=== PATIENT | female | born 1940 | race Caucasian/White ===

== ENCOUNTER 2018-01-04 13:19 | Emergency (ER) | payer MEDICARE, MEDICAID, SELFPAY ==
[2018-01-04] VITALS (64 sets, daily range): BP systolic 70–135; BP diastolic 41–85; PULSE 68–115; RESP 15–99; TEMP 36.7–37; O2SAT 94–99
--- NOTE | 2018-01-04 13:22 | DI.CT_ITS ---
SYMPTOM/DIAGNOSIS: ALTERED MENTAL STATUS NONCONTRAST HEAD CT: Comparison is made with 08/31/17. No intracranial hemorrhage, mass or infarct is seen. There is mild atrophy. There are mild white matter changes consistent with small vessel disease. IMPRESSION: No acute abnormality.
--- NOTE | 2018-01-04 13:22 | DI.RAD_ITS ---
SYMPTOM/DIAGNOSIS: ALTERED MENTAL STATUS AP AND LATERAL CHEST: Comparison is made with 08/31/17 supine chest. The heart size is normal. The aorta is tortuous. A calcification is again noted in the right lower lobe. The exam is limited by overlying sheets, creating artifact, particularly on the lateral view. The lungs are grossly clear. There are mild thoracic compression fractures which appear grossly unchanged when compared with the previous exam. IMPRESSION: No acute abnormality.
--- NOTE | 2018-01-04 13:24 | W.ED.GENAD ---
Discharge Plan Discharge Details Chief Complaint: AMS/LOC Primary Care Provider: Iveth Stearns ED Provider: Elvia Power Home Meds and New Rx's Prescriptions: No Action folic acid 1 MG tablet 1 mg PO DAILY RF: 0 acetaminophen [Tylenol] 325 MG tablet 650 mg PO Q6H PRN PRNRF: 0 cyanocobalamin (vitamin B-12) [Vitamin B-12] 500 MCG tablet 1,000 mcg PO DAILY RF: 0 folic acid 1 MG tablet 1 mg PO DAILY RF: 0 thiamine mononitrate (vit B1) [Vitamin B-1 (mononitrate)] 100 MG tablet 100 mg PO DAILY RF: 0 Medical Decision Making MDM Narrative Medical decision making narrative: Patient presents with primary concern for AMS. Mds Nurse found the patient who would not get out of bed. She was falling asleep frequently. Patient reported to EMS that she had 2L of wine this morning. She appears intoxicated on exam. She is oriented to person and place but when I ask her the year she reports, I know it but I am not going to tell you. This is how much of the exam questioning went. She agreed to some questions but would either act like she did not hear me or blatantly refuse to answer. She is slurring her words. She is moving about the bed, able to sit up quickly without assistance. She has pain in her lower extremities, links this with her history of hip fracture from August of this year. States she falls frequently, unclear as to why. States that this is not new. States she does not drink ETOH daily. I only drink on the weekends. We did bring to her attention that today is Wednesday and she did not respond to this. EKG reviewed by Dr. Melendez. She advised no abnoralities. No findings to suggest ischemic changes. Contacted by radiologist who advised that head CT and chest XR are both 'negative'. EMS had placed an IV, blood was unable to be pulled from this. Lab has come to draw blood but patient is difficult to obtain blood from, this has delayed lab results. Patient is concentrating on laboratory evaluation was primarily concerning for dehydration which is consistent with I am seeing on exam. Ammonia is less than 10. Troponin is within normal limits. Alcohol level is 310. Discussed these findings with the patient. She reports that she has never had alcohol withdrawal induced seizures. She continues to appear intoxicated, is continually needing redirection and slurring her words. Patient does live alone with no family or friends nearby. She is unable to ambulate at this time secondary to her current state. If the patient is unsafe to go home at this time. Will consult with hospitalist. Consulted with list regarding dehydrated and intoxicated patient. He advised admission was inappropriate at this time. He did educate me on the public inebriate program. I did look into this but the nurse program is in [place]. I am concerned that even if we arrange for EMS transfer to that facility tonight she may not be able to get back tomorrow or have difficulty doing so. I am concerned given her frailty and age, as well as her dehydration status, that she is not a good candidate to go into police custody for intoxication. Rather, we will hold her in the department and monitor for clinical sobriety. Discussed patient needing to stay here. She voices understanding. Shortly after patient agreed to admission, she pulled out her IV. This is being replaced by nursing staff. Urine concerning for UTI with positive nitrite and large luek esterace. Will treat with oral Keflex. Patient given first dose here. Discussed these findings with the patient who is now reporting that she had dysurea and increased frequency. Patient appears to have sobered clinically. She is eating and drinking. Has received 2L of fluid. Reports she is feeling 100% better. Has linear train of thought and is appropriate. Requesting discharge. Nursing staff ambulated hte patient. She walks with a walker at baseline. Was unsteady on her feet even with walker. Will continue to monitor and ambulate again. HPI - General Adult General Mode of arrival: EMS. Date/Time Provider Initiated Documentation: 01/04/18 13:52. Limitations to Documentation: altered mental status. Information obtained by: patient and EMS. HPI Narrative: Patient is a 77-year-old female with history of anemia pending today, brought in via EMS, with chief complaint of altered mental status. They report that they were told them for an incoherent elderly female. When they arrived, they report that she was frequently falling asleep. She reported to them that she had 2 L of wine this morning. They report that there is a multitude of wine bottles about the bedroom. It appears that she is not getting out of bed. Appears she is lying in bed, drinking wine and eating peanut butter. She is currently denying any pain. She denies any headache. She denies any visual change. Denies any GI upset. Denies chest pain or shortness of breath. Patient was last hospitalized in August of this year which time she had an ORIF of her left hip. At that time, they were concerned for her daily alcohol consumption as she was near withdrawals. Related Data Previous Rx's Medication Instructions Recorded folic acid 1 mg PO DAILY tab 06/17/15 acetaminophen [Tylenol] 650 mg PO Q6H PRN PRN tab 09/03/17 cyanocobalamin (vitamin B-12) 1,000 mcg PO DAILY tab 09/03/17 [Vitamin B-12] folic acid 1 mg PO DAILY tab 09/03/17 thiamine mononitrate (vit B1) 100 mg PO DAILY tab 09/03/17 [Vitamin B-1 (mononitrate)] Allergies Allergy/AdvReac Type Severity Reaction Status Date / Time aspirin Allergy Intermediate Unverified 01/04/18 15:51 ketorolac AdvReac Mild Other (See Unverified 01/04/18 15:49 Comment) most medication AdvReac Intermediate Uncoded 01/04/18 15:51 lactose intolerant AdvReac Uncoded 01/04/18 15:50 Review of Systems Review of Systems Unobtainable due to mental status PFSH Social History Smoking/Tobacco Use Status: Former Tobacco Use Exam Const General: uncooperative, comfortable, no acute distress, No well groomed (patient is naked except for bed robe), not anxious, not combative, not diaphoretic, frail appearing and intoxicated appearing Nutritional Appearance: thin Orientation: alert and not awake (patient is able to be awakened but then appears to fall back asleep) Limitations: altered mental status [facility] Head: normal to inspection, normocephalic and atraumatic Ears: hearing grossly normal bilaterally Face and sinus: normal facial exam Mouth: moist mucous membranes abnormal (patient appears dry) Teeth and gingiva: abnormal dentition (patient has multiple missing teeth) Eyes General: appearance normal, both eyes and all related structures Conjunctivae: conjunctivae normal Pupils: PERRL and accommodation normal Neck Neck: full ROM and no lymphadenopathy Chest Chest: normal inspection of the chest, no crepitus, no tenderness and No rash Resp Effort & Inspection: normal respiratory effort, able to speak in complete sentences, no respiratory distress, no retractions and no use of accessory muscles Auscultation: clear to auscultation bilaterally Cardio Rate: regular rate Rhythm: regular rhythm Heart Sounds: S1 normal and S2 normal GI Inspection: normal to inspection, no abdominal wall ecchymosis and non-distended Palpation: soft, no hepatosplenomegaly, not firm, no guarding, no masses, not rigid and nontender Auscultation: normal bowel sounds Back/Spine/Pelvis Other: No rashes, ecchymosis or signs of trauma Skin General skin exam: no rashes or lesions noted Lesions: no lesions Rashes: no rashes Trauma: no lacerations or abrasions Wounds: no wounds Nails: nails abnormal (patient has few fake nails making O2 difficult to obtain initially) and no clubbing Neuro General: alert, oriented Patient Orientation: Person and Place, normal light touch, pain and propioception, no meningeal signs and CN's II-XI intact bilaterally Cranial Nerves: PERRL, accommodation normal and EOM intact bilaterally Cognition: abnormal cognition Speech: abnormal speech slurred Gait: gait abnormal (patient was found in bed by EMS, has not attempted to stand, they are concerned that )
--- NOTE | 2018-01-04 13:40 | ED.GENADUL_ITS ---
Discharge Plan Discharge Details Chief Complaint: AMS/LOC Primary Care Provider: Iveth Stearns ED Provider: Elvia Power Home Meds and New Rx's Prescriptions: No Action folic acid 1 MG tablet 1 mg PO DAILY RF: 0 acetaminophen [Tylenol] 325 MG tablet 650 mg PO Q6H PRN PRNRF: 0 cyanocobalamin (vitamin B-12) [Vitamin B-12] 500 MCG tablet 1,000 mcg PO DAILY RF: 0 folic acid 1 MG tablet 1 mg PO DAILY RF: 0 thiamine mononitrate (vit B1) [Vitamin B-1 (mononitrate)] 100 MG tablet 100 mg PO DAILY RF: 0 Medical Decision Making MDM Narrative Medical decision making narrative: Patient presents with primary concern for AMS. [employer] found the patient who would not get out of bed. She was falling asleep frequently. Patient reported to EMS that she had 2L of wine this morning. She appears intoxicated on exam. She is oriented to person and place but when I ask her the year she reports, I know it but I am not going to tell you. This is how much of the exam questioning went. She agreed to some questions but would either act like she did not hear me or blatantly refuse to answer. She is slurring her words. She is moving about the bed, able to sit up quickly without assistance. She has pain in her lower extremities, links this with her history of hip fracture from August of this year. States she falls frequently, unclear as to why. States that this is not new. States she does not drink ETOH daily. I only drink on the weekends. We did bring to her attention that today is Wednesday and she did not respond to this. EKG reviewed by Dr. Melendez. She advised no abnoralities. No findings to suggest ischemic changes. Contacted by radiologist who advised that head CT and chest XR are both ' negative'. EMS had placed an IV, blood was unable to be pulled from this. Lab has come to draw blood but patient is difficult to obtain blood from, this has delayed lab results. Patient is concentrating on laboratory evaluation was primarily concerning for dehydration which is consistent with I am seeing on exam. Ammonia is less than 10. Troponin is within normal limits. Alcohol level is 310. Discussed these findings with the patient. She reports that she has never had alcohol withdrawal induced seizures. She continues to appear intoxicated, is continually needing redirection and slurring her words. Patient does live alone with no family or friends nearby. She is unable to ambulate at this time secondary to her current state. If the patient is unsafe to go home at this time. Will consult with hospitalist. Consulted with list regarding dehydrated and intoxicated patient. He advised admission was inappropriate at this time. He did educate me on the public inebriate program. I did look into this but the nurse program is in [place]. I am concerned that even if we arrange for EMS transfer to that facility tonight she may not be able to get back tomorrow or have difficulty doing so. I am concerned given her frailty and age, as well as her dehydration status, that she is not a good candidate to go into police custody for intoxication. Rather, we will hold her in the department and monitor for clinical sobriety. Discussed patient needing to stay here. She voices understanding. Shortly after patient agreed to admission, she pulled out her IV. This is being replaced by nursing staff. Urine concerning for UTI with positive nitrite and large luek esterace. Will treat with oral Keflex. Patient given first dose here. Discussed these findings with the patient who is now reporting that she had dysurea and increased frequency. Patient appears to have sobered clinically. She is eating and drinking. Has received 2L of fluid. Reports she is feeling 100% better. Has linear train of thought and is appropriate. Requesting discharge. Nursing staff ambulated hte patient. She walks with a walker at baseline. Was unsteady on her feet even with walker. Will continue to monitor and ambulate again. HPI - General Adult General Mode of arrival: EMS . Date/Time Provider Initiated Documentation: 01/04/18 13:52 . Limitations to Documentation: altered mental status . Information obtained by: patient and EMS . HPI Narrative: Patient is a 77-year-old female with history of anemia pending today, brought in via EMS, with chief complaint of altered mental status. They report that they were told them for an incoherent elderly female. When they arrived, they report that she was frequently falling asleep. She reported to them that she had 2 L of wine this morning. They report that there is a multitude of wine bottles about the bedroom. It appears that she is not getting out of bed. Appears she is lying in bed, drinking wine and eating peanut butter. She is currently denying any pain. She denies any headache. She denies any visual change. Denies any GI upset. Denies chest pain or shortness of breath. Patient was last hospitalized in August of this year which time she had an ORIF of her left hip. At that time, they were concerned for her daily alcohol consumption as she was near withdrawals. Related Data Previous Rx's Medication Instructions Recorded folic acid 1 mg PO DAILY tab 06/17/15 acetaminophen [Tylenol] 650 mg PO Q6H PRN PRN tab 09/03/17 cyanocobalamin (vitamin B-12) 1,000 mcg PO DAILY tab 09/03/17 [Vitamin B-12] folic acid 1 mg PO DAILY tab 09/03/17 thiamine mononitrate (vit B1) 100 mg PO DAILY tab 09/03/17 [Vitamin B-1 (mononitrate)] Allergies Allergy/AdvReac Type Severity Reaction Status Date / Time aspirin Allergy Intermediate Unverified 01/04/18 15:51 ketorolac AdvReac Mild Other (See Unverified 01/04/18 15:49 Comment) most medication AdvReac Intermediate Uncoded 01/04/18 15:51 lactose intolerant AdvReac Uncoded 01/04/18 15:50 Review of Systems Review of Systems Unobtainable due to mental status PFSH Social History Smoking/Tobacco Use Status: Former Tobacco Use Exam Const General: uncooperative, comfortable, no acute distress, No well groomed ( patient is naked except for bed robe), not anxious, not combative, not diaphoretic, frail appearing and intoxicated appearing Nutritional Appearance: thin Orientation: alert and not awake (patient is able to be awakened but then appears to fall back asleep) Limitations: altered mental status [facility] Head: normal to inspection, normocephalic and atraumatic Ears: hearing grossly normal bilaterally Face and sinus: normal facial exam Mouth: moist mucous membranes abnormal (patient appears dry) Teeth and gingiva: abnormal dentition (patient has multiple missing teeth) Eyes General: appearance normal, both eyes and all related structures Conjunctivae: conjunctivae normal Pupils: PERRL and accommodation normal Neck Neck: full ROM and no lymphadenopathy Chest Chest: normal inspection of the chest, no crepitus, no tenderness and No rash Resp Effort & Inspection: normal respiratory effort, able to speak in complete sentences, no respiratory distress, no retractions and no use of accessory muscles Auscultation: clear to auscultation bilaterally Cardio Rate: regular rate Rhythm: regular rhythm Heart Sounds: S1 normal and S2 normal GI Inspection: normal to inspection, no abdominal wall ecchymosis and non-distended Palpation: soft, no hepatosplenomegaly, not firm, no guarding, no masses, not rigid and nontender Auscultation: normal bowel sounds Back/Spine/Pelvis Other: No rashes, ecchymosis or signs of trauma Skin General skin exam: no rashes or lesions noted Lesions: no lesions Rashes: no rashes Trauma: no lacerations or abrasions Wounds: no wounds Nails: nails abnormal (patient has few fake nails making O2 difficult to obtain initially) and no clubbing Neuro General: alert, oriented Patient Orientation: Person and Place, normal light touch, pain and propioception, no meningeal signs and CN's II-XI intact bilaterally Cranial Nerves: PERRL, accommodation normal and EOM intact bilaterally Cognition: abnormal cognition Speech: abnormal speech slurred Gait: gait abnormal (patient was found in bed by EMS, has not attempted to stand , they are concerned that )
--- NOTE | 2018-01-04 13:45 | NUR.NOTE ---
To CT and xray with [employer] Note:
--- NOTE | 2018-01-04 14:07 | NUR.NOTE ---
Return from xray/CT with [employer] Note:
[2018-01-04] MEDS: Normal Saline 1,000 ML 1000 ML IV (14:20)
[2018-01-04] MEDS: Normal Saline Flush 10 ML SYR IVP (14:41)
[2018-01-04 15:04] LABS: Abs Immature Grans 0.01 k/cumm (0.0-0.09); Absolute Basophil Count 0.05 k/cumm (0.0-0.2); Absolute Eosinophil Count 0.06 k/cumm (0.0-0.7); Absolute Lymphocyte Count 2.35 k/cumm (1.2-3.4); Absolute Monocyte Count 0.57 k/cumm (0.11-0.7); Absolute Neutrophil Count 2.23 k/cumm (1.2-6.7); Basophils % 0.9; Eosinophils % 1.1; HCT 49.5 % (36.0-46.0); HGB 15.7 g/dL (12.0-15.5); Immature Grans % 0.2; Lymphocytes % 44.6; Mean Corp. HGB Concentration 31.7 g/dL (32.0-36.0); Mean Corpuscular Hemoglobin 31.8 pg (27.0-33.0); Mean Corpuscular Volume 100.4 fL (80-95); Mean Platelet Volume 9.4 fL (8.0-11.0); Monocytes % 10.8; Neutrophils % 42.4; Platelet Count 274 x1000/uL (130-400); RBC 4.93 m/cumm (4.00-5.20); RBC Distribution Width 14.8 % (11.7-14.6); White Blood Cell Count 5.27 k/cumm (4.4-10.8)
[2018-01-04 15:16] LABS: Prothrombin Time 10.2 sec (9.3-10.8)
[2018-01-04 15:19] LABS: Ammonia < 10 umol/L (11-32)
[2018-01-04 15:48] LABS: ALT 14 U/L (12-78); AST 29 U/L (15-37); Albumin 3.4 g/dL (3.4-5.0); Alkaline Phosphatase 133 U/L (46-116); Anion Gap 12.5 mmol/L (3-11); BUN 4 mg/dL (7-18); Bilirubin, Total 0.3 mg/dL (0.2-1.0); CO2 25.5 mmol/L (21.0-32.0); CREATININE 0.47 mg/dL (0.55-1.02); Calcium 8.1 mg/dL (8.5-10.1); Chloride 112 mmol/L (98-107); Glucose 76 mg/dL (70-100); Potassium 4.2 mmol/L (3.5-5.1); Sodium 150 mmol/L (136-145); TSH 0.89 uIU/mL (0.358-3.74); Total Protein 6.7 g/dL (6.4-8.2)
[2018-01-04 15:55] LABS: ETHANOL BLOOD 310.9 mg/dL (<3); Troponin I < 0.02 ng/mL (0.00-0.06)
[2018-01-04] MEDS: Lactated Ringers 1,000 ML 200 ML IV (16:30)
[2018-01-04 17:36] LABS: Bilirubin Negative (Negative); Blood Trace-intact (Negative); Clarity Cloudy; Glucose Negative (Negative); Ketones Negative (Negative); Leukocyte Esterase Large (Negative); Nitrite Positive (Negative); Urobilinogen 0.2 EU/dL (Up TO 0.2); pH 5.5 (5-8)
[2018-01-04 17:58] LABS: Bacteria Many HPF (Negative); C & S Indicated? Yes; Casts Negative LPF (Negative); Crystals Negative HPF (Negative); Epithelial Cells Negative HPF (Negative); Mucus Negative (Negative); Other Cells Moderate Renal (Negative); RBC 0-2 (0-2); WBC >50 HPF (0-5)
[2018-01-04] MEDS: Cephalexin 500 MG CAP PO (18:37)
--- NOTE | 2018-01-04 19:26 | NUR.NOTE ---
Nursing Note: Received report from previous shift. Pt is alert, appropriate, using call light appropriately as needed. Requesting lights to be turned down to rest at this time. Will CTM.
--- NOTE | 2018-01-04 21:17 | W.ED.FU ---
Follow Up Plan: patient signed out to me pending clinical sobirety. PAtient is now caox4 and is ambuatling with walker at her baseline with steady gait using this. She is tolerating PO and has no complaints at this time, will d/c home
--- NOTE | 2018-01-07 12:18 | PDOC.ERCMPRO ---
Care Management Progress Note 01/07/18-Pt was seen on 01/05/18 by Rosalba for a UTI. MAMADOU Bermeo is f/u has ordered the Pt oral Keflex through [employer]. CM contacted Pt to let her know that it has been ordered and will be delivered to her by [employer] canal driver.
--- NOTE | 2018-01-07 12:23 | CMPROGNOTE_ITS ---
Care Management Progress Note 01/07/18-Pt was seen on 01/05/18 by Rosalba for a UTI. MAMADOU Bermeo is f/u has ordered the Pt oral Keflex through [employer]. CM contacted Pt to let her know that it has been ordered and will be delivered to her by [email or web address]'s fuel truck driver.
--- NOTE | 2018-03-26 12:53 | W.ED.GENAD ---
Discharge Plan Disposition Patient Disposition: HOME Condition: Stable Discharge Details Chief Complaint: AMS/LOC Clinical Impression: Alcohol intoxication Primary Care Provider: Iveth Stearns ED Provider: Kev Sandoval Home Meds and New Rx's Prescriptions: Continue folic acid 1 MG tablet 1 mg PO DAILY RF: 0 acetaminophen [Tylenol] 325 MG tablet 650 mg PO Q6H PRN PRNRF: 0 cyanocobalamin (vitamin B-12) [Vitamin B-12] 500 MCG tablet 1,000 mcg PO DAILY RF: 0 folic acid 1 MG tablet 1 mg PO DAILY RF: 0 thiamine mononitrate (vit B1) [Vitamin B-1 (mononitrate)] 100 MG tablet 100 mg PO DAILY RF: 0 Discharge Instructions Instructions: Alcohol Intoxication (ED) Discharge Data Discharge Date/Time-TO BE ENTERED AT DEPARTURE: 01/04/18 21:26 Discharge Physician: Kev Sandoval Medical Decision Making Patient was in the patient's visit on 01/04/2018. Initial note seems to have been accidentally deleted. Patient is 77-year-old female, brought in via EMS, with chief complaint of altered mental status. EMS was called by her health and wellness director who found her inebriated in bed. EMS reports that she had a large box of multitude of empty wine bottles near her bed and a 2 L empty wine bottle next to the bed. She reports I only drink on the weekends. Today is Wednesday. She is fighting nursing staff but is fairly cooperative with myself. Her mentation seems to be variable. Initially, patient was acting as if she could not hear as but then quickly was able to come to when we discussed sternal rub. Patient does answer questions appropriately. Patient appears and smells intoxicated. Patient has history of anemia, cataracts, myocardial infarction. BGL obtained prior to arrival is 111. Patient denies any pain, feels that she is at baseline. She is easily agitated, very labile. Neuro exam is slightly limited secondary to patient's mental status. She has been rambling frequently with no linear thought process. However, she is able to move all of her extremities. Cranial nerves are intact. Answers questions appropriately when awoken. No pronator drift or evidence of stroke at this time. Plan to obtain CT and laboratory evaluation. Discussed this plan with the patient Patient denies suicidal or homocidal ideation. She does report that she is lonely, does not frequently have visitors. Has a person come to her home to help her shop, states that she frequently goes without eating but has been having peanut butter recently as she went grocery shopping. EKG reviewed by Dr. Melendez. No acute ischemic changes noted. Patient is in sinus rhythm with a rate of 93. Laboratory evaluation significant for concentration, patient appears dehydrated. Alk phos is elevated, has not been elevated historically. Patient is clinically improving. Does not appear completely sober but is improving. She and I discussed her elevated alk phos, she will have this reassessed by PCP. Urine significant for trace blood, large amount of leukocyte esterase, nitrite positive. She denies urinary symptoms but with these findings, will begin patient on abx for UTI. I am concerned that her intoxicated state is clouding her judgement of her urinary symptoms. UDS negative. ETOH 310. Spoke with Dr. Diaz regarding cxr and CT. CXR without acute cardiopulmonary process. CT of head signficiant for mild atropy, no hemorrhage or infarct noted. Patient has received hydration while here. Secondary to her dehydration, age and intoxicated state, I do not feel that she is candidate for discharge home safely. Will consult with hosptialist. Spoke with Dr. Park who did not feel that patient was appropriate for inpatient admission. He gave insight into local places that patient may be able to be housed for the night. We were unable to find appropriate housing for the patient tonight. She will remain in the department until clinically sober. Patient diagnosed with dehydration, alcohol intoxication and UTI. Care transitioned to Dr. Sandoval at the end of my shift, clinical sobriety pending. HPI General Mode of arrival: EMS. Date/Time Provider Initiated Documentation: 01/04/18 13:52. Limitations to Documentation: altered mental status. Information obtained by: patient and EMS. History of Present Illness 77 year old F presents to the emergency department with the chief complaint of AMS, described as moderate, Patient started experiencing this unknown and it has been intermittent. Patient notes denies chest pain, cough, fever/chills, headaches, nausea/vomiting, rash, shortness of breath and weakness. Patient did receive the following treatments prior to arrival, none Related Data Home Medications Medication Instructions Recorded Confirmed folic acid 1 mg PO DAILY tab 06/17/15 08/31/17 acetaminophen [Tylenol] 650 mg PO Q6H PRN PRN tab 09/03/17 01/04/18 cyanocobalamin (vitamin B-12) 1,000 mcg PO DAILY tab 09/03/17 01/04/18 [Vitamin B-12] folic acid 1 mg PO DAILY tab 09/03/17 01/04/18 thiamine mononitrate (vit B1) 100 mg PO DAILY tab 09/03/17 01/04/18 [Vitamin B-1 (mononitrate)] Previous Rx's Medication Instructions Recorded folic acid 1 mg PO DAILY tab 06/17/15 acetaminophen [Tylenol] 650 mg PO Q6H PRN PRN tab 09/03/17 cyanocobalamin (vitamin B-12) 1,000 mcg PO DAILY tab 09/03/17 [Vitamin B-12] folic acid 1 mg PO DAILY tab 09/03/17 thiamine mononitrate (vit B1) 100 mg PO DAILY tab 09/03/17 [Vitamin B-1 (mononitrate)] Allergies Allergy/AdvReac Type Severity Reaction Status Date / Time aspirin Allergy Intermediate Unverified 01/04/18 15:51 ketorolac AdvReac Mild Other (See Unverified 01/04/18 15:49 Comment) most medication AdvReac Intermediate Uncoded 01/04/18 15:51 lactose intolerant AdvReac Uncoded 01/04/18 15:50 General Stated Complaint: AMS/LOC NYA: 2 Review of Systems Constitutional Reports as per HPI, Denies chills, Denies fatigue, Denies fever(s), Denies headache(s) and Denies weakness Eyes Denies change in vision ENT Denies headache(s) Cardiovascular Reports as per HPI, Denies chest pain, Denies lightheadedness, Denies dyspnea and Denies dyspnea on exertion Respiratory Denies dyspnea and Denies dyspnea on exertion Gastrointestinal Reports as per HPI, Denies abdominal pain, Denies change in bowel habits, Denies nausea and Denies vomiting Musculoskeletal Denies abnormal gait Integumentary/Breasts Reports as per HPI and Denies rash Neurologic Denies abnormal gait, Denies headache(s) and Denies weakness Psychiatric Denies abnormal sleep pattern, Denies visual hallucinations, Denies hallucinations, Denies homicidal ideation and Denies suicidal ideation Endocrine Denies fatigue PFSH Social History Smoking/Tobacco Use Status: Former Tobacco Use Social History Smoking/Tobacco Use Status: Former Tobacco Use Exam Const General: comfortable, no acute distress, well developed and intoxicated appearing Nutritional Appearance: well nourished and cachectic Orientation: alert, awake and oriented x3 [facility] Head: normal to inspection, no palpable skull fracture, normocephalic and atraumatic Ears: hearing grossly normal bilaterally, external ears normal and TM's normal bilaterally General nose exam: external nose normal Face and sinus: normal facial exam and sinuses nontender Mouth: oral mucosae normal, lip normal, tongue normal and moist mucous membranes Throat: posterior oropharynx normal, tonsils normal and uvula midline Eyes General: appearance normal, both eyes and all related structures Alignment and Position: alignment normal Periorbital: periorbital findings normal Eyelids: eyelids normal Sclera: sclerae normal Cornea: corneas normal Pupils: PERRL EOM: EOM intact bilaterally Neck Neck: normal visual inspection, full ROM, no lymphadenopathy and no meningeal signs Chest Chest: normal inspection of the chest Resp Effort & Inspection: normal respiratory effort, able to speak in complete sentences and no respiratory distress Auscultation: clear to auscultation bilaterally, no rales, no rhonchi and no wheezes Cardio Rate: regular rate Rhythm: regular rhythm Heart Sounds: S1 normal and S2 normal GI Inspection: normal to inspection, no abdominal wall ecchymosis and non-distended Palpation: soft, no hepatosplenomegaly, no aortic enlargement, not firm, no guarding, not rigid and nontender Auscultation: normal bowel sounds Back/Spine/Pelvis Back: no CVA tenderness Skin General skin exam: no rashes or lesions noted Trauma: no lacerations or abrasions Neuro General: alert, awake, oriented x3 (patient refuses to answer questions intermittently but will answer appropriately when she does), gait abnormal (patient brought in via EMS, has not ambulated), tone normal, moves all extremities, no meningeal signs and no focal motor deficits Cranial Nerves: CN's II-XI intact bilaterally Cognition: normal cognition Speech: speech normal Motor: muscle tone normal throughout Sensory Exam: no sensory deficits noted Coordination: [id number] test normal Extrem General: no pedal edema and no calf tenderness Psych Appearance: grossly normal and disheveled Mental Status: mental status grossly normal (patient is appropriate when awake but appears intoxicated) Speech and Movement: agitated (patient is easily aggrivated ) Course Vital Signs Temperature 36.7 C 01/04/18 13:23 Pulse 90 01/04/18 13:23 Respiratory Rate 21 01/04/18 13:23 Blood Pressure 124/63 01/04/18 13:23 Temperature 36.7 C 01/04/18 21:25 Temperature Source Temporal Artery Scan 01/04/18 18:31 Pulse 91 H 01/04/18 21:00 Pulse 91 H 01/04/18 21:01 Respiratory Rate 20 01/04/18 21:01 Respiratory Effort 01/04/18 13:58 Respiratory Depth Normal 01/04/18 13:50 Respiratory Pattern Normal 01/04/18 13:50 Blood Pressure 131/61 01/04/18 21:00 Blood Pressure Mean 77 01/04/18 21:00 Blood Pressure Position Supine 01/04/18 13:23 Pulse Oximetry 96 01/04/18 21:01 Oxygen Delivery Method Room Air 01/04/18 18:31 Oxygen Flow Rate 0 01/04/18 18:31 Pain Level 0 01/04/18 16:23 Lab/Test Results Lab/Test Results: 01/04/18 17:20 Urine - Reflex from Ua Urine Culture - Final Enterobacter Cloacae Complex Laboratory Tests Range/Units 01/04/18 01/04/18 01/04/18 14:52 14:52 14:52 WBC (4.4-10.8) k/cumm 5.27 RBC (4.00-5.20) m/cumm 4.93 Hgb (12.0-15.5) g/dL 15.7 H Hct (36.0-46.0) % 49.5 H MCV (80-95) fL 100.4 H MCH (27.0-33.0) pg 31.8 MCHC (32.0-36.0) g/dL 31.7 L RDW (11.7-14.6) % 14.8 H Plt Count (130-400) x1000/uL 274 MPV (8.0-11.0) fL 9.4 Immature Gran % 0.2 Neutrophils % 42.4 Lymphocytes % 44.6 Monocytes % 10.8 Eosinophils % 1.1 Basophils % 0.9 Absolute Neutrophils (1.2-6.7) k/cumm 2.23 Absolute Lymphocytes (1.2-3.4) k/cumm 2.35 Absolute Monocytes (0.11-0.7) k/cumm 0.57 Absolute Eosinophils (0.0-0.7) k/cumm 0.06 Absolute Basophils (0.0-0.2) k/cumm 0.05 PT (9.3-10.8) sec INR (1.0-3.5) Sodium (136-145) mmol/L 150 H Potassium (3.5-5.1) mmol/L 4.2 Chloride (98-107) mmol/L 112 H Carbon Dioxide (21.0-32.0) mmol/L 25.5 Anion Gap (3-11) mmol/L 12.5 H BUN (7-18) mg/dL 4 L Creatinine (0.55-1.02) mg/dL 0.47 L Estimated GFR/1.73 m2 (mL/min/1.73m2) >= 60.00 Glucose (70-100) mg/dL 76 Calcium (8.5-10.1) mg/dL 8.1 L Magnesium (1.8-2.4) mg/dL 2.0 Total Bilirubin (0.2-1.0) mg/dL 0.3 AST (15-37) U/L 29 ALT (12-78) U/L 14 Alkaline Phosphatase (46-116) U/L 133 H Ammonia (11-32) umol/L < 10 L Troponin I (0.00-0.06) ng/mL < 0.02 Total Protein (6.4-8.2) g/dL 6.7 Albumin (3.4-5.0) g/dL 3.4 TSH (0.358-3.74) uIU/mL 0.89 Urine Color (Yellow) Urine Clarity Urine pH (5-8) Ur Specific R[place] (1.005-1.025) Urine Protein (Negative) mg/dL Urine Ketones (Negative) mg/dL Urine Blood (Negative) Urine Nitrite (Negative) Urine Bilirubin (Negative) Urine Urobilinogen (Up TO 0.2) EU/dL Ur Leukocyte Esterase (Negative) Urine RBC (0-2) Urine WBC (0-5) HPF Ur Epithelial Cells (Negative) HPF Urine Crystals (Negative) HPF Urine Bacteria (Negative) HPF Urine Casts (Negative) LPF Urine Mucus (Negative) Urine Other (Negative) Ur Culture Indicated? Urine Glucose (Negative) mg/dL Ethyl Alcohol (<3) mg/dL 310.9 Range/Units 01/04/18 01/04/18 14:52 17:20 WBC (4.4-10.8) k/cumm RBC (4.00-5.20) m/cumm Hgb (12.0-15.5) g/dL Hct (36.0-46.0) % MCV (80-95) fL MCH (27.0-33.0) pg MCHC (32.0-36.0) g/dL RDW (11.7-14.6) % Plt Count (130-400) x1000/uL MPV (8.0-11.0) fL Immature Gran % Neutrophils % Lymphocytes % Monocytes % Eosinophils % Basophils % Absolute Neutrophils (1.2-6.7) k/cumm Absolute Lymphocytes (1.2-3.4) k/cumm Absolute Monocytes (0.11-0.7) k/cumm Absolute Eosinophils (0.0-0.7) k/cumm Absolute Basophils (0.0-0.2) k/cumm PT (9.3-10.8) sec 10.2 INR (1.0-3.5) 1.0 Sodium (136-145) mmol/L Potassium (3.5-5.1) mmol/L Chloride (98-107) mmol/L Carbon Dioxide (21.0-32.0) mmol/L Anion Gap (3-11) mmol/L BUN (7-18) mg/dL Creatinine (0.55-1.02) mg/dL Estimated GFR/1.73 m2 (mL/min/1.73m2) Glucose (70-100) mg/dL Calcium (8.5-10.1) mg/dL Magnesium (1.8-2.4) mg/dL Total Bilirubin (0.2-1.0) mg/dL AST (15-37) U/L ALT (12-78) U/L Alkaline Phosphatase (46-116) U/L Ammonia (11-32) umol/L Troponin I (0.00-0.06) ng/mL Total Protein (6.4-8.2) g/dL Albumin (3.4-5.0) g/dL TSH (0.358-3.74) uIU/mL Urine Color (Yellow) Yellow Urine Clarity Cloudy Urine pH (5-8) 5.5 Ur Specific [place] (1.005-1.025) 1.010 Urine Protein (Negative) mg/dL Negative Urine Ketones (Negative) mg/dL Negative Urine Blood (Negative) Trace-intact H Urine Nitrite (Negative) Positive H Urine Bilirubin (Negative) Negative Urine Urobilinogen (Up TO 0.2) EU/dL 0.2 Ur Leukocyte Esterase (Negative) Large H Urine RBC (0-2) 0-2 Urine WBC (0-5) HPF >50 Ur Epithelial Cells (Negative) HPF Negative Urine Crystals (Negative) HPF Negative Urine Bacteria (Negative) HPF Many Urine Casts (Negative) LPF Negative Urine Mucus (Negative) Negative Urine Other (Negative) Moderate renal Ur Culture Indicated? Yes Urine Glucose (Negative) mg/dL Negative Ethyl Alcohol (<3) mg/dL Sign Out Sign Out Data: Sign Out Comment: Patient will stay in department until clinically sober. Care transitioned to Dr. Sandoval. Last updated by Elvia Power PA at 01/04/18 20:49
== END 2018-01-04 21:26 | disposition home or self-care (01) ==
PROVIDERS: Physician Assistant; Emergency Provider Emergency Medicine
DX: F10.129 Alcohol abuse with intoxication, unspecified (principal); Y90.8 Blood alcohol level of 240 mg/100 ml or more; N39.0 Urinary tract infection, site not specified; B96.89 Other specified bacterial agents as the cause of diseases classified elsewhere; E86.0 Dehydration
CPT/HCPCS: 36415; 36416; 80053; 82962; 87077; 93005; 96360; 96361; 99284; 70450; 71046; 80320; 81003; 81015; 82140; 83735; 84443; 84484; 85025; 85610; 87086; 87186; 93010

== ENCOUNTER 2018-07-20 10:54 | Emergency (ER) | payer MEDICARE, MEDICAID, SELFPAY ==
[2018-07-20] VITALS (18 sets, daily range): BP systolic 39–117; BP diastolic 13–83; PULSE 64–146; RESP 16–35; TEMP 35.5; O2SAT 96–99
--- NOTE | 2018-07-20 11:17 | DI.CT_ITS ---
SYMPTOMS/DIAGNOSIS: MULTIPLE FALLS, INTOXICATED NONCONTRAST HEAD CT: Comparison is made with [id number]. No intracranial hemorrhage, mass or infarct is seen. There is mild atrophy and white matter changes of small vessel disease. There is no evidence of skull fracture. The sinuses and mastoid air cells appear clear. IMPRESSION: Atrophy and small vessel disease. No acute abnormality. CT OF THE CERVICAL SPINE: There is some reversal of the normal cervical lordosis likely secondary to patient positioning. Degenerative changes are seen at C 5 - 6 and C 6 - 7. Facet degenerative changes are also present throughout. There is no evidence of prevertebral soft tissue swelling. No pneumothorax is seen at the lung apices. There is mild upper lobe emphysematous changes as well as interstitial changes. IMPRESSION: Degenerative changes. No acute abnormality.
--- NOTE | 2018-07-20 11:25 | ED.GENADUL_ITS ---
Discharge Plan Disposition Patient Disposition: HOME Condition: Good Discharge Details Chief Complaint: GenMedical Clinical Impression: Fall, Alcoholism, chronic Primary Care Provider: Iveth Stearns ED Provider: Hossein Wang Home Meds and New Rx's Prescriptions: No Action folic acid 1 MG tablet 1 mg PO DAILY RF: 0 acetaminophen [Tylenol] 325 MG tablet 650 mg PO Q6H PRN PRNRF: 0 cyanocobalamin (vitamin B-12) [Vitamin B-12] 500 MCG tablet 1,000 mcg PO DAILY RF: 0 folic acid 1 MG tablet 1 mg PO DAILY RF: 0 thiamine mononitrate (vit B1) [Vitamin B-1 (mononitrate)] 100 MG tablet 100 mg PO DAILY RF: 0 Discharge Instructions Instructions: Fall Prevention (ED) Additional Instructions: Please decrease your regular alcohol intake. If you need any help at home, please contact us here in the emergency department and we can set you up with the resources that we offered for you today. If you notice any worsening of your symptoms, or any new symptoms such as vomiting, diarrhea, fever, chills, shortness of breath, chest pain, numbness, weakness, or fainting , please return immediately to the emergency department for reevaluation. Please follow up with your primary care provider as soon as possible for reassessment and reevaluation. As always, it was a pleasure participating in your medical care today. Referrals: Iveth Stearns MD [Primary Care Provider] - Medical Decision Making This is a 77-year-old female who presents today for evaluation of multiple falls. She lives alone and is a known alcoholic. EMS was called after she fell again today, she was noted to have soiled herself. Physical exam demonstrates dried feces of her buttock legs and back, however no other significant abnormalities. No evidence of trauma, neck back or lumbar pain, or focal neurologic deficit that I can appreciate. Patient responds all questions, does appear mildly intoxicated, but shows no significant abnormality on exam otherwise. Because of her multiple recurrent falls, we will evaluate for both metabolic and traumatic abnormality. Although she has no complaint of pain in her ribs chest neck or back, we will get an x-ray of her pelvis, as well as a CT of her head and neck 2:33 PM Laboratory workup has returned, patient has no significant white count, no significant anemia. Electrolytes relatively benign, minimal increase in sodium, chloride minimally elevated. No evidence of severe hyponatremia, BUN/creatinine stable. Calcium corrected is actually 9.2 and within normal limits. The patient looks very well clinically, she is eating and drinking here. She has gotten up and is ambulated, and shows no significant focal neurologic deficit. She appears clinically sober at this time, and shows no signs of significant int oxication. She is requesting multiple times to be discharged. We have talked to her transplant case manager, who has spoken with the patient, the patient does not want any additional resources or help at this time. She feels ready to go. We will get our CT to bring her home. With a negative CT scan of the head and neck, stable pelvis, and no complaints or pains or signs of trauma on exam, feel she can be discharged. I have extensively reviewed the treatment plan and discharge instructions with the patient. I have addressed all patient concerns at this time. The patient was made aware of what symptoms to monitor for that would warrant a return to the emergency department. Discussed the plan with the patient, they demonstrate verbal understanding and agreement with our assessment and plan at this time. The patient is able to speak clearly. There is no demonstration of any slurring of speech. There is evidence of clear decision making capacity. Patient is able to ambulate well without any difficulty. There are no signs of ataxia or stumbling motions. EKG 12: 11 Rate 71, intervals normal, sinus rhythm, no significant ST elevations or depressions. There is an inverted T wave in V1, no other significant abnormalities. Questionable Q wave in V2. NONCONTRAST HEAD CT: Comparison is made with [id number]. No intracranial hemorrhage, mass or infarct is seen. There is mild atrophy and white matter changes of small vessel disease. There is no evidence of skull fracture. The sinuses and mastoid air cells appear clear. IMPRESSION: Atrophy and small vessel disease. No acute abnormality. CT OF THE CERVICAL SPINE: There is some reversal of the normal cervical lordosis likely secondary to patient positioning. Degenerative changes are seen at C 5 - 6 and C 6 - 7. Facet degenerative changes are also present throughout. There is no evidence of prevertebral soft tissue swelling. No pneumothorax is seen at the lung apices. There is mild upper lobe emphysematous changes as well as interstitial changes. IMPRESSION: Degenerative changes. No acute abnormality. HPI General Date/Time Provider Initiated Documentation: 07/20/18 10:56 . HPI Narrative: This is a 77-year-old female with a past medical history of chronic alcoholism who presents today for evaluation of falls. Patient lives alone, and per EMS maintenance at her apartment has been called multiple times to help her up over the last few days he has a multiple falls. She is a chronic alcoholic and drinks regularly. EMS reports that there [address] in her apartment. Today maintenance heard her fall while they were outside of her room, came in to assess her, the patient had soiled herself. Currently the patient has no complaints and was initially refusing transport. Patient does admit to notable alcoholism, but denies any complaint of headache, chest pain abdominal pain or pelvic pain. No other complaints or modifying factors at this time. The patient denies being on any blood thinners Related Data Home Medications Medication Instructions Recorded Confirmed folic acid 1 mg PO DAILY tab 06/17/15 08/31/17 acetaminophen [Tylenol] 650 mg PO Q6H PRN PRN tab 09/03/17 01/04/18 cyanocobalamin (vitamin B-12) 1,000 mcg PO DAILY tab 09/03/17 01/04/18 [Vitamin B-12] folic acid 1 mg PO DAILY tab 09/03/17 01/04/18 thiamine mononitrate (vit B1) 100 mg PO DAILY tab 09/03/17 01/04/18 [Vitamin B-1 (mononitrate)] Previous Rx's Medication Instructions Recorded folic acid 1 mg PO DAILY tab 06/17/15 acetaminophen [Tylenol] 650 mg PO Q6H PRN PRN tab 09/03/17 cyanocobalamin (vitamin B-12) 1,000 mcg PO DAILY tab 09/03/17 [Vitamin B-12] folic acid 1 mg PO DAILY tab 09/03/17 thiamine mononitrate (vit B1) 100 mg PO DAILY tab 09/03/17 [Vitamin B-1 (mononitrate)] Allergies Allergy/AdvReac Type Severity Reaction Status Date / Time aspirin Allergy Intermediate Unverified 01/04/18 15:51 ketorolac AdvReac Mild Other (See Unverified 01/04/18 15:49 Comment) most medication AdvReac Intermediate Uncoded 01/04/18 15:51 lactose intolerant AdvReac Uncoded 01/04/18 15:50 General NYA: 2 Review of Systems Review of Systems All systems reviewed & are unremarkable except as noted in HPI and below PFSH Social History Smoking/Tobacco Use Status: Former Tobacco Use Drug use: Never Do you feel safe in your relationship?: Yes Exam Narrative Exam Narrative: 1.Const: Well-nourished, Well-developed, appearing stated age 2.Eyes: PERRL, no conjunctival injection, and symmetrical lids. 3.ENT: Atraumatic external nose and ears. Moist MM. Neck: Symmetric, trachea midline, No thyromegaly. There is no evidence of raccoon eyes, sigala sign, CSF rhinorrhea, mastoid tenderness, cranial crepitus, hemotympanum, exophthalmos, or hyphema. Patient demonstrates intact dentition with no signs of tooth avulsion or fracture, no signs of jaw deformity, no evidence of a LeFort's fracture, with an intact palate, nose and orbital region. There is no evidence of a nasal septal hematoma. No proptosis. Jaw closes symmetrically. Airway is clear. 4.CVS: +S1/S2, No murmurs or gallops. Peripheral pulses 2+ and equal in all extremities. Brisk capillary refill in all extremities. 5.RESP: Unlabored respiratory effort. Clear to auscultation bilaterally. No wheezes rales or rhonchi 6.GI: Soft, Nontender/Nondistended, No hepatosplenomegaly. No guarding or rebound. 7.MSK: Normocephalic/Atraumatic, Extremities w/o deformity or ttp No cyanosis or clubbing, Normal movement of all extremities. No midline tenderness to palpation over the CTLS spine. Normal ROM in flexion, extension, side bend, and rotation. Patient has +5 out of 5 strength in the lower extremities in dorsiflexion and plantarflexion, knee flexion and extension, hip flexion and extension. There is +2 over 2 dorsalis pedis pulses bilaterally. There is normal sensation to the skin with light touch at the foot, knee, and hip. Normal saddle sensation. Good sensation over the deep sural nerve area bilaterally. Rectal exam demonstrates excellent perirectal tone and sensation. Small abrasi on over the coccyx. +5 out of 5 strength in the medial, ulnar, radial nerve distribution bilaterally in the hands as well as intact light touch sensation to these dermatomes on the hands 8.Skin: Warm, Dry. No rashes or lesions. Notable dried crusty stool all over the patient's buttock, legs and back. 9.Neuro: Sensation grossly intact, no focal neurologic deficits. Patient does respond to all commands. CN 2-12 tested and intact, patient is able to hold bilateral arms up for 5 seconds and there is no pronator drift, patient also holds legs up for 10 seconds bilaterally without any drop, sensation intact to light touch in hands and feet bilaterally. normal rapid alternating movements, fine finger movements. Visual zamora intact peripherally. Normal speech pattern and verbal understanding. 10.Psych: (AAO) x3. Appropriate mood and affect
[2018-07-20 12:13] LABS: Abs Immature Grans 0.02 k/cumm (0.0-0.09); Absolute Basophil Count 0.04 k/cumm (0.0-0.2); Absolute Lymphocyte Count 1.31 k/cumm (1.2-3.4); Absolute Monocyte Count 0.37 k/cumm (0.11-0.7); Absolute Neutrophil Count 2.25 k/cumm (1.2-6.7); BE (Venous) 1.3 mmol/L (-3-3); Eosinophils % 2.4; HCO3 (Venous) 27 mmol/L (22-28); HCT 47.4 % (36.0-46.0); HGB 15.3 g/dL (12.0-15.5); Immature Grans % 0.5; Mean Corp. HGB Concentration 32.3 g/dL (32.0-36.0); Mean Corpuscular Hemoglobin 32.6 pg (27.0-33.0); Mean Corpuscular Volume 101.1 fL (80-95); Mean Platelet Volume 9.6 fL (8.0-11.0); Neutrophils % 55.1; O2 Sat (Venous) 49 % (70-80); Platelet Count 223 x1000/uL (130-400); RBC 4.69 m/cumm (4.00-5.20); RBC Distribution Width 13.2 % (11.7-14.6); TCO2 (Venous) 25 mmol/L (22-29); White Blood Cell Count 4.09 k/cumm (4.4-10.8); pCO2 (Venous) 52 mm/Hg (34-47); pH (Venous) 7.33 (7.32-7.43); pO2 (Venous) 30 mm/Hg (28-44)
[2018-07-20 12:26] LABS: Bilirubin Negative (Negative); Blood Negative (Negative); Clarity Clear; Glucose Negative (Negative); Ketones Negative (Negative); Leukocyte Esterase Small (Negative); Nitrite Negative (Negative); Urobilinogen 0.2 EU/dL (Up TO 0.2)
[2018-07-20 12:26] LABS: INR 1.1 (0.9-1.1); PTT Activated 23.6 sec (21.0-31.4); Prothrombin Time 10.8 sec (9.3-11.0)
[2018-07-20 12:27] LABS: Ammonia < 10 umol/L (11-32)
[2018-07-20 12:36] LABS: Bacteria Few HPF (Negative); Crystals Negative HPF (Negative); Epithelial Cells Few HPF (Negative); Other Cells Few Renal (Negative); RBC Negative (0-2)
[2018-07-20 12:37] LABS: C & S Indicated? Yes; Casts Negative LPF (Negative); Mucus Negative (Negative)
[2018-07-20 12:38] LABS: ALT 16 U/L (12-78); AST 35 U/L (15-37); Albumin 2.8 g/dL (3.4-5.0); Alkaline Phosphatase 87 U/L (46-116); Anion Gap 10.6 mmol/L (3-11); BUN 4 mg/dL (7-18); Bilirubin, Total 0.3 mg/dL (0.2-1.0); CO2 26.4 mmol/L (21.0-32.0); Calcium 8.2 mg/dL (8.5-10.1); Chloride 109 mmol/L (98-107); Glucose 81 mg/dL (70-100); Potassium 4.1 mmol/L (3.5-5.1); Sodium 146 mmol/L (136-145); TSH (W/Ref FT4) 1.17 uIU/mL (0.358-3.74); Total Protein 6.1 g/dL (6.4-8.2)
[2018-07-20 12:39] LABS: Lipase 76 U/L (73-393)
[2018-07-20 12:43] LABS: Troponin I < 0.02 ng/mL (0.00-0.06)
--- NOTE | 2018-07-20 12:57 | DI.RAD_ITS ---
SYMPTOMS/DIAGNOSIS: HIP PAIN S/P FALL, INTOXICATED PELVIS AND BILATERAL HIPS: Comparison is made with September,. The gamma nail is again seen in the left proximal femur. No acute fracture or dislocation is seen. There has been some interval healing at the previously noted subcapital fracture of the left femur. The sacrum and portions of the alae are partially obscured by overlying bowel gas. IMPRESSION: Old left femoral fracture and hardware. No acute abnormality.
[2018-07-20 13:09] LABS: *AMPHETAMINES SCREEN URINE Negative (Negative); *BARBITURATES SCREEN URINE Negative (Negative); *BENZODIAZEPINES SCREEN URINE Negative (Negative); Cannabinoids THC Negative (Negative); Cocaine Screen,Urine Negative (Negative); METHADONE URINE SCREEN Negative (Negative); OPIATES URINE SCREEN Negative (Negative)
[2018-07-20 13:10] LABS: Tricyclic Antidepressants Negative (Negative)
--- NOTE | 2018-07-20 13:22 | PDOC.ERCMPRO ---
Care Management Progress Note 07/20-Dr. Wang requested assistance with Jania's home situation. According to reports, the operations and maintenance specialist heard her fall and requested she come to the hospital. An ambulance was called. Jania has been drinking. She lives at the [facility] and the electrical tech/project manager there is not sure she can continue to live there. Met with Jania. She states, I was sleeping when they came into my apartment and took me to the hospital. Jania tells this CM that she has no complaints and doesn't really like doctors and hospitals all that much. When asked about her primary care, I go to [place], but I don't go very often. I don't like doctors. Discussed transportation. Jania normally uses [facility]. When she is ready for discharge, this CM will call [facility] and set up transportation.
--- NOTE | 2018-07-20 13:43 | CMPROGNOTE_ITS ---
Care Management Progress Note 07/20-Dr. Wang requested assistance with Jania's home situation. According to reports, the transportation maintenance operator heard her fall and requested she come to the hospital. An ambulance was called. Jania has been drinking. She lives at the [facility] and the security sales manager there is not sure she can continue to live there. Met with Jania. She states, I was sleeping when they came into my apartment and took me to the hospital. Jania tells this CM that she has no complaints and doesn't really like doctors and hospitals all that much. When asked about her primary care, I go to [place], but I don't go very often. I don't like doctors. Discussed transportation. Jania normally uses [facility]. When she is ready for [facility], this CM will call [facility] and set up transportation.
[2018-07-20] MEDS: Cephalexin 500 MG CAP PO (15:05)
== END 2018-07-20 14:47 | disposition home or self-care (01) ==
PROVIDERS: Emergency Provider Student in an Organized Health Care Education/Training Program
DX: R15.9 Full incontinence of feces (principal); R29.6 Repeated falls; F10.20 Alcohol dependence, uncomplicated
CPT/HCPCS: 36415; 73521; 80053; 80307; 82805; 83690; 93005; 99285; 70450; 72125; 80320; 81003; 81015; 82140; 84443; 84484; 85025; 85610; 85730; 87086; 93010

== ENCOUNTER 2018-08-11 15:52 | Outpatient (REF) | payer MEDICARE, MEDICAID, SELFPAY | END 2018-08-11 16:12 | LOC: NCHCN 15:52 | PROVIDERS: PCP Family Medicine; Visit Provider Family Medicine | DX: R30.0 Dysuria (principal) | CPT/HCPCS: 87077; 87086; 87186 ==

== ENCOUNTER 2019-11-11 06:41 | Emergency (ER) | payer MEDICARE, MEDICAID, SELFPAY ==
[2019-11-11 06:44] VITALS: BP 118/64; PULSE 79; RESP 20; TEMP 36.6; O2SAT 98
--- NOTE | 2019-11-11 06:45 | DI.RAD_ITS ---
EXAM: XR HIP RT COMPLETE AP PELVIS CLINICAL HISTORY: fall. TECHNIQUE: 2D digital imaging was performed. COMPARISON: CR XR hip pelvis adult Bl from 07/20/2018 FINDINGS: BONES: No acute fracture is present. The bones are osteopenic. JOINTS: No dislocation is present. Degenerative changes are seen in the lower lumbar spine and hips bilaterally. There is again seen an intramedullary jose eduardo within the proximal left femur. SOFT TISSUE: Normal. IMPRESSION: No acute fracture or dislocation. If there is continued concern for an occult fracture, CT or MRI sh ould be considered for further evaluation. DATA REPOSITORY: RADIATION DOSE DELIVERED:
--- NOTE | 2019-11-11 06:46 | ED.GENADUL_ITS ---
Discharge Plan Disposition Patient Disposition: HOME Condition: Good Discharge Details Chief Complaint: Orthopedic Clinical Impression: Contusion of right hip region Primary Care Provider: Kaila Mathur ED Provider: Jerod Cisse Meds and New Rx's Prescriptions: Continued acetaminophen [Tylenol] 325 MG tablet 650 mg PO Q6H PRN PRNRF: 0 cyanocobalamin (vitamin B-12) [Vitamin B-12] 500 MCG tablet 1,000 mcg PO DAILY RF: 0 folic acid 1 MG tablet 1 mg PO DAILY RF: 0 thiamine mononitrate (vit B1) [Vitamin B-1 (mononitrate)] 100 MG tablet 100 mg PO DAILY RF: 0 Discharge Instructions Instructions: Contusion in Adults (ED) Additional Instructions: Take Tylenol every 6-8 hours for pain. Ice on and off for pain. Usual walker to help get around. Follow-up with primary care this week. Return to ED for numbness, weakness, worsening pain with inability to walk. Referrals: Kaila Mathur [Primary Care Provider] - Medical Decision Making Suspect soft tissue injury given she was able to ambulate with increasing pain over the course of days. Will give Tylenol and obtain x-ray of right hip and pelvis. X-rays per my review without fracture. Patient was able to get up to the commode without significant difficulty. Plan discharge with instructions to use Tylenol every 6 hours, ice, walker. Follow-up with primary care next week if continued problems. Return to ED if numbness, weakness, worsening pain. Medical Records Medical records reviewed: Yes I reviewed the patient's medical records. HPI General Mode of arrival: EMS . Date/Time Provider Initiated Documentation: 11/11/19 06:55 . Limitations to Documentation: no limitations . Information obtained by: patient, RN notes reviewed and old records reviewed . HPI Narrative: Patient presents to ED by ambulance with complaint of right hip and pelvis pain. Patient fell 4 days ago now coming out of the doctor's office and missing a step. She reports increasing pain since then is to the point where she is unable to ambulate today. She reports taking aspirin for pain but nothing else. Points to the posterior pelvis as to where most of her pain is. She denies neck or back pain. She denies striking her head. She reports bruising down the right lateral leg. She denies being on blood thinners. Related Data Home Medications Medication Instructions Recorded Confirmed acetaminophen [Tylenol] 650 mg PO Q6H PRN PRN tab 09/03/17 11/11/19 cyanocobalamin (vitamin B-12) 1,000 mcg PO DAILY tab 09/03/17 11/11/19 [Vitamin B-12] folic acid 1 mg PO DAILY tab 09/03/17 11/11/19 thiamine mononitrate (vit B1) 100 mg PO DAILY tab 09/03/17 11/11/19 [Vitamin B-1 (mononitrate)] Previous Rx's Medication Instructions Recorded acetaminophen [Tylenol] 650 mg PO Q6H PRN PRN tab 09/03/17 cyanocobalamin (vitamin B-12) 1,000 mcg PO DAILY tab 09/03/17 [Vitamin B-12] folic acid 1 mg PO DAILY tab 09/03/17 thiamine mononitrate (vit B1) 100 mg PO DAILY tab 09/03/17 [Vitamin B-1 (mononitrate)] Allergies Allergy/AdvReac Type Severity Reaction Status Date / Time aspirin Allergy Intermediate Unverified 11/11/19 07:14 ketorolac AdvReac Mild Other (See Unverified 11/11/19 07:14 Comment) most medication AdvReac Intermediate Uncoded 11/11/19 07:14 lactose intolerant AdvReac Uncoded 11/11/19 07:14 General NYA: 2 Review of Systems Narrative: As documented in HPI otherwise negative as below. Const: no fever, chills, weakness Resp: no cough, SOB, pleuritic pain CV: no CP, diaphoresis, edema, syncope GI: no abdominal pain, nausea, vomiting, diarrhea Neuro: no headache, numbness, focal weakness, confusion [facility] Medical History Alcohol use, unspecified with other alcohol-induced disorder (Chronic) CAD (coronary artery disease) (Chronic) Iron deficiency (Chronic) Macrocytic anemia with vitamin B12 deficiency (Chronic) Surgical History S/P appendectomy (Acute) S/P hysterectomy (Acute) Status post open reduction with internal fixation of fracture (Acute) 1. left hip 2. left shoulder Social History Smoking/Tobacco Use Status: Former Tobacco Use Alcohol Intake: current Alcohol Intake frequency: a few times a week Alcohol type: wine Drug use: Never Substance use type: does not use Do you feel safe at home: Yes Do you feel safe in your relationship?: Yes Exam Narrative Exam Narrative: Vitals: Afebrile with normal vitals. Const: Thin, frail, elderly female in NAD. HEENT: NC/AT. Normal facial exam. Neck: Supple. Trachea midline. No midline cervical tenderness. Lungs: Normal respiratory effort. No chest wall tenderness. Cor: Good radial pulses. GI: Soft. NT/ND. No guarding or rebound. Back: No midline spinal tenderness. Tender right posterior iliac wing. Neuro: A+O x 3. Normal speech, mentation. Cranial nerves II - XII grossly intact. No gross motor or sensory deficit. Ext: Able to flex and internally/externally rotate right hip. Tender to palp over greater trochanteric area. Left lower extremity and bilateral upper extremities unremarkable. Skin: Warm and dry. Bruising along right lateral thigh.
[2019-11-11] MEDS: Acetaminophen 500 MG TAB 1000 MG PO (07:13)
--- NOTE | 2019-11-11 07:57 | DI.VRAD_ITS ---
PROCEDURE INFORMATION: Exam: XR Right Hip with Pelvis when Performed Exam date and time: 11/11/2019 7:19 AM Age: 78 years old Clinical indication: Injury or trauma; Fall; Initial encounter; Blunt trauma (contusions or hematomas); Right; Hip TECHNIQUE: Imaging protocol: XR Right hip with pelvis when performed. Views: 2 or 3 views. COMPARISON: CR XR hip pelvis adult Bl 07/20/2018 12:51 PM FINDINGS: Bones/joints: Osteopenia and degenerative change . No acute bony injury or malalignment in the visualized right hip. If an occult fracture is of clinical concern, CT correlation can be performed. Postoperative change in the contralateral left hip. Soft tissues: Unremarkable. Gastrointestinal tract: Bowel dilatation. IMPRESSION: No acute bony injury or malalignment in the visualized right hip. Dictated and Authenticated by: Walt Bazan MD. Ordering:GINA Newsome MD
== END 2019-11-11 08:19 | disposition home or self-care (01) ==
LOC: ER 08:05
PROVIDERS: Emergency Provider Emergency Medicine
DX: S70.01XA Contusion of right hip, initial encounter (principal); W19.XXXA Unspecified fall, initial encounter
CPT/HCPCS: 99283; 73502

== ENCOUNTER 2021-03-19 10:24 | Observation (INO) | payer MEDICARE, OTHER, MEDICAID, SELFPAY ==
[2021-03-19 10:24] VITALS: BP 147/71; PULSE 95; RESP 14; TEMP 36.7; O2SAT 99
--- NOTE | 2021-03-19 10:25 | W.ED.GENAD ---
Discharge Plan Disposition Patient Disposition: [facility] INPATIENT Condition: Stable Discharge Details Clinical Impression: Knee pain, Fall, Unable to ambulate Admit Date/Time: 03/19/21 12:27 Admit Provider: James Tafoya Attending Provider: James Tafoya Primary Care Provider: None,None ED Provider: Naveed Brewer Medical Decision Making 80-year-old female who does not have a primary care provider, does not take any current medications, presents to the ER via EMS reporting mechanical slip and fall yesterday night, now complaining of diffuse right lower extremity discomfort worse in the knee. Clinically she appears thin but no acute distress. Will request that our care management team come evaluate the patient for potential home resources. Will obtain x-ray of her right hip and pelvis, right knee, right foot, and then reassess. X-rays reveal a small right knee joint effusion otherwise unremarkable. Upon reevaluation patient is lying supine in the stretcher with her knee completely bent and her leg raise. She reports overall her pain seems to be improved. She would prefer to be discharged home if at all possible. We made multiple attempts to trial ambulate her using a walker and she was unsuccessful. Each time she states that my leg just will not cooperate and she reaches for her knee along the anterior aspect. There is not appear to be any true discomfort coming from her hip. Patient lives at home alone, typically ambulates with a walker, and is unable to ambulate at her baseline. I am concerned that she will not be able to care for herself if discharged home in her current condition. Patient states that even at her baseline, she believes that she likely needs some home service. Patient is here in the first place because she fell, hesitant to give any narcotic analgesia which could put her at a higher risk of falling. Plan is to reach out to our hospitalist team to discuss admission. Will obtain screening CBC, CMP, and urinalysis. Case discussed with Dr. Tafoya who was agreeable to admission, will place admission order This documentation was generated using [employer] system, please disregard any oddities of phrase or misspellings. Medical Records Medical records reviewed: Yes I reviewed the patient's medical records. Imaging Data Radiologic Study: Attestation: I personally reviewed and interpreted this imaging study as follows: Imaging: X-Ray Radiologist's impression: XR FOOT RT COMPLETE CLINICAL HISTORY pain/fall TECHNIQUE [] COMPARISON [No exams were available for comparison] FINDINGS [Three views were obtained. There is no evidence of acute fracture or dislocation Radiologic Study #2: Attestation: I personally reviewed and interpreted this imaging study as follows: Imaging: X-Ray Radiologist's impression: EXAM XR KNEE RT 4V+ CLINICAL HISTORY pain/fall TECHNIQUE [] COMPARISON [No exams were available for comparison] FINDINGS [Four views were obtained. 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 There may be a small knee joint effusion. There is no evidence of acute fracture or dislocation. There are mild degenerative changes of the joints of the knee Radiologic Study #3: Attestation: I personally reviewed and interpreted this imaging study as follows: Imaging: X-Ray Radiologist's impression: Exam(s) XR HIP RT COMPLETE AP PELVIS EXAM: XR HIP RT COMPLETE AP PELVIS CLINICAL HISTORY: fall/pain TECHNIQUE: COMPARISON: CR,XR XR HIP RT COMPLETE AP PELVIS from 11/11/2019 FINDINGS: Three views were obtained. There are mild degenerative changes of the right hip. There is gamma nail position the proximal left femur. There is no of acute fracture dislocation Lab Data Lab results reviewed: Yes I reviewed the patient's lab results. Labs: Laboratory Tests Range/Units 03/19/21 03/19/21 12:06 12:06 WBC (4.4-10.8) 10^3/uL 9.22 RBC (3.93-5.22) 10^6/uL 4.37 Hgb (11.2-15.7) g/dL 13.7 Hct (36.0-46.0) % 43.8 MCV (80-95) fL 100.2 H MCH (27.0-33.0) pg 31.4 MCHC (32.0-36.0) % 31.3 L RDW (11.7-14.6) % 12.2 Plt Count (130-400) 10^3/uL 299 MPV (8.0-11.0) fL 9.3 Immature Gran % 0.2 Neutrophils % 66.3 Lymphocytes % 17.2 Monocytes % 15.0 Eosinophils % 0.5 Basophils % 0.8 Nucleated RBC % % 0 Absolute Neutrophils (1.2-6.7) 10^3/uL 6.11 Absolute Lymphocytes (1.2-3.4) 10^3/uL 1.59 Absolute Monocytes (0.1-0.8) 10^3/uL 1.38 H Absolute Eosinophils (0.0-0.7) 10^3/uL 0.05 Absolute Basophils (0.0-0.2) 10^3/uL 0.07 Sodium (136-145) mmol/L 142 Potassium (3.5-5.1) mmol/L 4.3 Chloride (98-107) mmol/L 103 Carbon Dioxide (21.0-32.0) mmol/L 29.6 Anion Gap (3-11) mmol/L 9.4 BUN (7-18) mg/dL 10 Creatinine (0.55-1.02) mg/dL 0.6 Estimated GFR/1.73 m2 (mL/min/1.73m2) >= 60.00 Glucose (74-106) mg/dL 102 Calcium (8.5-10.1) mg/dL 9.5 Total Bilirubin (0.2-1.0) mg/dL 1.1 H AST (15-37) U/L 22 ALT (14-59) U/L 15 Alkaline Phosphatase (46-116) U/L 96 Total Protein (6.4-8.2) g/dL 7.4 Albumin (3.4-5.0) g/dL 3.7 HPI General Mode of arrival: EMS. Date/Time Provider Initiated Documentation: 03/19/21 10:25. Limitations to Documentation: no limitations. Information obtained by: patient and EMS. HPI Narrative: This is a 80-year-old female, who lives at home alone, past medical history of anemia, CAD, previous alcohol use, presenting to the ER today via EMS reporting right leg pain status post a fall last night. Patient states that she was attempting to get up to change the channel on her TV, typically ambulates with a walker, and had a mechanical fall. She has been unable to bear weight ever since. Patient was able to get onto the couch last night where she slept, unable to bear weight this morning, called EMS. She denies any other injury from the fall. She denies striking her head, headache, neck pain, visual changes, chest pain, shortness of breath, abdominal pain, nausea, vomiting, change in bowel or bladder function. She reports pain is throughout her entire right leg, mild at rest but worse in the knee with movement or bearing weight. She states that she is typically very healthy, does not have a primary care provider and does not currently take any prescribed medications. She does admit to previous home services, none now, but believes moving forward it would likely be helpful. She has not had any medication for her discomfort today. Related Data Home Medications Medication Instructions Recorded Confirmed food supplemt, lactose-reduced ml PO 03/19/21 [Ensure Active Protein-Muscle] Allergies Allergy/AdvReac Type Severity Reaction Status Date / Time aspirin Allergy Intermediate Unverified 03/19/21 10:29 ketorolac AdvReac Mild Other (See Unverified 03/19/21 10:29 Comment) most medication AdvReac Intermediate Uncoded 03/19/21 10:29 lactose intolerant AdvReac Uncoded 03/19/21 10:29 General NYA: 2 Review of Systems Constitutional Constitutional: Denies fever(s), Denies headache(s) and Denies weakness Eyes Eyes: Denies change in vision ENT Ears, Nose, Mouth, and Throat: Denies headache(s) and Denies neck pain Cardiovascular Cardiovascular: Denies chest pain and Denies dyspnea Respiratory Respiratory: Denies cough and Denies dyspnea Gastrointestinal Gastrointestinal: Denies abdominal pain, Denies nausea and Denies vomiting Genitourinary Genitourinary: Denies dysuria Musculoskeletal Musculoskeletal: Denies back pain, Denies deformity, Reports arthralgias, Denies neck pain, Denies numbness, Reports stiffness and Denies tingling Integumentary/Breasts Skin/Breast: Denies erythema Neurologic Neurologic: Denies headache(s), Denies numbness, Denies tingling and Denies weakness Hematologic/Lymphatic Hematologic/Lymphatic: Denies easy bleeding and Denies easy bruising [facility] Active Problem List CAD (coronary artery disease) (Chronic) Iron deficiency (Chronic) Macrocytic anemia with vitamin B12 deficiency (Chronic) Alcohol use, unspecified with other alcohol-induced disorder (Chronic) Abnormal auditory perception (Acute) Cerumen impaction (Acute) Sensory hearing loss, bilateral (Acute) Otorrhea of left ear (Acute) Fracture, humerus (Acute) Fracture, intertrochanteric, left femur (Acute) Surgical History S/P appendectomy S/P hysterectomy Status post open reduction with internal fixation of fracture 1. left hip 2. left shoulder Social History Smoking/Tobacco Use Status: Former Tobacco Use Smoking risk assessment performed?: Yes Alcohol Intake: current Alcohol Intake frequency: a few times a week Alcohol type: wine Drug use: Never Substance use type: does not use Do you feel safe at home: Yes Do you feel safe in your relationship?: Yes Exam Const General: cooperative, healthy appearing, comfortable and no acute distress Nutritional Appearance: thin Orientation: alert, awake and oriented x3 HENMT Head: normal to inspection, normocephalic and atraumatic Mouth: moist mucous membranes abnormal (Slightly dry) Eyes General: appearance normal, both eyes and all related structures Conjunctivae: conjunctivae normal Neck Neck: normal visual inspection, full ROM, trachea midline, supple and nontender Resp Effort & Inspection: normal respiratory effort and able to speak in complete sentences Auscultation: clear to auscultation bilaterally Cardio Rate: regular rate Rhythm: regular rhythm GI Inspection: normal to inspection Palpation: soft and nontender Back/Spine/Pelvis Back: no CVA tenderness and No back tenderness Skin General skin exam: no rashes or lesions noted Neuro General: patient alert, patient awake, patient oriented x3, moves all extremities and no focal motor deficits Cognition: normal cognition Speech: speech normal Motor: muscle tone normal throughout and strength 5/5 throughout Sensory Exam: no sensory deficits noted Extrem General: capillary refill normal Other: Right lower extremity, diffuse knee discomfort, limited range of motion secondary to discomfort. Knee appears stable. No obvious trauma, swelling, erythema, ecchymosis. Hip appears unremarkable, no discomfort to palpation. Dorsal aspect of the right foot with diffuse discomfort, ecchymosis, swelling. Normal capillary refill and pedal pulse. Negative Homans' sign. No tenderness or swelling in the calf. Psych Appearance: grossly normal Mental Status: mental status grossly normal
--- NOTE | 2021-03-19 10:30 | DI.RAD_ITS ---
Exam(s) XR FOOT RT COMPLETE EXAM: XR FOOT RT COMPLETE CLINICAL HISTORY: pain/fall TECHNIQUE: COMPARISON: No exams were available for comparison FINDINGS: Three views were obtained. There is no evidence of acute fracture or dislocation. IMPRESSION: RADIATION DOSE DELIVERED: Total DLP
--- NOTE | 2021-03-19 10:30 | DI.RAD_ITS ---
Exam(s) XR KNEE RT 4V+ EXAM: XR KNEE RT 4V+ CLINICAL HISTORY: pain/fall TECHNIQUE: COMPARISON: No exams were available for comparison FINDINGS: Four views were obtained. 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 There may be a small knee joint effusion. There is no evidence of acute fracture or dislocation. There ar e mild degenerative changes of the joints of the knee. IMPRESSION: RADIATION DOSE DELIVERED: Total DLP
--- NOTE | 2021-03-19 10:30 | DI.RAD_ITS ---
Exam(s) XR HIP RT COMPLETE AP PELVIS EXAM: XR HIP RT COMPLETE AP PELVIS CLINICAL HISTORY: fall/pain TECHNIQUE: COMPARISON: CR,XR XR HIP RT COMPLETE AP PELVIS from 11/11/2019 FINDINGS: Three views were obtained. There are mild degenerative changes of the right hip. There is gamma arabella l position the proximal left femur. There is no of acute fracture dislocation IMPRESSION: RADIATION DOSE DELIVERED: Total DLP
[2021-03-19 12:15] LABS: Abs Immature Grans 0.02 10^3/uL (0.0-0.06); Absolute Basophil Count 0.07 10^3/uL (0.0-0.2); Absolute Eosinophil Count 0.05 10^3/uL (0.0-0.7); Absolute Lymphocyte Count 1.59 10^3/uL (1.2-3.4); Absolute Monocyte Count 1.38 10^3/uL (0.1-0.8); Absolute Neutrophil Count 6.11 10^3/uL (1.2-6.7); Basophils % 0.8; Eosinophils % 0.5; HCT 43.8 % (36.0-46.0); HGB 13.7 g/dL (11.2-15.7); Immature Grans % 0.2; Lymphocytes % 17.2; MCH 31.4 pg (27.0-33.0); MCHC 31.3 % (32.0-36.0); MCV 100.2 fL (80-95); MPV 9.3 fL (8.0-11.0); Neutrophils % 66.3; Nucleated RBC 0 %; Platelet Count 299 10^3/uL (130-400); RBC 4.37 10^6/uL (3.93-5.22); RDW 12.2 % (11.7-14.6); RDW-SD 45.4 fL; WBC 9.22 10^3/uL (4.4-10.8)
--- NOTE | 2021-03-19 12:21 | W.PM.HP.N ---
Date of service: 03/19/21 Time of Service: 12:21 Assessment and Plan Assessment and plan (1) Knee pain, right: Status: Acute Assessment and plan: schedule apap apply voltaren gel PT consult. kya wrap (2) Discharge planning issues: Status: Acute Assessment and plan: case management following No pcp, ? referral anticipate services at discharge discussed with Dr Tafoya. History of Present Illness History of Present Illness Chief Complaint: right knee pain Review of Systems Musculoskeletal Musculoskeletal: Reports arthralgias [facility] Active Problem List CAD (coronary artery disease) (Chronic) Iron deficiency (Chronic) Macrocytic anemia with vitamin B12 deficiency (Chronic) Alcohol use, unspecified with other alcohol-induced disorder (Chronic) Abnormal auditory perception (Acute) Cerumen impaction (Acute) Sensory hearing loss, bilateral (Acute) Otorrhea of left ear (Acute) Fracture, humerus (Acute) Fracture, intertrochanteric, left femur (Acute) Surgical History S/P appendectomy S/P hysterectomy Status post open reduction with internal fixation of fracture 1. left hip 2. left shoulder Social History Smoking/Tobacco Use Status: Former Tobacco Use Smoking risk assessment performed?: Yes Alcohol Intake: current Alcohol Intake frequency: a few times a week Alcohol type: wine Drug use: Never Substance use type: does not use Do you feel safe at home: Yes Do you feel safe in your relationship?: Yes Meds Allergies and Home Medications Allergies Allergy/AdvReac Type Severity Reaction Status Date / Time aspirin Allergy Intermediate Unverified 03/19/21 10:29 ketorolac AdvReac Mild Other (See Unverified 03/19/21 10:29 Comment) most medication AdvReac Intermediate Uncoded 03/19/21 10:29 lactose intolerant AdvReac Uncoded 03/19/21 10:29 Home Medications Medication Instructions Recorded Confirmed Type food supplemt, lactose-reduced ml PO 03/19/21 History [Ensure Active Protein-Muscle] Results Labs Result diagrams: 03/19/21 12:06 03/19/21 12:06 Labs: Laboratory Results - last 24 hr 03/19/21 12:06 WBC 9.22 RBC 4.37 Hgb 13.7 Hct 43.8 MCV 100.2 H MCH 31.4 MCHC 31.3 L RDW 12.2 Plt Count 299 MPV 9.3 Immature Gran % 0.2 Neutrophils % 66.3 Lymphocytes % 17.2 Monocytes % 15.0 Eosinophils % 0.5 Basophils % 0.8 Nucleated RBC % 0 Absolute Neutrophils 6.11 Absolute Lymphocytes 1.59 Absolute Monocytes 1.38 H Absolute Eosinophils 0.05 Absolute Basophils 0.07 Last Vital Signs Temp 36.7 C 03/19/21 10:24 Pulse 95 H 03/19/21 10:24 Resp 14 03/19/21 10:24 BP 147/71 H 03/19/21 10:24 Pulse Ox 99 03/19/21 10:24
[2021-03-19 12:27] LABS: ALT 15 U/L (14-59); AST 22 U/L (15-37); Albumin 3.7 g/dL (3.4-5.0); Alkaline Phosphatase 96 U/L (46-116); Anion Gap 9.4 mmol/L (3-11); BUN 10 mg/dL (7-18); Bilirubin, Total 1.1 mg/dL (0.2-1.0); CO2 29.6 mmol/L (21.0-32.0); CREATININE 0.6 mg/dL (0.55-1.02); Calcium 9.5 mg/dL (8.5-10.1); Chloride 103 mmol/L (98-107); Glucose 102 mg/dL (74-106); Potassium 4.3 mmol/L (3.5-5.1); Sodium 142 mmol/L (136-145); Total Protein 7.4 g/dL (6.4-8.2)
--- NOTE | 2021-03-19 13:13 | PDOC.ERCMIN ---
- If Service Date Differs Date of service: 03/19/21 Time of Service: 13:13 Care Management Initial Assess REASON FOR HOSPITALIZATION:: Knee pain. PAST MEDICAL HISTORY/PAST SURGICAL HISTORY:: Medical History: CAD (coronary artery disease) (Chronic), Iron deficiency (Chronic), Macrocytic anemia with vitamin B12 deficiency (Chronic), Alcohol use, unspecified with other alcohol-induced disorder (Chronic), Abnormal auditory perception (Acute), Cerumen impaction (Acute), Sensory hearing loss, bilateral (Acute), Otorrhea of left ear (Acute), Fracture, humerus (Acute), and Fracture, intertrochanteric, left femur (Acute). Surgical History: S/P appendectomy, S/P hysterectomy, and Status post open reduction with internal fixation of fracture - 1. left hip, 2. left shoulder. PREVIOUS FUNCTIONAL STATUS/SOCIAL/FAMILY SUPPORTS:: Jania lives alone in an apartment at the [facility]. She states she has no family or friends in [place]. She does have a sister in [place] and a brother in [place] but rarely speaks to them. Jania reports having four children but says they are all gone. Jania cares for her apartment and she is independent with her ADLs, though she does admit that it is getting harder and harder to do chores. She does not drive. CURRENT FUNCTIONAL STATUS:: Jania is lying in bed when comes to meet with her. She is pleasant and easily engages in conversation. She recounts how she fell at home and had to spend the night on the couch because she couldn't walk. Jania is agreeable to remaining at [facility] overnight as she is still having difficulty ambulating but she wants to return home as soon as possible. ADVANCE DIRECTIVES:: None on file; Jania believes she has already completed an Advance Directives. Has patient been provided with info about the portal/API?: Yes Did the patient sign up for the portal?: No CODE STATUS:: DNR/DNI INSURANCE COVERAGE / FINANCIAL ISSUES:: Medicare and Medicaid. CURRENT HOME/COMMUNITY SERVICES/EQUIPMENT:: Jania has a FWW and a shower bench. Currently she has no home or community services. submitted a referral to [facility] today. PRIMARY CARE PHYSICIAN:: Kaila Mathur MD. POTENTIAL DISCHARGE NEEDS:: Follow-up appointment with primary care physician and referral to home health for nursing, PT and OT. PATIENT/FAMILY EDUCATION NEEDS:: Discharge education, limitations, follow-up plan of care, including Ask Me Three discussion and self-management. ANTICIPATED BARRIERS TO DISCHARGE:: No anticipated barriers to discharge at this time. TRANSPORTATION:: Via [facility] when ready. PLAN:: Jania will likely be discharged home with new Home Health RN, PT, and OT services when medically cleared by provider. She will follow up with her PCP and discharge plan of care as directed. [facility] will transport Jania home when ready. CM will continue to follow.
[2021-03-19 13:30] VITALS: BP 126/63; PULSE 78; RESP 16; TEMP 36.8; O2SAT 96
--- NOTE | 2021-03-19 14:58 | PT.INIE ---
Date of service: 03/19/21 Time of Service: 14:58 PT Notes Visit Reasons: Knee Pain Physical Therapy Inpatient Initial Evaluation Date: 03/19/2020 Referring Doctor: Melissa Cai NP PT Orders: PT CONSULT: Eval/treat Precautions: Fall. Standard. WBAT on right LE with ASO and assistive device. Patient Profile/Admitting Diagnosis: Garrick is a 80-year-old female who presented to the ED on 03/19/2021 due to diffuse right LE discomfort that is worse in the knee. X-ray of the right ankle, knee, and hip shoulder showed negative for fracture and/or dislocation but with joint effusion noted in the right knee. PMHX: Active Problem List CAD (coronary artery disease) (Chronic) Iron deficiency (Chronic) Macrocytic anemia with vitamin B12 deficiency (Chronic) Alcohol use, unspecified with other alcohol-induced disorder (Chronic) Abnormal auditory perception (Acute) Cerumen impaction (Acute) Sensory hearing loss, bilateral (Acute) Otorrhea of left ear (Acute) Fracture, humerus (Acute) Fracture, intertrochanteric, left femur (Acute) Surgical History S/P appendectomy S/P hysterectomy Status post open reduction with internal fixation of fracture 1. left hip 2. left shoulder Social History/Home Situation: Lives alone on the second floor of the [facility]. Uses a front wheeled walker at baseline independently. Independent with all aspects of ADLs prior to today's admission. Equipment Owned/DME: Front-wheeled walker Subjective: Garrick indicates that she has fallen over 10 times for the past year. States that she uses her walker most of the time but has not felt the need to use it for short distance walking inside her apartment. Reports of increasing pain in the right foot and 7/10 and and the right knee and 5-6/10 that worsens with weight bearing. Patient is highly anxious about putting weight on the right LE at this time but was able to do so with use of a right ankle stabilizing orthosis. Complained of significant fatigue and dizziness towards the end of this afternoon second session. Objective: General Observation: Asthenic. Erythema and swelling noted on the anterior half of right foot. Mild skin discoloration and swelling noted in the right knee. Palpation: Increased warmth to R foot Mental Status: Alert and oriented as to person, place, time, and purpose. Able to pay attention, focus, and respond appropriately. Pain: 7/10 in right foot; 5-6/10 in right knee with weight bearing ROM: Right Upper Extremity: Shoulder Flexion WFL. Shoulder abduction WFL. Elbow flexion WFL. Wrist flexion WFL. Functional opening and closing of hand WFL. Left Upper Extremity: Shoulder Flexion WFL. Shoulder abduction WFL. Elbow flexion WFL. Wrist flexion WFL. Functional opening and closing of hand WFL. Right Lower Extremity: Hip flexion WFL. Hip abduction WFL. Knee flexion 20 degrees to 90 degrees with pain at end of range. Knee extension -20 degrees. Ankle dorsiflexion -20 degrees with pain at end of range. Ankle plantarflexion 20 degrees to 40 degrees with pain at end of range. Left Lower Extremity: Hip flexion WFL. Hip abduction WFL. Knee flexion WFL. Ankle dorsiflexion WFL. Ankle plantarflexion WFL. Strength: Right Upper Extremity: Shoulder flexors 4-/5. Shoulder abductors 4-/5. Elbow flexors 4-/5. Elbow extensors 4-/5. Outside Dealer Sales Representative strong. Left Upper Extremity: Shoulder flexors 4-/5. Shoulder abductors 4-/5. Elbow flexors 4-/5. Elbow extensors 4-/5. Outside Dealer Sales Representative strong. Right Lower Extremity: Hip flexors 4-/5. Hip abductors 4-/5. Knee flexors 3-/5. Knee extensors 3-/5. Ankle dorsiflexors 3-/5. Ankle plantarflexors 3-/5. Left Lower Extremity: Hip flexors 4/5. Hip abductors 4/5. Knee flexors 4/5. Knee extensors 4/5. Ankle dorsiflexors 4/5. Ankle plantarflexors 4/5. Bed Mobility/Transfers: Supine to sit standby assist with HOB at 30 degrees Sit to supine standby assist Sit to stand minimal assist Stand to sit contact-guard assist Bed to reclining chair contact-guard assist Reclining chair to bed contact-guard assist Gait: Instructed patient with level surface ambulation of 10 feet + 10 feet requiring minimal assist. Day decreased. Dorsiflexion on the right decreased. Gait antalgic. Complained of significant fatigue and mild dizziness at end of activity. Balance: Static Sitting: Normal Dynamic Sitting: Normal Static Standing: Fair Dynamic Standing: Fair Special Tests: Mobility Limitations Standardized Measure [facility] AM-PAC 6 clicks Basic Mobility Inpatient Short Form: Raw Score: 18 CMS Score: 47% deficit 4-Stage Balance Test: Unable to assume all positions for 10 seconds indicating high risk for falls without an assistive device. Informed Consent/Education: Patient was instructed in purpose of PT consult and plan of care. Agreeable to proceed with established PT POC to achieve personal goals. Assessment: R ankle and knee pain limit patient's ability for performing mobility ADLs and increases anxiety over falling again. May benefit from premedication for pain maximize transfer and ambulation task completion. Dorsiflexion on the right foot is decreased which increeases risk for falling however use of an ankle stabilizing orthosis has added stability allowing for improved mid stance and push off on the right side during ambulation activity. MAMADOU Torres is in agreement of Patient presents with clinical signs and symptoms consistent with current/admitting diagnoses that have resulted to mobility limitations, gait instability, generalized weakness, and overall ADL decline as demonstrated by the following impairment level findings: 1. Decreased strength to right knee and ankle major muscle groups 2. Impaired standing balance 3. Impaired activity tolerance 4. Limitation of joint range of motion in right knee and right ankle 5. Swelling in the right foot 6. Increased redness and warmth in the anterior half of the right foot Impairments are contributing to the following functional limitations: 1. Decline in bed mobility skills 2. Decline in transfer skills 3. Difficulty with ambulation without assistive device and physical assistance 4. Increased completion time for mobility ADL performance 5. Increased risk for falls 6. Difficulty with managing steps alone safely Patient is assessed as a 92164 moderate complexity based on the following: History: 80-year-old female with past medical history as indicated above Examination: Demonstrable impairment in strength, balance, and mobility level with underlying impairments and functional limitations as exhibited above as well as deficit score of 47% utilizing the [facility] Mobility Inpatient Short Form Presentation: Evolving Decision Makin moderate complexity Goals: Goals X1 week 1. Supine-Sit independent 2. Sit-Supine independent 3. Sit-Stand independent 4. Stand-Sit independent with FWW 5. Bed-Chair independent with FWW 6. Chair-Bed independent with FWW 7. Independent gait on level surface with use of FWW for at least 100 feet without report of pain nor dyspnea 8. Independent stair negotiation while holding onto B rails for at least 3 steps without report of pain nor dyspnea 9. Independent with home exercise program 10. Good static and dynamic standing balance/tolerance Plan of Care/Treatment Plan: 1-2x/day, 7 days/week x 1 week. Plan of care has been reviewed with the TOBACCO CHECKOUT CLERK providing the service under Physical Therapy direction. Initiate Physical Therapy intervention for pain management as needed, strengthening, bed mobility, transfers, gait, stairs, balance training, and use of assistive device. DISCHARGE RECOMMENDATIONS: [] Home with no services [] [X] Home with services. Home when medically cleared by hospitalist. May benefit from home health PT services in order to progress functional mobility level and reduce fall risk at home. [] Home with outpatient PT [] [] SNF for continued rehabilitation [] [] [employer] In[employer] [facility] [] [] SNF versus LTC based on ability to participate and progress [] TREATMENT CODE/TIME: 66509 x 20 minutes, 30527 x 36 minutes beginning at 14:0 PM and 14:58 PM. Thank you for the opportunity to participate in the care of this patient. Josie Mckeon PT, DPT, CLT [facility] [place], [place]
[2021-03-19 15:28] LABS: Source Nasal/Nares
--- NOTE | 2021-03-19 16:17 | HPE_ITS ---
Date of service: 03/19/21 Time of Service: 16:17 Assessment and Plan Assessment and plan (1) Pain of right lower extremity: Status: Acute Assessment and plan: referred to observation no acute fractures on imaging of hip knee and pain most pain is located in foot PT consulted pain management (2) Fall: Status: Acute Assessment and plan: fall precautions PT for gait evaluation (3) Discharge planning issues: Status: Acute Assessment and plan: case management following anticipate discharge to home +/- services discussed with Dr Tafoya. History of Present Illness History of Present Illness Chief Complaint: right leg/foot pain Narrative: presents to the ED with right lower extremity pain after having a reported mechanical fall at home yesterday. Lives alone, no pcp, states she has been in her usual state of health but fell. she states she usually manages fine, has help from others in her building when needed. uses taxi to run errands and grocery shop. has been unable to safely re-ambulate d/t the pain. her work up in the ED shows negative imaging of right hip foot and knee. She was unable to safely ambulate so admission was requested. Review of Systems All systems reviewed & are unremarkable except as noted in HPI and below [facility] Active Problem List CAD (coronary artery disease) (Chronic) Iron deficiency (Chronic) Macrocytic anemia with vitamin B12 deficiency (Chronic) Alcohol use, unspecified with other alcohol-induced disorder (Chronic) Abnormal auditory perception (Acute) Cerumen impaction (Acute) Sensory hearing loss, bilateral (Acute) Otorrhea of left ear (Acute) Fracture, humerus (Acute) Fracture, intertrochanteric, left femur (Acute) Surgical History S/P appendectomy S/P hysterectomy Status post open reduction with internal fixation of fracture 1. left hip 2. left shoulder Social History Smoking/Tobacco Use Status: Former Tobacco Use Smoking risk assessment performed?: Yes Alcohol Intake: current Alcohol Intake frequency: a few times a week Alcohol type: wine Drug use: Never Substance use type: does not use Do you feel safe at home: Yes Do you feel safe in your relationship?: Yes Meds Allergies and Home Medications Allergies Allergy/AdvReac Type Severity Reaction Status Date / Time aspirin Allergy Intermediate Unverified 03/19/21 10:29 ketorolac AdvReac Mild Other (See Unverified 03/19/21 10:29 Comment) most medication AdvReac Intermediate Uncoded 03/19/21 10:29 lactose intolerant AdvReac Uncoded 03/19/21 10:29 Home Medications Medication Instructions Recorded Confirmed Type food supplemt, lactose-reduced ml PO 03/19/21 History [Ensure Active Protein-Muscle] Exam Const General: cooperative, no acute distress and frail appearing (elderly thin female of stated age) Nutritional Appearance: cachectic Orientation: alert, awake and oriented x3 HENMT Head: normal to inspection, normocephalic and atraumatic Teeth and gingiva: poor dentition (multiple missing teeth) Chest Chest: normal inspection of the chest Resp Effort & Inspection: normal respiratory effort and able to speak in complete sentences Auscultation: clear to auscultation bilaterally Cardio Rate: regular rate Rhythm: regular rhythm GI Inspection: normal to inspection Palpation: soft and nontender Neuro General: patient alert, patient awake, patient oriented x3 and no focal motor deficits Cognition: normal cognition Speech: speech normal Motor: muscle tone normal throughout Extrem General: normal to inspection, full ROM and no pedal edema Right lower extremity: knee Details: tenderness, swelling and abrasion, lower leg Details: normal to inspection and foot Details: tenderness (wearing a lace up ankle stabilizer) Location: of the dorsal foot Results Labs Result diagrams: 03/19/21 12:06 03/19/21 12:06 Labs: Laboratory Results - last 24 hr 03/19/21 03/19/21 03/19/21 12:06 12:06 12:54 WBC 9.22 RBC 4.37 Hgb 13.7 Hct 43.8 MCV 100.2 H MCH 31.4 MCHC 31.3 L RDW 12.2 Plt Count 299 MPV 9.3 Immature Gran % 0.2 Neutrophils % 66.3 Lymphocytes % 17.2 Monocytes % 15.0 Eosinophils % 0.5 Basophils % 0.8 Nucleated RBC % 0 Absolute Neutrophils 6.11 Absolute Lymphocytes 1.59 Absolute Monocytes 1.38 H Absolute Eosinophils 0.05 Absolute Basophils 0.07 Sodium 142 Potassium 4.3 Chloride 103 Carbon Dioxide 29.6 Anion Gap 9.4 BUN 10 Creatinine 0.6 Estimated GFR/1.73 m2 >= 60.00 Glucose 102 Calcium 9.5 Total Bilirubin 1.1 H AST 22 ALT 15 Alkaline Phosphatase 96 Total Protein 7.4 Albumin 3.7 COVID-19 Source SARS-CoV-2 (PCR) Cancelled Nasopharyn COVID-19 PCR Cancelled Ref Test Perform Site Cancelled 03/19/21 15:10 WBC RBC Hgb Hct MCV MCH MCHC RDW Plt Count MPV Immature Gran % Neutrophils % Lymphocytes % Monocytes % Eosinophils % Basophils % Nucleated RBC % Absolute Neutrophils Absolute Lymphocytes Absolute Monocytes Absolute Eosinophils Absolute Basophils Sodium Potassium Chloride Carbon Dioxide Anion Gap BUN Creatinine Estimated GFR/1.73 m2 Glucose Calcium Total Bilirubin AST ALT Alkaline Phosphatase Total Protein Albumin COVID-19 Source Nasal/Nares SARS-CoV-2 (PCR) Nasopharyn COVID-19 PCR Ref Test Perform Site Last Vital Signs Temp 36.8 C 03/19/21 13:30 Pulse 78 03/19/21 13:30 Resp 16 03/19/21 13:30 BP 126/63 03/19/21 13:30 Pulse Ox 96 03/19/21 13:30
[2021-03-19 16:29] LABS: COVID-19 PCR Negative (Negative)
[2021-03-19 16:57] VITALS: BP 122/73; PULSE 77; RESP 20; TEMP 37.3; O2SAT 99
[2021-03-19] MEDS: Acetaminophen 325 MG TAB 650 MG PO ×2 (17:10→19:56)
--- NOTE | 2021-03-19 18:30 | PT.INDS ---
Date of service: 03/19/21 PT Notes Visit Reasons: Knee Pain Physical Therapy Inpatient Discharge Summary Date: 03/19/2020 Dates of Service: 03/19/2021 only This is a clinical summary of care provided for the duration of dates listed above. No charge was made in the completion of this documentation. Referring Doctor: Melissa Cai NP PT Orders: PT CONSULT: Eval/treat Precautions: Fall. Standard. WBAT on right LE with ASO and assistive device. Patient Profile/Admitting Diagnosis: Garrick is a 80-year-old female who presented to the ED on 03/19/2021 due to diffuse right LE discomfort that is worse in the knee. X-ray of the right ankle, knee, and hip shoulder showed negative for fracture and/or dislocation but with joint effusion noted in the right knee. PMHX: Active Problem List CAD (coronary artery disease) (Chronic) Iron deficiency (Chronic) Macrocytic anemia with vitamin B12 deficiency (Chronic) Alcohol use, unspecified with other alcohol-induced disorder (Chronic) Abnormal auditory perception (Acute) Cerumen impaction (Acute) Sensory hearing loss, bilateral (Acute) Otorrhea of left ear (Acute) Fracture, humerus (Acute) Fracture, intertrochanteric, left femur (Acute) Surgical History S/P appendectomy S/P hysterectomy Status post open reduction with internal fixation of fracture 1. left hip 2. left shoulder Social History/Home Situation: Lives alone on the second floor of the [facility]. Uses a front wheeled walker at baseline independently. Independent with all aspects of ADLs prior to today's admission. Equipment Owned/DME: Front-wheeled walker Subjective: NT. See most recent [facility] SOLUTION ARCHITECT notes. Objective: General Observation: NT. See most recent [facility] SOLUTION ARCHITECT notes. Palpation: NT. See most recent [facility] SOLUTION ARCHITECT notes. Mental Status: NT. See most recent [facility] SOLUTION ARCHITECT notes. Pain: NT. See most recent [facility] SOLUTION ARCHITECT notes. ROM: Right Upper Extremity: Shoulder Flexion WFL. Shoulder abduction WFL. Elbow flexion WFL. Wrist flexion WFL. Functional opening and closing of hand WFL. Left Upper Extremity: Shoulder Flexion WFL. Shoulder abduction WFL. Elbow flexion WFL. Wrist flexion WFL. Functional opening and closing of hand WFL. Right Lower Extremity: Hip flexion WFL. Hip abduction WFL. Knee flexion 20 degrees to 90 degrees with pain at end of range. Knee extension -20 degrees. Ankle dorsiflexion -20 degrees with pain at end of range. Ankle plantarflexion 20 degrees to 40 degrees with pain at end of range. Left Lower Extremity: Hip flexion WFL. Hip abduction WFL. Knee flexion WFL. Ankle dorsiflexion WFL. Ankle plantarflexion WFL. Strength: Right Upper Extremity: Shoulder flexors 4-/5. Shoulder abductors 4-/5. Elbow flexors 4-/5. Elbow extensors 4-/5. Shuttle Filler strong. Left Upper Extremity: Shoulder flexors 4-/5. Shoulder abductors 4-/5. Elbow flexors 4-/5. Elbow extensors 4-/5. Shuttle Filler strong. Right Lower Extremity: Hip flexors 4-/5. Hip abductors 4-/5. Knee flexors 3-/5. Knee extensors 3-/5. Ankle dorsiflexors 3-/5. Ankle plantarflexors 3-/5. Left Lower Extremity: Hip flexors 4/5. Hip abductors 4/5. Knee flexors 4/5. Knee extensors 4/5. Ankle dorsiflexors 4/5. Ankle plantarflexors 4/5. Bed Mobility/Transfers: Supine to sit standby assist with HOB at 30 degrees Sit to supine standby assist Sit to stand minimal assist Stand to sit contact-guard assist Bed to reclining chair contact-guard assist Reclining chair to bed contact-guard assist Gait: Instructed patient with level surface ambulation of 10 feet + 10 feet requiring minimal assist. Day decreased. Dorsiflexion on the right decreased. Gait antalgic. Complained of significant fatigue and mild dizziness at end of activity. Balance: Static Sitting: Normal Dynamic Sitting: Normal Static Standing: Fair Dynamic Standing: Fair 4-Stage Balance Test: Unable to assume all positions for 10 seconds indicating high risk for falls without an assistive device. Assessment: R ankle and knee pain limit patient's ability for performing mobility ADLs and increases anxiety over falling again. May benefit from premedication for pain maximize transfer and ambulation task completion. Dorsiflexion on the right foot is decreased which increeases risk for falling however use of an ankle stabilizing orthosis has added stability allowing for improved mid stance and push off on the right side during ambulation activity. MAMADOU Torres is in agreement of Patient presents with clinical signs and symptoms consistent with current/admitting diagnoses that have resulted to mobility limitations, gait instability, generalized weakness, and overall ADL decline as demonstrated by the following impairment level findings: 1. Decreased strength to right knee and ankle major muscle groups 2. Impaired standing balance 3. Impaired activity tolerance 4. Limitation of joint range of motion in right knee and right ankle 5. Swelling in the right foot 6. Increased redness and warmth in the anterior half of the right foot Impairments are contributing to the following functional limitations: 1. Decline in bed mobility skills 2. Decline in transfer skills 3. Difficulty with ambulation without assistive device and physical assistance 4. Increased completion time for mobility ADL performance 5. Increased risk for falls 6. Difficulty with managing steps alone safely Goals: Goals X1 week 1. Supine-Sit independent NOT MET 2. Sit-Supine independent NOT MET 3. Sit-Stand independent NOT MET 4. Stand-Sit independent with FWW NOT MET 5. Bed-Chair independent with FWW NOT MET 6. Chair-Bed independent with FWW NOT MET 7. Independent gait on level surface with use of FWW for at least 100 feet without report of pain nor dyspnea NOT MET 8. Independent stair negotiation while holding onto B rails for at least 3 steps without report of pain nor dyspnea NOT MET 9. Independent with home exercise program NOT MET 10. Good static and dynamic standing balance/tolerance NOT MET Plan of Care/Treatment Plan: 1-2x/day, 7 days/week x 1 week. Plan of care has been reviewed with the [facility] SOLUTION ARCHITECT providing the service under Physical Therapy direction. Initiate Physical Therapy intervention for pain management as needed, strengthening, bed mobility, transfers, gait, stairs, balance training, and use of assistive device. DISCHARGE RECOMMENDATIONS: [] Home with no services [] [X] Home with services. Home when medically cleared by hospitalist. May benefit from home health PT services in order to progress functional mobility level and reduce fall risk at home. [] Home with outpatient PT [] [] SNF for continued rehabilitation [] [] Filter Tender Jelly [facility] [] [] SNF versus LTC based on ability to participate and progress [] TREATMENT CODE/TIME: [place] Thank you for the opportunity to participate in the care of this patient. Josie Mckeon PT, DPT, CLT [facility], [place]
[2021-03-19] MEDS: Famotidine 20 MG TAB PO (19:57)
[2021-03-19] MEDS: Diclofenac 1% Gel 100 GM TUBE TP (19:58)
[2021-03-19 23:24] VITALS: BP 109/67; PULSE 65; RESP 18; TEMP 36.6; O2SAT 97
[2021-03-20] MEDS: Famotidine 20 MG TAB PO (08:35)
[2021-03-20] MEDS: Docusate Sodium 100 MG CAP PO (08:35)
[2021-03-20] MEDS: Acetaminophen 325 MG TAB 650 MG PO ×2 (08:35→13:05)
[2021-03-20] MEDS: Diclofenac 1% Gel 100 GM TUBE TP ×2 (08:40→13:08)
--- NOTE | 2021-03-20 10:45 | DSE_ITS ---
Date of service: 03/20/21 Time of Service: 10:45 DS: Diagnosis Discharge Diagnosis (1) Pain of right lower extremity: Status: Acute (2) Fall: Status: Acute Discharge Plan Disposition Patient Disposition: HOME W/HOME HEALTH SERVICE Condition: Stable Discharge Details Reason For Visit: Knee Pain Admit Date/Time: 03/19/21 12:27 Admit Provider: James Tafoya Attending Provider: James Tafoya Primary Care Provider: None,None Hospital Course Hospital Course: this is a 80 year old female who lives alone who had a mechanical fall the day prior, having increasing right lower extremity pain so presents for evaluation. imaging of the right hip, knee and foot are obtained and negative for acute fracture. she was unable to safely reambulate so was referred for observation. overnight she rested comfortably. she was evaluated by PT and was able to get up and bear weight. she received scheduled apap and naproxen. today she is stating she has no pain and wants to be discharged. she is referred for pcp, home health PT and [employer]. she is discharged home. discussed with Dr Tafoya Home Meds and New Rx's Prescriptions: New Acetaminophen [Tylenol] 650 mg PO QID Qty: 0 RF: 0 Continued Ensure Active Protein-Muscle Liquid PO RF: 0 Discharge Instructions Instructions: Leg Pain (ED) Additional Instructions: elevate leg for comfort if needed can use heat or ice for comfort wear kya wrap for comfort. Stand Alone Forms: Nursing Discharge Form Referrals: None,None [Primary Care Provider] - (establish with pcp) Activity:: Activity as Tolerated Equipment/Supplies:: No Equipment Needed Diet:: As Tolerated Discharge Orders Discharge Orders: Discharge Order (Routine); Ordered 03/20/21 Ordered By: Melissa Cai DS: Summary Time Spent with Patient providing and/or coordinating discharge services: Less than 30 minutes Status at Discharge Functional status at discharge: independent ambulation Overall status at discharge: patient is progressing back to baseline Mental Status: mental status grossly normal Speech and Movement: speech and movement normal Mood: congruent mood Affect: normal affect Exam Const General: cooperative, no acute distress and frail appearing (elderly thin female of stated age) Nutritional Appearance: cachectic Orientation: alert, awake and oriented x3 HENMT Head: normal to inspection, normocephalic and atraumatic Teeth and gingiva: poor dentition (multiple missing teeth) Chest Chest: normal inspection of the chest Resp Effort & Inspection: normal respiratory effort and able to speak in complete sentences Auscultation: clear to auscultation bilaterally Cardio Rate: regular rate Rhythm: regular rhythm GI Inspection: normal to inspection Palpation: soft and nontender Neuro General: patient alert, patient awake, patient oriented x3 and no focal motor deficits Cognition: normal cognition Speech: speech normal Motor: muscle tone normal throughout Extrem General: normal to inspection, full ROM and no pedal edema Psych Mental Status: mental status grossly normal Speech and Movement: speech and movement normal Mood: congruent mood Affect: normal affect DS: Data Vitals/I&O Vitals and I&O: Vital Signs Temperature 36.6 C 03/19/21 23:24 Temperature Source Tympanic 03/19/21 23:24 Pulse 65 03/19/21 23:24 Pulse Rhythm Regular 03/20/21 09:52 Respiratory Rate 18 03/19/21 23:24 Respiratory Effort Non-Labored 03/20/21 09:52 Respiratory Depth Normal 03/20/21 09:52 Respiratory Pattern Normal 03/20/21 09:52 Blood Pressure 109/67 03/19/21 23:24 Blood Pressure Position Sitting 03/19/21 10:24 Pulse Oximetry 97 03/19/21 23:24 Oxygen Delivery Method Room Air 03/19/21 23:24 Oxygen Flow Rate 0 03/19/21 23:24 Pain Level 5 03/20/21 08:35 Comment 03/19/21 10:24 Intake & Output 03/19/21 03/19/21 03/20/21 11:59 23:59 11:59 Output Total 250 / 250 50 / 50 Balance -250 / -250 -50 / -50 Weight 43.6 kg 45.359 kg Output: Urine 250 / 250 50 / 50 Other: Urine Color Yellow Startex Urine Appearance Clear Stool Size Small Stool Characteristics Hard Voiding Methods Bedside Commode Data Completed and Pending Labs on day of discharge: Labs from last 24 hours 03/19/21 03/19/21 03/19/21 15:10 12:54 12:13 WBC RBC Hgb Hct MCV MCH MCHC RDW Plt Count MPV Immature Gran % Neutrophils % Lymphocytes % Monocytes % Eosinophils % Basophils % Nucleated RBC % Absolute Neutrophils Absolute Lymphocytes Absolute Monocytes Absolute Eosinophils Absolute Basophils Sodium Potassium Chloride Carbon Dioxide Anion Gap BUN Creatinine Estimated GFR/1.73 m2 Glucose Calcium Total Bilirubin AST ALT Alkaline Phosphatase Total Protein Albumin Urine Color Pending Urine Clarity Pending Urine pH Pending Ur Specific Eugene Pending Urine Protein Pending Urine Ketones Pending Urine Blood Pending Urine Nitrite Pending Urine Bilirubin Pending Urine Urobilinogen Pending Ur Leukocyte Esterase Pending Urine Glucose Pending COVID-19 Source Nasal/Nares SARS-CoV-2 (PCR) Negative Cancelled Nasopharyn COVID-19 PCR Cancelled Ref Test Perform Site Cancelled 03/19/21 03/19/21 12:06 12:06 WBC 9.22 RBC 4.37 Hgb 13.7 Hct 43.8 MCV 100.2 H MCH 31.4 MCHC 31.3 L RDW 12.2 Plt Count 299 MPV 9.3 Immature Gran % 0.2 Neutrophils % 66.3 Lymphocytes % 17.2 Monocytes % 15.0 Eosinophils % 0.5 Basophils % 0.8 Nucleated RBC % 0 Absolute Neutrophils 6.11 Absolute Lymphocytes 1.59 Absolute Monocytes 1.38 H Absolute Eosinophils 0.05 Absolute Basophils 0.07 Sodium 142 Potassium 4.3 Chloride 103 Carbon Dioxide 29.6 Anion Gap 9.4 BUN 10 Creatinine 0.6 Estimated GFR/1.73 m2 >= 60.00 Glucose 102 Calcium 9.5 Total Bilirubin 1.1 H AST 22 ALT 15 Alkaline Phosphatase 96 Total Protein 7.4 Albumin 3.7 Urine Color Urine Clarity Urine pH Ur Specific Eugene Urine Protein Urine Ketones Urine Blood Urine Nitrite Urine Bilirubin Urine Urobilinogen Ur Leukocyte Esterase Urine Glucose COVID-19 Source SARS-CoV-2 (PCR) Nasopharyn COVID-19 PCR Ref Test Perform Site [facility] Active Problem List CAD (coronary artery disease) (Chronic) Iron deficiency (Chronic) Macrocytic anemia with vitamin B12 deficiency (Chronic) Alcohol use, unspecified with other alcohol-induced disorder (Chronic) Abnormal auditory perception (Acute) Cerumen impaction (Acute) Sensory hearing loss, bilateral (Acute) Otorrhea of left ear (Acute) Fracture, humerus (Acute) Fracture, intertrochanteric, left femur (Acute) Surgical History S/P appendectomy S/P hysterectomy Status post open reduction with internal fixation of fracture 1. left hip 2. left shoulder Social History Smoking/Tobacco Use Status: Former Tobacco Use Smoking risk assessment performed?: Yes Alcohol Intake: current Alcohol Intake frequency: a few times a week Alcohol type: wine Drug use: Never Substance use type: does not use Do you feel safe at home: Yes Do you feel safe in your relationship?: Yes
--- NOTE | 2021-03-20 10:53 | PDOC.HHF2F_ITS ---
Home Health Certification Home Health Certification: 1. Encounter Date and Reason I certify that Jania Wallis was seen by Melissa Cai on 03/20/21 and that I had a [id number] encounter with this patient that meets the physician face to face encounter requirements. 2. Clinical Findings Supporting Skilled Need and Homebound Status I certify that home health services are medically necessary, include either intermittent [place] [facility] and/or physical/speech therapy, and that this patient is homebound in that absences from the home require considerable and taxing effort and are infrequent or of short duration, or are attributable to the need to receive medical care. [X] (a) Attached documentation from encounter provides clinical findings supporting skilled need and homebound status (including what assistance patient requires to leave the home). The encounter with the patient was in whole, or in part, for the following medical condition, which is the primary reason for home health care: right leg pain Physical Therapy: routine evaluation and treatment [employer] ST[employer]GRAPHER: routine evaluation and management Homebound: unable to safely leave house unassisted 3. Certification and Authentication I certify that I composed the above information based on my clinical judgement relating to this patient's medical condition and, if applicable, clinical findings communicated to me by the NPP or inpatient physician who performed the Home Health Referral. All further orders will be obtained through _Kev Moreno MD_(oversee initial evaluation while awaiting PCP)
[2021-03-20 10:58] LABS: Bilirubin Small (Negative); Blood Negative (Negative); Clarity Clear (Clear); Glucose Negative (Negative); Ketones Trace mg/dL (Negative); Leukocyte Esterase Trace (Negative); Nitrite Negative (Negative); Specific Gravity 1.025 (1.005-1.025); Urobilinogen 0.2 EU/dL (Up TO 0.2); pH 5.5 (5-8)
[2021-03-20 11:08] LABS: Bacteria Rare HPF (Negative); C & S Indicated? No; Casts Negative LPF (Negative); Crystals Negative HPF (Negative); Epithelial Cells Few HPF (Negative); Mucus Trace (Negative); RBC 0-2 HPF (0-2)
== END 2021-03-20 14:05 | disposition home health service (06) ==
LOC: ER 12:57 → MS 13:39
PROVIDERS: Nurse Practitioner Acute Care; Admitting Provider Family Medicine; Emergency Provider Physician Assistant; PCP Family Medicine; Visit Provider Family Medicine
DX: M25.561 Pain in right knee (principal); R26.2 Difficulty in walking, not elsewhere classified; I25.10 Atherosclerotic heart disease of native coronary artery without angina pectoris; E53.8 Deficiency of other specified B group vitamins; D53.9 Nutritional anemia, unspecified; E61.1 Iron deficiency; Z20.822 Contact with and (suspected) exposure to COVID-19; W01.0XXA Fall on same level from slipping, tripping and stumbling without subsequent striking against object, initial encounter
CPT/HCPCS: 36415; 80053; 87635; 97162; 97530; 99285; U0003; 73502; 73564; 73630; 81003; 81015; 85025; 99217; 99219; G0378

== ENCOUNTER 2021-06-29 10:16 | Inpatient (IN) | payer MEDICARE, MEDICAID, SELFPAY ==
[2021-06-29] VITALS (8 sets, daily range): BP systolic 114–166; BP diastolic 43–81; PULSE 71–118; RESP 14–20; TEMP 36.7–37.2; O2SAT 97–100
--- NOTE | 2021-06-29 | DI.CT_ITS ---
Exam(s) CT UPPER EXTREMITY RT WO 3D RECON ON CT WORKSTATION EXAM: CT UPPER EXTREMITY RT WO CLINICAL HISTORY: R proximal humerus fx, assess joint TECHNIQUE: Imaging Protocol: Axial computed tomography images with coronal and sagittal reformatted images were created and reviewed. 3 D reconstructions were performed. CONTRAST MATERIAL: Noncontrast COMPARISON: CR XR SHOULDER RT COMPLETE 2+V from 06/29/[address] ON [address] WORKSTATION from 06/29/2021 FINDINGS: Bones: Comminuted fracture surgical neck of the humerus with adjacent comminuted fragments. Full sha ft with displacement of the humeral shaft anteriorly and superiorly with respect to the humeral head. Fracture is not appear to involve the articular aspect of the humerus. The glenoid appears intact. The clavicle and scapula appear intact. Bones appear severely osteoporotic. no lytic or sclerotic lesions are identified. Soft Tissues: Prominent soft tissue swelling surrounding fracture site as well as soft tissue edema. Limited evaluation of the lungs due to respiratory motion. Emphysematous and fibrotic changes are s een. No pneumothorax or pleural effusion. IMPRESSION: Severely displaced proximal humeral fracture. No evidence additional fractures or dislocation. RADIATION DOSE DELIVERED: Total DLP DATA REPOSITORY: All CT scans at this facility are submitted to the National Radiology Data Registry (NRDR) Dose Index Registry (DIR) with the [employer] ([employer]). RADIATION OPTIMIZATION: All CT scans at this facility use at least one of these dose optimization te chniques: automated exposure control; mA and/or kV adjustment per patient size (includes targeted exa ms where dose is matched to clinical indication); or iterative reconstruction.
--- NOTE | 2021-06-29 10:52 | W.ED.GENAD ---
Discharge Plan Disposition Patient Disposition: [facility] INPATIENT Condition: Stable Discharge Details Clinical Impression: Fracture of proximal humerus, Ambulatory dysfunction Admit Date/Time: 06/30/21 13:06 Admit Provider: Amy Santos Attending Provider: Amy Santos Primary Care Provider: Kaila Mathur ED Provider: Ashley Melendez Discharge Data Discharge Date/Time-TO BE ENTERED AT DEPARTURE: 06/29/21 17:01 Medical Decision Making 80-year-old female with a history of coronary artery disease, alcohol abuse presents from home for right shoulder pain after endorsing that she was reaching above her head and felt a pop in her right shoulder. Patient story changed in between staff. She initially stated she reached above her head and then told me she was reaching down onto the floor. Her significant area of ecchymosis to her right shoulder and abrasion to her right elbow indicates that she likely fell. This was discussed with patient and she endorses that she may have fallen. She has no evidence of head trauma and denies any headache and otherwise is nontoxic-appearing. She has a small healing contusion to her left anterior knee but there is no pain with range of motion or deformity. Suspect her fall may have been several days ago considering the amount of ecchymosis. Considering her age and history, will obtain screening labs, urinalysis, give fluids and obtain right shoulder and elbow x-ray. X-rays reviewed and noted a moderately comminuted moderately displaced fracture of the proximal humerus. Elbow xray negative. X-ray reviewed with Dr. Street - recommends CT of the extremity with KORSH protocol and 3D reconstruction and sling -- notes that patient will likely need shoulder replacement. Labs reviewed. Normal white blood cell count. Anion gap 13, otherwise labs unremarkable. Normal CK. Urinalysis notes trace blood but otherwise no evidence of infection. Negative alcohol level. No signs of alcohol withdrawal. Attempted to ambulate patient but she was unable. Will admit for PT as pt may need rehab for continued management of her pain and ambulation. Case discussed with hospitalist who accepts patient for admission. CT head and cervical spine obtained due to suspected fall in a poor historian w/ h/o alcohol use and negative. Medical Records Medical records reviewed: Yes I reviewed the patient's medical records. Imaging Data Radiologic Study: Radiologist's impression: XR SHOULDER AND ELBOW RT COMPLETE CLINICAL HISTORY:? fall, abrasion, r/o fx TECHNIQUE:? COMPARISON:? CR XR SHOULDER RT COMPLETE 2+V from 06/29/2021 FINDINGS: Three views of the elbow and three views of the shoulder were obtained.? There is a moderately comminuted moderately displaced fracture of the proximal humerus.? No glenohumeral dislocation. No gross fracture involving the elbow, however the attempted lateral view is suboptimal secondary to patient discomfort from the proximal humeral fracture.? If there is a high clinical suspicion of fracture involving the distal humerus, follow-up films could be obtained. CT Right Upper Extremity Without Contrast, Shoulder Exam date and time: 06/29/2021 2:34 PM Age: 80 years old Clinical indication: Other: R proximal humerus FX, assess joint TECHNIQUE: Imaging protocol: CT of the Right upper extremity without contrast was performed. Exam focused on the shoulder. 3D rendering (Not supervised by radiologist): MIP and/or 3D reconstructed images were created by the technologist. Radiation optimization: All CT scans at this facility use at least one of these dose optimization techniques: automated exposure control; mA and/or kV adjustment per patient size (includes targeted exams where dose is matched to clinical indication); or iterative reconstruction. COMPARISON: CR XR SHOULDER RT COMPLETE 2+V 06/29/2021 12:40 PM FINDINGS: Limitations: Study is limited by motion artifact. Bones/joints: Severely comminuted and overriding/impacted fracture of the humeral head/neck. There is significant distraction and displacement of fracture fragments. There is complete shaft width anterior displacement of the distal fracture fragments. There is no evidence of dislocation.No other acutely displaced fractures are identified. No aggressive osseous lesions. Soft tissues: Severe soft tissue swelling throughout the right shoulder. Hemarthrosis at the glenohumeral joint. Lungs: Emphysematous changes in the visualized chest without acute findings. IMPRESSION: 1. Severely comminuted, overriding, and impacted humeral head/neck fracture as detailed above. No dislocation. 2. Incidental findings as above. CT Head Without Contrast Exam date and time: 06/29/2021 3:52 PM Age: 80 years old Clinical indication: Injury or trauma; Fall; Blunt trauma (contusions or hematomas); Prior surgery TECHNIQUE: Imaging protocol: Computed tomography of the head without contrast. COMPARISON: CT HEAD CERVICAL SPINE WO 07/20/2018 12:25 PM FINDINGS: Brain: Age related brain involution is present. No acute intracranial hemorrhage, mass effect, midline shift, or brain herniation. Diffuse subcortical and periventricular white matter hypodensities are most in favor with chronic small vessel disease. Cerebral ventricles: There is ex vacuo ventriculomegaly. There is a normal-variant cavum septum pellucidum. Paranasal sinuses: Visualized sinuses are unremarkable. No fluid levels. Mastoid air cells: Visualized mastoid air cells are well aerated. Orbital cavity: There have been bilateral intraocular lens replacements. Vasculature: Intracranial atherosclerosis is present. Bones/joints: Unremarkable. No acute fracture. Soft tissues: Unremarkable. IMPRESSION: No acute intracranial pathology. CT Cervical Spine Without Contrast Exam date and time: 06/29/2021 3:52 PM Age: 80 years old Clinical indication: Injury or trauma; Fall; Blunt trauma (contusions or hematomas); Prior surgery TECHNIQUE: Imaging protocol: Computed tomography images of the cervical spine without contrast. COMPARISON: CT HEAD CERVICAL SPINE WO 07/20/2018 12:25 PM FINDINGS: Bones/joints: There is a reversal of the normal lordosis, related to positioning or spasm. Multilevel degenerative changes of the vertebra are present, as manifested by multilevel anterior osteophytes, endplate sclerosis, and multilevel posterior disc osteophyte complexes. The spinal canal is patent. There is no evidence of acutely displaced fractures. There is no evidence of joint dislocation. No aggressive osseous lesions. Discs/Spinal canal/Neural foramina: Moderate multilevel bony neural foraminal stenosis. Lungs: Mild scarring at the lung apices without acute findings. Soft tissues: Unremarkable. IMPRESSION: No acute skeletal pathology. Lab Data Lab results reviewed: Yes I reviewed the patient's lab results. Labs: Laboratory Tests Range/Units 06/29/21 06/29/21 06/29/21 11:35 11:35 11:35 WBC (4.4-10.8) 10^3/uL 10.79 RBC (3.93-5.22) 10^6/uL 3.77 L Hgb (11.2-15.7) g/dL 11.9 Hct (36.0-46.0) % 38.3 MCV (80-95) fL 101.6 H MCH (27.0-33.0) pg 31.6 MCHC (32.0-36.0) % 31.1 L RDW (11.7-14.6) % 13.3 Plt Count (130-400) 10^3/uL 233 MPV (8.0-11.0) fL 9.1 Immature Gran % 0.3 Neutrophils % 80.1 Lymphocytes % 5.9 Monocytes % 13.4 Eosinophils % 0.0 Basophils % 0.3 Nucleated RBC % % 0 Absolute Neutrophils (1.2-6.7) 10^3/uL 8.64 H Absolute Lymphocytes (1.2-3.4) 10^3/uL 0.64 L Absolute Monocytes (0.1-0.8) 10^3/uL 1.45 H Absolute Eosinophils (0.0-0.7) 10^3/uL 0.00 Absolute Basophils (0.0-0.2) 10^3/uL 0.03 Sodium (136-145) mmol/L 142 Potassium (3.5-5.1) mmol/L 3.8 Chloride (98-107) mmol/L 105 Carbon Dioxide (21.0-32.0) mmol/L 23.2 Anion Gap (3-11) mmol/L 13.8 H BUN (7-18) mg/dL 8 Creatinine (0.55-1.02) mg/dL 1.0 Estimated GFR/1.73 m2 (mL/min/1.73m2) 53.62 Glucose (74-106) mg/dL 150 H Calcium (8.5-10.1) mg/dL 8.8 Total Bilirubin (0.2-1.0) mg/dL 0.6 AST (15-37) U/L 23 ALT (14-59) U/L 15 Alkaline Phosphatase (46-116) U/L 85 Creatine Kinase (26-192) U/L 179 Total Protein (6.4-8.2) g/dL 7.2 Albumin (3.4-5.0) g/dL 3.8 Urine Color (Yellow) Urine Clarity (Clear) Urine pH (5-8) Ur Specific [place] (1.005-1.025) Urine Protein (Negative) mg/dL Urine Ketones (Negative) mg/dL Urine Blood (Negative) Urine Nitrite (Negative) Urine Bilirubin (Negative) Urine Urobilinogen (Up TO 0.2) EU/dL Ur Leukocyte Esterase (Negative) Urine RBC (0-2) HPF Urine WBC (0-5) HPF Ur Epithelial Cells (Negative) HPF Urine Crystals (Negative) HPF Urine Bacteria (Negative) HPF Urine Casts (Negative) LPF Urine Mucus (Negative) Ur Culture Indicated? Urine Glucose (Negative) mg/dL Ethyl Alcohol (<10) mg/dL Range/Units 06/29/21 06/29/21 11:35 12:57 WBC (4.4-10.8) 10^3/uL RBC (3.93-5.22) 10^6/uL Hgb (11.2-15.7) g/dL Hct (36.0-46.0) % MCV (80-95) fL MCH (27.0-33.0) pg MCHC (32.0-36.0) % RDW (11.7-14.6) % Plt Count (130-400) 10^3/uL MPV (8.0-11.0) fL Immature Gran % Neutrophils % Lymphocytes % Monocytes % Eosinophils % Basophils % Nucleated RBC % % Absolute Neutrophils (1.2-6.7) 10^3/uL Absolute Lymphocytes (1.2-3.4) 10^3/uL Absolute Monocytes (0.1-0.8) 10^3/uL Absolute Eosinophils (0.0-0.7) 10^3/uL Absolute Basophils (0.0-0.2) 10^3/uL Sodium (136-145) mmol/L Potassium (3.5-5.1) mmol/L Chloride (98-107) mmol/L Carbon Dioxide (21.0-32.0) mmol/L Anion Gap (3-11) mmol/L BUN (7-18) mg/dL Creatinine (0.55-1.02) mg/dL Estimated GFR/1.73 m2 (mL/min/1.73m2) Glucose (74-106) mg/dL Calcium (8.5-10.1) mg/dL Total Bilirubin (0.2-1.0) mg/dL AST (15-37) U/L ALT (14-59) U/L Alkaline Phosphatase (46-116) U/L Creatine Kinase (26-192) U/L Total Protein (6.4-8.2) g/dL Albumin (3.4-5.0) g/dL Urine Color (Yellow) Yellow Urine Clarity (Clear) Clear Urine pH (5-8) 5.5 Ur Specific [place] (1.005-1.025) >= 1.030 H Urine Protein (Negative) mg/dL Negative Urine Ketones (Negative) mg/dL Negative Urine Blood (Negative) Trace-intact H Urine Nitrite (Negative) Negative Urine Bilirubin (Negative) Negative Urine Urobilinogen (Up TO 0.2) EU/dL 0.2 Ur Leukocyte Esterase (Negative) Negative Urine RBC (0-2) HPF 5-10 H Urine WBC (0-5) HPF 0-2 Ur Epithelial Cells (Negative) HPF Few Urine Crystals (Negative) HPF Negative Urine Bacteria (Negative) HPF Rare Urine Casts (Negative) LPF Urine Mucus (Negative) Trace Ur Culture Indicated? No Urine Glucose (Negative) mg/dL 100 Ethyl Alcohol (<10) mg/dL < 3.0 ECG Data Attestation: I personally reviewed and interpreted this ECG (s) as follows: Interpretation: Rate of 79, sinus, no STEMI. HPI General Mode of arrival: ambulatory. Date/Time Provider Initiated Documentation: 06/29/21 10:34. Limitations to Documentation: no limitations. Information obtained by: patient. HPI Narrative: Patient is a 80-year-old female with a history of coronary artery disease, alcohol use who presents with right shoulder pain after feeling a pop in her right shoulder this morning when reaching above her head. She reported to the nurse that she was sitting on the couch and was reaching above her head and felt a pop in her right shoulder. Upon evaluation of patient in the room, she endorsed to me that she reached down to the ground and felt a pop. Upon further questioning, and specifically questioning whether there had been a fall, patient states that she may have fallen but she is unsure of when. She denies any other injuries. She states she lives at home alone. Related Data Home Medications Medication Instructions Recorded Confirmed food supplemt, lactose-reduced ml PO 03/19/21 (Ensure Active Protein-Muscle) Acetaminophen [Tylenol] 650 mg PO QID #0 03/20/21 06/29/21 Previous Rx's Medication Instructions Recorded Acetaminophen [Tylenol] 650 mg PO QID #0 03/20/21 Allergies Allergy/AdvReac Type Severity Reaction Status Date / Time aspirin AdvReac Intermediate Unverified 06/29/21 10:45 most medication AdvReac Intermediate makes her Uncoded 06/29/21 10:45 sick to her stomach lactose intolerant AdvReac n/d, Uncoded 06/29/21 10:45 stomach cramps General Stated Complaint: Orthopedic NYA: 3 Review of Systems All systems reviewed & are unremarkable except as noted in HPI and below Constitutional Constitutional: Reports as per HPI, Denies chills and Denies fever(s) Eyes Eyes: Denies blurry vision ENT Ears, Nose, Mouth, and Throat: Denies dizziness, Denies sore throat and Denies throat swelling Cardiovascular Cardiovascular: Denies chest pain and Denies dyspnea Respiratory Respiratory: Denies cough and Denies dyspnea Gastrointestinal Gastrointestinal: Denies abdominal pain, Denies diarrhea and Denies vomiting Genitourinary Genitourinary: Denies hematuria and Denies dysuria Musculoskeletal Musculoskeletal: Denies back pain and Denies numbness Comments: R shoulder pain, R elbow pain Integumentary/Breasts Skin/Breast: Denies lesions and Denies rash Neurologic Neurologic: Denies dizziness, Denies localized weakness and Denies numbness Allergic/Immunologic Allergic/Immunologic: Denies throat swelling PFSH All Active Problems (Updated 06/29/21 @ 16:10 by Ashley Melendez DO) Fracture of proximal humerus (Acute) Ambulatory dysfunction (Acute) Pain of right lower extremity (Acute) Knee pain (Acute) Fall (Acute) Unable to ambulate (Acute) Discharge planning issues (Acute) Knee pain, right (Acute) Macrocytic anemia with vitamin B12 deficiency (Chronic) Abnormal auditory perception (Acute) Cerumen impaction (Acute) Sensory hearing loss, bilateral (Acute) Otorrhea of left ear (Acute) Fracture, humerus (Acute) Fracture, intertrochanteric, left femur (Acute) Medical History (Updated 06/29/21 @ 16:10 by Ashley Melendez DO) Alcohol use, unspecified with other alcohol-induced disorder CAD (coronary artery disease) Iron deficiency Surgical History S/P appendectomy S/P hysterectomy Status post open reduction with internal fixation of fracture 1. left hip 2. left shoulder Social History Smoking/Tobacco Use Status: Current every day Smoking risk assessment performed?: Yes Alcohol Intake: current Alcohol Intake frequency: holidays/special occasions only Alcohol type: wine Drug use: Never Substance use type: does not use Do you feel safe at home: Yes Do you feel safe in your relationship?: Yes Exam Const General: cooperative, no acute distress and frail appearing Orientation: alert and awake [facility] Head: normal to inspection Mouth: oral mucosae normal Eyes General: appearance normal, both eyes and all related structures Neck Neck: normal visual inspection Chest Chest: normal inspection of the chest and normal palpation of entire chest wall Resp Effort & Inspection: normal respiratory effort and able to speak in complete sentences Auscultation: clear to auscultation bilaterally Cardio Rate: regular rate GI Inspection: normal to inspection Palpation: soft, not firm, no guarding, not rigid and nontender Back/Spine/Pelvis Cervical Spine: No cervical spinal tenderness Thoracic/Lumbar Spine: No thoracic spinal tenderness and No lumbar spinal tenderness Pelvis: no pain with anterior-posterior compression Skin General skin exam: no rashes or lesions noted Neuro General: patient alert, patient awake and patient oriented x3 Motor: muscle tone normal throughout Extrem Shoulder/upper arm images: 1. Significant ecchymosis noted to right anterior and lateral shoulder and proximal upper arm. Limited range of motion secondary to pain. No obvious deformity. Elbow/forearm/wrist images: 1. Superficial abrasion. Tenderness to palpation overlying right medial and lateral epicondyles and olecranon. Pain with range of motion of right elbow. Knee images: 1. 2 x 2 centimeter healing ecchymosis, no significant tenderness. No pain with range of motion. Other: Bilateral distal upper and lower extremity pulses intact. Psych Appearance: grossly normal Affect: normal affect Course Vital Signs Vital signs: Vital Signs Temperature 99.0 F 06/29/21 10:19 Pulse 80 06/29/21 10:19 Respiratory Rate 16 06/29/21 10:19 Blood Pressure 166/81 H 06/29/21 10:19 Pulse Oximetry 100 06/29/21 10:19 Temperature 99.0 F 06/29/21 10:19 Temperature Source Oral 06/29/21 10:19 Pulse 80 06/29/21 10:19 Respiratory Rate 16 06/29/21 10:19 Respiratory Effort 06/29/21 10:38 Blood Pressure 166/81 H 06/29/21 10:19 Pulse Oximetry 100 03/06/22 10:19 Oxygen Delivery Method Room Air 06/29/21 10:19 Oxygen Flow Rate 0 06/29/21 10:19 Pain Level 10 06/29/21 10:39
--- NOTE | 2021-06-29 11:15 | DI.RAD_ITS ---
Exam(s) XR ELBOW RT COMPLETE XR SHOULDER RT COMPLETE 2+V EXAM: XR ELBOW RT COMPLETE CLINICAL HISTORY: fall, abrasion, r/o fx TECHNIQUE: COMPARISON: CR XR SHOULDER RT COMPLETE 2+V from 06/29/2021 FINDINGS: Three views of the elbow and three views of the shoulder were obtained. There is a moderately commin uted moderately displaced fracture of the proximal humerus. No glenohumeral dislocation. No gross fracture involving the elbow, however the attempted lateral view is suboptimal secondary to patient discomfort from the proximal humeral fracture. If there is a high clinical suspicion of frac ture involving the distal humerus, follow-up films could be obtained. IMPRESSION: RADIATION DOSE DELIVERED: Total DLP
--- NOTE | 2021-06-29 11:15 | RT.EKG_ITS ---
APPROVED REPORT Exam: Resting ECG Reason for Exam: fall, weakness Patient Location: E HR:79 bpm ECG Measurements Heart Rate 79 AXIS DE 144 P 76 QRSd 82 QRS 60 QT 432 T 1 QTc 494 Conclusion Sinus rhythm...normal P axis, V-rate 60- 99. Sinus. Normal axis. No STEMI. I have reviewed and interpreted ECG and agree with software generated interpretation. I have reviewed and interpreted ECG and agree with software generated interpretation.
[2021-06-29 11:43] LABS: Abs Immature Grans 0.03 10^3/uL (0.0-0.06); Absolute Basophil Count 0.03 10^3/uL (0.0-0.2); Absolute Lymphocyte Count 0.64 10^3/uL (1.2-3.4); Absolute Monocyte Count 1.45 10^3/uL (0.1-0.8); Absolute Neutrophil Count 8.64 10^3/uL (1.2-6.7); Basophils % 0.3; HCT 38.3 % (36.0-46.0); HGB 11.9 g/dL (11.2-15.7); Immature Grans % 0.3; Lymphocytes % 5.9; MCH 31.6 pg (27.0-33.0); MCHC 31.1 % (32.0-36.0); MCV 101.6 fL (80-95); MPV 9.1 fL (8.0-11.0); Monocytes % 13.4; Neutrophils % 80.1; Nucleated RBC 0 %; Platelet Count 233 10^3/uL (130-400); RBC 3.77 10^6/uL (3.93-5.22); RDW 13.3 % (11.7-14.6); RDW-SD 49.7 fL; WBC 10.79 10^3/uL (4.4-10.8)
[2021-06-29] MEDS: Normal Saline 1,000 ML 1000 ML IV (11:44)
[2021-06-29] MEDS: ACETAMINOPHEN 1,000 MG/100 ML BTL 400 MG IVPB (11:45)
[2021-06-29 11:58] LABS: ALT 15 U/L (14-59); AST 23 U/L (15-37); Albumin 3.8 g/dL (3.4-5.0); Alkaline Phosphatase 85 U/L (46-116); Anion Gap 13.8 mmol/L (3-11); BUN 8 mg/dL (7-18); Bilirubin, Total 0.6 mg/dL (0.2-1.0); CO2 23.2 mmol/L (21.0-32.0); Calcium 8.8 mg/dL (8.5-10.1); Chloride 105 mmol/L (98-107); Estimated GFR 53.62 (mL/min/1.73m2); Glucose 150 mg/dL (74-106); Potassium 3.8 mmol/L (3.5-5.1); Sodium 142 mmol/L (136-145); Total Protein 7.2 g/dL (6.4-8.2)
[2021-06-29 11:59] LABS: Creatine Kinase 179 U/L (26-192)
[2021-06-29 12:36] LABS: ETHANOL BLOOD < 3.0 mg/dL (<10)
[2021-06-29 13:04] LABS: Bilirubin Negative (Negative); Blood Trace-intact (Negative); Clarity Clear (Clear); Glucose 100 mg/dL (Negative); Ketones Negative (Negative); Leukocyte Esterase Negative (Negative); Nitrite Negative (Negative); Specific Gravity >= 1.030 (1.005-1.025); Urobilinogen 0.2 EU/dL (Up TO 0.2); pH 5.5 (5-8)
[2021-06-29 13:12] LABS: Bacteria Rare HPF (Negative); Crystals Negative HPF (Negative); Epithelial Cells Few HPF (Negative); WBC 0-2 HPF (0-5)
[2021-06-29 13:13] LABS: C & S Indicated? No; Mucus Trace (Negative)
--- NOTE | 2021-06-29 14:35 | NUR.NOTE ---
Medium sling applied on the patient.
--- NOTE | 2021-06-29 14:36 | NUR.NOTE ---
pt has been to the commode several times using the pivot method with 1 nurse assist . attempt to ambulate with her own rolling walker was not successful she was not able to balance and tries to use her affected right arm even though it is in a sling. she is resting on the stretcher and we have ordered some lunch to feed her Nursing Note:
--- NOTE | 2021-06-29 15:38 | HPE_ITS ---
Date of service: 06/29/21 Time of Service: 15:38 Assessment and Plan Assessment and plan (1) Fracture of proximal humerus: Status: Acute Assessment and plan: sling for comfort ice, pain management PT/OT orthopedic consult (2) Alcohol use, unspecified with other alcohol-induced disorder: Assessment and plan: high dose thiamine (3) Ambulatory dysfunction: Status: Acute Assessment and plan: PT/OT (4) Discharge planning issues: Status: Acute Assessment and plan: patient does not appear safe for a discharge to home case management will be following for discharge planning discussed with Dr gudino History of Present Illness History of Present Illness Chief Complaint: right shoulder pain Narrative: presents to the ED with c/o right shoulder pain, patient is a poor historian reporting she doesn't remember falling, exam shows very ecchymotic right shoulder consistent with trauma several days to a week ago and imaging with a fractured proximal humerus. No other injuries identified. Review of Systems All systems reviewed & are unremarkable except as noted in HPI and below and Unobtainable due to mental status (patient is a poor historian, unable to provide much history, endorses pain ) ENT Ears, Nose, Mouth, and Throat: Denies dizziness Musculoskeletal Musculoskeletal: Reports arthralgias, Reports joint swelling and Reports limited range of motion Integumentary/Breasts Skin/Breast: Reports other (ecchymosis to right shoulder. ) Neurologic Neurologic: Reports confusion, Denies dizziness and Reports memory loss Psychiatric Psychiatric: Reports confusion and Reports memory loss PFSH All Active Problems (Updated 06/29/21 @ 16:10 by Ashley Melendez DO) Fracture of proximal humerus (Acute) Ambulatory dysfunction (Acute) Pain of right lower extremity (Acute) Knee pain (Acute) Fall (Acute) Unable to ambulate (Acute) Discharge planning issues (Acute) Knee pain, right (Acute) Macrocytic anemia with vitamin B12 deficiency (Chronic) Abnormal auditory perception (Acute) Cerumen impaction (Acute) Sensory hearing loss, bilateral (Acute) Otorrhea of left ear (Acute) Fracture, humerus (Acute) Fracture, intertrochanteric, left femur (Acute) Medical History (Updated 06/29/21 @ 16:10 by Ashley Melendez DO) Alcohol use, unspecified with other alcohol-induced disorder CAD (coronary artery disease) Iron deficiency Surgical History S/P appendectomy S/P hysterectomy Status post open reduction with internal fixation of fracture 1. left hip 2. left shoulder Social History Smoking/Tobacco Use Status: Current every day Smoking risk assessment performed?: Yes Alcohol Intake: current Alcohol Intake frequency: holidays/special occasions only Alcohol type: wine Drug use: Never Substance use type: does not use Do you feel safe at home: Yes Do you feel safe in your relationship?: Yes Meds Allergies and Home Medications Allergies Allergy/AdvReac Type Severity Reaction Status Date / Time aspirin AdvReac Intermediate Unverified 06/29/21 10:45 most medication AdvReac Intermediate makes her Uncoded 06/29/21 10:45 sick to her stomach lactose intolerant AdvReac n/d, Uncoded 06/29/21 10:45 stomach cramps Home Medications Medication Instructions Recorded Confirmed Type food supplemt, lactose-reduced ml PO 03/19/21 History (Ensure Active Protein-Muscle) Acetaminophen [Tylenol] 650 mg PO QID #0 03/20/21 06/29/21 Rx Exam Const General: comfortable and frail appearing Nutritional Appearance: thin Orientation: alert, awake, oriented to person and oriented to place HENMT Head: normal to inspection Mouth: oral mucosae normal Eyes General: appearance normal, both eyes and all related structures Neck Neck: normal visual inspection Chest Chest: normal inspection of the chest and normal palpation of entire chest wall Resp Effort & Inspection: normal respiratory effort and able to speak in complete sentences Auscultation: clear to auscultation bilaterally Cardio Rate: regular rate GI Inspection: normal to inspection Palpation: soft, not firm, no guarding, not rigid and nontender Skin General skin exam: ecchymosis (right shoulder) Neuro General: patient alert and patient awake Motor: muscle tone normal throughout Results Labs Result diagrams: 07/01/21 06:09 07/01/21 06:09 Labs: Laboratory Results - last 24 hr 06/29/21 06/29/21 06/29/21 11:35 11:35 11:35 WBC 10.79 RBC 3.77 L Hgb 11.9 Hct 38.3 MCV 101.6 H MCH 31.6 MCHC 31.1 L RDW 13.3 Plt Count 233 MPV 9.1 Immature Gran % 0.3 Neutrophils % 80.1 Lymphocytes % 5.9 Monocytes % 13.4 Eosinophils % 0.0 Basophils % 0.3 Nucleated RBC % 0 Absolute Neutrophils 8.64 H Absolute Lymphocytes 0.64 L Absolute Monocytes 1.45 H Absolute Eosinophils 0.00 Absolute Basophils 0.03 Sodium 142 Potassium 3.8 Chloride 105 Carbon Dioxide 23.2 Anion Gap 13.8 H BUN 8 Creatinine 1.0 Estimated GFR/1.73 m2 53.62 Glucose 150 H Calcium 8.8 Total Bilirubin 0.6 AST 23 ALT 15 Alkaline Phosphatase 85 Creatine Kinase 179 Total Protein 7.2 Albumin 3.8 Urine Color Urine Clarity Urine pH Ur Specific [place] Urine Protein Urine Ketones Urine Blood Urine Nitrite Urine Bilirubin Urine Urobilinogen Ur Leukocyte Esterase Urine RBC Urine WBC Ur Epithelial Cells Urine Crystals Urine Bacteria Urine Casts Urine Mucus Ur Culture Indicated? Urine Glucose Ethyl Alcohol 06/29/21 06/29/21 11:35 12:57 WBC RBC Hgb Hct MCV MCH MCHC RDW Plt Count MPV Immature Gran % Neutrophils % Lymphocytes % Monocytes % Eosinophils % Basophils % Nucleated RBC % Absolute Neutrophils Absolute Lymphocytes Absolute Monocytes Absolute Eosinophils Absolute Basophils Sodium Potassium Chloride Carbon Dioxide Anion Gap BUN Creatinine Estimated GFR/1.73 m2 Glucose Calcium Total Bilirubin AST ALT Alkaline Phosphatase Creatine Kinase Total Protein Albumin Urine Color Yellow Urine Clarity Clear Urine pH 5.5 Ur Specific [place] >= 1.030 H Urine Protein Negative Urine Ketones Negative Urine Blood Trace-intact H Urine Nitrite Negative Urine Bilirubin Negative Urine Urobilinogen 0.2 Ur Leukocyte Esterase Negative Urine RBC 5-10 H Urine WBC 0-2 Ur Epithelial Cells Few Urine Crystals Negative Urine Bacteria Rare Urine Casts Urine Mucus Trace Ur Culture Indicated? No Urine Glucose 100 Ethyl Alcohol < 3.0 Last Vital Signs Temp 37.2 C 06/29/21 10:19 Pulse 80 06/29/21 10:19 Resp 16 06/29/21 10:19 BP 166/81 H 06/29/21 10:19 Pulse Ox 100 06/29/21 10:19
[2021-06-29 16:15] LABS: Source Nasal/Nares
--- NOTE | 2021-06-29 16:30 | DI.CT_ITS ---
Exam(s) CT HEAD CERVICAL SPINE WO EXAM: CT HEAD CERVICAL SPINE WO CLINICAL HISTORY: fall, injury. TECHNIQUE: Imaging Protocol: Axial computed tomography images with coronal and sagittal reformatted images were created and reviewed COMPARISON: CT CT HEAD CERVICAL SPINE WO from 07/20/2018 FINDINGS: Head CT Ventricles and Extra axial spaces: Normal in size and morphology for the patient's age. Hemorrhage: None. Cerebral parenchyma: White matter changes of small vessel disease. Mild atrophy. Midline shift: None. Brainstem/Cerebellum: Normal. Calvarium: Normal. Visualized Paranasal sinuses/Mastoids: Clear. Cervical Spine CT BONES: Vertebral body heights are maintained. Alignment is normal. There is no evidence of acute frac ture. Degenerative disc changes and facet degenerative changes are seen greatest C4-5 and C5-6. . SOFT TISSUES: No paraspinal hematoma. The airway appears intact. No pneumothorax is seen at the lung apices. IMPRESSION: Head CT: No acute abnormality. C-spine CT: Degenerative changes, no acute abnormality. RADIATION DOSE DELIVERED: 983.9mGy.cm Total DLP DATA REPOSITORY: All CT scans at this facility are submitted to the National Radiology Data Registry (NRDR) Dose Index Registry (DIR) with the [employer] (ACR). RADIATION OPTIMIZATION: All CT scans at this facility use at least one of these dose optimization te chniques: automated exposure control; mA and/or kV adjustment per patient size (includes targeted exa ms where dose is matched to clinical indication); or iterative reconstruction.
[2021-06-29 17:00] LABS: COVID-19 PCR Negative (Negative)
--- NOTE | 2021-06-29 17:03 | DI.VRAD_ITS ---
PROCEDURE INFORMATION: Exam: CT Head Without Contrast Exam date and time: 06/29/2021 3:52 PM Age: 80 years old Clinical indication: Injury or trauma; Fall; Blunt trauma (contusions or hematomas); Prior surgery TECHNIQUE: Imaging protocol: Computed tomography of the head without contrast. COMPARISON: CT HEAD CERVICAL SPINE WO 07/20/2018 12:25 PM FINDINGS: Brain: Age related brain involution is present. No acute intracranial hemorrhage, mass effect, midline shift, or brain herniation. Diffuse subcortical and periventricular white matter hypodensities are most in favor with chronic small vessel disease. Cerebral ventricles: There is ex vacuo ventriculomegaly. There is a normal-variant cavum septum pellucidum. Paranasal sinuses: Visualized sinuses are unremarkable. No fluid levels. Mastoid air cells: Visualized mastoid air cells are well aerated. Orbital cavity: There have been bilateral intraocular lens replacements. Vasculature: Intracranial atherosclerosis is present. Bones/joints: Unremarkable. No acute fracture. Soft tissues: Unremarkable. IMPRESSION: No acute intracranial pathology. PROCEDURE INFORMATION: Exam: CT Cervical Spine Without Contrast Exam date and time: 06/29/2021 3:52 PM Age: 80 years old Clinical indication: Injury or trauma; Fall; Blunt trauma (contusions or hematomas); Prior surgery TECHNIQUE: Imaging protocol: Computed tomography images of the cervical spine without contrast. COMPARISON: CT HEAD CERVICAL SPINE WO 07/20/2018 12:25 PM FINDINGS: Bones/joints: There is a reversal of the normal lordosis, related to positioning or spasm. Multilevel degenerative changes of the vertebra are present, as manifested by multilevel anterior osteophytes, endplate sclerosis, and multilevel posterior disc osteophyte complexes. The spinal canal is patent. There is no evidence of acutely displaced fractures. There is no evidence of joint dislocation. No aggressive osseous lesions. Discs/Spinal canal/Neural foramina: Moderate multilevel bony neural foraminal stenosis. Lungs: Mild scarring at the lung apices without acute findings. Soft tissues: Unremarkable. IMPRESSION: No acute skeletal pathology. Dictated and Authenticated by: Riky Bergman MD. Ordering:TESS Torres MD
[2021-06-29] MEDS: THIAMINE 500 MG in Normal Saline 100 ML 200 MG IVPB (18:16)
--- NOTE | 2021-06-29 18:27 | DI.VRAD_ITS ---
PROCEDURE INFORMATION: Exam: CT Right Upper Extremity Without Contrast, Shoulder Exam date and time: 06/29/2021 2:34 PM Age: 80 years old Clinical indication: Other: R proximal humerus FX, assess joint TECHNIQUE: Imaging protocol: CT of the Right upper extremity without contrast was performed. Exam focused on the shoulder. 3D rendering (Not supervised by radiologist): MIP and/or 3D reconstructed images were created by the technologist. Radiation optimization: All CT scans at this facility use at least one of these dose optimization techniques: automated exposure control; mA and/or kV adjustment per patient size (includes targeted exams where dose is matched to clinical indication); or iterative reconstruction. COMPARISON: CR XR SHOULDER RT COMPLETE 2+V 06/29/2021 12:40 PM FINDINGS: Limitations: Study is limited by motion artifact. Bones/joints: Severely comminuted and overriding/impacted fracture of the humeral head/neck. There is significant distraction and displacement of fracture fragments. There is complete shaft width anterior displacement of the distal fracture fragments. There is no evidence of dislocation.No other acutely displaced fractures are identified. No aggressive osseous lesions. Soft tissues: Severe soft tissue swelling throughout the right shoulder. Hemarthrosis at the glenohumeral joint. Lungs: Emphysematous changes in the visualized chest without acute findings. IMPRESSION: 1. Severely comminuted, overriding, and impacted humeral head/neck fracture as detailed above. No dislocation. 2. Incidental findings as above. Dictated and Authenticated by: Riky Bergman MD. Ordering:SANJIV Ramirez MD
[2021-06-29] MEDS: Ascorbic Acid 500 MG TAB PO (19:36)
[2021-06-29] MEDS: Calcium 600mg/Vit D 200U TAB 1 TAB PO (19:36)
[2021-06-29] MEDS: Normal Saline Flush 10 ML SYR IVP (19:36)
[2021-06-30] VITALS (14 sets, daily range): BP systolic 103–135; BP diastolic 45–72; PULSE 63–103; RESP 10–22; TEMP 36.6–36.8; O2SAT 94–97
[2021-06-30] MEDS: THIAMINE 500 MG in Normal Saline 100 ML 200 MG IVPB ×3 (00:12→16:14)
[2021-06-30] MEDS: Normal Saline Flush 10 ML SYR IVP ×2 (00:14→20:21)
[2021-06-30] MEDS: Ascorbic Acid 500 MG TAB PO (07:15)
[2021-06-30] MEDS: Calcium 600mg/Vit D 200U TAB 1 TAB PO (07:15)
[2021-06-30 07:16] LABS: Abs Immature Grans 0.02 10^3/uL (0.0-0.06); Absolute Basophil Count 0.05 10^3/uL (0.0-0.2); Absolute Eosinophil Count 0.04 10^3/uL (0.0-0.7); Absolute Lymphocyte Count 1.71 10^3/uL (1.2-3.4); Absolute Monocyte Count 1.31 10^3/uL (0.1-0.8); Absolute Neutrophil Count 4.28 10^3/uL (1.2-6.7); Basophils % 0.7; Eosinophils % 0.5; Immature Grans % 0.3; Lymphocytes % 23.1; MCH 31.2 pg (27.0-33.0); MCHC 31.6 % (32.0-36.0); MCV 98.7 fL (80-95); Monocytes % 17.7; Neutrophils % 57.7; Nucleated RBC 0 %; Platelet Count 183 10^3/uL (130-400); RBC 3.01 10^6/uL (3.93-5.22); RDW 13.4 % (11.7-14.6); RDW-SD 47.8 fL; WBC 7.41 10^3/uL (4.4-10.8)
[2021-06-30 07:32] LABS: HCT 29.7 % (36.0-46.0); HGB 9.4 g/dL (11.2-15.7)
[2021-06-30 07:42] LABS: ALT 11 U/L (14-59); AST 20 U/L (15-37); Albumin 2.8 g/dL (3.4-5.0); Alkaline Phosphatase 64 U/L (46-116); Anion Gap 7.4 mmol/L (3-11); BUN 7 mg/dL (7-18); CO2 25.6 mmol/L (21.0-32.0); Calcium 8.8 mg/dL (8.5-10.1); Chloride 108 mmol/L (98-107); Potassium 3.9 mmol/L (3.5-5.1); Sodium 141 mmol/L (136-145); Total Protein 5.5 g/dL (6.4-8.2)
[2021-06-30 07:43] LABS: CREATININE 0.6 mg/dL (0.55-1.02); Glucose 82 mg/dL (74-106)
[2021-06-30] MEDS: Pantoprazole 40 MG TABCR PO ×2 (08:38→10:06)
[2021-06-30] MEDS: Acetaminophen 325 MG TAB 650 MG PO ×2 (08:38→14:43)
[2021-06-30] MEDS: Folic Acid 1 MG TAB PO (08:39)
[2021-06-30] MEDS: Multivitamin TAB 1 TAB PO (08:39)
--- NOTE | 2021-06-30 10:00 | PDOC.CMIN ---
- If Service Date Differs Date of service: 06/30/21 Time of Service: 10:00 Care Management Initial Assess REASON FOR HOSPITALIZATION:: Ambulatory Dysfunction PAST MEDICAL HISTORY/PAST SURGICAL HISTORY:: All Active Problems (Updated 06/29/21 @ 16:10 by Ashley Melendez DO). Fracture of proximal humerus (Acute). Ambulatory dysfunction (Acute). Pain of right lower extremity (Acute). Knee pain (Acute). Fall (Acute). Unable to ambulate (Acute). Discharge planning issues (Acute). Knee pain, right (Acute). Macrocytic anemia with vitamin B12 deficiency (Chronic). Abnormal auditory perception (Acute). Cerumen impaction (Acute). Sensory hearing loss, bilateral (Acute). Otorrhea of left ear (Acute). Fracture, humerus (Acute). Fracture, intertrochanteric, left femur (Acute). Medical History (Updated 06/29/21 @ 16:10 by Ashley Melendez DO). Alcohol use, unspecified with other alcohol-induced disorder. CAD (coronary artery disease). Iron deficiency. Surgical History . S/P appendectomy. S/P hysterectomy. Status post open reduction with internal fixation of fracture. 1. left hip. 2. left shoulder PREVIOUS FUNCTIONAL STATUS/SOCIAL/FAMILY SUPPORTS:: Per chart review: Jania lives alone in an apartment at the [facility]. She has no natural supports ie.) friends or family in [place]. She has a sister in [place] and a brother in [place] but has previously stated that she rarely speaks to them. Jania cares for her apartment and she is independent with her ADLs, though she does admit that it is getting harder and harder to do chores. She does not drive. CURRENT FUNCTIONAL STATUS:: Garrick was transferred to the ICU yesterday. She is on bed rest and able to move independently in bed. She is scoring on the CIWA protocol. She is confused and unable to answer questions appropriately. CM will continue to monitor and assess discharge planning needs. ADVANCE DIRECTIVES:: None on file; CM will offer forms. Has patient been provided with info about the portal/API?: Yes Did the patient sign up for the portal?: No CODE STATUS:: DNR/DNI INSURANCE COVERAGE / FINANCIAL ISSUES:: Medicare and Medicaid. CURRENT HOME/COMMUNITY SERVICES/EQUIPMENT:: [employer] Walker and shower bench. [facility] referral was sent at her last admission. PRIMARY CARE PHYSICIAN:: Kaila Mathur MD POTENTIAL DISCHARGE NEEDS:: Follow-up appointment with PCP and referral to [facility], RN, PT and OT. PATIENT/FAMILY EDUCATION NEEDS:: Discharge education, limitations, follow-up plan of care, including Ask Me Three discussion and self-management. TRANSPORTATION:: Via [facility] when ready. PLAN:: Surgical intervention in the OR is planned for . Jania will likely discharge home with new [facility] RN, PT, and OT services vs. SNF for short term rehab when medically cleared by provider. She will follow up with her PCP and discharge plan of care as directed. [facility] will transport Jania home when ready. CM will continue to follow.
[2021-06-30 12:15] LABS: HCT 30.4 % (36.0-46.0); HGB 9.9 g/dL (11.2-15.7)
--- NOTE | 2021-06-30 12:30 | W.PM.PROGNOT ---
Date of Service Date of service: 06/30/21 Time of Service: 12:30 Assessment and Plan Assessment and plan (1) Fracture of proximal humerus: Start date: 06/30/21 Start time: 12:30 Status: Acute Assessment and plan: sling for comfort ice, pain management, tylenol scheduled with nucynta for added comfort PT/OT Ortho will perform surgery on Thr on shoulder (2) Alcohol use, unspecified with other alcohol-induced disorder: Start date: 06/30/21 Start time: 12:30 Assessment and plan: high dose thiamine (3) Ambulatory dysfunction: Start date: 06/30/21 Start time: 12:30 Status: Acute Assessment and plan: PT/OT (4) Discharge planning issues: Start date: 06/30/21 Start time: 12:30 Status: Acute Assessment and plan: patient does not appear safe for a discharge to home case management will be following for discharge planning discussed with Dr gudino Subjective Subjective Patient reports: other Interval history since last seen: Poor historian, thinks she can go home. Surgery will operate on . Likely component of [place] brain/dementia. Pain with movement, schedule tylenol and add nucynta for shoulder Exam Const General: comfortable and frail appearing Nutritional Appearance: thin Orientation: alert, awake, oriented to person and oriented to place HENMT Head: normal to inspection Mouth: oral mucosae normal Eyes General: appearance normal, both eyes and all related structures Neck Neck: normal visual inspection Chest Chest: normal inspection of the chest and normal palpation of entire chest wall Resp Effort & Inspection: normal respiratory effort and able to speak in complete sentences Auscultation: clear to auscultation bilaterally Cardio Rate: regular rate GI Inspection: normal to inspection Palpation: soft, not firm, no guarding, not rigid and nontender Skin General skin exam: ecchymosis (right shoulder) Neuro General: patient alert and patient awake Motor: muscle tone normal throughout Objective Last Vital Signs Temp 36.8 C 06/30/21 07:46 Pulse 76 06/30/21 07:46 Resp 14 06/30/21 07:46 BP 128/66 06/30/21 07:46 Pulse Ox 96 06/30/21 07:46 Laboratory Results - last 24 hr 06/29/21 06/29/21 06/29/21 11:35 12:57 16:05 WBC RBC Hgb Hct MCV MCH MCHC RDW Plt Count MPV Immature Gran % Neutrophils % Lymphocytes % Monocytes % Eosinophils % Basophils % Nucleated RBC % Absolute Neutrophils Absolute Lymphocytes Absolute Monocytes Absolute Eosinophils Absolute Basophils Sodium Potassium Chloride Carbon Dioxide Anion Gap BUN Creatinine Estimated GFR/1.73 m2 Glucose Calcium Total Bilirubin AST ALT Alkaline Phosphatase Total Protein Albumin Urine Color Yellow Urine Clarity Clear Urine pH 5.5 Ur Specific [place] >= 1.030 H Urine Protein Negative Urine Ketones Negative Urine Blood Trace-intact H Urine Nitrite Negative Urine Bilirubin Negative Urine Urobilinogen 0.2 Ur Leukocyte Esterase Negative Urine RBC 5-10 H Urine WBC 0-2 Ur Epithelial Cells Few Urine Crystals Negative Urine Bacteria Rare Urine Casts Urine Mucus Trace Ur Culture Indicated? No Urine Glucose 100 Ethyl Alcohol < 3.0 COVID-19 Source Nasal/Nares SARS-CoV-2 (PCR) Negative 06/30/21 06/30/21 06/30/21 06:40 06:40 12:00 WBC 7.41 D RBC 3.01 L Hgb 9.4 L D 9.9 L Hct 29.7 L D 30.4 L MCV 98.7 H MCH 31.2 MCHC 31.6 L RDW 13.4 Plt Count 183 MPV 10.0 Immature Gran % 0.3 Neutrophils % 57.7 Lymphocytes % 23.1 Monocytes % 17.7 Eosinophils % 0.5 Basophils % 0.7 Nucleated RBC % 0 Absolute Neutrophils 4.28 Absolute Lymphocytes 1.71 Absolute Monocytes 1.31 H Absolute Eosinophils 0.04 Absolute Basophils 0.05 Sodium 141 Potassium 3.9 Chloride 108 H Carbon Dioxide 25.6 Anion Gap 7.4 BUN 7 Creatinine 0.6 D Estimated GFR/1.73 m2 >= 60.00 Glucose 82 D Calcium 8.8 Total Bilirubin 1.0 AST 20 ALT 11 L Alkaline Phosphatase 64 Total Protein 5.5 L Albumin 2.8 L Urine Color Urine Clarity Urine pH Ur Specific [place] Urine Protein Urine Ketones Urine Blood Urine Nitrite Urine Bilirubin Urine Urobilinogen Ur Leukocyte Esterase Urine RBC Urine WBC Ur Epithelial Cells Urine Crystals Urine Bacteria Urine Casts Urine Mucus Ur Culture Indicated? Urine Glucose Ethyl Alcohol COVID-19 Source SARS-CoV-2 (PCR)
[2021-06-30] MEDS: LORazepam 1 MG TAB PO/SL ×2 (14:43→16:19)
[2021-06-30] MEDS: chlordiazePOXIDE 25 MG CAP PO (16:40)
--- NOTE | 2021-06-30 18:13 | NUR.NOTE ---
pt scored 14 on CIWA, she is confused, removed arm slings, hallucinating. 3mg ativan, lubrium given. aware
[2021-06-30 19:41] LABS: Magnesium 1.7 mg/dL (1.8-2.4)
[2021-06-30] MEDS: PHENobarbital 130 MG/ML VIAL IVP (20:21)
[2021-07-01] VITALS (32 sets, daily range): BP systolic 88–137; BP diastolic 43–81; PULSE 59–124; RESP 15–29; TEMP 36–37.2; O2SAT 92–99
--- NOTE | 2021-07-01 | DI.CT_ITS ---
Exam(s) CT HEAD CERVICAL SPINE WO EXAM: CT HEAD CERVICAL SPINE WO CLINICAL HISTORY: fall. TECHNIQUE: Imaging Protocol: Axial computed tomography images with coronal and sagittal reformatted images were created and reviewed COMPARISON: CT CT HEAD CERVICAL SPINE WO from 06/29/2021 FINDINGS: BRAIN: There is a prominent right frontal region scalp hematoma. No obvious skull fracture. There are no skull fractures nor fluid in the visualized paranasal sinuses. There is no evidence of intracranial hemorrhage, mass effect, or shift of midline structures. There are no extra-axial fluid collections. The ventricles are not enlarged or shifted and there is no blo od within the ventricular system nor within the basal cisterns. Again noted is abundant bilateral periventricular hypodensity consistent with chronic small vessel di sease. CERVICAL SPINE: There is no evidence of fracture nor listhesis. No significant prevertebral soft tissue swelling. Multilevel chronic degenerative disc disease with reversal of the normal curvature. Also multilevel facet arthropathy. There is no significant facet joint malalignment. No significant osseous lesions evident. IMPRESSION: Large right frontal scalp hematoma. No acute intracranial findings. No skull fracture. No evidence of cervical spine fracture, malalignment, nor acute compromise of the cervical spinal can al. Chronic multilevel degenerative changes in the cervical spine noted Report called to ER. RADIATION DOSE DELIVERED: 1,077.18mGy.cm Total DLP DATA REPOSITORY: All CT scans at this facility are submitted to the National Radiology Data Registry (NRDR) Dose Index Registry (DIR) with the [employer] (ACR). RADIATION OPTIMIZATION: All CT scans at this facility use at least one of these dose optimization te chniques: automated exposure control; mA and/or kV adjustment per patient size (includes targeted exa ms where dose is matched to clinical indication); or iterative reconstruction.
[2021-07-01] MEDS: THIAMINE 500 MG in Normal Saline 100 ML 200 MG IVPB ×4 (01:40→23:39)
[2021-07-01 07:06] LABS: Abs Immature Grans 0.03 10^3/uL (0.0-0.06); Absolute Basophil Count 0.04 10^3/uL (0.0-0.2); Absolute Eosinophil Count 0.05 10^3/uL (0.0-0.7); Absolute Lymphocyte Count 1.12 10^3/uL (1.2-3.4); Absolute Monocyte Count 0.85 10^3/uL (0.1-0.8); Absolute Neutrophil Count 3.71 10^3/uL (1.2-6.7); Basophils % 0.7; Eosinophils % 0.9; HCT 30.2 % (36.0-46.0); HGB 9.5 g/dL (11.2-15.7); Immature Grans % 0.5; Lymphocytes % 19.3; MCH 31.4 pg (27.0-33.0); MCHC 31.5 % (32.0-36.0); MCV 99.7 fL (80-95); MPV 9.8 fL (8.0-11.0); Monocytes % 14.7; Neutrophils % 63.9; Nucleated RBC 0 %; Platelet Count 189 10^3/uL (130-400); RBC 3.03 10^6/uL (3.93-5.22); RDW-SD 47.5 fL
--- NOTE | 2021-07-01 07:21 | OT.INNT ---
Occupational Therapy Notes 07/01/21 OT consult received and pts chart was reviewed. Due to pts decline in medical care and need for transition to the ICU, OT will need a new referral when MD feels that pt is medically appropriate for OT services. Kasey Xavier, OTR/L
[2021-07-01 07:32] LABS: Iron 39 ug/dL (50-170); Total Iron Binding Capacity 172 ug/dL (250-450); Transferrin Sat 23 % (15-50)
[2021-07-01 07:39] LABS: Anion Gap 7.5 mmol/L (3-11); BUN 7 mg/dL (7-18); CO2 26.5 mmol/L (21.0-32.0); CREATININE 0.5 mg/dL (0.55-1.02); Calcium 8.8 mg/dL (8.5-10.1); Chloride 106 mmol/L (98-107); Glucose 80 mg/dL (74-106); PHOSPHORUS 2.7 mg/dL (2.6-4.7); Potassium 3.5 mmol/L (3.5-5.1); Sodium 140 mmol/L (136-145)
--- NOTE | 2021-07-01 09:27 | CMPROGNOTE_ITS ---
- If Service Date Differs Date of service: 07/01/21 Time of Service: 09:27 Care Management Progress Note S/O: Jania was transferred to the ICU yesterday evening for sx of ETOH withdrawal. She is on CIWA protocol. There is some question of [place] brain vs. Dementia and safety surrounding discharging home due to multiple falls and cognition. CM will continue to support discharge planning needs. Likely Jania will benefit from a Psych consult with Dr. Forrester when she is more alert. A: 80 year old female admitted to [facility] on 06/30/21 for ambulatory function and fracture of proximal humerus. P: Surgical intervention in the OR is planned for . Jania will likely discharge home with new [facility] RN, PT, and OT services vs. SNF for short term rehab when medically cleared by provider. She will follow up with her PCP and discharge plan of care as directed. [facility] will transport Jania home when ready. CM will continue to follow.
--- NOTE | 2021-07-01 09:45 | W.NUTCONSULT ---
Date of service: 07/01/21 Time of Service: 09:47 Nutritional Consult ASSESSMENT: 80 year old female admitted with fracture of humerus (surgery 07/02/21) with possible alcohol withdrawl, now transferred into ICU. BMI of 14 with 20 lbs weight loss (-25%) in last 90 days indicates severe malnutrition. Meds include supplementation with folate, thiamin, calcium/D, VIt C, MVI. Admitted 2 days ago with poor intake, now on clear liquids. At high nutritional risk and at risk for poor healing s/p surgical intervention in view of malnourished state. Lives alone, receives ensure as supplement at home. Estimated Needs: 1141-0757 kcal, 50-55 g protein, 1500 ml fluid NUTRITIONAL DIAGNOSIS: Severe malnutrition as evidenced by BMI of 14 and 25% weight loss in last 90 days INTERVENTION: Continue Clear Liquid diet, advance when able. will supplement with ensure clear TID Recommend nocturnal tube feeding s/p surgery providing 75% of nutrient needs: Jevity 1.5 @ 60 cc/hour (7p-7a) providing total of 1080 kcal, 45 g protein, 520 ml fluid. Flush: 250 ml q 6 hours Will initiate calorie count s/p surgery to closely assess adequacy Consider appetite stimulant s/p surgery MONITORING AND EVALUATION: po intake, weight, labs Time Spent in Nutritional Counseling and Treatment: 0
--- NOTE | 2021-07-01 09:48 | W.PM.PROGNOT ---
Date of Service Date of service: 07/01/21 Time of Service: 09:48 Assessment and Plan Assessment and plan (1) Alcohol withdrawal: Status: Acute Assessment and plan: Being monitored in the ICU with prn phenobarbital. Actually, rather stable. Continue thiamine, MVI. D/c folate. (2) Closed head injury: Status: Acute Assessment and plan: Monitor neurological status/for signs/sx of concussion. (3) Scalp hematoma: Status: Acute Assessment and plan: No evidence of intracranial injury. Ice. Hold NSAIDs/chemical DVT ppx. (4) Fracture of proximal humerus: Status: Acute Assessment and plan: Orthopedics was planning on doing surgery on in-patient basis (right now this is being planned for ). Continue sling for comfort Continue scheduled tylenol, prn nucynta, ice. PT/OT consulted. (5) Fall: Status: Acute Assessment and plan: The patient fell off of the commode today. However, we strongly suspect multiple falls at home which is why she was admitted. Continue working with PT. Monitor mental status. (6) Alcohol use, unspecified with other alcohol-induced disorder: Assessment and plan: Continue high dose thiamine, MVI, as above. (7) Ambulatory dysfunction: Status: Acute Assessment and plan: PT/OT (8) Discharge planning issues: Status: Acute Assessment and plan: DNR/DNI. Keep in ICU (9) DVT prophylaxis: Status: Acute Assessment and plan: SCDs. Holding chemical DVT ppx in setting of a large scalp hematoma as well as R shoulder hematoma Subjective Subjective Interval history since last seen: Ms Wallis was transferred to the ICU yesterday evening due to escalating CIWA scores (23). She was transitioned from benzodiazepine treatment to phenobarbital. She required 1 dose of 130 mg of phenobarbital overnight. This morning, she fell from the commode hitting her head. Her CT head was negative. She has a large hematoma on her R scalp. The patient reports a little dizziness, denies headache. Her biggest pain is in the R shoulder. Denies n/v. She says it's not a good time to ask her how she is doing. Exam Narrative Exam Narrative: General: Frail elderly female who is uncomfortable in bed, somnolent, arousable HEENT: R frontal scalp hematoma, EOMI, MMM Heart: RRR, no m/r/g Lungs: CTAB Abdomen: soft, nontender, nondistended Extremities: R shoulder with a large purple ecchymosis, able to move all 4 extremities Objective Last Vital Signs Temp 36.4 C L 07/01/21 04:15 Pulse 66 07/01/21 06:01 Resp 15 07/01/21 06:01 BP 109/53 L 07/01/21 06:01 Pulse Ox 98 07/01/21 04:15 Laboratory Results - last 24 hr 06/30/21 06/30/21 07/01/21 06:40 12:00 06:09 WBC RBC Hgb 9.9 L Hct 30.4 L MCV MCH MCHC RDW Plt Count MPV Immature Gran % Neutrophils % Lymphocytes % Monocytes % Eosinophils % Basophils % Nucleated RBC % Absolute Neutrophils Absolute Lymphocytes Absolute Monocytes Absolute Eosinophils Absolute Basophils Sodium Potassium Chloride Carbon Dioxide Anion Gap BUN Creatinine Estimated GFR/1.73 m2 Glucose Calcium Phosphorus Magnesium 1.7 L Iron 39 L TIBC 172 L Transferrin % Sat 23 Folate 07/01/21 07/01/21 07/01/21 06:09 06:09 06:09 WBC 5.80 RBC 3.03 L Hgb 9.5 L Hct 30.2 L MCV 99.7 H MCH 31.4 MCHC 31.5 L RDW 13.0 Plt Count 189 MPV 9.8 Immature Gran % 0.5 Neutrophils % 63.9 Lymphocytes % 19.3 Monocytes % 14.7 Eosinophils % 0.9 Basophils % 0.7 Nucleated RBC % 0 Absolute Neutrophils 3.71 Absolute Lymphocytes 1.12 L Absolute Monocytes 0.85 H Absolute Eosinophils 0.05 Absolute Basophils 0.04 Sodium 140 Potassium 3.5 Chloride 106 Carbon Dioxide 26.5 Anion Gap 7.5 BUN 7 Creatinine 0.5 L Estimated GFR/1.73 m2 >= 60.00 Glucose 80 Calcium 8.8 Phosphorus 2.7 Magnesium Iron TIBC Transferrin % Sat Folate 11.0
[2021-07-01] MEDS: Acetaminophen 325 MG TAB 650 MG PO ×2 (10:24→17:07)
[2021-07-01] MEDS: Folic Acid 1 MG TAB PO (10:32)
[2021-07-01] MEDS: Calcium 600mg/Vit D 200U TAB 1 TAB PO ×2 (10:32→19:57)
[2021-07-01] MEDS: Ascorbic Acid 500 MG TAB PO ×2 (10:32→19:57)
[2021-07-01] MEDS: Multivitamin TAB 1 TAB PO (10:33)
[2021-07-01] MEDS: Pantoprazole 40 MG TABCR PO (10:34)
[2021-07-01] MEDS: Normal Saline Flush 10 ML SYR IVP (10:35)
--- NOTE | 2021-07-01 11:07 | NUR.NOTE ---
08 Kailash Jang RN was in the room standing next to the patient's commode while the patient was on it to void. As Kailash Jang RN reached for the thermometer, the patient tipped forward off the commode and hit the floor before Kailash Jang could react to stop her fall. Kailash Jang called for help and Davina Chu RN, Kailash ANTHONYN, and Barbara Guallpa responded immediately and a head-to toe assessment was performed. No complaints of neck pain. Patient found to have a large bump on her R forehead with a skin tear and mild bleeding from the tear. Pressure applied with clean gauze and only oozing intermittently present within the 1st min of pressure. Patient was lifted and placed back in the bed. VS stable. Dr. Santos was in the unit and notified of the fall. 08 Dr. Santos in the room, assessed the patient, and ordered a CT of the head and neck. Patient taken to CT by 0836 and continued to show no neuro changes from pre-fall baseline. Ice pack applied to bump on head per Dr. Santos's verbal order. I cleaned the skin tear with sterile water and gauze and placed a telfa pad with gauze and paper tape over the wound. Fall policy reviewed and neuro assessments done following protocol. Patient has had no neuro changes and continues to have baseline confusion at times of exact place or date. Patient follows commands, moves all hands and feet on command, is able to eat/drink clear liquids and pills. Pt resting in bed. Nursing Note:
--- NOTE | 2021-07-01 11:57 | OCONE_ITS ---
Assessment and Plan Assessment and plan (1) Fracture of proximal humerus: Status: Acute Assessment and plan: 80-year-old female with widely displaced right proximal humerus fracture Unclear history of multiple falls at home and subacute right shoulder injury. Admitted to hospital for ambulatory dysfunction. Transferred to ICU overnight due to alcohol withdrawal. Severe malnutrition. Patient is not optimized for any major orthopedic surgery including right fracture reverse total shoulder arthroplasty due to above complicating factors. Recommend medical optimization. Nonweightbearing right upper extremity. [place] assisted reduction with cuff and collar. Start gentle passive range of motion in a couple weeks. I would consider surgery if/when patient is appropriate surgical candidate as inpatient or outpatient basis. I will discuss with primary medical team and check back in tomorrow. If patient is doing better, would consider all surgical options including possibly less invasive closed reduction. PFSH All Active Problems (Updated 07/01/21 @ 11:01 by Amy Santos MD) DVT prophylaxis (Acute) Scalp hematoma (Acute) Closed head injury (Acute) Fall (Acute) Alcohol withdrawal (Acute) Fracture of proximal humerus (Acute) Ambulatory dysfunction (Acute) Pain of right lower extremity (Acute) Knee pain (Acute) Fall (Acute) Unable to ambulate (Acute) Discharge planning issues (Acute) Knee pain, right (Acute) Macrocytic anemia with vitamin B12 deficiency (Chronic) Abnormal auditory perception (Acute) Cerumen impaction (Acute) Sensory hearing loss, bilateral (Acute) Otorrhea of left ear (Acute) Fracture, humerus (Acute) Fracture, intertrochanteric, left femur (Acute) Medical History (Updated 07/01/21 @ 11:01 by Amy Santos MD) Alcohol use, unspecified with other alcohol-induced disorder CAD (coronary artery disease) Iron deficiency Surgical History S/P appendectomy S/P hysterectomy Status post open reduction with internal fixation of fracture 1. left hip 2. left shoulder Social History Smoking/Tobacco Use Status: Current every day Smoking risk assessment performed?: Yes Alcohol Intake: current Alcohol Intake frequency: holidays/special occasions only Alcohol type: wine Drug use: Never Substance use type: does not use Do you feel safe at home: Yes Do you feel safe in your relationship?: Yes Results Last Vital Signs Temp 98.6 F 07/01/21 08:22 Pulse 80 07/01/21 08:22 Resp 15 07/01/21 10:00 BP 110/80 07/01/21 08:22 Pulse Ox 96 07/01/21 10:00 Labs Result diagrams: 07/01/21 06:09 07/01/21 06:09 Labs: Laboratory Results - last 24 hr 06/30/21 06/30/21 07/01/21 06:40 12:00 06:09 WBC RBC Hgb 9.9 L Hct 30.4 L MCV MCH MCHC RDW Plt Count MPV Immature Gran % Neutrophils % Lymphocytes % Monocytes % Eosinophils % Basophils % Nucleated RBC % Absolute Neutrophils Absolute Lymphocytes Absolute Monocytes Absolute Eosinophils Absolute Basophils Sodium Potassium Chloride Carbon Dioxide Anion Gap BUN Creatinine Estimated GFR/1.73 m2 Glucose Calcium Phosphorus Magnesium 1.7 L Iron 39 L TIBC 172 L Transferrin % Sat 23 Folate 07/01/21 07/01/21 07/01/21 06:09 06:09 06:09 WBC 5.80 RBC 3.03 L Hgb 9.5 L Hct 30.2 L MCV 99.7 H MCH 31.4 MCHC 31.5 L RDW 13.0 Plt Count 189 MPV 9.8 Immature Gran % 0.5 Neutrophils % 63.9 Lymphocytes % 19.3 Monocytes % 14.7 Eosinophils % 0.9 Basophils % 0.7 Nucleated RBC % 0 Absolute Neutrophils 3.71 Absolute Lymphocytes 1.12 L Absolute Monocytes 0.85 H Absolute Eosinophils 0.05 Absolute Basophils 0.04 Sodium 140 Potassium 3.5 Chloride 106 Carbon Dioxide 26.5 Anion Gap 7.5 BUN 7 Creatinine 0.5 L Estimated GFR/1.73 m2 >= 60.00 Glucose 80 Calcium 8.8 Phosphorus 2.7 Magnesium Iron TIBC Transferrin % Sat Folate 11.0
[2021-07-01] MEDS: Lidocaine 1% Multi-Dose 20 ML VIAL (12:00)
--- NOTE | 2021-07-01 12:20 | W.ANESVAS ---
Midline Placement Date Performed: 07/01/21 Procedure Time: 12:20 Requesting Provider: Amy Santos Procedure Location: Intensive Care Unit Sedation Given (Indicate Dose Given): No Sedation given Patient Mental Status: Awake Sterility: Hand Hygiene, Surgical Cap, Surgical Mask, Sterile Gloves, Sterile Drape/Sheet and Chlorhexidine Laterality: Left Insertion Site: Basilic Midline Device: PowerGlide Pro 18G Catheter Length: 10 cm Midline Procedure Procedure: 1% Lidocaine to skin and subcutaneous tissue with 25g needle, Vessel accessed with catheter over needle, Guidewire placed with ease, Catheter placed without resistance and Guidewire removed Dressing: Tegaderm Applied and Statlock Applied Blood Return: Present Flushes: Easily Ultrasound: Sterile probe cover and gel used Ultrasound Image Saved?: Yes Number of Attempts (See previous attempts in note section): 1 Procedure Tolerated: No Complications and Patient tolerated well Procedure Outcome: Successful Performed By: Joao Laird
[2021-07-01] MEDS: MAGNESIUM SULFATE 2 GM/50 ML BAG IVPB (14:25)
[2021-07-01] MEDS: Lactated Ringers 1,000 ML 50 ML IV (14:26)
[2021-07-01 14:56] LABS: Vitamin B12 330 pg/mL (193-986)
[2021-07-02] VITALS (30 sets, daily range): BP systolic 85–126; BP diastolic 43–101; PULSE 66–115; RESP 14–33; TEMP 36.5; O2SAT 92–98
[2021-07-02] MEDS: Acetaminophen 325 MG TAB 650 MG PO ×4 (01:48→19:06)
[2021-07-02 07:06] LABS: Abs Immature Grans 0.01 10^3/uL (0.0-0.06); Absolute Basophil Count 0.03 10^3/uL (0.0-0.2); Absolute Eosinophil Count 0.14 10^3/uL (0.0-0.7); Absolute Lymphocyte Count 1.16 10^3/uL (1.2-3.4); Absolute Monocyte Count 0.67 10^3/uL (0.1-0.8); Absolute Neutrophil Count 2.55 10^3/uL (1.2-6.7); Basophils % 0.7; Eosinophils % 3.1; HCT 26.6 % (36.0-46.0); HGB 8.5 g/dL (11.2-15.7); Immature Grans % 0.2; Lymphocytes % 25.4; MCH 31.5 pg (27.0-33.0); MCV 98.5 fL (80-95); MPV 9.8 fL (8.0-11.0); Monocytes % 14.7; Neutrophils % 55.9; Nucleated RBC 0 %; Platelet Count 200 10^3/uL (130-400); RDW 13.2 % (11.7-14.6); RDW-SD 46.8 fL; WBC 4.56 10^3/uL (4.4-10.8)
[2021-07-02 07:07] LABS: Anion Gap 5.4 mmol/L (3-11); BUN 4 mg/dL (7-18); CO2 26.6 mmol/L (21.0-32.0); CREATININE 0.5 mg/dL (0.55-1.02); Calcium 8.1 mg/dL (8.5-10.1); Chloride 105 mmol/L (98-107); Glucose 88 mg/dL (74-106); Magnesium 1.8 mg/dL (1.8-2.4); Potassium 3.1 mmol/L (3.5-5.1); Sodium 137 mmol/L (136-145)
--- NOTE | 2021-07-02 08:41 | PDOC.CMPRO ---
- If Service Date Differs Date of service: 07/02/21 Time of Service: 08:41 Care Management Progress Note S/O: Jania was lying in bed when CM met with her. She was alert, oriented and able to engage in conversation. Jania had a Psych eval with Dr. Forrester at 12pm today for a competency evaluation as there is some concern for safety when returning home. She also had a Palliative Care Consult. Jania does not have any contacts listed on her HIPAA, CM will discuss this further with patient. In addition, Dr. Santos met with Dr. Street today and the consensus is that it would be in Jania's best interest to postpone surgical intervention and seek SNF placement for approx. a week then surgery. DEAN is working on filing for Temporary Guardianship since it was identified in Dr. Forrester's consult that Maddi has limited capacity to make medical decisions. A: 80 year old female admitted to [facility] on 06/30/21 for ambulatory function and fracture of proximal humerus. P: Surgical intervention planned for , has been put on hold. Jania will likely discharge to SNF vs home with new [facility] RN, PT, and OT services when medically able. Jania will follow up with her PCP and discharge plan of care as directed. Transportation dependent on disposition. Pt will transport via [facility] private vehicle if going home. CM will continue to support discharge planning needs.
[2021-07-02 08:54] LABS: Transferrin 147 mg/dL (201-352)
--- NOTE | 2021-07-02 09:42 | IN_ITS ---
Date of service: 07/02/21 Time of Service: 09:42 PT Notes Visit Reasons: Ambulatory Dysfunction Physical Therapy Inpatient Initial Evaluation Date: 07/02/2021 Referring Doctor: Amy Santos MD PT Orders: PT CONSULT: Limited ability Precautions: Fall. Standard. NWB on the R LE, collar and cuff sling on at all times. Patient Profile/Admitting Diagnosis: Maddi is a 80-year-old female with widely displaced right proximal humeral fracture due to suspected repeated falls at home. Patient is diagnosed with proximal humeral fracture, EtOH use, and ambulatory dysfunction. PMHX: All Active Problems?(Updated 06/29/21 @ 16:10 by Ashley Melendez DO) Fracture of proximal humerus (Acute) Ambulatory dysfunction (Acute) Pain of right lower extremity (Acute) Knee pain (Acute) Fall (Acute) Unable to ambulate (Acute) Discharge planning issues (Acute) Knee pain, right (Acute) Macrocytic anemia with vitamin B12 deficiency (Chronic) Abnormal auditory perception (Acute) Cerumen impaction (Acute) Sensory hearing loss, bilateral (Acute) Otorrhea of left ear (Acute) Fracture, humerus (Acute) Fracture, intertrochanteric, left femur (Acute) Medical History?(Updated 06/29/21 @ 16:10 by Ashley Melendez DO) Alcohol use, unspecified with other alcohol-induced disorder CAD (coronary artery disease) Iron deficiency Surgical History? S/P appendectomy S/P hysterectomy Status post open reduction with internal fixation of fracture 1.? left hip 2.? left shoulder Social History/Home Situation: Lives alone in her apartment at the [facility]. Independent with all aspects of ADs prior to admission. Equipment Owned/DME: None Subjective: Agreeable to PT consult. Complains of pain in R shoulder at 8-9/10 with movement. Reports that her leg just gives way and cause her to fall. Objective: General Observation: Swelling in R UE. In mild distress due to pain level. Sling out of position and needed to be properly placed. Telemetry monitoring in place. IV access in R UE. Mental Status: Alert. Able to follow single step commands. Anxious about the slightest movement in R UE. Pain: 8-9/10 in R UE Vital Signs: WNL as closely monitored via tele ROM: Right Upper Extremity: NT Left Upper Extremity: Shoulder Flexion WFL. Shoulder abduction WFL. Elbow flexion WFL. Wrist flexion WFL. Functional opening and closing of hand WFL. Right Lower Extremity: Hip flexion WFL. Hip abduction WFL. Knee flexion WFL. Ankle dorsiflexion WFL. Ankle plantarflexion WFL. Left Lower Extremity: Hip flexion WFL. Hip abduction WFL. Knee flexion WFL. Ankle dorsiflexion WFL. Ankle plantarflexion WFL. Strength: Right Upper Extremity: NT Left Upper Extremity: Shoulder flexors 4-/5. Shoulder abductors 4-/5. Elbow flexors 4-/5. Elbow extensors 4-/5. Sheet Manufacturing Supervisor strong. Right Lower Extremity: Hip flexors 3+/5. Hip abductors 3+/5. Knee flexors 3+/5. Knee extensors 3+/5. Ankle dorsiflexors 3+/5. Ankle plantarflexors 3+/5. Left Lower Extremity: Hip flexors 3+/5. Hip abductors 3+/5. Knee flexors 3+/5. Knee extensors 3+/5. Ankle dorsiflexors 3+/5. Ankle plantarflexors 3+/5. Bed Mobility/Transfers: Supine to sit with minimal assist with moderate cues for safe/correct technique Sit to supine with minimal assist with moderate cues for safe/correct technique Sit to stand with minimal assist with moderate cues for safe/correct technique Stand to sit with minimal assist with moderate cues for safe/correct technique Bed to bedside commode with minimal assist with moderate cues for safe/correct technique Bedside commode to bed with minimal assist with moderate cues for safe/correct technique Gait: Instructed patient with level surface ambulation of 10 feet +10 feet requiring minimalassist. Day decreased. Step height decreased. Step length decreased. Gait ataxic. Minimal shortness of breath that subsided with rest. Balance: Static Sitting: Good Dynamic Sitting: Fair Static Standing: Poor Dynamic Standing: Poor Special Tests: Mobility Limitations Standardized Measure [facility] AM-PAC 6 clicks Basic Mobility Inpatient Short Form: Raw Score: 11 CMS Score: 73% deficit Informed Consent/Education: Patient was instructed in purpose of PT consult and plan of care. Agreeable to proceed with established PT POC to achieve personal goals. Assessment: Gait ataxic. Requires moderate to maximal verbal cueing for safety. Short-term memory severely impaired. Patient demonstrates functional mobility decline requiring the use of a single-point cane and the assistance of 1 caregiver with moderate to maximal verbal cueing for correct technique and for overall safety. Patient presents with clinical signs and symptoms consistent with current/admitting diagnoses that have resulted to mobility limitations, gait instability, generalized weakness, and overall ADL decline as demonstrated by the following impairment level findings: 1. Decreased strength to B UE/LE major muscle groups 2. Impaired sitting/standing balance 3. Impaired activity tolerance 4. Limitation of joint range of motion in R UE joints 5. Shortness of breath 6. Swelling in R UE Impairments are contributing to the following functional limitations: 1. Decline in bed mobility skills 2. Decline in transfer skills 3. Difficulty with ambulation without assistive device and physical assistance 4. Increased completion time for mobility ADL performance 5. Increased risk for falls 6. Difficulty with managing steps alone safely 7. Inability to thriove at home alone at this time Patient is assessed as a 61622 moderate complexity based on the following: History: 80-year-old femalewith past medical history as indicated above Examination: Demonstrable impairment in strength, balance, and mobility level with underlying impairments and functional limitations as exhibited above as well as deficit score of 73% utilizing the [facility] Mobility Inpatient Short Form Presentation: Evolving Decision Makin moderate complexity Goals: Goals X1 week 1. Supine-Sit independent 2. Sit-Supine independent 3. Sit-Stand independent 4. Stand-Sit standby assist with SPC 5. Bed-Chair standby assist with SPC 6. Chair-Bed standby assist with SPC 7. Standby assist gait on level surface with use of SPC for at least 100 feet without report of pain nor dyspnea 8. Standby assist with home exercise program 9. Fair static and dynamic standing balance/tolerance Plan of Care/Treatment Plan: 1-2x/day, 7 days/week x 1 week. Plan of care has been reviewed with the CLIENT PARTNER providing the service under Physical Therapy direction. Initiate Physical Therapy intervention for pain management as needed, strengthening, bed mobility, transfers, gait, stairs, balance training, and use of assistive device. DISCHARGE RECOMMENDATIONS: [] Home with no services [] [] Home with services [specify] [] Home with outpatient PT [] [X] SNF for continued rehabilitation. Patient will benefit from long term facility placement for continued skilled physical therapy services in order to progress mobility level, strength, and balance in preparation for a safe discharge to home. [] Skilled Nursing Care [] [] SNF versus LTC based on ability to participate and progress [] TREATMENT CODE/TIME: 73196 x 20 minutes, 14898 x 18 minutes beginning at 9:42 AM. Thank you for the opportunity to participate in the care of this patient. Josie Mckeon PT, DPT, CLT [facility] [place], [place]
[2021-07-02] MEDS: Ascorbic Acid 500 MG TAB PO ×2 (10:22→19:06)
[2021-07-02] MEDS: Pantoprazole 40 MG TABCR PO (10:22)
[2021-07-02] MEDS: Multivitamin TAB 1 TAB PO (10:23)
[2021-07-02] MEDS: Calcium 600mg/Vit D 200U TAB 1 TAB PO ×2 (10:23→19:06)
[2021-07-02] MEDS: MAGNESIUM SULFATE 1 GM/100 ML BAG IVPB (10:27)
[2021-07-02] MEDS: POTASSIUM CHLORIDE 20 MEQ/100 ML BAG 50 MEQ IVPB ×2 (10:28→12:57)
[2021-07-02] MEDS: Lactated Ringers 1,000 ML 50 ML IV (10:29)
[2021-07-02] MEDS: THIAMINE 500 MG in Normal Saline 100 ML 200 MG IVPB ×2 (10:30→14:41)
--- NOTE | 2021-07-02 11:09 | PGE_ITS ---
Date of Service Date of service: 07/02/21 Time of Service: 11:10 Assessment and Plan Assessment and plan (1) Alcohol withdrawal: Status: Resolved Assessment and plan: Appears to have resolved. She no longer requires ICU. Continue high dose thiamine, MVI. (2) Closed head injury: Status: Acute Assessment and plan: Monitor neurological status/for signs/sx of concussion. (3) Scalp hematoma: Status: Acute Assessment and plan: No evidence of intracranial injury. Continue Ice. Hold NSAIDs/chemical DVT ppx. (4) Fracture of proximal humerus: Status: Acute Assessment and plan: The plan that was most recently discussed with orthopedics which seems safest for the patient is having the patient be discharged to a SNF x 1 week and then, if she is compliant with PT there and does not leave AMA, consider doing the surgery. There is a very high risk of noncompliance and ultimately, her facture does not absolutely have to be fixed surgically, though her ROM is going to be more limited with the non-operative treatment. There is a concern for complic ations if she falls/does not follow PT instructions after the shoulder arthroplasty. Continue sling (type is being modified by orthopedics) Continue scheduled tylenol, prn nucynta, ice. PT/OT consulted. (5) Fall: Status: Acute Assessment and plan: The patient fell off of the commode. We strongly suspect multiple falls at home. Continue working with PT. Monitor mental status. SNF on discharge is strongly recommended. (6) Alcohol use, unspecified with other alcohol-induced disorder: Assessment and plan: Continue high dose thiamine, MVI, as above. (7) Ambulatory dysfunction: Status: Acute Assessment and plan: PT/OT (8) Discharge planning issues: Status: Acute Assessment and plan: DNR/DNI. Transfer out of ICU. The patient does not have a DPOA at this time. Palliative care consult. Psychiatry consult to determine capacity to make disposition decisions. It is my strong opinion that the patient cannot be safely discharged home and should be discharged to SNF, followed by outpatient shoulder surgery if compliant with PT at SNF. Discussed with Iris Street and Sina. (9) DVT prophylaxis: Status: Acute Assessment and plan: SCDs. Holding chemical DVT ppx in setting of a large scalp hematoma as well as R shoulder hematoma Subjective Subjective Interval history since last seen: Ms Wallis reports a little discomfort in her R shoulder. Denies dizziness, headache, chest pain, shortness of breath, nausea. Exam Narrative Exam Narrative: General: Frail elderly female who is more alert and answers questions more consistently today, A&Ox3 (unsure about the year but eventually gets it right). NAD HEENT: R frontal scalp hematoma looks less tense, EOMI, MMM Heart: RRR, no m/r/g Lungs: CTAB Abdomen: soft, nontender, nondistended Extremities: RUE in a sling; able to move all 4 extremities Objective Last Vital Signs Temp 36.5 C 07/02/21 04:00 Pulse 75 07/02/21 04:00 Resp 18 07/02/21 04:00 BP 114/54 L 07/02/21 04:00 Pulse Ox 94 07/02/21 04:00 Laboratory Results - last 24 hr 07/01/21 07/01/21 07/02/21 06:09 06:09 06:45 WBC RBC Hgb Hct MCV MCH MCHC RDW Plt Count MPV Immature Gran % Neutrophils % Lymphocytes % Monocytes % Eosinophils % Basophils % Nucleated RBC % Absolute Neutrophils Absolute Lymphocytes Absolute Monocytes Absolute Eosinophils Absolute Basophils Sodium 137 Potassium 3.1 L Chloride 105 Carbon Dioxide 26.6 Anion Gap 5.4 BUN 4 L Creatinine 0.5 L Estimated GFR/1.73 m2 >= 60.00 Glucose 88 Calcium 8.1 L Magnesium 1.8 Transferrin 147 L Vitamin B12 330 07/02/21 06:45 WBC 4.56 RBC 2.70 L Hgb 8.5 L Hct 26.6 L MCV 98.5 H MCH 31.5 MCHC 32.0 RDW 13.2 Plt Count 200 MPV 9.8 Immature Gran % 0.2 Neutrophils % 55.9 Lymphocytes % 25.4 Monocytes % 14.7 Eosinophils % 3.1 Basophils % 0.7 Nucleated RBC % 0 Absolute Neutrophils 2.55 Absolute Lymphocytes 1.16 L Absolute Monocytes 0.67 Absolute Eosinophils 0.14 Absolute Basophils 0.03 Sodium Potassium Chloride Carbon Dioxide Anion Gap BUN Creatinine Estimated GFR/1.73 m2 Glucose Calcium Magnesium Transferrin Vitamin B12
[2021-07-02] MEDS: Potassium Chloride 20 MEQ TABCR 40 MEQ PO (11:47)
--- NOTE | 2021-07-02 12:47 | PSYCO_ITS ---
Date of service: 07/02/21 Time of Service: 12:47 History of Present Illness History of Present Illness Chief Complaint: Very bad shoulder Narrative: 4 hour telepsychiatry consultation requested by Dr. Santos for evaluation of decision making capacity. Primary question is whether she has the decision making capacity to return home vs. go to SNF and get surgical repair of fractured arm. Patient ID and location confirmed. Consent for telemedicine obtained. Upon initial introductions, she states I am in the hospital. Spontaneously she offers that her should is messed up. When asked, she is unable to describe the nature of her current should pain, stating she does exercises and must have injured it this way. Dr. Santos indicates he had previously had a detailed discussion with the patient of the fracture she sustained and the needed treatment. Patient apparently has no recollection of this discussion or is able to remember this information. She is informed that surgery is recommended for a fracture but is only able to recall after 10 minutes that surgery is recommended but cannot remember that shr has a fracture, only that it must be bad, because it hurts all over She states at least twice, I'd rather just go home. We discuss how she would care for herself at home and she described puring coffee into a cup and how to make spaghetti. She does not appear to appreciate how her current injury would impair her ability to care for herself at home. As for other aspects of her presentation, she is noted to have a large meatmoa on the right side of her forehead. When asled about this, she had no megan llection of this and states, I was doing some exercises. As for falling, she states I don't fall anymore than usual. When asked about alcohol ise, she states moderate and denies any problems ass ociated with alcohol use. She reports being 7 times and having thfour children, 3 boys and a girl, but is unable to say for sure which ones are still living and where they might be living. Assessment and Plan Assessment and plan (1) Closed head injury: Status: Acute (2) Fall: Status: Acute (3) Alcohol withdrawal: Status: Resolved (4) Dementia: Status: Chronic Assessment and plan: At this time, the patient lacks decision making capacity to decline recommended disposition to SNF. She clearly does not understand the nature of her current medical problems as evidenced by inability to recall the fact that her shoulder is fractured and requires surgery. Additionally, she fails to appreciate the consequences for her declining recommended treatment, specifically that she would be unable to care for herself at home without considerable assistance. Therefore, measures to appoint guardian or other substitute decision maker should be pursued. It is unclear whether she has children or other family members who can assist in the process. Thank you for the opportunity to participate in your patient's care. For any further questions, please feel free to contact me. PFSH All Active Problems (Updated 07/02/21 @ 13:01 by Frederick Forrester MD) Dementia (Chronic) DVT prophylaxis (Acute) Scalp hematoma (Acute) Closed head injury (Acute) Fall (Acute) Fracture of proximal humerus (Acute) Ambulatory dysfunction (Acute) Pain of right lower extremity (Acute) Knee pain (Acute) Fall (Acute) Unable to ambulate (Acute) Discharge planning issues (Acute) Knee pain, right (Acute) Macrocytic anemia with vitamin B12 deficiency (Chronic) Abnormal auditory perception (Acute) Cerumen impaction (Acute) Sensory hearing loss, bilateral (Acute) Otorrhea of left ear (Acute) Fracture, humerus (Acute) Fracture, intertrochanteric, left femur (Acute) Medical History Alcohol use, unspecified with other alcohol-induced disorder CAD (coronary artery disease) Iron deficiency Surgical History S/P appendectomy S/P hysterectomy Status post open reduction with internal fixation of fracture 1. left hip 2. left shoulder Social History Smoking/Tobacco Use Status: Current every day Smoking risk assessment performed?: Yes Alcohol Intake: current Alcohol Intake frequency: holidays/special occasions only Alcohol type: wine Drug use: Never Substance use type: does not use Do you feel safe at home: Yes Do you feel safe in your relationship?: Yes Exam Narrative Exam Narrative: Frail and undernourished appearing. Complaining or right shoulder pain. Large contusion to right frontal region of skull. Speech is low volume, somewhat rambling, but most voherent. Thought process is simplistic and concrete. Thought content is without notable psychosis. Denies suicidal ideation. Intelligence is low average. Cognitions are grossly impaired as to episodic and declarative memory. Mood is euthymic, affect is mood congruent. Insight and judgement are limited. Results Last Vital Signs Temp 36.5 C 07/02/21 04:00 Pulse 72 07/02/21 10:14 Resp 14 07/02/21 11:00 BP 108/60 07/02/21 10:14 Pulse Ox 98 07/02/21 11:00 Labs Result diagrams: 07/02/21 06:45 07/02/21 06:45 Labs: Laboratory Results - last 24 hr 07/01/21 07/01/21 07/02/21 06:09 06:09 06:45 WBC RBC Hgb Hct MCV MCH MCHC RDW Plt Count MPV Immature Gran % Neutrophils % Lymphocytes % Monocytes % Eosinophils % Basophils % Nucleated RBC % Absolute Neutrophils Absolute Lymphocytes Absolute Monocytes Absolute Eosinophils Absolute Basophils Sodium 137 Potassium 3.1 L Chloride 105 Carbon Dioxide 26.6 Anion Gap 5.4 BUN 4 L Creatinine 0.5 L Estimated GFR/1.73 m2 >= 60.00 Glucose 88 Calcium 8.1 L Magnesium 1.8 Transferrin 147 L Vitamin B12 330 07/02/21 06:45 WBC 4.56 RBC 2.70 L Hgb 8.5 L Hct 26.6 L MCV 98.5 H MCH 31.5 MCHC 32.0 RDW 13.2 Plt Count 200 MPV 9.8 Immature Gran % 0.2 Neutrophils % 55.9 Lymphocytes % 25.4 Monocytes % 14.7 Eosinophils % 3.1 Basophils % 0.7 Nucleated RBC % 0 Absolute Neutrophils 2.55 Absolute Lymphocytes 1.16 L Absolute Monocytes 0.67 Absolute Eosinophils 0.14 Absolute Basophils 0.03 Sodium Potassium Chloride Carbon Dioxide Anion Gap BUN Creatinine Estimated GFR/1.73 m2 Glucose Calcium Magnesium Transferrin Vitamin B12 Consent/Time spent Consent/Time Spent The patient has consented to a virtual communication with the provider: Yes Visit performed via: Telehealth Time Spent (minutes): 90
--- NOTE | 2021-07-02 16:04 | PT.INTREAT ---
Date of service: 07/02/21 Time of Service: 16:04 PT Notes Visit Reasons: Ambulatory Dysfunction Physical Therapy Inpatient Treatment Note Date: 07/02/2021 Precautions: Fall. Standard. NWB on the R LE, collar and cuff sling on at all times. Subjective: Complains of being sleepy but with encouragement was agreeable to PT session. Objective: General Observation: Swelling in R UE.? In mild distress due to pain level.? Sling out of position and needed to be properly placed.? Telemetry monitoring in place.? IV access in R UE. Mental Status: Alert. Able to follow single step commands.? Anxious about the slightest movement in R UE.? Pain: 8-9/10 in R UE Vital Signs: WNL as closely monitored via tele Bed Mobility/Transfers: Supine to sit with minimal assist with moderate cues for safe/correct technique Sit to supine with minimal assist with moderate cues for safe/correct technique Sit to stand with minimal assist with moderate cues for safe/correct technique Stand to sit with minimal assist with moderate cues for safe/correct technique Bed to bedside commode with minimal assist with moderate cues for safe/correct technique Bedside commode to bed with minimal assist with moderate cues for safe/correct technique Gait: Instructed patient with level surface ambulation of 5 feet requiring moderate assist. Day decreased. Step height decreased. Step length decreased.? Gait ataxic. Minimal shortness of breath that subsided with rest. Balance: Static Sitting: Good Dynamic Sitting: Fair Static Standing: Poor Dynamic Standing: Poor Assessment: Cuff and collar sling placed on client for this session. Tremors much more increased this afternoon. Deferred further ambulation due to increased drowsiness and increased tremors. Gait ataxic.? Requires moderate to maximal verbal cueing for safety.? Short-term memory severely impaired.? Patient demonstrates functional mobility decline requiring the use of a single-point cane and the assistance of 1 caregiver with moderate to maximal verbal cueing for correct technique and for overall safety.? Patient presents with clinical signs and symptoms consistent with current/admitting diagnoses that have resulted to mobility limitations, gait instability, generalized weakness, and overall ADL decline as demonstrated by the following impairment level findings: DISCHARGE RECOMMENDATIONS: [] ? Home with no services [] [] ? Home with services [specify] [] ? Home with outpatient PT [] [X] ? SNF for continued rehabilitation.? Patient will benefit from correction facility placement for continued skilled physical therapy services in order to progress mobility level, strength, and balance in preparation for a safe discharge to home. [] ? [facility] [] [] ? SNF versus LTC based on ability to participate and progress [] TREATMENT CODE/TIME: 53289 x 29 minutes beginning at 16:04 PM.
[2021-07-03] VITALS (23 sets, daily range): BP systolic 82–122; BP diastolic 38–70; PULSE 65–123; TEMP 36.6; O2SAT 93–98
[2021-07-03] MEDS: Acetaminophen 325 MG TAB 650 MG PO ×4 (02:36→19:47)
[2021-07-03 06:39] LABS: Abs Immature Grans 0.02 10^3/uL (0.0-0.06); Absolute Basophil Count 0.04 10^3/uL (0.0-0.2); Absolute Eosinophil Count 0.18 10^3/uL (0.0-0.7); Absolute Monocyte Count 0.71 10^3/uL (0.1-0.8); Basophils % 0.9; Eosinophils % 4.2; HCT 24.7 % (36.0-46.0); HGB 7.8 g/dL (11.2-15.7); Immature Grans % 0.5; Lymphocytes % 21.2; MCHC 31.6 % (32.0-36.0); MCV 101.2 fL (80-95); MPV 9.7 fL (8.0-11.0); Monocytes % 16.7; Neutrophils % 56.5; Nucleated RBC 0 %; Platelet Count 212 10^3/uL (130-400); RBC 2.44 10^6/uL (3.93-5.22); RDW 13.4 % (11.7-14.6); RDW-SD 49.5 fL; WBC 4.25 10^3/uL (4.4-10.8)
[2021-07-03 06:52] LABS: Anion Gap 6.4 mmol/L (3-11); BUN 5 mg/dL (7-18); CO2 25.6 mmol/L (21.0-32.0); CREATININE 0.5 mg/dL (0.55-1.02); Calcium 8.4 mg/dL (8.5-10.1); Chloride 110 mmol/L (98-107); Glucose 121 mg/dL (74-106); Magnesium 1.7 mg/dL (1.8-2.4); Potassium 3.6 mmol/L (3.5-5.1); Sodium 142 mmol/L (136-145)
[2021-07-03] MEDS: Multivitamin TAB 1 TAB PO (07:53)
[2021-07-03] MEDS: Ascorbic Acid 500 MG TAB PO ×2 (07:54→19:47)
[2021-07-03] MEDS: Calcium 600mg/Vit D 200U TAB 1 TAB PO ×2 (07:56→19:47)
[2021-07-03] MEDS: Pantoprazole 40 MG TABCR PO (07:56)
[2021-07-03] MEDS: MAGNESIUM SULFATE 2 GM/50 ML BAG IVPB (08:02)
--- NOTE | 2021-07-03 08:17 | W.PALLCONSUL ---
Date of service: 07/02/21 Time of Service: 15:00 History of Present Illness Narrative: Ms. Dykes is a 80 y/o F currently inpatient at [facility] 2/2 R shoulder pain; PMHx sig for AUD and CAD Presented to ED on 06/29/21 w/CC of R shoulder pain, CT found severely comminuted, overriding, and impacted humeral head/neck fracture, admitted 2/2 PT need and transferred to ICU 2/[address]; orthopedic consult, pt not medically cleared for surgery, f/u in 2 wks outpatient;?Psych consult: patient lacks decision making capacity to decline recommended disposition to SNF, measures to appoint guardian to be pursued; to be downgraded to med surg; PALC consult placed to review social supports Pt sitting comfortably in bed upon arrival; pt aware of shoulder break as source of increased pain, unaware of prognosis for recovery, including surgical intervention recommended for ROM; pt would like to regain ROM to continue to live independently Pt lives alone [facility], iADL at baseline; reports decreased hunger reflex, however loves cooking and taste/textures of food, has always been a skinny person; has some friends in [facility], but none that is very close to, denies any close friends or family; reports has brother and sister, not close to either one, however does speak to them, does not trust them to be involved in care; Pt agrees to PT daily, would be willing to go to SNF short term for assistance w/ADLs prior to surgery, would want surgery for improved ROM and ability to use arm fully; Assessment and Plan Assessment and plan (1) Fracture of proximal humerus: Status: Acute Assessment and plan: ortho consult recommend surgery, d/t concerns over compliance recommend wait 1-2 wks and f/u outpatient for surgical intervention; pt aware of surgery indicated, would be willing to comply w/daily PT and short term rehab prior to surgery 2/2 dependence of ADLs (2) Alcohol withdrawal: Status: Resolved Assessment and plan: was on CIWA protocols, stable, no medication interventions for 36 hours; step down to med surg (3) Dementia: Status: Chronic Assessment and plan: unable to recall injury, POC recommendations (4) Scalp hematoma: Status: Acute (5) Palliative care encounter: Status: Acute Assessment and plan: pt does not have identifiable social support for HCA or guardianship, recommend CM continue pursuing state guardianship; PALC to continue to follow s/p discharge (6) Discharge planning issues: Status: Acute Assessment and plan: pt agrees to d/c to SNF for short term rehab prior to surgery, unsafe to return home at this time Review of Systems All systems reviewed & are unremarkable except as noted in HPI and below and Unobtainable due to mental condition PFSH All Active Problems (Updated 07/03/21 @ 08:38 by Cathryn Chacon NP) Palliative care encounter (Acute) Dementia (Chronic) DVT prophylaxis (Acute) Scalp hematoma (Acute) Closed head injury (Acute) Fall (Acute) Fracture of proximal humerus (Acute) Ambulatory dysfunction (Acute) Pain of right lower extremity (Acute) Knee pain (Acute) Fall (Acute) Unable to ambulate (Acute) Discharge planning issues (Acute) Knee pain, right (Acute) Macrocytic anemia with vitamin B12 deficiency (Chronic) Abnormal auditory perception (Acute) Cerumen impaction (Acute) Sensory hearing loss, bilateral (Acute) Otorrhea of left ear (Acute) Fracture, humerus (Acute) Fracture, intertrochanteric, left femur (Acute) Medical History Alcohol use, unspecified with other alcohol-induced disorder CAD (coronary artery disease) Iron deficiency Surgical History S/P appendectomy S/P hysterectomy Status post open reduction with internal fixation of fracture 1. left hip 2. left shoulder Social History Smoking/Tobacco Use Status: Current every day Smoking risk assessment performed?: Yes Alcohol Intake: current Alcohol Intake frequency: holidays/special occasions only Alcohol type: wine Drug use: Never Substance use type: does not use Do you feel safe at home: Yes Do you feel safe in your relationship?: Yes Exam Narrative Exam Narrative: pt laying comfortably in bed upon arrival; grimaces throughout exam w/any body movement; speaks full sentences, w/limited recollection of purpose of hospitalization, source of shoulder pain and plan of care Const General: cooperative and frail appearing Orientation: alert and awake Other: unable to recall year or season, aware in hospital, assumes in only hospital in [facility] Other: large contusion over R sided head Resp Effort & Inspection: normal respiratory effort and able to speak in complete sentences Extrem Other: moves L arm, limited; no purposeful R arm movement, w/small movements grimace and groan w/pain; R shoulder w/bruising and swelling throughout Psych Attitude: cooperative Insight: limited Judgment: limited Results Last Vital Signs Temp 97.9 F 07/03/21 04:06 Pulse 69 07/03/21 04:01 Resp 26 H 07/02/21 12:05 BP 83/38 L 07/03/21 04:01 Pulse Ox 96 07/03/21 04:01 Labs Result diagrams: 07/03/21 06:20 07/03/21 06:20 Labs: Laboratory Results - last 24 hr 07/01/21 07/03/21 07/03/21 06:09 06:20 06:20 WBC 4.25 L RBC 2.44 L Hgb 7.8 L Hct 24.7 L MCV 101.2 H MCH 32.0 MCHC 31.6 L RDW 13.4 Plt Count 212 MPV 9.7 Immature Gran % 0.5 Neutrophils % 56.5 Lymphocytes % 21.2 Monocytes % 16.7 Eosinophils % 4.2 Basophils % 0.9 Nucleated RBC % 0 Absolute Neutrophils 2.40 Absolute Lymphocytes 0.90 L Absolute Monocytes 0.71 Absolute Eosinophils 0.18 Absolute Basophils 0.04 Sodium 142 Potassium 3.6 Chloride 110 H Carbon Dioxide 25.6 Anion Gap 6.4 BUN 5 L Creatinine 0.5 L Estimated GFR/1.73 m2 >= 60.00 Glucose 121 H Calcium 8.4 L Magnesium 1.7 L Transferrin 147 L
--- NOTE | 2021-07-03 08:33 | W.PM.PROGNOT ---
Date of Service Date of service: 07/03/21 Time of Service: 08:33 Assessment and Plan Assessment and plan (1) Fracture of proximal humerus: Status: Acute Assessment and plan: Given h/o noncompliance and poor nutritional status, the safest plan for the patient is having the patient be discharged to a SNF x 1 week and then, if she is compliant with PT there and does not leave AMA, consider doing the surgery. There is a very high risk of noncompliance and ultimately, her fracture does not absolutely have to be fixed surgically, though her ROM is going to be more limited with the non-operative treatment. There is a concern for complications if she falls/does not follow PT instructions after the shoulder arthroplasty. Continue sling, PT, OT. Continue scheduled tylenol, prn nucynta, ice. (2) Alcohol withdrawal: Status: Resolved Assessment and plan: Continue thiamine, MVI. (3) Alcohol use, unspecified with other alcohol-induced disorder: Assessment and plan: Continue MVI, downgrade dose of thiamine. Very malnourished and has evidence of EtOH dementia with confabulations. BMI of 15.6 kg/m2. Intensify nutritional support (patient does not want a feeding tube). Will likely need guardianship. (4) Closed head injury: Status: Acute Assessment and plan: No sx of concussion at this time. Monitor neuro status. (5) Dementia: Status: Chronic Assessment and plan: Alcoholic + vascular. As above (6) Scalp hematoma: Status: Acute Assessment and plan: No evidence of intracranial injury. Continue Ice. Hold NSAIDs/chemical DVT ppx. (7) Fall: Status: Acute Assessment and plan: The patient fell off of the commode. We strongly suspect multiple falls at home. Continue working with PT. Monitor mental status. SNF on discharge is the only safe disposition. (8) Ambulatory dysfunction: Status: Acute Assessment and plan: Continue PT/OT (9) Discharge planning issues: Status: Acute Assessment and plan: DNR/DNI. Does not want a feeding tube. Met with palliative care. No DPOA established. May require guardianship. Lacks capacity to make disposition decisions. Surgery on R shoulder would only happen as outpatient if patient proves to be compliant. (10) DVT prophylaxis: Status: Acute Assessment and plan: SCDs. Holding chemical DVT ppx in setting of a large scalp hematoma as well as R shoulder hematoma Subjective Subjective Interval history since last seen: Mr Wallis is doing a little better. She says to me that she knows that her right shoulder is broken (am nursing felt she did not know that that's what happened; she also gave them a completely incorrect explanation as to how she hit her head - that she hit it on her fireplace at home). She denies a headache, dizziness, chest pain, shortness of breath, nausea. She says she is not hungry but is eating breakfast. She is not interested in getting a feeding tube. I discussed this with nutrition, who recommended increased protein supplementaton, addition of zinc, ensure, and magic cups. She met with palliative care yesterday. She was evaluated by psychiatry and found to lack capacity to make major disposition Exam Narrative Exam Narrative: General: Frail elderly female who is very animated and alert this morning, eating breakfast, A&Ox2 (does not know the year), NAD HEENT: R frontal scalp hematoma evolving, EOMI, MMM Heart: RRR, no m/r/g Lungs: CTAB Abdomen: soft, nontender, nondistended Extremities: RUE in a sling; able to move all 4 extremities Objective Last Vital Signs Temp 36.6 C 07/03/21 04:06 Pulse 69 07/03/21 04:01 Resp 26 H 07/02/21 12:05 BP 83/38 L 07/03/21 04:01 Pulse Ox 96 07/03/21 04:01 Laboratory Results - last 24 hr 07/01/21 07/03/21 07/03/21 06:09 06:20 06:20 WBC 4.25 L RBC 2.44 L Hgb 7.8 L Hct 24.7 L MCV 101.2 H MCH 32.0 MCHC 31.6 L RDW 13.4 Plt Count 212 MPV 9.7 Immature Gran % 0.5 Neutrophils % 56.5 Lymphocytes % 21.2 Monocytes % 16.7 Eosinophils % 4.2 Basophils % 0.9 Nucleated RBC % 0 Absolute Neutrophils 2.40 Absolute Lymphocytes 0.90 L Absolute Monocytes 0.71 Absolute Eosinophils 0.18 Absolute Basophils 0.04 Sodium 142 Potassium 3.6 Chloride 110 H Carbon Dioxide 25.6 Anion Gap 6.4 BUN 5 L Creatinine 0.5 L Estimated GFR/1.73 m2 >= 60.00 Glucose 121 H Calcium 8.4 L Magnesium 1.7 L Transferrin 147 L
--- NOTE | 2021-07-03 08:39 | PDOC.CMPRO ---
- If Service Date Differs Date of service: 07/03/21 Time of Service: 08:39 Care Management Progress Note S/O: Jania had a competency eval yesterday with Dr. Forrester as there is concern for safety when returning home. CM is working Temporary Guardianship, since Dr. Forrester confirmed that Maddi has limited capacity to make medical decisions. Jania reported having a brother in [place] by the name of Cristobal Valdez. She added him to her HIPAA, however she does not have contact info for him. She has a sister bu the name of Iveth, but doesn't talk with her and doesn't want to add her to the HIPAA. Per pt, she has no other identified natural supports. In addition, Dr. Santos and Dr. Street feel that it's in Jania's best interest to postpone surgical intervention and seek SNF placement for approx. a week then have surgery. At this time, pt is agreeable to SNF for short term rehab followed by surgical intervention. A: 80 year old female admitted to [facility] on 06/30/21 for ambulatory function and fracture of proximal humerus. P: Jania will likely discharge to SNF for short term rehab followed by surgical intervention as an outpatient. SNF referrals were sent to [facility] and the [facility]. CM is seeking guardianship through the Court and discharge to home is not an option, due to safety concerns per provider. CM will continue to support discharge planning needs.
[2021-07-03] MEDS: Thiamine 100 MG TAB PO (09:44)
[2021-07-03] MEDS: Lactated Ringers 1,000 ML 50 ML IV (12:32)
--- NOTE | 2021-07-03 13:30 | W.NUTRFU ---
Date of service: 07/03/21 Time of Service: 13:31 Nutrition Note NOTE: Met with Ms. Wallis today. Following puree diet with thin liquids with varied intake (0-100%). Supplemented with ensure clear TID. Awaiting surgery for fractured humerus. Does not want feeding tube. Recommend encourage po intake, completion of ensure clears TID and supplement with liquid protein 1 oz TID, MVI, Vit C, folate, thiamin, calcium with D, MVI and Zinc sulfate to aid in healing process. Ms. Wallis has very poor nutritional status and is at high risk for poor healing s/p surgery. Recommend appetite stimulant such as Megace. Time Spent in Nutritional Counseling and Treatment: 10
[2021-07-03] MEDS: Protein Nutritional Supplement 16 GM 1 OUNCE PACKET PO ×2 (13:37→19:47)
--- NOTE | 2021-07-03 14:10 | PTTR_ITS ---
Date of service: 07/03/21 Time of Service: 14:10 PT Notes Visit Reasons: Ambulatory Dysfunction Physical Therapy Inpatient Treatment Note Date: 07/03/2021 Precautions: Fall. Standard. NWB on the R LE, collar and cuff sling on at all times. Subjective: Agreeable to Pt consult. Complains of being cold. Objective: General Observation: Swelling in R UE.? In mild distress due to pain level.? Sling out of position and needed to be properly placed.? Telemetry monitoring in place.? IV access in R UE. Mental Status: Alert. Able to follow single step commands.? Anxious about the slightest movement in R UE.? Pain: 5-6/10 in R UE Vital Signs: WNL as closely monitored via tele Bed Mobility/Transfers: Supine to sit with contact-guard assist with moderate cues for safe/correct technique Sit to supine with standby assist with moderate cues for safe/correct technique Sit to stand with contact-guard assist with moderate cues for safe/correct technique Stand to sit with contact-guard assist with moderate cues for safe/correct technique Bed to bedside commode with contact-guard assist with moderate cues for safe/correct technique Bedside commode to bed with contact-guard assist with moderate cues for safe/correct technique Gait: Instructed patient with level surface ambulation of 80 feet requiring minimal assist. Day decreased. Step height decreased. Step length decreased.? Gait ataxic. Minimal shortness of breath that subsided with rest. Verbalizes that knee would give out but is able to hold with encouragement. THERA EX: Bridging x 10, LAQ x 10, [id number] x 10 with good response. Balance: Static Sitting: Good Dynamic Sitting: Fair Static Standing: Poor Dynamic Standing: Poor Assessment: Beginning to demonstrate increasing tolerance to ambulation and exercises. Pain tolerance improving. Ability to follow instructions better today. Tremors with movement diminishing. DISCHARGE RECOMMENDATIONS: [] ? Home with no services [] [] ? Home with services [specify] [] ? Home with outpatient PT [] [X] ? SNF for continued rehabilitation.? Patient will benefit from prison facility placement for continued skilled physical therapy services in order to progress mobility level, strength, and balance in preparation for a safe discharge to home. [] ? [facility]irement [facility] [] [] ? SNF versus LTC based on ability to participate and progress [] TREATMENT CODE/TIME: Session 1--16377 x 15 minutes, 02338 x 10 minutes beginning at 10:08 AM. Session 2--44412 x 20 minutes, 08324 x 13 minutes beginning at 14:10 PM.
[2021-07-04] MEDS: QUEtiapine 25 MG TAB 50 MG PO (00:32)
[2021-07-04 07:07] LABS: Anion Gap 7.6 mmol/L (3-11); BUN 12 mg/dL (7-18); CO2 27.4 mmol/L (21.0-32.0); CREATININE 0.5 mg/dL (0.55-1.02); Calcium 8.7 mg/dL (8.5-10.1); Chloride 110 mmol/L (98-107); Glucose 89 mg/dL (74-106); Magnesium 1.9 mg/dL (1.8-2.4); Potassium 3.7 mmol/L (3.5-5.1); Sodium 145 mmol/L (136-145)
[2021-07-04 08:30] VITALS: BP 143/61; PULSE 76; PULSE 78; RESP 20; TEMP 37; O2SAT 97
[2021-07-04] MEDS: Calcium 600mg/Vit D 200U TAB 1 TAB PO ×2 (08:48→19:22)
[2021-07-04] MEDS: Pantoprazole 40 MG TABCR PO (08:48)
[2021-07-04] MEDS: Protein Nutritional Supplement 16 GM 1 OUNCE PACKET PO ×3 (08:48→19:23)
[2021-07-04] MEDS: Ascorbic Acid 500 MG TAB PO ×2 (08:48→19:22)
[2021-07-04] MEDS: Zinc Sulfate 220 MG TAB PO (08:49)
[2021-07-04] MEDS: Thiamine 100 MG TAB PO (08:49)
[2021-07-04] MEDS: Acetaminophen 325 MG TAB 650 MG PO ×3 (08:49→19:22)
[2021-07-04] MEDS: Polyethylene Glycol 3350 17 GM PACKET PO ×2 (09:19→19:23)
[2021-07-04] MEDS: Multivitamin TAB 1 TAB PO (09:28)
--- NOTE | 2021-07-04 09:28 | PT.INTREAT ---
Date of service: 07/04/21 Time of Service: 09:28 PT Notes Visit Reasons: Ambulatory Dysfunction Physical Therapy Inpatient Treatment Note Date: 07/04/2021 Precautions: Fall. Standard. NWB on the R LE, collar and cuff sling on at all times. Subjective: Agreeable to PT session. Has been wanting to go home. Got mildly irritated with nursing staff early this morning. Objective: General Observation: Swelling in R UE diminishing, discoloration fading. Telemetry monitoring in place.? IV access in R UE. Mental Status: Alert. Able to follow single step commands.? Anxious about the slightest movement in R UE.? Pain: 5-6/10 in R UE Vital Signs: WNL as closely monitored via tele Bed Mobility/Transfers: Supine to sit with contact-guard assist Sit to supine with standby assist Sit to stand with contact-guard assist Stand to sit with contact-guard assist Bed to bedside commode with contact-guard assist Bedside commode to bed with contact-guard assist Gait: Instructed patient with level surface ambulation of 300 feet requiring hand-held assist. Day increasing. Step height increasing. Step length increasing.? Gait less ataxic. Minimal shortness of breath that subsided with rest.? Verbalizes that knee would give out but is able to hold with encouragement. THERA EX: Bridging x 10, sit<>stand from edge of bed x 10 with support of 1 hand Balance: Static Sitting: Good Dynamic Sitting: Fair Static Standing: Fair Dynamic Standing: Poor Assessment: Continuing to demonstrate increasing tolerance to ambulation and exercises.? Pain tolerance continuing to improve Ability to follow instructions better today.? Tremors with movement diminishing. Able to tolerate longer ambulation distance despite report of dizziness. DISCHARGE RECOMMENDATIONS: [] ? Home with no services [] [] ? Home with services [specify] [] ? Home with outpatient PT [] [X] ? SNF for continued rehabilitation.? Patient will benefit from intermediate facility placement for continued skilled physical therapy services in order to progress mobility level, strength, and balance in preparation for a safe discharge to home. [] ? [facility] [] [] ? SNF versus LTC based on ability to participate and progress [] TREATMENT CODE/TIME: 86131 x 20 minutes, 93341 x 13 minutes beginning at 9:28 AM.
[2021-07-04 09:38] VITALS: BP 156/65; PULSE 96
--- NOTE | 2021-07-04 09:39 | NT_ITS ---
Occupational Therapy Notes 07/04/21 OT consult received and pts chart was reviewed, OT attempted to consult with pt who was working with another provider at that time. OT will continue to attempt to consult with pt. [facility]
--- NOTE | 2021-07-04 10:01 | CMPROGNOTE_ITS ---
- If Service Date Differs Date of service: 07/04/21 Time of Service: 10:01 Care Management Progress Note Jania had a competency eval with Dr. Forrester as there is concern for safety when returning home. CM filed for Temporary Guardianship today, since Dr. Forrester confirmed that Maddi has limited capacity to make decisions concerning discharge. Jania reported having a brother in [place] by the name of Cristobal Valdez. She added him to her HIPAA, however she does not have contact info for him. She also identified a sister by the name of Iveth, that she is estranged from and doesn't want to add her to the HIPAA. Per pt, she has no identified natural supports that would be able to help her make medical decisions. S/O: Garrick has been working with PT and requires 1 person, max assist. She is able to tolerate a regular diet but has poor PO intake, which she shares is not new for her. Jania's medical team postponed surgical intervention due to her risk of falls and hx of non compliance with PT. The only safe disposition is SNF, followed by shoulder arthropasty when she is more mobile. Jania was agreeable to SNF and referrals were sent. CM is waiting to hear back from the [facility]. [facility] declined admission due to Guardianship issue and concerns with ETOH and will re-eval once guardianship has been established. A: 80 year old female admitted to [facility] on 06/30/21 for ambulatory function and fr acture of proximal humerus. P: CM filed a motion for Temp Emergency Guardianship through [facility] on 07/04/21. CM is waiting for response from the court. Per provider discharge to home is not an option, due to safety concerns. Anticipate, Jania will discharge to SNF vs. transition to [facility] for continued PT prior surgical intervention with Ortho. [facility] declined and CM is waiting to hear back from the [facility]. CM will continue to support discharge planning needs.
[2021-07-04 10:07] LABS: Abs Immature Grans 0.01 10^3/uL (0.0-0.06); Absolute Basophil Count 0.05 10^3/uL (0.0-0.2); Absolute Eosinophil Count 0.18 10^3/uL (0.0-0.7); Absolute Lymphocyte Count 1.46 10^3/uL (1.2-3.4); Absolute Monocyte Count 0.87 10^3/uL (0.1-0.8); Absolute Neutrophil Count 2.76 10^3/uL (1.2-6.7); Basophils % 0.9; Eosinophils % 3.4; HCT 28.5 % (36.0-46.0); HGB 8.9 g/dL (11.2-15.7); Immature Grans % 0.2; Lymphocytes % 27.4; MCHC 31.2 % (32.0-36.0); MCV 102.5 fL (80-95); MPV 10.3 fL (8.0-11.0); Monocytes % 16.3; Neutrophils % 51.8; Nucleated RBC 0 %; Platelet Count 272 10^3/uL (130-400); RBC 2.78 10^6/uL (3.93-5.22); RDW 14.2 % (11.7-14.6); WBC 5.33 10^3/uL (4.4-10.8)
--- NOTE | 2021-07-04 10:17 | PGE_ITS ---
Date of Service Date of service: 07/04/21 Time of Service: 10:17 Assessment and Plan Assessment and plan (1) Fracture of proximal humerus: Status: Acute Assessment and plan: Given h/o noncompliance and poor nutritional status, the safest plan for the patient is having the patient be discharged to a SNF x 1 week and then, if she is compliant with PT there and does not leave AMA, consider doing the surgery. She has been agreeable to this plan but this morning stated she was being held against her will and wanted to go home. There is a very high risk of noncompliance and ultimately, her fracture does not absolutely have to be fixed surgically, though her ROM is going to be more limited with the non-operative treatment. There is a concern for complications if she falls/does not follow PT instructions after the shoulder arthroplasty. Continue sling, PT, OT. Continue scheduled tylenol, prn nucynta, ice. (2) Alcohol withdrawal: Status: Resolved Assessment and plan: Continue thiamine, MVI. CIWA scoring stopped. (3) Alcohol use, unspecified with other alcohol-induced disorder: Assessment and plan: Continue MVI, downgrade dose of thiamine. Very malnourished and has evidence of EtOH dementia with confabulations. BMI of 15.6 kg/m2. Intensify nutritional support (patient does not want a feeding tube). Will likely need guardianship / papers filed. (4) Closed head injury: Status: Acute Assessment and plan: No sx of concussion at this time. Monitor neuro status. (5) Dementia: Status: Chronic Assessment and plan: Alcoholic + vascular. As above (6) Scalp hematoma: Status: Acute Assessment and plan: No evidence of intracranial injury. Continue Ice. Hold NSAIDs/chemical DVT ppx. (7) Fall: Status: Acute Assessment and plan: The patient fell off of the commode; strongly suspect multiple falls at home. Continue working with PT. Monitor mental status. SNF on discharge is the only safe disposition. (8) Ambulatory dysfunction: Status: Acute Assessment and plan: Continue PT/OT (9) Discharge planning issues: Status: Acute Assessment and plan: DNR/DNI. Does not want a feeding tube. Met with palliative care. No DPOA established. Guardianship papers filed. Lacks capacity to make disposition decisions. Surgery on R shoulder would only happen as outpatient if patient proves to be compliant. (10) DVT prophylaxis: Status: Acute Assessment and plan: SCDs. Holding chemical DVT ppx in setting of a large scalp hematoma as well as R shoulder hematoma (11) Palliative care encounter: Status: Acute Assessment and plan: pt does not have identifiable social support for HCA or guardianship; continue pursuing state guardianship; [facility] to continue to follow s/p discharge (12) Anemia: Status: Chronic Assessment and plan: Multifactoral: Etoh abuse with poor nutritional intake, low normal B12, low iron and TIBC, loss d/t fx of humerus. IV iron would be beneficial but she pulled out her midline catheter and has very poor access otherwise. Oral iron considered but concerned it might cause further problems with oral intake / possible nausea. Will give an IM dose of B12 when she is agreeable. (13) Malnutrition: Status: Acute Assessment and plan: Secondary to Etoh abuse. Supplemental protein, Vits/minerals. She reports always eating only 1 meal/day. I suspect this has been the case since she began consuming alcohol routinely. Subjective Subjective Patient reports: still having pain, tolerating a regular diet (Poor intake but no N/V/abd pain. ) and afebrile; denies shortness of breath Interval history since last seen: She has waivered between being agreeable to SNF vs wanting to go home. Exam Narrative Exam Narrative: General: Small, frail female. Conversant. HEENT: R frontal scalp hematoma with ecchymoses tracking down into the neck. , EOMI, MMM Heart: RRR. No murmur. Lungs: CTAB Abdomen: soft, nontender, nondistended Extremities: RUE in a sling. Swelling and ecchymoses of proximal humerus; able to move all 4 extremities. Const General: cooperative, comfortable and frail appearing Nutritional Appearance: thin Orientation: alert, awake, oriented to person and oriented to place [facility] Head: normal to inspection Mouth: oral mucosae normal Eyes General: appearance normal, both eyes and all related structures Neck Neck: normal visual inspection Chest Chest: normal inspection of the chest and normal palpation of entire chest wall Resp Effort & Inspection: normal respiratory effort and able to speak in complete sentences Auscultation: clear to auscultation bilaterally Cardio Rate: regular rate GI Inspection: normal to inspection Palpation: soft, not firm, no guarding, not rigid and nontender Skin General skin exam: ecchymosis (right shoulder) Neuro General: patient alert and patient awake Motor: muscle tone normal throughout Psych Attitude: cooperative Insight: limited Judgment: limited Objective Last Vital Signs Temp 37 C 07/04/21 08:30 Pulse 96 H 07/04/21 09:38 Resp 20 07/04/21 08:30 BP 156/65 H 07/04/21 09:38 Pulse Ox 97 07/04/21 08:30 Laboratory Results - last 24 hr 07/04/21 07/04/21 06:05 06:05 WBC 5.33 RBC 2.78 L Hgb 8.9 L Hct 28.5 L MCV 102.5 H MCH 32.0 MCHC 31.2 L RDW 14.2 Plt Count 272 MPV 10.3 Immature Gran % 0.2 Neutrophils % 51.8 Lymphocytes % 27.4 Monocytes % 16.3 Eosinophils % 3.4 Basophils % 0.9 Nucleated RBC % 0 Absolute Neutrophils 2.76 Absolute Lymphocytes 1.46 Absolute Monocytes 0.87 H Absolute Eosinophils 0.18 Absolute Basophils 0.05 Sodium 145 Potassium 3.7 Chloride 110 H Carbon Dioxide 27.4 Anion Gap 7.6 BUN 12 D Creatinine 0.5 L Estimated GFR/1.73 m2 >= 60.00 Glucose 89 Calcium 8.7 Magnesium 1.9
[2021-07-04 14:52] VITALS: BP 119/54; PULSE 73
[2021-07-04 15:01] VITALS: RESP 20; TEMP 37.2; O2SAT 99
--- NOTE | 2021-07-04 15:39 | PTTR_ITS ---
Date of service: 07/04/21 Time of Service: 15:20 PT Notes Visit Reasons: Ambulatory Dysfunction Inpatient Physical Therapy Treatment Note [facility] Date: 07/04/2021 PRECAUTIONS: Fall, activity as tolerated SUBJECTIVE: Adam is pleasant and agreeable to participating in PT. She reports that she is feeling sleepy this afternoon and that she is having pain in her R upper arm and shoulder area. OBJECTIVE: PAIN: Patient c/o R UE pain BED MOBILITY/TRANSFERS Supine-sit: S with HOB at 10 degrees Sit-supine: S with HOB at 10 degrees Sit-stand: CGA Stand-sit: CGA GAIT Assistive Device: SPC Weight bearing: NWB R UE Assist: CGA Distance: 350' Deviation: Short step length and height, several LOB with self-recovery, cueing to remind patient to use SPC ASSESSMENT: Patient tolerated session well with complaint of global fatigue. S he was able to tolerate a progression in gait distance with SPC support, although requires CGA and cueing throughout for use of SPC for balance support. PLAN: Continue with gait training and global strengthening for improved activity tolerance. TREATMENT CODE/TIME: 17 minutes; 50645 (15:20)
[2021-07-04 19:49] VITALS: BP 132/62; PULSE 72
[2021-07-05] MEDS: Acetaminophen 325 MG TAB 650 MG PO ×4 (01:36→19:38)
[2021-07-05] MEDS: Pantoprazole 40 MG TABCR PO (06:35)
[2021-07-05] MEDS: Multivitamin TAB 1 TAB PO (08:43)
[2021-07-05] MEDS: Calcium 600mg/Vit D 200U TAB 1 TAB PO ×2 (08:43→19:37)
[2021-07-05] MEDS: Ascorbic Acid 500 MG TAB PO ×2 (08:43→19:38)
[2021-07-05] MEDS: Protein Nutritional Supplement 16 GM 1 OUNCE PACKET PO ×3 (08:44→19:38)
[2021-07-05] MEDS: Thiamine 100 MG TAB PO (08:44)
[2021-07-05] MEDS: Polyethylene Glycol 3350 17 GM PACKET PO ×2 (08:44→19:38)
[2021-07-05] MEDS: Zinc Sulfate 220 MG TAB PO (08:44)
--- NOTE | 2021-07-05 11:44 | PT.INTREAT ---
Date of service: 07/05/21 Time of Service: 11:20 PT Notes Visit Reasons: Ambulatory Dysfunction Inpatient Physical Therapy Treatment Note [facility] Date: 07/05/2021 PRECAUTIONS: Fall, NWB L UE, Activity as tolerated SUBJECTIVE: Adam is pleasant and agreeable to participating in PT. She states that she continues to have significant pain in L shoulder area. She would like to know the plan to fix her shoulder. OBJECTIVE: PAIN: Patient c/o severe L shoulder pain at all times BED MOBILITY/TRANSFERS Supine-sit: S Sit-stand: CGA Stand-sit: CGA GAIT Assistive Device: SPC Weight bearing: NWB L UE Assist: CGA Distance: 50' + 300' Deviation: C/o lightheadedness and dizziness, seated rest x1, wide TAHMINA, decreased knee flexion bilaterally THEREX: Patient was instructed in a LE strengthening program, completed in a seated position, as per flow sheet. She also completes functional [id number] exercise with CGA. ASSESSMENT: Patient tolerated session with complaint of L shoulder pain at all times. She also c/o lightheadedness and dizziness with gait training and required seated rest x1. PLAN: Continue with global strengthening and gait training with SPC for improved mobility and activity tolerance. TREATMENT CODE/TIME: 23 minutes; 14151, 11198 (11:20)
--- NOTE | 2021-07-05 12:43 | PGE_ITS ---
Date of Service Date of service: 07/05/21 Time of Service: 12:43 Assessment and Plan Assessment and plan (1) Fracture of proximal humerus: Status: Acute Assessment and plan: Given h/o noncompliance and poor nutritional status, the safest plan for the patient is having the patient be discharged to a SNF x 1 week and then, if she is compliant with PT there and does not leave AMA, consider doing the surgery. She has been agreeable to this plan but this morning stated she was being held against her will and wanted to go home. There is a very high risk of noncompliance and ultimately, her fracture does not absolutely have to be fixed surgically, though her ROM is going to be more limited with the non-operative treatment. There is a concern for complications if she falls/does not follow PT instructions after the shoulder arthroplasty. Continue sling, PT, OT. Continue scheduled tylenol, prn nucynta, ice. (2) Alcohol withdrawal: Status: Resolved Assessment and plan: Continue thiamine, MVI. CIWA scoring stopped. (3) Alcohol use, unspecified with other alcohol-induced disorder: Assessment and plan: Continue MVI, downgrade dose of thiamine. Very malnourished and has evidence of EtOH dementia with confabulations. BMI of 15.6 kg/m2. Intensify nutritional support (patient does not want a feeding tube). Encourage intake. . Will likely need guardianship / papers filed. (4) Closed head injury: Status: Acute Assessment and plan: No sx of concussion at this time. Monitor neuro status. (5) Dementia: Status: Chronic Assessment and plan: Alcoholic + vascular. As above (6) Scalp hematoma: Status: Acute Assessment and plan: No evidence of intracranial injury. Continue Ice. Hold NSAIDs/chemical DVT ppx. (7) Fall: Status: Acute Assessment and plan: The patient fell off of the commode; strongly suspect multiple falls at home. Continue working with PT. Monitor mental status. SNF on discharge is the only safe disposition. (8) Ambulatory dysfunction: Status: Acute Assessment and plan: Continue PT/OT (9) Discharge planning issues: Status: Acute Assessment and plan: DNR/DNI. Does not want a feeding tube. Met with palliative care. No DPOA established. Guardianship papers filed. Lacks capacity to make disposition decisions. Surgery on R shoulder would only happen as outpatient if patient proves to be compliant. (10) DVT prophylaxis: Status: Acute Assessment and plan: SCDs. Holding chemical DVT ppx in setting of a large scalp hematoma as well as R shoulder hematoma (11) Palliative care encounter: Status: Acute Assessment and plan: pt does not have identifiable social support for HCA or guardianship; continue pursuing state guardianship; [facility] to continue to follow s/p discharge (12) Anemia: Status: Chronic Assessment and plan: Multifactoral: Etoh abuse with poor nutritional intake, low normal B12, low iron and TIBC, loss d/t fx of humerus. IV iron would be beneficial but she pulled out her midline catheter and has very poor access otherwise. Oral iron considered but concerned it might cause further problems with oral intake / possible nausea. No IV access; she pulled it out. No IV iron now. So little muscle mass that an IM B12 would be problamatic. (13) Malnutrition: Status: Acute Assessment and plan: Secondary to Etoh abuse. Supplemental protein, Vits/minerals. She reports always eating only 1 meal/day. I suspect this has been the case since she began consuming alcohol routinely. Subjective Subjective Patient reports: no new complaints, still having pain, tolerating a regular diet (Poor intake but no N/V/abd pain. ) and afebrile; denies shortness of breath Interval history since last seen: Working with PT today. Less confusion noted. Exam Narrative Exam Narrative: General: Small, frail female. Conversant. HEENT: R frontal scalp hematoma with ecchymoses tracking down into the neck. , EOMI, MMM Heart: RRR. No murmur. Lungs: CTAB Abdomen: soft, nontender, nondistended Extremities: RUE in a sling. Swelling and ecchymoses of proximal humerus; able to move all 4 extremities. Thin with low muscle mass. Const General: cooperative, comfortable and frail appearing Nutritional Appearance: thin Orientation: alert, awake, oriented to person and oriented to place [facility] Head: normal to inspection Mouth: oral mucosae normal Eyes General: appearance normal, both eyes and all related structures Neck Neck: normal visual inspection Chest Chest: normal inspection of the chest and normal palpation of entire chest wall Resp Effort & Inspection: normal respiratory effort and able to speak in complete sentences Auscultation: clear to auscultation bilaterally Cardio Rate: regular rate GI Inspection: normal to inspection Palpation: soft, not firm, no guarding, not rigid and nontender Skin General skin exam: ecchymosis (right shoulder) Neuro General: patient alert and patient awake Motor: muscle tone normal throughout Psych Attitude: cooperative Insight: limited Judgment: limited Objective Last Vital Signs Temp 37.2 C 07/04/21 15:01 Pulse 72 07/04/21 19:49 Resp 20 07/04/21 15:01 BP 132/62 07/04/21 19:49 Pulse Ox 99 07/04/21 15:01
[2021-07-05 15:47] VITALS: BP 115/68; PULSE 87; RESP 19; TEMP 37.6; O2SAT 97
[2021-07-05 19:43] LABS: Bilirubin Negative (Negative); Blood Negative (Negative); Clarity Clear (Clear); Glucose Negative (Negative); Ketones Negative (Negative); Leukocyte Esterase Negative (Negative); Nitrite Negative (Negative); Urobilinogen 0.2 EU/dL (Up TO 0.2)
[2021-07-05 23:50] VITALS: BP 130/73; PULSE 74; RESP 15; TEMP 36.7; O2SAT 95
[2021-07-06] MEDS: Acetaminophen 325 MG TAB 650 MG PO ×4 (01:41→20:32)
[2021-07-06 06:51] LABS: HCT 27.6 % (36.0-46.0); HGB 8.7 g/dL (11.2-15.7); MCH 32.1 pg (27.0-33.0); MCHC 31.5 % (32.0-36.0); MCV 101.8 fL (80-95); MPV 9.6 fL (8.0-11.0); Platelet Count 334 10^3/uL (130-400); RBC 2.71 10^6/uL (3.93-5.22); RDW 14.6 % (11.7-14.6); RDW-SD 54.4 fL; WBC 6.45 10^3/uL (4.4-10.8)
[2021-07-06 07:08] LABS: Anion Gap 7.2 mmol/L (3-11); BUN 21 mg/dL (7-18); CO2 29.8 mmol/L (21.0-32.0); CREATININE 0.5 mg/dL (0.55-1.02); Chloride 106 mmol/L (98-107); Glucose 92 mg/dL (74-106); Potassium 3.7 mmol/L (3.5-5.1); Sodium 143 mmol/L (136-145)
[2021-07-06] MEDS: Polyethylene Glycol 3350 17 GM PACKET PO ×2 (08:10→20:34)
[2021-07-06] MEDS: Protein Nutritional Supplement 16 GM 1 OUNCE PACKET PO ×3 (08:10→20:33)
[2021-07-06] MEDS: Cholecalciferol (Vitamin D3) 1,000 UNIT TAB 1000 UNITS PO (08:10)
[2021-07-06] MEDS: Multivitamin TAB 1 TAB PO (08:10)
[2021-07-06] MEDS: Thiamine 100 MG TAB PO (08:11)
[2021-07-06] MEDS: Zinc Sulfate 220 MG TAB PO (08:11)
[2021-07-06] MEDS: Ascorbic Acid 500 MG TAB PO ×2 (08:11→20:29)
[2021-07-06] MEDS: Calcium 600mg/Vit D 200U TAB 1 TAB PO ×2 (08:11→20:32)
[2021-07-06] MEDS: Pantoprazole 40 MG TABCR PO (08:11)
[2021-07-06 08:20] VITALS: BP 137/70; PULSE 85; RESP 17; TEMP 36.8; O2SAT 98
--- NOTE | 2021-07-06 10:43 | PGE_ITS ---
Date of Service Date of service: 07/06/21 Time of Service: 10:43 Assessment and Plan Assessment and plan (1) Fracture of proximal humerus: Status: Acute Assessment and plan: Given h/o noncompliance and poor nutritional status, the safest plan for the patient is having the patient be discharged to a SNF x 1 week and then, if she is compliant with PT there and does not leave AMA, consider doing the surgery. She has been agreeable to this plan but this morning stated she was being held against her will and wanted to go home. There is a very high risk of noncompliance and ultimately, her fracture does not absolutely have to be fixed surgically, though her ROM is going to be more limited with the non-operative treatment. There is a concern for complications if she falls/does not follow PT instructions after the shoulder arthroplasty. Continue sling, PT, OT. Continue scheduled tylenol, prn nucynta, ice. (2) Alcohol withdrawal: Status: Resolved Assessment and plan: Continue thiamine, MVI. CIWA scoring stopped. (3) Alcohol use, unspecified with other alcohol-induced disorder: Assessment and plan: Continue MVI, downgrade dose of thiamine. Very malnourished and has evidence of EtOH dementia with confabulations. BMI of 15.6 kg/m2. Intensify nutritional support (patient does not want a feeding tube). Encourage intake. . Will likely need guardianship / papers filed. (4) Closed head injury: Status: Acute Assessment and plan: No sx of concussion at this time. Monitor neuro status. (5) Dementia: Status: Chronic Assessment and plan: Alcoholic + vascular. As above (6) Scalp hematoma: Status: Acute Assessment and plan: No evidence of intracranial injury. Continue Ice. Hold NSAIDs/chemical DVT ppx. (7) Fall: Status: Acute Assessment and plan: The patient fell off of the commode; strongly suspect multiple falls at home. Continue working with PT. Monitor mental status. (8) Ambulatory dysfunction: Status: Acute Assessment and plan: Continue PT/OT (9) Discharge planning issues: Status: Acute Assessment and plan: DNR/DNI. Does not want a feeding tube. Met with palliative care. No DPOA established. Guardianship papers filed. Lacks capacity to make disposition decisions. Surgery on R shoulder would only happen as outpatient if patient proves to be compliant; has proven to be compliant thus far. (10) DVT prophylaxis: Status: Acute Assessment and plan: SCDs. Holding chemical DVT ppx in setting of a large scalp hematoma as well as R shoulder hematoma (11) Palliative care encounter: Status: Acute Assessment and plan: pt does not have identifiable social support for HCA or guardianship; continue pursuing state guardianship; [facility] to continue to follow s/p discharge (12) Anemia: Status: Chronic Assessment and plan: Stable. Multifactoral: Etoh abuse with poor nutritional intake, low normal B12, low iron and TIBC, loss d/t fx of humerus. IV iron would be beneficial but she pulled out her midline catheter and has very poor access otherwise. Oral iron considered but concerned it might cause further problems with oral intake / possible nausea. No IV access; she pulled it out. No IV iron now. So little muscle mass that an IM B12 would be problamatic. (13) Malnutrition: Status: Acute Assessment and plan: Secondary to Etoh abuse. Supplemental protein, Vits/minerals. She reports always eating only 1 meal/day. I suspect this has been the case since she began consuming alcohol routinely. Subjective Subjective Patient reports: no new complaints, still having pain, tolerating a regular diet (Poor intake but no N/V/abd pain. ) and afebrile; denies shortness of breath Interval history since last seen: Working with [facility] strong desire to return to her [facility] at [facility], but knows she cannot do so currently. Exam Narrative Exam Narrative: General: Small, frail female. Conversant. HEENT: R frontal scalp hematoma with ecchymoses tracking down into the neck. , EOMI, MMM Heart: RRR. No murmur. Lungs: CTAB Abdomen: soft, nontender, nondistended Extremities: RUE in a sling. Swelling and ecchymoses of proximal humerus; able to move all 4 extremities but very limited ROM of R shoulder. Thin with low muscle mass. Const General: cooperative, comfortable and frail appearing Nutritional Appearance: thin Orientation: alert, awake, oriented to person and oriented to place [facility] Head: normal to inspection Mouth: oral mucosae normal Eyes General: appearance normal, both eyes and all related structures Neck Neck: normal visual inspection Chest Chest: normal inspection of the chest and normal palpation of entire chest wall Resp Effort & Inspection: normal respiratory effort and able to speak in complete sentences Auscultation: clear to auscultation bilaterally Cardio Rate: regular rate GI Inspection: normal to inspection Palpation: soft, not firm, no guarding, not rigid and nontender Skin General skin exam: ecchymosis (right shoulder) Neuro General: patient alert and patient awake Motor: muscle tone normal throughout Psych Attitude: cooperative Insight: limited Judgment: limited Objective Last Vital Signs Temp 36.8 C 07/06/21 08:20 Pulse 85 07/06/21 08:20 Resp 17 07/06/21 08:20 BP 137/70 07/06/21 08:20 Pulse Ox 98 07/06/21 08:20 Laboratory Results - last 24 hr 07/05/21 07/06/21 07/06/21 19:05 06:24 06:24 WBC 6.45 RBC 2.71 L Hgb 8.7 L Hct 27.6 L MCV 101.8 H MCH 32.1 MCHC 31.5 L RDW 14.6 Plt Count 334 MPV 9.6 Sodium 143 Potassium 3.7 Chloride 106 Carbon Dioxide 29.8 Anion Gap 7.2 BUN 21 H D Creatinine 0.5 L Estimated GFR/1.73 m2 >= 60.00 Glucose 92 Calcium 9.0 Urine Color Yellow Urine Clarity Clear Urine pH 6.0 Ur Specific [place] 1.020 Urine Protein Negative Urine Ketones Negative Urine Blood Negative Urine Nitrite Negative Urine Bilirubin Negative Urine Urobilinogen 0.2 Ur Leukocyte Esterase Negative Urine Glucose Negative
--- NOTE | 2021-07-06 11:28 | PTTR_ITS ---
Date of service: 07/06/21 Time of Service: 10:59 PT Notes Visit Reasons: Ambulatory Dysfunction Inpatient Physical Therapy Treatment Note [facility] Date: 07/06/2021 PRECAUTIONS: Fall, NWB L UE, Activity as tolerated SUBJECTIVE: Adam is pleasant and agreeable to participating in PT. She states that she continues to have significant pain in L shoulder area. She would like to know the plan to fix her shoulder. OBJECTIVE: PAIN: Patient c/o severe L shoulder pain at all times BED MOBILITY/TRANSFERS Supine-sit: Min A (due to position in bed) Sit-stand: CGA Stand-sit: CGA Bed-chair: CGA GAIT Assistive Device: SPC Weight bearing: NWB L UE Assist: CGA Distance: 200' Deviation: C/o lightheadedness and dizziness, standing rest x1, wide TAHMINA, decreased knee flexion bilaterally THEREX: Patient was instructed in standing hip flexion and functional [id number] exercise with CGA. She requires seated and standing rests due to fatigue. TOILETING: Patient toileted with assist ASSESSMENT: Patient tolerated session with complaint of L shoulder pain at all times. She also c/o lightheadedness and dizziness with gait training and re quired seated rest x1. PLAN: Continue with global strengthening and gait training with SPC for improved mobility and activity tolerance. TREATMENT CODE/TIME: 24 minutes; 90868, [id number] (10:59)
--- NOTE | 2021-07-06 13:24 | PHA.REVIEW ---
Pharmacy Admission Review - Admission Clinical Review (Last Reviewed 07/02/21 @ 12:56 by Frederick Forrester MD) Malnutrition (Acute) Palliative care encounter (Acute) DVT prophylaxis (Acute) Scalp hematoma (Acute) Closed head injury (Acute) Fall (Acute) Fracture of proximal humerus (Acute) Ambulatory dysfunction (Acute) Discharge planning issues (Acute) aspirin Adverse Reaction (Intermediate, Unverified 06/29/21 10:45) most medication Adverse Reaction (Intermediate, Uncoded 06/29/21 10:45) makes her sick to her stomach lactose intolerant Adverse Reaction (Uncoded 06/29/21 10:45) n/d, stomach cramps Resuscitation Status DNR/DNI Height 5 ft 2 in Weight 34.4 kg - Renal Dosing Renal Dosing: BUN 21 mg/dL (7-18) H D 07/06/21 06:24 Creatinine 0.5 mg/dL (0.55-1.02) L 07/06/21 06:24 Medications needing adjustments: Reviewed (Crcl ~31.47 mL/min current meds okay) - Anticoagulation Anticoagulation: Hgb 8.7 g/dL (11.2-15.7) L 07/06/21 06:24 Hct 27.6 % (36.0-46.0) L 07/06/21 06:24 Plt Count 334 10^3/uL (130-400) 07/06/21 06:24 Creatinine 0.5 mg/dL (0.55-1.02) L 07/06/21 06:24 DVT Prophylaxis: Reviewed (chemical dvt prophylaxis being held due to large scalp hematoma and right shoulder hematoma per progress note) Therapeutic Anticoagulation: N/A - Opiate Usage Evaluate Pain Scale/Pains Meds: Reviewed Scheduled Bowel Reg ordered if on Opiates?: Yes - Relevant Labs Sodium 143 mmol/L (136-145) 07/06/21 06:24 Potassium 3.7 mmol/L (3.5-5.1) 07/06/21 06:24 Chloride 106 mmol/L (98-107) 07/06/21 06:24 Phosphorus 2.7 mg/dL (2.6-4.7) 07/01/21 06:09 Magnesium 1.9 mg/dL (1.8-2.4) 07/04/21 06:05 Electrolytes, C-Reactive P, ESR: Reviewed - DM Control DM Control: Glucose 92 mg/dL (74-106) 07/06/21 06:24 Insulin Dosing: N/A - Heart Failure/UT EF%, GLADIS's, B-Blockers, Diuretics: N/A - BP Control BP Control: Blood Pressure 137/70 If elevated: Reviewed (BP has been up and down some this admission, but within normal limits yesterday and so far today.) - Qtc Review If Elevated: Reviewed (QTc 494 on admission) - IV to PO Switch IV Medications: Reviewed - Home Meds Home Med List reviewed: Reviewed - Current meds Current Medication Order Review: Reviewed - Comments Comments/Follow Ups: Watch BP, SCr, labs and for med changes (possible renal dose adjustments, avoid QT prolonging meds).
[2021-07-06 15:20] VITALS: BP 113/64; PULSE 80; RESP 17; TEMP 37.2; O2SAT 96
[2021-07-06 18:13] VITALS: BP 119/69; PULSE 84; RESP 18; TEMP 36.7; O2SAT 95
[2021-07-06 23:30] VITALS: BP 120/65; PULSE 83; RESP 18; TEMP 36.6; O2SAT 96
[2021-07-07] MEDS: Acetaminophen 325 MG TAB 650 MG PO ×4 (01:27→19:59)
[2021-07-07 03:20] LABS: Vitamin D 25 Total 32.3 ng/mL (30-100)
[2021-07-07] MEDS: Normal Saline Flush 10 ML SYR IVP (07:31)
[2021-07-07] MEDS: Calcium 600mg/Vit D 200U TAB 1 TAB PO ×2 (07:32→19:59)
[2021-07-07] MEDS: Cholecalciferol (Vitamin D3) 1,000 UNIT TAB 1000 UNITS PO (07:32)
[2021-07-07] MEDS: Zinc Sulfate 220 MG TAB PO (07:32)
[2021-07-07] MEDS: Ascorbic Acid 500 MG TAB PO ×2 (07:32→19:59)
[2021-07-07] MEDS: Pantoprazole 40 MG TABCR PO (07:32)
[2021-07-07] MEDS: Thiamine 100 MG TAB PO (07:32)
[2021-07-07] MEDS: Polyethylene Glycol 3350 17 GM PACKET PO (07:33)
[2021-07-07] MEDS: Protein Nutritional Supplement 16 GM 1 OUNCE PACKET PO ×3 (07:33→19:59)
[2021-07-07] MEDS: Multivitamin TAB 1 TAB PO (07:34)
[2021-07-07 07:50] VITALS: BP 113/66; PULSE 77; RESP 18; TEMP 36.6; O2SAT 96
--- NOTE | 2021-07-07 09:37 | OT.INIE ---
Occupational Therapy Notes Inpatient Occupational Therapy Evaluation Date: 07/07/21 Referring Doctor:James Tafoya MD OT Orders: Non Urgent Precautions: Fall, [place]and[place], DNR/DNI PATIENT PROFILE/ADMITTING DIAGNOSIS: Pt is a 80 year old female who was admitted through the ED for the following dx of malnutrition, anemia, palliative encounter, dementia, scalp hematoma, closed head injury, fall, alcohol withdrawal, fx of proximal humerus, ambulatory dysfunction, pain in (R) LE, knee pain. Past Medical History: All Active Problems?(Updated 06/29/21 @ 16:10 by Ashley Melendez DO) Fracture of proximal humerus (Acute) Ambulatory dysfunction (Acute) Pain of right lower extremity (Acute) Knee pain (Acute) Fall (Acute) Unable to ambulate (Acute) Discharge planning issues (Acute) Knee pain, right (Acute) Macrocytic anemia with vitamin B12 deficiency (Chronic) Abnormal auditory perception (Acute) Cerumen impaction (Acute) Sensory hearing loss, bilateral (Acute) Otorrhea of left ear (Acute) Fracture, humerus (Acute) Fracture, intertrochanteric, left femur (Acute) Medical History?(Updated 06/29/21 @ 16:10 by Ashley Melendez DO) Alcohol use, unspecified with other alcohol-induced disorder CAD (coronary artery disease) Iron deficiency Surgical History? S/P appendectomy S/P hysterectomy Status post open reduction with internal fixation of fracture 1.? left hip 2.? left shoulder Social History/Home Situation: Jania lives alone in an apartment at the [facility] she states that she has children but they are adults.? She is not able ot identify if they live close or not.Pt cares for her apartment and she is independent with her ADLs, though she does admit that she needs help.? She does not drive per her chart however pt reports to OT that she does. SUBJECTIVE: Pt was sitting in chair when OT arrived. She is agreeable to OT session and notes that she is sore and tired today. OBJECTIVE: General Observation: Pleasant, laceration to (R) head with remarkable bruising noted, displaced (R) shoulder, sling on (R) UE Mental Status: A&Ox2 Pain: c/o pain in head near laceration, (R) shoulder, and (R) knee ROM: RUE NT L UE AROM WFL STRENGTH: RUE NT LUE 4/5 throughout FUNCTIONAL MOBILITY/ADLS: BATHING sitting in chair with max (A) set up/clean up Bathing UE with vc (I) face, (I) abdomen, max (A) (R) UE Bathing LE max (A) (B) LE DRESSING sitting in chair Dressing UE NT as pt has increased pain in (R) UE Dressing LE Pt attempts to don and doff sock, even with mod (A) with facilitation and initiation of task. Pt required max (A). BALANCE: Static sitting Normal Dynamic Sitting Good SPECIAL TESTS: Daily Activity Limitations Standardized Measure [facility] AM -PAC ?6 clicks? Daily Activity Inpatient Short Form: Raw score: 10 Standardized score: 27.31 CMS score: 74.70% INFORMED CONSENT/EDUCATION: Pt instructed in purpose of OT Consult and plan of care. ASSESSMENT: Patient is a 80-year-old female referred to occupational therapy services with diagnosis of malnutrition, anemia, palliative encounter, dementia, scalp hematoma, closed head injury, fall, alcohol withdrawal, fx of proximal humerus, ambulatory dysfunction, pain in (R) LE, knee pain. Patient presents with clinical signs and symptoms consistent with dx, as demonstrated by the following impairment level findings/functional limitations: Impairments in ADL/IADL and leisure activities, decreased functional activity tolerance, decreased cognitive ability, decreased functional mobility required for ADL performance, decreased safety awareness. AMPAC score 10 Patient is assessed as a Moderate 67536 complexity based on the following: History: see above Examination: see functional limitations as noted above Presentation: evolving Decision Making: AMPAC score 10 GOALS Goals x1 week 1. ORal hygiene sitting in chair min (A) with ideal technique 2. Dressing Mod (A) With donning and doffing socks, mod (A) UE dressing 3. Bathing (I) UE/LE sitting in chair 4. Toileting on toilet (I) 5. Eating (I) PLAN OF CARE/TREATMENT PLAN: 1x/day, 5 days/ week x 1week Initiate Occupational Therapy Services for bathing, dressing, grooming, toileting, eating, transfer training. DISCHARGE RECOMMENDATIONS Pt would benefit from short term stay at SNF for continued rehabilitation and progressive functional activity tolerance. TREATMENT TIME/MINUTES/CODES 98575, 48592, 25 minutes Kasey Xavier, OTR/L [facility]
--- NOTE | 2021-07-07 09:42 | W.NUTRFU ---
Date of service: 07/07/21 Time of Service: 09:43 Nutrition Note NOTE: Ms. Wallis presents with a significant weight loss since admit (-6 lbs, 8%wt loss) despite supplementation of diet. At high nutritional risk as nutritionally depleted prior to hospitalization and now with significant weight loss due to inadequate nutrient intake. Diet advanced to minced and moist with average intake at 25% of meals (300-400 kcal, 10 g protein), with average intake of ensure clears at 50% (300 kcal, 12 g protein), taking liquid protein 1 oz TID (240 kcal, 45 g protein). Estimated needs: 0981-2399 kcal, 50-55 g protein, 1500 ml fluid. Meeting approx. 60% of calorie needs, 100% of protein need. Recommend appetite stimulant at this time. Will continue to support and encourage. Time Spent in Nutritional Counseling and Treatment: 5
--- NOTE | 2021-07-07 12:18 | W.PM.PROGNOT ---
Date of Service Date of service: 07/07/21 Time of Service: 12:18 Assessment and Plan Assessment and plan (1) Fracture of proximal humerus: Status: Acute Assessment and plan: Given h/o noncompliance and poor nutritional status, the safest plan for the patient is having the patient be discharged to a SNF x 1 week and then, if she is compliant with PT there and does not leave AMA, consider doing the surgery. She has been agreeable to this plan but this morning stated she was being held against her will and wanted to go home. There is a very high risk of noncompliance and ultimately, her fracture does not absolutely have to be fixed surgically, though her ROM is going to be more limited with the non-operative treatment. There is a concern for complications if she falls/does not follow PT instructions after the shoulder arthroplasty. Spoke with Dr Dickey; planning f/u as outpt in 1-2 weeks to re-image and assess. Continue sling, PT, OT. Continue scheduled tylenol, prn nucynta, ice. (2) Alcohol withdrawal: Status: Resolved Assessment and plan: Continue thiamine, MVI. CIWA scoring stopped. (3) Alcohol use, unspecified with other alcohol-induced disorder: Assessment and plan: Continue MVI, downgrade dose of thiamine. Very malnourished and has evidence of EtOH dementia with confabulations. BMI of 15.6 kg/m2. Intensify nutritional support (patient does not want a feeding tube). Megace initiated. Will likely need guardianship / papers filed. (4) Closed head injury: Status: Acute Assessment and plan: No sx of concussion at this time. Monitor neuro status. (5) Dementia: Status: Chronic Assessment and plan: Alcoholic + vascular. Forgetfull but not aggressive. (6) Scalp hematoma: Status: Acute Assessment and plan: No evidence of intracranial injury. Continue Ice. Hold NSAIDs/chemical DVT ppx. (7) Fall: Status: Acute Assessment and plan: The patient fell off of the commode; strongly suspect multiple falls at home. Continue working with PT. Monitor mental status. (8) Ambulatory dysfunction: Status: Acute Assessment and plan: Continue PT/OT (9) Discharge planning issues: Status: Acute Assessment and plan: DNR/DNI. Does not want a feeding tube. Met with palliative care. No DPOA established. Guardianship papers filed. Lacks capacity to make disposition decisions. Surgery on R shoulder would only happen as outpatient if patient proves to be compliant; has proven to be compliant thus far. (10) DVT prophylaxis: Status: Acute Assessment and plan: SCDs. Holding chemical DVT ppx in setting of a large scalp hematoma as well as R shoulder hematoma (11) Palliative care encounter: Status: Acute Assessment and plan: pt does not have identifiable social support for [facility]CA or guardianship; continue pursuing state guardianship; [facility] to continue to follow s/p discharge (12) Anemia: Status: Chronic Assessment and plan: Stable. Multifactoral: Etoh abuse with poor nutritional intake, low normal B12, low iron and TIBC, loss d/t fx of humerus. IV iron would be beneficial but she pulled out her midline catheter and has very poor access otherwise. Oral iron considered but concerned it might cause further problems with oral intake / possible nausea. No IV access; she pulled it out. No IV iron now. So little muscle mass that an IM B12 would be problamatic. (13) Malnutrition: Status: Acute Assessment and plan: Secondary to Etoh abuse. Supplemental protein, Vits/minerals. She reports always eating only 1 meal/day. I suspect this has been the case since she began consuming alcohol routinely. Subjective Subjective Patient reports: no new complaints, still having pain, tolerating a regular diet (Poor intake but no N/V/abd pain. ) and afebrile; denies shortness of breath Interval history since last seen: Working with [facility] strong desire to return to her Apt at [facility], but knows she cannot do so currently. Exam Narrative Exam Narrative: General: Small, frail female. Conversant. HEENT: R frontal scalp hematoma with ecchymoses tracking down into the neck. , EOMI, MMM Heart: RRR. No murmur. Lungs: CTAB Abdomen: soft, nontender, nondistended Extremities: RUE in a sling. Swelling and ecchymoses of proximal humerus; able to move all 4 extremities but very limited ROM of R shoulder. Thin with low muscle mass. Const General: cooperative, comfortable and frail appearing Nutritional Appearance: thin Orientation: alert, awake, oriented to person and oriented to place [facility] Head: normal to inspection Mouth: oral mucosae normal Eyes General: appearance normal, both eyes and all related structures Neck Neck: normal visual inspection Chest Chest: normal inspection of the chest and normal palpation of entire chest wall Resp Effort & Inspection: normal respiratory effort and able to speak in complete sentences Auscultation: clear to auscultation bilaterally Cardio Rate: regular rate GI Inspection: normal to inspection Palpation: soft, not firm, no guarding, not rigid and nontender Skin General skin exam: ecchymosis (right shoulder) Neuro General: patient alert and patient awake Motor: muscle tone normal throughout Psych Attitude: cooperative Insight: limited Judgment: limited Objective Last Vital Signs Temp 36.6 C 07/07/21 07:50 Pulse 77 07/07/21 07:50 Resp 18 07/07/21 07:50 BP 113/66 07/07/21 07:50 Pulse Ox 96 07/07/21 07:50 Laboratory Results - last 24 hr 07/04/21 06:05 25-OH Vitamin D Total 32.3
--- NOTE | 2021-07-07 13:20 | PDOC.CMPRO ---
- If Service Date Differs Date of service: 07/07/21 Time of Service: 13:20 Care Management Progress Note S/O: Jania was sitting up in her chair watching TV when CM met with her. She was alert, oriented to person, place, time and easy to engage in conversation. Surgical intervention of her Right shoulder has been put on hold due to concerns for compliance with PT and risk for falls if she returns home. Jania has proven to be compliant thus far and continues to wait for SNF placement. Referrals are pending with no offers. Jania wrote a rent check today, which CM handed directly to Tea at the [facility]. A: 80 year old female admitted to [facility] on 06/30/21 for ambulatory function and fracture of proximal humerus. P: CM filed a motion for [facility] Emergency Guardianship through the [place] [address] on 07/04/21. CM is waiting for response from the court. Per provider discharge to home is not an option, due to safety concerns. Anticipate, Jania will discharge to SNF vs. transition to [facility] for continued PT prior surgical intervention with Ortho. [facility] declined and CM is waiting to hear back from the [facility]. CM will continue to support discharge planning needs.
[2021-07-07 15:12] VITALS: BP 109/60; PULSE 73; RESP 18; TEMP 36.8; O2SAT 97
[2021-07-07] MEDS: Lidocaine 5% Patch 1 PATCH TP (17:32)
--- NOTE | 2021-07-08 | DI.US_ITS ---
Exam(s) US UPPER EXTREMITY VENOUS RT EXAM: US UPPER EXTREMITY VENOUS RT CLINICAL HISTORY: fracture. Increased swelling.. TECHNIQUE: Ultrasound examination of the right upper extremity venous system(s) is performed using g rayscale, color-flow, and spectral Doppler analysis. COMPARISON: No exams were available for comparison FINDINGS: The right internal jugular, axillary, subclavian, cephalic, basilic, brachial, radial, and ulnar vein s are patent without evidence of thrombosis. No abscess or drainable fluid collection. There is sof t tissue edema in the right anterior arm. IMPRESSION: No DVT. DATA REPOSITORY:
[2021-07-08] MEDS: Acetaminophen 325 MG TAB 650 MG PO ×4 (00:53→20:03)
[2021-07-08 08:16] VITALS: BP 118/72; PULSE 71; RESP 16; TEMP 36.5; O2SAT 99
--- NOTE | 2021-07-08 08:21 | OT.INTREAT ---
Occupational Therapy Notes Occupational Therapy Inpatient Treatment Note Date: 07/08/21 PRECAUTIONS: Fall, Standard, DNR/DNI SUBJECTIVE: Pt states that she is wondering if they will do anything for her arm. She is pleasant and agreeable to OT session. OBJECTIVE: PAIN:c/o pain in (R) shoulder, and (R) knee BATHING sitting in chair with max (A) set up/clean up Bathing UE with vc (I) face, (I) abdomen, max (A) (R) UE Bathing LE max (A) (B) LE DRESSING sitting in chair Dressing UE NT as pt has increased pain in (R) UE Dressing LE Pt attempts to don and doff sock, even with mod (A) with facilitation and initiation of task. Pt required max (A). TREATMENT CODES/TIME: 26430, 25 minutes (07:50) Kasey Xavier OTR/L [facility]
[2021-07-08] MEDS: Cholecalciferol (Vitamin D3) 1,000 UNIT TAB 1000 UNITS PO (09:28)
[2021-07-08] MEDS: Zinc Sulfate 220 MG TAB PO (09:29)
[2021-07-08] MEDS: Multivitamin TAB 1 TAB PO (09:29)
[2021-07-08] MEDS: Thiamine 100 MG TAB PO (09:29)
[2021-07-08] MEDS: Pantoprazole 40 MG TABCR PO (09:29)
[2021-07-08] MEDS: Ascorbic Acid 500 MG TAB PO ×2 (09:30→20:03)
[2021-07-08] MEDS: Protein Nutritional Supplement 16 GM 1 OUNCE PACKET PO ×3 (09:30→20:04)
[2021-07-08] MEDS: Calcium 600mg/Vit D 200U TAB 1 TAB PO ×2 (09:34→20:03)
[2021-07-08 09:51] LABS: Abs Immature Grans 0.03 10^3/uL (0.0-0.06); Absolute Basophil Count 0.04 10^3/uL (0.0-0.2); Absolute Lymphocyte Count 1.81 10^3/uL (1.2-3.4); Absolute Monocyte Count 1.27 10^3/uL (0.1-0.8); Absolute Neutrophil Count 4.31 10^3/uL (1.2-6.7); Basophils % 0.5; Eosinophils % 1.3; HCT 31.6 % (36.0-46.0); HGB 9.4 g/dL (11.2-15.7); Immature Grans % 0.4; Lymphocytes % 23.9; MCH 31.5 pg (27.0-33.0); MCHC 29.7 % (32.0-36.0); MPV 9.2 fL (8.0-11.0); Monocytes % 16.8; Neutrophils % 57.1; Nucleated RBC 0 %; Platelet Count 453 10^3/uL (130-400); RBC 2.98 10^6/uL (3.93-5.22); RDW 15.3 % (11.7-14.6); RDW-SD 58.6 fL; WBC 7.56 10^3/uL (4.4-10.8)
--- NOTE | 2021-07-08 10:04 | PDOC.CMPRO ---
- If Service Date Differs Date of service: 07/08/21 Time of Service: 10:05 Care Management Progress Note S/O: Jania was sitting up in her chair when CM met with her. She was alert, oriented and has been quite cooperative throughout her 8 day admission. Her arm is painful, purple and quite swollen. She has been working with PT and OT during this admission, however PT shared this morning that their ability to work with her is limited because of her arm pain. She continues to require max assist with her ADL's, when transferring and ambulating. Jania is wondering what the plan is for her arm and shares with CM that she would be better off to discharge home, if she doesn't need surgery and it can heal on it's own. Going home is not a safe option. Per Dr. Forrester she lacks capacity to make discharge decisions. CM filed a motion for [facility] Guardianship on 07/04/21 which was granted per Vale Cast at [facility]. CM will follow up with with [facility] tomorrow. A: 80 year old female admitted to [facility] on 06/30/21 for ambulatory function and fracture of proximal humerus. P: Motion for [facility] Emergency Guardianship was granted 07/08/21. Per provider discharge to home is not an option, due to safety concerns. Anticipate, Jania will discharge to SNF vs. transition to [facility] for continued PT/OT to improve ambulatory disfunction prior to surgical intervention, if needed. [facility] declined admission due to guardianship status. CM is waiting to hear back from the [facility]. CM will continue to support patient and her discharge planning needs.
--- NOTE | 2021-07-08 13:32 | PGE_ITS ---
Date of Service Date of service: 07/08/21 Time of Service: 13:32 Assessment and Plan Assessment and plan (1) Fracture of proximal humerus: Status: Acute Assessment and plan: Given h/o noncompliance and poor nutritional status, the safest plan for the patient is having the patient be discharged to a SNF x 1 week and then, if she is compliant with PT there and does not leave AMA, consider doing the surgery. She has been agreeable to this plan but this morning stated she was being held against her will and wanted to go home. There is a very high risk of noncompliance and ultimately, her fracture does not absolutely have to be fixed surgically, though her ROM is going to be more limited with the non-operative treatment. There is a concern for complications if she falls/does not follow PT instructions after the shoulder arthroplasty. Spoke with Dr Dickey; planning f/u as outpt in 1-2 weeks to re-image and assess. Continue sling, PT, OT. Continue scheduled tylenol, ice. Dose of Nucyta 50mg x 1 given this AM; If doesn't cause excessive drowsiness or confusion can continue prn. Attempting to improve pain control to allow for full PT particiation. (2) Alcohol withdrawal: Status: Resolved Assessment and plan: Continue thiamine, MVI. CIWA scoring stopped. (3) Alcohol use, unspecified with other alcohol-induced disorder: Assessment and plan: Continue MVI, downgrade dose of thiamine. Very malnourished and has evidence of EtOH dementia with confabulations. BMI of 15.6 kg/m2. Intensify nutritional support (patient does not want a feeding tube). Megace initiated. Guardianship being established. (4) Closed head injury: Status: Acute Assessment and plan: No sx of concussion at this time. Monitor neuro status. (5) Dementia: Status: Chronic Assessment and plan: Alcoholic + vascular. Forgetfull but not aggressive. (6) Scalp hematoma: Status: Acute Assessment and plan: No evidence of intracranial injury. Continue Ice. Hold NSAIDs/chemical DVT ppx. (7) Fall: Status: Acute Assessment and plan: The patient fell off of the commode; strongly suspect multiple falls at home. Continue working with PT. Monitor mental status. (8) Ambulatory dysfunction: Status: Acute Assessment and plan: Continue PT/OT (9) Discharge planning issues: Status: Acute Assessment and plan: DNR/DNI. Does not want a feeding tube. Met with palliative care. No DPOA established. Guardianship papers filed. Lacks capacity to make disposition decisions. Surgery on R shoulder would only happen as outpatient if patient proves to be compliant; has proven to be compliant thus far and if films in 1-2 weeks don't show proper healing. (10) DVT prophylaxis: Status: Acute Assessment and plan: SCDs. Holding chemical DVT ppx in setting of a large scalp hematoma as well as R shoulder hematoma (11) Palliative care encounter: Status: Acute Assessment and plan: pt does not have identifiable social support for HCA or guardianship; continue pursuing state guardianship; [facility] to continue to follow s/p discharge (12) Anemia: Status: Chronic Assessment and plan: Stable. Multifactoral: Etoh abuse with poor nutritional intake, low normal B12, low iron and TIBC, loss d/t fx of humerus. IV iron would be beneficial but she pulled out her midline catheter and has very poor access otherwise. Oral iron considered but concerned it might cause further problems with oral intake / possible nausea. No IV access; she pulled it out. No IV iron now. So little muscle mass that an IM B12 would be problamatic. (13) Malnutrition: Status: Acute Assessment and plan: Secondary to Etoh abuse. Supplemental protein, Vits/minerals. Initiated Megace. She reports always eating only 1 meal/day. I suspect this has been the case since she began consuming alcohol routinely. Subjective Subjective Patient reports: no new complaints, still having pain, tolerating a regular diet (Poor intake but no N/V/abd pain. ) and afebrile; denies shortness of breath Interval history since last seen: Working with [facility] strong desire to return to her Apt at [facility] Exam Narrative Exam Narrative: General: Small, frail female. Conversant. HEENT: R frontal scalp hematoma with ecchymoses tracking down into the neck. , EOMI, MMM Heart: RRR. No murmur. Lungs: CTAB Abdomen: soft, nontender, nondistended Extremities: RUE in a sling. Swelling and ecchymoses of proximal humerus; able to move all 4 extremities but very limited ROM of R shoulder. Thin with low muscle mass. Const General: cooperative, comfortable and frail appearing Nutritional Appearance: thin Orientation: alert, awake, oriented to person and oriented to place [facility] Head: normal to inspection Mouth: oral mucosae normal Eyes General: appearance normal, both eyes and all related structures Neck Neck: normal visual inspection Chest Chest: normal inspection of the chest and normal palpation of entire chest wall Resp Effort & Inspection: normal respiratory effort and able to speak in complete sentences Auscultation: clear to auscultation bilaterally Cardio Rate: regular rate GI Inspection: normal to inspection Palpation: soft, not firm, no guarding, not rigid and nontender Skin General skin exam: ecchymosis (right shoulder) Neuro General: patient alert and patient awake Motor: muscle tone normal throughout Psych Attitude: cooperative Insight: limited Judgment: limited Objective Last Vital Signs Temp 36.5 C 07/08/21 08:16 Pulse 71 07/08/21 08:16 Resp 16 07/08/21 08:16 BP 118/72 07/08/21 08:16 Pulse Ox 99 07/08/21 08:16 Laboratory Results - last 24 hr 07/08/21 08:45 WBC 7.56 RBC 2.98 L Hgb 9.4 L Hct 31.6 L MCV 106.0 H MCH 31.5 MCHC 29.7 L RDW 15.3 H Plt Count 453 H MPV 9.2 Immature Gran % 0.4 Neutrophils % 57.1 Lymphocytes % 23.9 Monocytes % 16.8 Eosinophils % 1.3 Basophils % 0.5 Nucleated RBC % 0 Absolute Neutrophils 4.31 Absolute Lymphocytes 1.81 Absolute Monocytes 1.27 H Absolute Eosinophils 0.10 Absolute Basophils 0.04
[2021-07-08 14:00] VITALS: BP 129/68; PULSE 70; RESP 16; TEMP 36.7; O2SAT 97
--- NOTE | 2021-07-08 15:19 | PCPN_ITS ---
Assessment and Plan Assessment and plan (1) Discharge planning issues: Status: Acute Assessment and plan: She is not able to live in an independent living situation any longer. (Likely has not been for a while). Will need Assisted living or SNF. Giving her inability to care for her injury, should go to snf initially, I believe. (2) Malnutrition: Status: Acute Assessment and plan: Long-standing. Due to her dependence upon alcohol and difficulty procuring food at her home. High risk for further fractures with falls. (3) Palliative care encounter: Status: Acute Assessment and plan: Once she is discharged, can be followed in her new living situation. (4) Dementia: Status: Chronic Assessment and plan: Alcohol related. Cannot give a reliable history. Poor short term memory. Cannot follow self-care instructions safely. (5) Closed head injury: Status: Acute Assessment and plan: Likely has had these in the past as well as current injury. (6) Fracture of proximal humerus: Status: Acute Assessment and plan: Managed by orthopedics. High risk for further fractures in the future given her body habitus and chronic cognitive dysfunction. (7) Confabulation: Status: Acute Assessment and plan: Related to her years of alcohol dependence. (8) Poor historian: Status: Acute (9) Unable to care for self: Status: Chronic Subjective Subjective Interval history since last seen: I was asked to follow up with Jania by Shawna Guzman, director long term care. She is new to me, but has been seen by my colleague, Cathryn Chacon NP. Jania lives in the [facility], which requires residents be able to live independently. She has a long history of alcohol dependence, and confabulates when giving her history. She is not at all linear in her thoughts. Her timeline makes no sense. For instance, she says she has 4 kids and she got when she was 32 and they were all grown up. She is unaware of her inconsistencies, c/w long-term alcoholic brain effects. She said she would have been better if she'd blown her brains out rather than a man who brought her to [place]. She reports she grew up in [place], where people smile, say solis, talk to you even if you're a stranger. She finds people in [place] cold and closed. She has no friends. She says she's lived at [facility] for 22 years. She doesn't remember falling and breaking her right arm and bruising her face. She cannot remember how she arrived at [facility]. She doesn't remember that she was seen by an orthopedist. Exam Narrative Exam Narrative: Severely underweight woman, sitting up in bed, talking but not conecting her thoughts, NAD Eyes: anicteric, EOMI face: very bruised right side of face HEENT: lips are chapped, but tongue not parched, hearing slightly off Neck: no LAD, no JVD Lungs: ctab, no increased wob, normal resp rate CV: heart rapid when animated, up to 92, regular abd: cachectic, NT, ND Ext; right arm swollen, bruised, in a sling, she tries to move it while talking; other extremities with very little muscle mass, psych: talkative, non-sensical, poor historian neuro: shows signs of advanced alcohol related dementia Const General: comfortable and frail appearing Nutritional Appearance: cachectic Orientation: alert, awake, oriented to person and confused [place] Head: normal to inspection and laceration (right side of head, healing, old area of ecchymosis) Mouth: oral mucosae normal Eyes General: appearance normal, both eyes and all related structures Neck Neck: normal visual inspection Chest Chest: normal inspection of the chest and normal palpation of entire chest wall Resp Effort & Inspection: normal respiratory effort and able to speak in complete sentences Auscultation: clear to auscultation bilaterally Cardio Rate: regular rate GI Inspection: normal to inspection Palpation: soft, not firm, no guarding, not rigid and nontender Skin Lesions: lesion noted (right forehead apprx 1/2 cm healing, no surrounding erythema) Rashes: no rashes Neuro General: patient alert, patient awake and oriented Patient Orientation: Person, Place and Confused (at times, poor historian) Motor: muscle tone normal throughout Extrem Left upper extremity: shoulder/upper arm Details: abnormal to inspection, tenderness Location: of the proximal humerus, swelling (anterior prox humerus), ecchymosis (fluctuant) and deformity Location: of the proximal humerus Location: anteriorly Objective Last Vital Signs Temp 98.1 F 07/08/21 14:00 Pulse 70 07/08/21 14:00 Resp 16 07/08/21 14:00 BP 129/68 07/08/21 14:00 Pulse Ox 97 07/08/21 14:00 Laboratory Results - last 24 hr 07/08/21 08:45 WBC 7.56 RBC 2.98 L Hgb 9.4 L Hct 31.6 L MCV 106.0 H MCH 31.5 MCHC 29.7 L RDW 15.3 H Plt Count 453 H MPV 9.2 Immature Gran % 0.4 Neutrophils % 57.1 Lymphocytes % 23.9 Monocytes % 16.8 Eosinophils % 1.3 Basophils % 0.5 Nucleated RBC % 0 Absolute Neutrophils 4.31 Absolute Lymphocytes 1.81 Absolute Monocytes 1.27 H Absolute Eosinophils 0.10 Absolute Basophils 0.04
[2021-07-08] MEDS: Lidocaine 5% Patch 1 PATCH TP (15:22)
[2021-07-08] MEDS: Polyethylene Glycol 3350 17 GM PACKET PO (20:04)
[2021-07-08 22:56] VITALS: BP 132/70; PULSE 72; RESP 18; TEMP 36.9; O2SAT 96
[2021-07-09 01:55] VITALS: BP 125/63; PULSE 67; RESP 16; TEMP 36.7; O2SAT 97
[2021-07-09] MEDS: Acetaminophen 325 MG TAB 650 MG PO ×4 (04:05→19:54)
[2021-07-09 07:14] VITALS: BP 125/72; PULSE 68; RESP 16; TEMP 36.3; O2SAT 95
--- NOTE | 2021-07-09 07:44 | OT.INTREAT ---
Occupational Therapy Notes Occupational Therapy Inpatient Treatment Note Date: 07/09/21 PRECAUTIONS: Fall, Standard, DNR/DNI SUBJECTIVE:?Pt states that she is agreeable to OT session. OBJECTIVE:? PAIN:c/o pain in (R) shoulder, and (R) knee BATHING sitting in chair with max (A) set up/clean up Bathing UE with vc (I) face, (I) abdomen, max (A) (B) UE Bathing LE max (A) (B) LE, max (A) parul area DRESSING sitting in chair Dressing UE Mod (A) don and doffing hospital gown due to pain Dressing LE Max (A) don and doffing (B) socks ? TREATMENT CODES/TIME:?23327, 30 minutes (07:15)? Kasey Xavier, OTR/L [facility]
[2021-07-09] MEDS: Calcium 600mg/Vit D 200U TAB 1 TAB PO ×2 (08:45→19:54)
[2021-07-09] MEDS: Zinc Sulfate 220 MG TAB PO (08:45)
[2021-07-09] MEDS: Pantoprazole 40 MG TABCR PO (08:45)
[2021-07-09] MEDS: Ascorbic Acid 500 MG TAB PO ×2 (08:45→19:54)
[2021-07-09] MEDS: Multivitamin TAB 1 TAB PO (08:46)
[2021-07-09] MEDS: Protein Nutritional Supplement 16 GM 1 OUNCE PACKET PO ×3 (08:46→19:55)
[2021-07-09] MEDS: Cholecalciferol (Vitamin D3) 1,000 UNIT TAB 1000 UNITS PO (08:46)
[2021-07-09] MEDS: Thiamine 100 MG TAB PO (08:46)
--- NOTE | 2021-07-09 09:08 | PDOC.CMPRO ---
- If Service Date Differs Date of service: 07/09/21 Time of Service: 09:08 Care Management Progress Note S/O: Jania was sitting up in her chair when CM met with her. She was alert, oriented and has been quite cooperative throughout her 9 day admission. Jania shared with CM that she enjoys reading mystery books, and she gladly accepted 3 novels from CM today. Jania has been working with PT/OT during this admission and continues to require max assist with her ADL's, when transferring and ambulating. Her arm is painful, purple and quite swollen. Repeat x-ray's were done today and Dr. Dickey recommends conservative care, followed by a 2 week follow up as an outpatient. Surgical intervention would be high risk given pts poor bone quality, severe malnutrition alcoholism, and frequent falls. Temp. Emergency Guardianship was obtained through the Court on 07/08/21. Maribel from [facility] [place] the [place] Guardian at this time and agrees to make decisions on behalf of Jania. CM will participate in an Emergency Guardianship Hearing on 07/18/21 at 4pm. Additional, SNF referral's are pending. CM will notify [facility] if a bed offer occurs. Today, Hema is agreeable to SNF placement for continued rehab. [facility] is closed to admissions at this time. They will consider her admissions when they open again and would like to meet Jania before a decision is made. DEAN received a phone call from pts brother Reinaldo Hassan, from [place]. Jania updated her HIPAA and his information was passed along to Maribel at [facility] [place] [place]. DEAN spoke with Cristobal and he would be willing to assume a guardianship role, but shares that he lives in [place] and can not easily come to [place]. A: 80 year old female admitted to [facility] on 06/30/21 for ambulatory function and fracture of proximal humerus. P: Motion for Temp Emergency Guardianship was granted 07/08/21. Per provider discharge to home is not an option, due to safety concerns. Anticipate, Jania will discharge to SNF vs. transition to SWB[facility] for continued PT/OT to improve ambulatory disfunction. Jania will follow up with ortho as an outpatient. SNF referrals are pending, Maribel at [facility] will need to provide consent if patient gets a bed offer. CM will continue to support patient and her discharge planning needs. SNF Referral's Pending: [facility]
--- NOTE | 2021-07-09 11:01 | W.PM.PROGNOT ---
Date of Service Date of service: 07/09/21 Time of Service: 11:01 Assessment and Plan Assessment and plan (1) Fracture of proximal humerus: Status: Acute Assessment and plan: re-imaged today. Spoke with Dr Dickey; she has appointment 07/15 in his office Continue sling, PT, OT. Continue scheduled tylenol, ice. will Nucyta added as she tolerated well. Attempting to improve pain control to allow for full PT participation. (2) Alcohol use, unspecified with other alcohol-induced disorder: Assessment and plan: Continue MVI, and thiamine. Very malnourished and has evidence of EtOH dementia with confabulations. BMI of 15.6 kg/m2. Intensify nutritional support (patient does not want a feeding tube). Megace initiated. Guardianship being established. (3) Dementia: Status: Chronic Assessment and plan: Alcoholic + vascular. Forgetfull but not aggressive. (4) Scalp hematoma: Status: Acute Assessment and plan: No evidence of intracranial injury. Continue Ice. Hold NSAIDs/chemical DVT ppx. (5) Fall: Status: Acute Assessment and plan: The patient fell off of the commode; strongly suspect multiple falls at home. Continue working with PT. Monitor mental status. (6) Ambulatory dysfunction: Status: Acute Assessment and plan: Continue PT/OT (7) DVT prophylaxis: Status: Acute Assessment and plan: SCDs. Holding chemical DVT ppx in setting of a large scalp hematoma as well as R shoulder hematoma (8) Palliative care encounter: Status: Acute Assessment and plan: guardianship granted to public guardian (9) Anemia: Status: Chronic Assessment and plan: Stable. Multifactoral: Etoh abuse with poor nutritional intake, low normal B12, low iron and TIBC, loss d/t fx of humerus. IV iron would be beneficial but she pulled out her midline catheter and has very poor access otherwise. Oral iron considered but concerned it might cause further problems with oral intake / possible nausea. No IV access; she pulled it out. No IV iron now. So little muscle mass that an IM B12 would be problamatic. (10) Malnutrition: Status: Acute Assessment and plan: Secondary to Etoh abuse. Supplemental protein, Vits/minerals. Initiated Megace. (11) Discharge planning issues: Status: Acute Assessment and plan: DNR/DNI. Does not want a feeding tube. Met with palliative care. Guardianship granted and she is [place] of the [place]. Lacks capacity to make disposition decisions. will likely need placement while her shoulder heals, discussed with Dr Rojas. Subjective Subjective Patient reports: no new complaints, still having pain, tolerating liquids well and afebrile; denies shortness of breath Interval history since last seen: working with physical therapy Exam Const General: comfortable and frail appearing Nutritional Appearance: thin Orientation: alert, awake, oriented to person and oriented to place [facility] Head: normal to inspection Mouth: oral mucosae normal Eyes General: appearance normal, both eyes and all related structures Neck Neck: normal visual inspection Chest Chest: normal inspection of the chest and normal palpation of entire chest wall Resp Effort & Inspection: normal respiratory effort and able to speak in complete sentences Auscultation: clear to auscultation bilaterally Cardio Rate: regular rate GI Inspection: normal to inspection Palpation: soft, not firm, no guarding, not rigid and nontender Skin General skin exam: ecchymosis (right shoulder) Neuro General: patient alert and patient awake Motor: muscle tone normal throughout Objective Last Vital Signs Temp 36.3 C L 07/09/21 07:14 Pulse 68 07/09/21 07:14 Resp 16 07/09/21 07:14 BP 125/72 07/09/21 07:14 Pulse Ox 95 07/09/21 07:14
--- NOTE | 2021-07-09 11:35 | DI.RAD_ITS ---
Exam(s) XR SHOULDER RT COMPLETE 2+V EXAM: XR SHOULDER RT COMPLETE 2+V CLINICAL HISTORY: fractured humerus. TECHNIQUE: 2D digital imaging was performed. COMPARISON: CT CT UPPER EXTREMITY RT WO from 06/29/2021 CR XR SHOULDER RT COMPLETE 2+V from 06/29/2021 FINDINGS: 3 views Again noted is the displaced fracture at the head-neck of the right humerus. Humeral head is subluxe d somewhat inferiorly within the osseous glenoid. Subacromial space appears preserved. There is pro minent soft tissue swelling over the lateral aspect of the shoulder. IMPRESSION: Displaced humeral neck-head fracture. DATA REPOSITORY: RADIATION DOSE DELIVERED:
--- NOTE | 2021-07-09 13:10 | PGE_ITS ---
Date of Service Date of service: 07/09/21 Time of Service: 13:12 Assessment and Plan Assessment and plan (1) Fracture of proximal humerus: Status: Acute Assessment and plan: 80-year-old female with displaced right proximal humerus fracture New standing x-rays obtained and reviewed showing reasonable fracture alignment although shaft remains anteriorly and medial translated relative to femoral head neck with expected deltoid atony I have reviewed complex case with other shoulder surgeons. Given severe malnutrition alcoholism, and frequent falls best course of treatment is nonoperative. Extremely poor bone quality high risk for failure with any fixation. Shoulder replacement too high risk for failure leading to a worse problem such as periprosthetic fracture or prosthetic joint infection. Recommend nonweightbearing right upper extremity. [place] assisted reduction with cuff and collar. Limited passive range of motion about the shoulder: Pendulums only, at this time. Active motion elbow wrist and hand okay. Pain/comfort should improve over the next week or so as fracture begins to heal. Follow-up outpatient Dr. Keli Copeland orthopedics in about 2 weeks Discussed with physical therapist and primary medical team. Objective Last Vital Signs Temp 97.3 F L 07/09/21 07:14 Pulse 68 07/09/21 07:14 Resp 16 07/09/21 07:14 BP 125/72 07/09/21 07:14 Pulse Ox 95 07/09/21 07:14
--- NOTE | 2021-07-09 13:26 | PT.INPN ---
Date of service: 07/09/21 Time of Service: 13:26 PT Notes Visit Reasons: Ambulatory Dysfunction Physical Therapy Inpatient progress note Date: 07/09/2021 Dates of service: 07/02/2021 through 07/09/2021 Precautions: Fall. Standard. Collar and cuff sling on at all times. Per Dr. Dickey as of 07/09/2021: Recommend non weightbearing right upper extremity.? Carpenter assisted reduction with cuff and collar.? Limited passive range of motion about the shoulder: Pendulums only, at this time.? Active motion elbow wrist and hand okay. Patient Profile/Admitting Diagnosis: Maddi is a 80-year-old female with widely displaced right proximal humeral fracture due to suspected repeated falls at home.? Patient is diagnosed with proximal humeral fracture, EtOH use, and ambulatory dysfunction. Subjective: Agreeable to PT session.? Complains of pain in R shoulder at 8-9/10 with movement.? Anxipus about whether she will have surgery or not. Objective: General Observation: Swelling in R UE.? Anterior shoulder increasingly more erythematous and tender to palpation. Edema continues to subside. Mental Status: Alert. Able to follow single step commands.? Anxious about the slightest movement in R UE.? Pain: 8-9/10 in R UE Vital Signs: WNL as closely monitored by nursuing staff ROM: Right Upper Extremity: ? NT Left Upper Extremity:? Shoulder Flexion WFL. Shoulder abduction WFL. Elbow flexion WFL. Wrist flexion WFL. Functional opening and closing of hand WFL. Right Lower Extremity: Hip flexion WFL. Hip abduction WFL. Knee flexion WFL. Ankle dorsiflexion WFL. Ankle plantarflexion WFL. Left Lower Extremity: Hip flexion WFL. Hip abduction WFL. Knee flexion WFL. Ankle dorsiflexion WFL. Ankle plantarflexion WFL. Strength: Right Upper Extremity: NT Left Upper Extremity: Shoulder flexors 4-/5. Shoulder abductors 4-/5. Elbow flexors 4-/5. Elbow extensors 4-/5. Gandy Dancer strong. Right Lower Extremity: Hip flexors 3+/5. Hip abductors 3+/5. Knee flexors 3+/5. Knee extensors 3+/5. Ankle dorsiflexors 3+/5. Ankle plantarflexors 3+/5. Left Lower Extremity: Hip flexors 3+/5. Hip abductors 3+/5. Knee flexors 3+/5. Knee extensors 3+/5. Ankle dorsiflexors 3+/5. Ankle plantarflexors 3+/5. Bed Mobility/Transfers: Supine to sit with independent Sit to supine with independent Sit to stand with contact-guard assist Stand to sit with contact-guard assist Bed to chair contact-guard assist Chair to bed contact-guard assist Gait: Instructed patient with level surface ambulation of 100 feet requiring contact-guard assist. Day increasing. Step height increasing. Step length increasing.? Gait ataxic. complains of getting faint as her pain level and her anxiety increase. Balance: Static Sitting: Good Dynamic Sitting: Fair Static Standing: Poor Dynamic Standing: Poor Special Tests: Mobility Limitations Standardized Measure [facility] 6 clicks Basic Mobility Inpatient Short Form: Raw Score: 20? CMS Score: 36% deficit? ? ? Informed Consent/Education:? Patient was instructed in purpose of PT consult and plan of care. Agreeable to proceed with established PT POC to achieve personal goals. Assessment: Now more able to follow instructions. Works hard at participating in PT. Gait pattern improved with little to no ataxia seen however patient's level of pain causes incareased anxiety that limits ambulation performance.? Requires moderate to maximal verbal cueing for safety.? Patient demonstrates functional mobility decline requiring the use of a single-point cane and the assistance of 1 caregiver with moderate to maximal verbal cueing for correct technique and for overall safety.? Patient presents with clinical signs and symptoms consistent with current/admitting diagnoses that have resulted to mobility limitations, gait instability, generalized weakness, and overall ADL decline as demonstrated by the following impairment level findings: 1.? Decreased strength to B UE/LE major muscle groups 2.? Impaired sitting/standing balance 3.? Impaired activity tolerance 4.? Limitation of joint range of motion in R UE joints 5.? Pain in R shoulder at least 12/03 6.? Swelling in R UE Impairments are contributing to the following functional limitations: 1.? Decline in bed mobility skills 2.? Decline in transfer skills 3.? Difficulty with ambulation without assistive device and physical assistance 4.? Increased completion time for mobility ADL performance 5.? Increased risk for falls 6.? Difficulty with managing steps alone safely 7. Inability to thriove at home alone at this time Patient is assessed as a 36948 moderate complexity based on the following: History: 80-year-old femalewith past medical history as indicated above Examination: Demonstrable impairment in strength, balance, and mobility level with underlying impairments and functional limitations as exhibited above as well as deficit score of 73% utilizing the [facility] Mobility Inpatient Short Form Presentation: Evolving Decision Makin moderate complexity Goals: Goals X1 week 1. Supine-Sit independent NOT MET, CONTINUE 2. Sit-Supine independent NOT MET, CONT INUE 3. Sit-Stand independent NOT MET, CONTINUE 4. Stand-Sit standby assist with SPC NOT MET, CONTINUE 5. Bed-Chair standby assist with SPC NOT MET, CONTINUE 6. Chair-Bed standby assist with SPC NOT MET, CONTINUE 7.? Standby assist gait on level surface with use of SPC for at least 100 feet without report of pain nor dyspnea NOT MET, CONTINUE 8.? Standby assist with home exercise program NOT MET, CONTINUE 9.? Fair static and dynamic standing balance/tolerance NOT MET, CONTINUE Plan of Care/Treatment Plan: 1-2x/day, 7 days/week x 1 week. Treatment focus will be pendulum exercises to R shoulder per orthopod instruction. Progress balance skills while increasing B LE strength. Plan of care has been reviewed with the PRESS LEADER providing the service under Physical Therapy direction. DISCHARGE RECOMMENDATIONS: [] ? Home with no services [] [] ? Home with services [specify] [] ? Home with outpatient PT [] [X] ? SNF for continued rehabilitation.? Patient will benefit from shelter facility placement for continued skilled physical therapy services in order to progress mobility level, strength, and balance in preparation for a safe discharge to home. [] ? [facility] [] [] ? SNF versus LTC based on ability to participate and progress [] TREATMENT CODE/TIME: Session 1??63081 x 35 minutes beginning at 10:13 AM. Patient with??66888 x 15 minutes, 71629 x 14 minutes beginning at 13:26 PM. Thank you for the opportunity to participate in the care of this patient. Josie Mckeon PT, DPT, CLT [facility] [place], [place]
[2021-07-09 14:17] VITALS: BP 116/77; PULSE 82; RESP 18; TEMP 36.7; O2SAT 99
[2021-07-09] MEDS: Lidocaine 5% Patch 1 PATCH TP (15:08)
--- NOTE | 2021-07-09 17:23 | PT.INTREAT ---
Date of service: 07/09/21 Time of Service: 13:26 PT Notes Visit Reasons: Ambulatory Dysfunction
[2021-07-09] MEDS: Polyethylene Glycol 3350 17 GM PACKET PO (19:54)
[2021-07-09 23:35] VITALS: BP 127/68; PULSE 81; RESP 17; TEMP 36.6; O2SAT 96
[2021-07-10] MEDS: Acetaminophen 325 MG TAB 650 MG PO ×4 (01:43→20:26)
[2021-07-10 07:06] VITALS: BP 116/64; PULSE 74; RESP 16; TEMP 36.7; O2SAT 99
[2021-07-10] MEDS: Polyethylene Glycol 3350 17 GM PACKET PO ×2 (07:59→20:26)
[2021-07-10] MEDS: Protein Nutritional Supplement 16 GM 1 OUNCE PACKET PO ×3 (07:59→20:26)
[2021-07-10] MEDS: Cholecalciferol (Vitamin D3) 1,000 UNIT TAB 1000 UNITS PO (08:01)
[2021-07-10] MEDS: Ascorbic Acid 500 MG TAB PO ×2 (08:01→20:26)
[2021-07-10] MEDS: Multivitamin TAB 1 TAB PO (08:01)
[2021-07-10] MEDS: Thiamine 100 MG TAB PO (08:01)
[2021-07-10] MEDS: Calcium 600mg/Vit D 200U TAB 1 TAB PO ×2 (08:01→20:26)
[2021-07-10] MEDS: Pantoprazole 40 MG TABCR PO (08:01)
[2021-07-10] MEDS: Zinc Sulfate 220 MG TAB PO (08:01)
--- NOTE | 2021-07-10 09:46 | PDOC.CMPRO ---
- If Service Date Differs Date of service: 07/10/21 Time of Service: 09:46 Care Management Progress Note S/O: Jania was sitting up in bed when CM met with her. She was pleasant and receptive to conversation. Jania stated that she is not having a lot of pain today. She pointed out the bruising on her right arm and asked if it would go away. CM reassured her that it would. Jania talked a bit about her family and stated that she grew up in [place]. She indicated that she moved to [place] 30 years ago as her was from [place]. She shared that he a few years ago. She stated that she has 4 children but does not see them often as they are scattered around the country, mostly in [place]. Per PT, Jania has been very anxious today and informed them that she is afraid that her apartment is going to be taken away from her. She said that she is staying in the basement and believes someone has moved in upstairs. The provider is aware that she has been upset and has ordered prn Ativan. A: 80 year old female admitted to [facility] on 06/30/21 for ambulatory function and fracture of proximal humerus. P: Motion for Temp Emergency Guardianship was granted 07/08/21. Per provider discharge to home is not an option, due to safety concerns. Anticipate, Jania will discharge to SNF vs. transition to [facility] for continued PT/OT to improve ambulatory disfunction. Jania will follow up with ortho as an outpatient. SNF referrals are pending, Maribel arguello [facility] will need to provide consent if patient gets a bed offer. CM will continue to support patient and her discharge planning needs. SNF Referral's Pending: . [facility]
--- NOTE | 2021-07-10 10:03 | W.NUTRFU ---
Date of service: 07/10/21 Time of Service: 10:03 Nutrition Note NOTE: Appetite appears to have improved with addition of Megace 400 mg qd. Meeting 100% nutrient needs for weight gain. Will continue to follow and support. Time Spent in Nutritional Counseling and Treatment: 5
[2021-07-10 10:47] LABS: Abs Immature Grans 0.02 10^3/uL (0.0-0.06); Absolute Basophil Count 0.05 10^3/uL (0.0-0.2); Absolute Eosinophil Count 0.04 10^3/uL (0.0-0.7); Absolute Lymphocyte Count 1.12 10^3/uL (1.2-3.4); Absolute Monocyte Count 1.03 10^3/uL (0.1-0.8); Absolute Neutrophil Count 4.86 10^3/uL (1.2-6.7); Basophils % 0.7; Eosinophils % 0.6; HCT 31.8 % (36.0-46.0); HGB 9.8 g/dL (11.2-15.7); Immature Grans % 0.3; Lymphocytes % 15.7; MCH 32.2 pg (27.0-33.0); MCHC 30.8 % (32.0-36.0); MCV 104.6 fL (80-95); MPV 9.1 fL (8.0-11.0); Monocytes % 14.5; Neutrophils % 68.2; Nucleated RBC 0 %; Platelet Count 505 10^3/uL (130-400); RBC 3.04 10^6/uL (3.93-5.22); RDW 15.7 % (11.7-14.6); RDW-SD 60.1 fL; WBC 7.12 10^3/uL (4.4-10.8)
--- NOTE | 2021-07-10 13:14 | W.PM.PROGNOT ---
Documented by User: Vale Cedeño 07/10/21 13:34 Date of Service Date of service: 07/10/21 Time of Service: 13:14 Assessment and Plan Assessment and plan (1) Fracture of proximal humerus: Status: Acute Assessment and plan: Ms. Wallis is a 80-year-old female with displaced right proximal humerus fracture that occurred over a week ago; unknown date of fall due to patient's cognitive state There was concern by patient's care team that her right hematoma had increased in size and level of discomfort Reviewed PT, APTT and INR from 07/10/2021 which were normal Based on size of hematoma and patient's discomfort offered conservative management vs. aspiration Educated on benefits and risk of aspiration including discomfort, injury to skin, nerves and blood vessels as well as risk of infection After discussion with patient and her court appointed guardian they verbally consented to aspiration Anatomic landmarks were palpated and the injection site was marked. Skin was prepped with chlorhexidine and topical anesthetic was sprayed to the area. 18-gauge needle was inserted along the lateral edge of the hematoma and approximately 74 cc of blood was able to be easily aspirated. After aspiration light pressure was applied to help express minimal amount of blood. Hemostasis was achieved and light pressure dressing of sterile gauze and paper tape was applied over needle site. Patient tolerated procedure very well. Reported significant improvement after aspiration. Patient's nurse assisted for procedure. Dressing changes will be completed daily - recommend pressure dressings with paper tape due to condition of patient's skin. Will continue with previous recommendations - Recommend nonweightbearing right upper extremity.? [place] assisted reduction with cuff and collar.? Limited passive range of motion about the shoulder: Pendulums only, at this time.? Active motion elbow wrist and hand okay. Pain/comfort should improve over the next week or so as fracture begins to heal. Follow-up outpatient Dr. Keli [facility] in about 2 weeks Discussed with physical therapist and primary medical team. Exam Resp Effort & Inspection: normal respiratory effort and able to speak in complete sentences Extrem Other: Photos are of right hematoma along the anterior shoulder taken prior to aspiration Hematoma had slight calor, was soft and exquisitely tender with light touch prior to aspiration Stages of resolving ecchymosis are noted diffusely along the right upper extremity Objective Last Vital Signs Temp 36.7 C 07/10/21 07:06 Pulse 74 07/10/21 07:06 Resp 16 07/10/21 07:06 BP 116/64 07/10/21 07:06 Pulse Ox 99 07/10/21 07:06 Laboratory Results - last 24 hr 07/10/21 07/10/21 10:40 10:40 WBC 7.12 RBC 3.04 L Hgb 9.8 L Hct 31.8 L MCV 104.6 H MCH 32.2 MCHC 30.8 L RDW 15.7 H Plt Count 505 H MPV 9.1 Immature Gran % 0.3 Neutrophils % 68.2 Lymphocytes % 15.7 Monocytes % 14.5 Eosinophils % 0.6 Basophils % 0.7 Nucleated RBC % 0 Absolute Neutrophils 4.86 Absolute Lymphocytes 1.12 L Absolute Monocytes 1.03 H Absolute Eosinophils 0.04 Absolute Basophils 0.05 PT 10.0 INR 1.0 APTT 24.0 Documented by User: Trey Dickey MD 07/10/21 15:18 Assessment and Plan Assessment and plan (1) Fracture of proximal humerus: Status: Acute Assessment and plan: Ms. Wallis is a 80-year-old female with displaced right proximal humerus fracture that occurred over a week ago; unknown date of fall due to patient's cognitive state There was concern by patient's care team that her right hematoma had increased in size and level of discomfort Reviewed PT, APTT and INR from 07/10/2021 which were normal Based on size of hematoma and patient's discomfort offered conservative management vs. aspiration Educated on benefits and risk of aspiration including discomfort, injury to skin, nerves and blood vessels as well as risk of infection After discussion with patient and her court appointed guardian they verbally consented to aspiration Anatomic landmarks were palpated and the injection site was marked. Skin was prepped with chlorhexidine and topical anesthetic was sprayed to the area. 18-gauge needle was inserted along the lateral edge of the hematoma and approximately 74 cc of blood was able to be easily aspirated. After aspiration light pressure was applied to help express minimal amount of blood. Hemostasis was achieved and light pressure dressing of sterile gauze and paper tape was applied over needle site. Patient tolerated procedure very well. Reported significant improvement after aspiration. Patient's nurse assisted for procedure. Dressing changes will be completed daily - recommend pressure dressings with paper tape due to condition of patient's skin. Will continue with previous recommendations - Recommend nonweightbearing right upper extremity.? [place] assisted reduction with cuff and collar.? Limited passive range of motion about the shoulder: Pendulums only, at this time.? Active motion elbow wrist and hand okay. Pain/comfort should improve over the next week or so as fracture begins to heal. Follow-up outpatient Dr. K[facility] in about 2 weeks Discussed with physical therapist and primary medical team. Procedures Other Procedure Description/Findings: Shoulder hematoma needle decompression as described above
--- NOTE | 2021-07-10 13:43 | W.PM.PROGNOT ---
Date of Service Date of service: 07/10/21 Time of Service: 13:43 Assessment and Plan Assessment and plan (1) Fracture of proximal humerus: Status: Acute Assessment and plan: hematoma increased overnight. will consult orthopedics, apply cryocuff, check coags. Dr Dickey appointment 2 weeks now in his office Continue sling, PT, OT. Continue scheduled tylenol, ice. Nucyta added as she tolerated well. Attempting to improve pain control to allow for full PT participation. (2) Alcohol use, unspecified with other alcohol-induced disorder: Assessment and plan: Continue MVI, and thiamine. Guardianship established. (3) Dementia: Status: Chronic Assessment and plan: Alcoholic + vascular. Forgetfull but not aggressive. (4) Scalp hematoma: Status: Acute Assessment and plan: No evidence of intracranial injury. Continue Ice. Hold NSAIDs/chemical DVT ppx. (5) Fall: Status: Acute Assessment and plan: The patient fell off of the commode; strongly suspect multiple falls at home. Continue working with PT. Monitor mental status. (6) Ambulatory dysfunction: Status: Acute Assessment and plan: Continue PT/OT (7) DVT prophylaxis: Status: Acute Assessment and plan: SCDs. Holding chemical DVT ppx in setting of a large scalp hematoma as well as R shoulder hematoma (8) Palliative care encounter: Status: Acute Assessment and plan: guardianship granted to public guardian (9) Anemia: Status: Chronic Assessment and plan: Stable. Multifactoral: Etoh abuse with poor nutritional intake, low normal B12, low iron and TIBC, loss d/t fx of humerus. IV iron would be beneficial but she pulled out her midline catheter and has very poor access otherwise. Oral iron considered but concerned it might cause further problems with oral intake / possible nausea. No IV access; she pulled it out. No IV iron now. So little muscle mass that an IM B12 would be problamatic. (10) Malnutrition: Status: Acute Assessment and plan: Secondary to Etoh abuse. Supplemental protein, Vits/minerals. Initiated Megace. BMI of 15.6 kg/m2. Intensify nutritional support (patient does not want a feeding tube). (11) Discharge planning issues: Status: Acute Assessment and plan: DNR/DNI. Does not want a feeding tube. Met with palliative care. Guardianship granted and she is [place] of the [place]. Lacks capacity to make disposition decisions. will likely need placement while her shoulder heals, discussed with Dr Rojas. Subjective Subjective Patient reports: still having pain and afebrile Interval history since last seen: hematoma increasing over right proximal humerus. no dizziness, chest pain or shortness of breath Exam Const General: comfortable and frail appearing Nutritional Appearance: cachectic Orientation: alert, awake, oriented to person and oriented to place [facility] Head: normal to inspection Mouth: oral mucosae normal Eyes General: appearance normal, both eyes and all related structures Neck Neck: normal visual inspection Chest Chest: normal inspection of the chest and normal palpation of entire chest wall Resp Effort & Inspection: normal respiratory effort and able to speak in complete sentences Auscultation: clear to auscultation bilaterally Cardio Rate: regular rate GI Inspection: normal to inspection Palpation: soft, not firm, no guarding, not rigid and nontender Skin General skin exam: ecchymosis (right shoulder increasing since yesterday, old bruising to right lat face) Lesions: lesion noted (right forehead apprx 1/2 cm healing, no surrounding erythema) Rashes: no rashes Neuro General: patient alert, patient awake and oriented Patient Orientation: Person, Place and Confused (at times, poor historian) Extrem Left upper extremity: shoulder/upper arm Details: abnormal to inspection, tenderness Location: of the proximal humerus, swelling (anterior prox humerus), ecchymosis (area size of baseball, increased redness/bruising) and deformity Location: of the proximal humerus Location: anteriorly Objective Last Vital Signs Temp 36.7 C 07/10/21 07:06 Pulse 74 07/10/21 07:06 Resp 16 07/10/21 07:06 BP 116/64 07/10/21 07:06 Pulse Ox 99 07/10/21 07:06 Laboratory Results - last 24 hr 07/10/21 07/10/21 10:40 10:40 WBC 7.12 RBC 3.04 L Hgb 9.8 L Hct 31.8 L MCV 104.6 H MCH 32.2 MCHC 30.8 L RDW 15.7 H Plt Count 505 H MPV 9.1 Immature Gran % 0.3 Neutrophils % 68.2 Lymphocytes % 15.7 Monocytes % 14.5 Eosinophils % 0.6 Basophils % 0.7 Nucleated RBC % 0 Absolute Neutrophils 4.86 Absolute Lymphocytes 1.12 L Absolute Monocytes 1.03 H Absolute Eosinophils 0.04 Absolute Basophils 0.05 PT 10.0 INR 1.0 APTT 24.0
[2021-07-10 14:57] VITALS: BP 123/61; PULSE 91; RESP 17; TEMP 36.6; O2SAT 95
--- NOTE | 2021-07-10 15:15 | PTTR_ITS ---
Date of service: 07/10/21 Time of Service: 15:15 PT Notes Visit Reasons: Ambulatory Dysfunction Physical Therapy Inpatient Treatment Note Date: 07/10/2021 Precautions: Fall. Standard. Collar and cuff sling on at all times. Per Dr. Dickey as of 07/09/2021:?Recommend non weight bearing right upper extremity.? [place] assisted reduction with cuff and collar.? Limited passive range of motion about the shoulder: Pendulums only, at this time.? Active motion elbow w rist and hand okay. Subjective: Refused to work with PT this morning, agreeable in the afternoon. Lucidity on and off. Remains mildly agitated, thinking that she in the basement of her house and that somebody is interested about taking her apartment away from her. Verbalized that she may be terribly depressed because of this. DEAN Carrillo aupdated of patient's sentiments. Nurse Mj updated about patient's status. Objective: General Observation: Wound site dressing over R shoulder.? Shoulder now less erythematous and swollen after joint aspiration.?Edema to R UE but subsiding. Mental Status: Alert. Able to follow single step commands.? Showing signs of increasing anxiety and depression over her extended stay at hospital. Pain: 5-6/10 in R shoulder Vital Signs: WNL as closely monitored by nursung staff Bed Mobility/Transfers: Supine to sit with independent Sit to supine with independent Sit to stand with stand by assist Stand to sit with stand by assist Bed to chair stand by assist Chair to bed stand by assist Gait: Instructed patient with level surface ambulation of 450 feet in the afternoon requiring contact-guard assist. Day increasing. Step height increasing. Step length increasing.? No complaints of legs going to give out. Balance: Static Sitting: Normal Dynamic Sitting: Normal Static Standing: Fair Dynamic Standing: Fair Assessment: S/P R shoulder joint aspiration due to increasing hermarthrosis. Agitated and confused this morning, demanded to go home and be left alone. aircraft maintenance manager Lorena informed about patient's status and deferment of PT services/patient refusal. Resistant to staff explanation about why she needs to stay in the hospital. DISCHARGE RECOMMENDATIONS: [] ? Home with no services [] [] ? Home with services [specify] [] ? Home with outpatient PT [] [X] ? SNF for continued rehabilitation.? Patient will benefit from penitentiary facility placement for continued skilled physical therapy services in order to progress mobility level, strength, and balance in preparation for a safe discharge to home. [] ? Group Home Care [] [] ? SNF versus LTC based on ability to participate and progress [] TREATMENT CODE/TIME: Session 1??Refused and deferred due to agitation and confusion. Session 2??52244 x 20 minutes, 66162 x 10 minutes beginning at 15:15 PM.
[2021-07-10 16:31] LABS: Bilirubin Negative (Negative); Blood Negative (Negative); Clarity Clear (Clear); Glucose Negative (Negative); Ketones Negative (Negative); Leukocyte Esterase Trace (Negative); Nitrite Negative (Negative); Specific Gravity 1.015 (1.005-1.025); Urobilinogen 0.2 EU/dL (Up TO 0.2); pH 6.5 (5-8)
[2021-07-10 16:42] LABS: Bacteria Negative HPF (Negative); C & S Indicated? No; Casts Negative LPF (Negative); Crystals Negative HPF (Negative); Epithelial Cells Few HPF (Negative); Mucus Negative (Negative); RBC 0-2 HPF (0-2)
[2021-07-10] MEDS: Lidocaine 5% Patch 1 PATCH TP (20:25)
[2021-07-10 23:00] VITALS: BP 120/52; PULSE 63; RESP 16; TEMP 36.8; O2SAT 97
[2021-07-11] MEDS: Acetaminophen 325 MG TAB 650 MG PO ×4 (01:46→20:00)
[2021-07-11 06:40] LABS: Abs Immature Grans 0.02 10^3/uL (0.0-0.06); Absolute Basophil Count 0.04 10^3/uL (0.0-0.2); Absolute Eosinophil Count 0.07 10^3/uL (0.0-0.7); Absolute Lymphocyte Count 1.48 10^3/uL (1.2-3.4); Absolute Monocyte Count 0.98 10^3/uL (0.1-0.8); Absolute Neutrophil Count 3.31 10^3/uL (1.2-6.7); Basophils % 0.7; Eosinophils % 1.2; HGB 9.3 g/dL (11.2-15.7); Immature Grans % 0.3; Lymphocytes % 25.1; MCH 32.1 pg (27.0-33.0); MCV 103.4 fL (80-95); MPV 9.2 fL (8.0-11.0); Monocytes % 16.6; Neutrophils % 56.1; Nucleated RBC 0 %; Platelet Count 503 10^3/uL (130-400); RDW 15.8 % (11.7-14.6); RDW-SD 60.1 fL
[2021-07-11 06:53] LABS: Anion Gap 9.1 mmol/L (3-11); BUN 17 mg/dL (7-18); CO2 24.9 mmol/L (21.0-32.0); CREATININE 0.5 mg/dL (0.55-1.02); Calcium 8.6 mg/dL (8.5-10.1); Chloride 107 mmol/L (98-107); Glucose 86 mg/dL (74-106); Potassium 3.7 mmol/L (3.5-5.1); Sodium 141 mmol/L (136-145)
[2021-07-11 07:36] VITALS: BP 132/59; PULSE 73; RESP 20; TEMP 36.5; O2SAT 98
[2021-07-11] MEDS: Polyethylene Glycol 3350 17 GM PACKET PO ×2 (07:41→20:00)
[2021-07-11] MEDS: Protein Nutritional Supplement 16 GM 1 OUNCE PACKET PO ×3 (07:41→20:00)
[2021-07-11] MEDS: Zinc Sulfate 220 MG TAB PO (07:42)
[2021-07-11] MEDS: Thiamine 100 MG TAB PO (07:42)
[2021-07-11] MEDS: Calcium 600mg/Vit D 200U TAB 1 TAB PO ×2 (07:42→20:00)
[2021-07-11] MEDS: Multivitamin TAB 1 TAB PO (07:42)
[2021-07-11] MEDS: Ascorbic Acid 500 MG TAB PO ×2 (07:42→19:59)
[2021-07-11] MEDS: Pantoprazole 40 MG TABCR PO (07:42)
[2021-07-11] MEDS: Cholecalciferol (Vitamin D3) 1,000 UNIT TAB 1000 UNITS PO (07:42)
[2021-07-11 08:02] LABS: Homocysteine 11.5 umol/L (5.0-13.9)
--- NOTE | 2021-07-11 09:03 | OTTR_ITS ---
Occupational Therapy Notes Occupational Therapy Inpatient Treatment Note Date: 07/11/21 PRECAUTIONS: Fall, Standard, DNR/DNI SUBJECTIVE:?Pt states that she is agreeable to OT session, she is angry that she is still in the hospital. She notes that she would like to go home. OBJECTIVE:? PAIN:c/o pain in (R) shoulder, and (R) knee BATHING sitting in chair with max (A) set up/clean up Bathing UE with vc (I) face, (I) abdomen, max (A) (B) UE, max (A) hair Bathing LE max (A) (B) LE, max (A) parul area DRESSING sitting in chair Dressing UE Mod (A) don and doffing hospital gown due to pain Dressing LE Max (A) don and doffing (B) socks ? TREATMENT CODES/TIME:?66705, 20 minutes (08:40)? Kasey Xavier, OTR/L [facility]
--- NOTE | 2021-07-11 12:44 | W.PM.PROGNOT ---
Date of Service Date of service: 07/11/21 Time of Service: 11:00 Assessment and Plan Assessment and plan (1) Fracture of proximal humerus: Start date: 07/11/21 Start time: 11:00 Status: Acute Assessment and plan: hematoma increased overnight again. orthopedics on case, apply cryocuff, check coags. Dr Dickey appointment 2 weeks now in his office Continue sling, PT, OT. Continue scheduled tylenol, ice. Nucyta added as she tolerated well. Attempting to improve pain control to allow for full PT participation. (2) Alcohol use, unspecified with other alcohol-induced disorder: Start date: 07/11/21 Start time: 11:00 Assessment and plan: Continue MVI, and thiamine. Guardianship established. (3) Dementia: Start date: 07/11/21 Start time: 11:00 Status: Chronic Assessment and plan: Alcoholic + vascular. Forgetfull but not aggressive. (4) Scalp hematoma: Start date: 07/11/21 Start time: 11:00 Status: Acute Assessment and plan: No evidence of intracranial injury. Continue Ice. Hold NSAIDs/chemical DVT ppx. (5) Fall: Start date: 07/11/21 Start time: 11:00 Status: Acute Assessment and plan: The patient fell off of the commode; strongly suspect multiple falls at home. Continue working with PT. Monitor mental status. (6) Ambulatory dysfunction: Start date: 07/11/21 Start time: 11:00 Status: Acute Assessment and plan: Continue PT/OT (7) Palliative care encounter: Start date: 07/11/21 Start time: 11:00 Status: Acute Assessment and plan: guardianship granted to public guardian (8) Anemia: Start date: 07/11/21 Start time: 11:00 Status: Chronic Assessment and plan: Stable. Multifactoral: Etoh abuse with poor nutritional intake, low normal B12, low iron and TIBC, loss d/t fx of humerus. IV iron would be beneficial but she pulled out her midline catheter and has very poor access otherwise. Oral iron considered but concerned it might cause further problems with oral intake / possible nausea. No IV access; she pulled it out. No IV iron now. So little muscle mass that an IM B12 would be problamatic. (9) Malnutrition: Start date: 07/11/21 Start time: 11:00 Status: Acute Assessment and plan: Secondary to Etoh abuse. Supplemental protein, Vits/minerals. Initiated Megace. BMI of 14.1 kg/m2. Intensify nutritional support (patient does not want a feeding tube). (10) DVT prophylaxis: Start date: 07/11/21 Start time: 11:00 Status: Acute Assessment and plan: SCDs/TEDs Holding chemical DVT ppx in setting of a large scalp hematoma as well as R shoulder hematoma (11) Discharge planning issues: Start date: 07/11/21 Start time: 11:00 Status: Acute Assessment and plan: DNR/DNI. Does not want a feeding tube. Met with palliative care. Guardianship granted [place] Lacks capacity to make disposition decisions. will likely need placement while her shoulder heals, discussed with Dr Francisco. Subjective Subjective Patient reports: still having pain Interval history since last seen: States tired and wants to go home. Sitting up in chair. Hematoma is back. Open wound to forehead with small area where hematoma bleeding. Place small bandaid. Denies VALENZUELA. multiple stages of bruising to head. Awaiting placement at this. Guardianship in place. Exam Const General: comfortable and frail appearing Nutritional Appearance: cachectic Orientation: alert, awake, oriented to person and oriented to place HENNY Head: normal to inspection Mouth: oral mucosae normal Eyes General: appearance normal, both eyes and all related structures Neck Neck: normal visual inspection Chest Chest: normal inspection of the chest and normal palpation of entire chest wall Resp Effort & Inspection: normal respiratory effort and able to speak in complete sentences Auscultation: clear to auscultation bilaterally Cardio Rate: regular rate GI Inspection: normal to inspection Palpation: soft, not firm, no guarding, not rigid and nontender Skin General skin exam: ecchymosis (right shoulder increasing since yesterday, old bruising to right lat face) Lesions: lesion noted (right forehead apprx 1/2 cm healing, no surrounding erythema) Rashes: no rashes Neuro General: patient alert, patient awake and oriented Patient Orientation: Person, Place and Confused (at times, poor historian) Extrem Left upper extremity: shoulder/upper arm Details: abnormal to inspection, tenderness Location: of the proximal humerus, swelling (anterior prox humerus), ecchymosis (area size of softball, increased redness/bruising) and deformity Location: of the proximal humerus Location: anteriorly Objective Last Vital Signs Temp 36.5 C 07/11/21 07:36 Pulse 73 07/11/21 07:36 Resp 20 07/11/21 07:36 BP 132/59 L 07/11/21 07:36 Pulse Ox 98 07/11/21 07:36 Laboratory Results - last 24 hr 07/09/21 07/10/21 07/11/21 09:07 16:10 06:09 WBC RBC Hgb Hct MCV MCH MCHC RDW Plt Count MPV Immature Gran % Neutrophils % Band Neutrophils % Lymphocytes % Atypical Lymphs % Monocytes % Eosinophils % Basophils % Metamyelocytes % Myelocytes % Promyelocytes % Other Cells % Nucleated RBC % Absolute Neutrophils Absolute Lymphocytes Absolute Monocytes Absolute Eosinophils Absolute Basophils RBC Morphology Polychromasia Hypochromasia Poikilocytosis Basophilic Stippling Anisocytosis Microcytosis Macrocytosis Spherocytes Tear Drop Cells Ovalocytes Stomatocytes Mi-[place] Bodies Devan Cells/Echinocytes Acanthocytes (Spur) Schistocytes Sodium 141 Potassium 3.7 Chloride 107 Carbon Dioxide 24.9 Anion Gap 9.1 BUN 17 Creatinine 0.5 L Estimated GFR/1.73 m2 >= 60.00 Glucose 86 Calcium 8.6 Homocysteine 11.5 Urine Color Yellow Urine Clarity Clear Urine pH 6.5 Ur Specific Doyle 1.015 Urine Protein Negative Urine Ketones Negative Urine Blood Negative Urine Nitrite Negative Urine Bilirubin Negative Urine Urobilinogen 0.2 Ur Leukocyte Esterase Trace H Urine RBC 0-2 Urine WBC 5-10 Ur Epithelial Cells Few Urine Crystals Negative Urine Bacteria Negative Urine Casts Negative Urine Mucus Negative Ur Culture Indicated? No Urine Glucose Negative 07/11/21 07/11/21 06:09 08:32 WBC 5.90 Cancelled RBC 2.90 L Cancelled Hgb 9.3 L Cancelled Hct 30.0 L Cancelled MCV 103.4 H Cancelled MCH 32.1 Cancelled MCHC 31.0 L Cancelled RDW 15.8 H Cancelled Plt Count 503 H Cancelled MPV 9.2 Cancelled Immature Gran % 0.3 Cancelled Neutrophils % 56.1 Cancelled Band Neutrophils % Cancelled Lymphocytes % 25.1 Cancelled Atypical Lymphs % Cancelled Monocytes % 16.6 Cancelled Eosinophils % 1.2 Cancelled Basophils % 0.7 Cancelled Metamyelocytes % Cancelled Myelocytes % Cancelled Promyelocytes % Cancelled Other Cells % Cancelled Nucleated RBC % 0 Cancelled Absolute Neutrophils 3.31 Cancelled Absolute Lymphocytes 1.48 Cancelled Absolute Monocytes 0.98 H Cancelled Absolute Eosinophils 0.07 Cancelled Absolute Basophils 0.04 Cancelled RBC Morphology Cancelled Polychromasia Cancelled Hypochromasia Cancelled Poikilocytosis Cancelled Basophilic Stippling Cancelled Anisocytosis Cancelled Microcytosis Cancelled Macrocytosis Cancelled Spherocytes Cancelled Tear Drop Cells Cancelled Ovalocytes Cancelled Stomatocytes Cancelled Mi-[place] Bodies Cancelled [place] Cells/Echinocytes Cancelled Acanthocytes ([place]ur) Cancelled Schistocytes Cancelled Sodium Potassium Chloride Carbon Dioxide Anion Gap BUN Creatinine Estimated GFR/1.73 m2 Glucose Calcium Homocysteine Urine Color Urine Clarity Urine pH Ur Specific Doyle Urine Protein Urine Ketones Urine Blood Urine Nitrite Urine Bilirubin Urine Urobilinogen Ur Leukocyte Esterase Urine RBC Urine WBC Ur Epithelial Cells Urine Crystals Urine Bacteria Urine Casts Urine Mucus Ur Culture Indicated? Urine Glucose
--- NOTE | 2021-07-11 14:17 | PDOC.CMPRO ---
- If Service Date Differs Date of service: 07/11/21 Time of Service: 14:17 Care Management Progress Note S/O: Jania was sitting in her chair when CM met with her. She was pleasant and easy to engage in conversation. She shared with CM that she could not remember where she parked her car and says that she's been trying locate it all day. She does not remember what it looks like, just that it's old. She also reports that someone else was given her apartment, because she is not there. CM will call her [facility] to help alleviate her concerns. Recommendation is for Sid to transfer to SNF while her shoulder heals, however several referrals are pending with no offers. A: 80 year old female admitted to [facility] on 06/30/21 for ambulatory function and fracture of proximal humerus. P: Motion for Temp Emergency Guardianship was granted 07/08/21. Per provider discharge to home is not an option, due to safety concerns. Anticipate, Jania will discharge to SNF vs. transition to [facility] for continued PT/OT to improve ambulatory disfunction while her arm heals. Several SNF referrals are pending ([place] [facility] [place] if patient gets a bed offer.) Jania will follow up with ortho as an outpatient.CM will continue to support patient and her discharge planning needs. SNF Referral's Pending: . [facility]closed to admissions, [facility]-Declined [facility]-no response
[2021-07-11 15:18] VITALS: BP 115/59; PULSE 82; RESP 20; TEMP 37; O2SAT 97
--- NOTE | 2021-07-11 16:28 | PT.INTREAT ---
Date of service: 07/11/21 Time of Service: 16:28 PT Notes Visit Reasons: Ambulatory Dysfunction Physical Therapy Inpatient Treatment Note Date: 07/11/2021 Precautions: Fall. Standard. Collar and cuff sling on at all times. Per Dr. Dickey as of 07/09/2021:?Recommend non weight bearing right upper extremity.? [place] assisted reduction with cuff and collar.? Limited passive range of motion about the shoulder: Pendulums only, at this time.? Active motion elbow wrist and hand okay. Subjective: Significantly calmer and much more cooperative to sessions today. Continues to report pain in R shoulder and arm with certain movements. Objective: General Observation: Shoulder more erythematous and swollen compared to yesterday afternoon.?Edema and skin discoloration to R UE . Mental Status: Alert. Able to follow single step commands.? Pain: 5-6/10 in R shoulder Vital Signs: WNL [facility] Bed Mobility/Transfers: Supine to sit with independent Sit to supine with independent Sit to stand with stand by assist Stand to sit with stand by assist Bed to chair stand by assist Chair to bed stand by assist Gait: Instructed patient with level surface ambulation of 600 feet requiring contact-guard assist. Day increasing. Step height increasing. Step length increasing.? No complaints of legs going to give out however did report fatigue. 2 standing rest needed. THERA EX: Pendulum exercises to R UE and AROM to R elbow, wrist, and hand with report of pain that subsided with rest. Balance: Static Sitting: Normal Dynamic Sitting: Normal Static Standing: Fair Dynamic Standing: Fair Assessment: More cooperative today. Activity tolerance improving. DISCHARGE RECOMMENDATIONS: [] ? Home with no services [] [] ? Home with services [specify] [] ? Home with outpatient PT [] [X] ? SNF for continued rehabilitation.? Patient will benefit from half-way facility placement for continued skilled physical therapy services in order to progress mobility level, strength, and balance in preparation for a safe discharge to home. [] ? Half-Way Care [] [] ? SNF versus LTC based on ability to participate and progress [] TREATMENT CODE/TIME: Session 1??[id number] x 20 minutes, [id number] x 12 minutes beginning at 10:38 AM. Session 2??[id number] x 27 beginning at 16:28 PM.
[2021-07-11] MEDS: Lidocaine 5% Patch 1 PATCH TP (20:00)
[2021-07-12 00:03] VITALS: BP 139/77; PULSE 64; RESP 16; TEMP 36.8; O2SAT 97
[2021-07-12 06:53] VITALS: BP 120/63; PULSE 72; RESP 20; TEMP 36.9; O2SAT 97
[2021-07-12 06:55] LABS: Abs Immature Grans 0.03 10^3/uL (0.0-0.06); Absolute Basophil Count 0.07 10^3/uL (0.0-0.2); Absolute Eosinophil Count 0.06 10^3/uL (0.0-0.7); Absolute Lymphocyte Count 1.74 10^3/uL (1.2-3.4); Absolute Monocyte Count 1.11 10^3/uL (0.1-0.8); Absolute Neutrophil Count 4.74 10^3/uL (1.2-6.7); Basophils % 0.9; Eosinophils % 0.8; HCT 30.6 % (36.0-46.0); HGB 9.5 g/dL (11.2-15.7); Immature Grans % 0.4; Lymphocytes % 22.5; MCH 32.2 pg (27.0-33.0); MCV 103.7 fL (80-95); MPV 9.4 fL (8.0-11.0); Monocytes % 14.3; Neutrophils % 61.1; Nucleated RBC 0 %; Platelet Count 547 10^3/uL (130-400); RBC 2.95 10^6/uL (3.93-5.22); RDW 15.6 % (11.7-14.6); RDW-SD 59.7 fL; WBC 7.75 10^3/uL (4.4-10.8)
[2021-07-12 07:14] LABS: Prothrombin Time 10.2 sec (9.3-11.0)
[2021-07-12] MEDS: Pantoprazole 40 MG TABCR PO (08:10)
[2021-07-12] MEDS: Zinc Sulfate 220 MG TAB PO (08:10)
[2021-07-12] MEDS: Polyethylene Glycol 3350 17 GM PACKET PO ×2 (08:10→20:19)
[2021-07-12] MEDS: Ascorbic Acid 500 MG TAB PO ×2 (08:10→20:20)
[2021-07-12] MEDS: Calcium 600mg/Vit D 200U TAB 1 TAB PO ×2 (08:10→20:20)
[2021-07-12] MEDS: Cholecalciferol (Vitamin D3) 1,000 UNIT TAB 1000 UNITS PO (08:10)
[2021-07-12] MEDS: Protein Nutritional Supplement 16 GM 1 OUNCE PACKET PO ×3 (08:10→20:19)
[2021-07-12] MEDS: Acetaminophen 325 MG TAB 650 MG PO ×4 (08:11→20:20)
[2021-07-12] MEDS: Thiamine 100 MG TAB PO (08:11)
[2021-07-12] MEDS: Multivitamin TAB 1 TAB PO (08:11)
--- NOTE | 2021-07-12 09:19 | PTTR_ITS ---
PT Notes Visit Reasons: Ambulatory Dysfunction 07/12/2021 SUBJECTIVE: Feeling fatigued today. Is motivated to improve and become independent again. OBJECTIVE: TRANSFERS Sit to stand: SBA Stand to sit: SBA GAIT Device: SPC Weight bearing: Full LE's, NWB R UE Assist: CGA Distance: 150' Deviation: mild sway and path deviations noted, complaints of being Woozy, Sling donned. ASSESSMENT: Appears to be quite fatigued today and does not tolerate ambulation well. Requires sit rest break and wheel chair ride back to her room. Nursing aw are. PLAN: Progress functional gait as she can tolerate. Treatment time: 15' [id number] Edith Denson PTA Clinic location: [facility] [place], [place]
--- NOTE | 2021-07-12 11:43 | PGE_ITS ---
Date of Service Date of service: 07/12/21 Time of Service: 11:43 Assessment and Plan Assessment and plan (1) Fracture of proximal humerus: Status: Acute Assessment and plan: coags and H&H stable after increasing hematoma that required ultimately required needle drainage on 07/10. will need Dr Dickey appointment week of July 21, no plan for surgical repair Continue sling, PT, OT. Continue scheduled tylenol, prn nucyta, ice/cyrocuff as tolerated. (2) Alcohol use, unspecified with other alcohol-induced disorder: Assessment and plan: Continue MVI, and thiamine. Guardianship established. (3) Dementia: Status: Chronic Assessment and plan: Alcoholic + vascular. Forgetfull but not aggressive. (4) Fall: Status: Acute Assessment and plan: continue fall precautions. Continue PT. (5) Ambulatory dysfunction: Status: Acute Assessment and plan: Continue PT/OT fall precautions (6) DVT prophylaxis: Status: Acute Assessment and plan: SCDs. teds Holding chemical DVT ppx in setting of R shoulder hematoma (7) Palliative care encounter: Status: Acute Assessment and plan: guardianship granted to public guardian (8) Anemia: Status: Chronic Assessment and plan: Stable. Multifactoral: Etoh abuse with poor nutritional intake, low normal B12, low iron and TIBC, loss d/t fx of humerus. IV iron would be beneficial but she pulled out her midline catheter and has very poor access otherwise. Oral iron considered but concerned it might cause further problems with oral intake / possible nausea. No IV access; she pulled it out. No IV iron now. So little muscle mass that an IM B12 would be problamatic. (9) Malnutrition: Status: Acute Assessment and plan: Secondary to Etoh abuse. Supplemental protein, Vits/minerals. Initiated Megace. BMI of 15.6 kg/m2. Intensify nutritional support (patient does not want a feeding tube). (10) Discharge planning issues: Status: Acute Assessment and plan: DNR/DNI. Does not want a feeding tube. Met with palliative care. Guardianship granted and [place] Lacks capacity to make disposition decisions. will likely need placement while her shoulder heals, discussed with Dr Rojas. Subjective Subjective Patient reports: still having pain, tolerating liquids well, tolerating a regular diet and afebrile; denies shortness of breath Interval history since last seen: staff report ongoing confusion but with no behavioral issues. working with physical therapy. eating and drinking well. Exam Const General: comfortable and frail appearing Nutritional Appearance: cachectic Orientation: alert, awake, oriented to person and confused HENMT Head: normal to inspection and laceration (right side of head, healing, old area of ecchymosis) Mouth: oral mucosae normal Eyes General: appearance normal, both eyes and all related structures Neck Neck: normal visual inspection Chest Chest: normal inspection of the chest and normal palpation of entire chest wall Resp Effort & Inspection: normal respiratory effort and able to speak in complete sentences Auscultation: clear to auscultation bilaterally Cardio Rate: regular rate GI Inspection: normal to inspection Palpation: soft, not firm, no guarding, not rigid and nontender Skin Lesions: lesion noted (right forehead apprx 1/2 cm healing, no surrounding erythema) Rashes: no rashes Neuro General: patient alert, patient awake and oriented Patient Orientation: Person, Place and Confused (at times, poor historian) Motor: muscle tone normal throughout Extrem Left upper extremity: shoulder/upper arm Details: abnormal to inspection, tender ness Location: of the proximal humerus, swelling (anterior prox humerus), ecchymosis (fluctuant) and deformity Location: of the proximal humerus Location: anteriorly Objective Last Vital Signs Temp 36.9 C 07/12/21 06:53 Pulse 72 07/12/21 06:53 Resp 20 07/12/21 06:53 BP 120/63 07/12/21 06:53 Pulse Ox 97 07/12/21 06:53 Laboratory Results - last 24 hr 07/12/21 07/12/21 06:30 06:30 WBC 7.75 D RBC 2.95 L Hgb 9.5 L Hct 30.6 L MCV 103.7 H MCH 32.2 MCHC 31.0 L RDW 15.6 H Plt Count 547 H MPV 9.4 Immature Gran % 0.4 Neutrophils % 61.1 Lymphocytes % 22.5 Monocytes % 14.3 Eosinophils % 0.8 Basophils % 0.9 Nucleated RBC % 0 Absolute Neutrophils 4.74 Absolute Lymphocytes 1.74 Absolute Monocytes 1.11 H Absolute Eosinophils 0.06 Absolute Basophils 0.07 PT 10.2 INR 1.0
[2021-07-12 15:21] VITALS: BP 128/58; PULSE 69; RESP 19; TEMP 37.4; O2SAT 99
[2021-07-12] MEDS: LORazepam 0.5 MG TAB 0.25 MG PO (18:17)
[2021-07-12] MEDS: Lidocaine 5% Patch 1 PATCH TP (20:19)
[2021-07-12 23:20] VITALS: BP 121/67; PULSE 71; RESP 19; TEMP 37; O2SAT 96
[2021-07-13 07:48] VITALS: BP 129/55; PULSE 81; RESP 18; TEMP 36.8; O2SAT 94
[2021-07-13] MEDS: Polyethylene Glycol 3350 17 GM PACKET PO ×2 (07:52→19:24)
[2021-07-13] MEDS: Protein Nutritional Supplement 16 GM 1 OUNCE PACKET PO ×3 (07:52→19:24)
[2021-07-13] MEDS: Cholecalciferol (Vitamin D3) 1,000 UNIT TAB 1000 UNITS PO (07:53)
[2021-07-13] MEDS: Multivitamin TAB 1 TAB PO (07:53)
[2021-07-13] MEDS: Pantoprazole 40 MG TABCR PO (07:53)
[2021-07-13] MEDS: Ascorbic Acid 500 MG TAB PO ×2 (07:53→19:25)
[2021-07-13] MEDS: Thiamine 100 MG TAB PO (07:53)
[2021-07-13] MEDS: Zinc Sulfate 220 MG TAB PO (07:53)
[2021-07-13] MEDS: Acetaminophen 325 MG TAB 650 MG PO ×4 (07:53→19:25)
[2021-07-13] MEDS: Calcium 600mg/Vit D 200U TAB 1 TAB PO ×2 (07:53→19:25)
[2021-07-13] MEDS: Folic Acid 1 MG TAB PO (08:50)
--- NOTE | 2021-07-13 09:01 | PT.INTREAT ---
PT Notes Visit Reasons: Ambulatory Dysfunction 07/13/2021 SUBJECTIVE: Pt stating her brother is coming to get her today. She is ready to go home. Pain in the shoulder is there but tolerable. OBJECTIVE: TRANSFERS Sit to stand: SBA Stand to sit: SBA GAIT Device: FWW Weight bearing: Full LE's, NWB R UE Assist: CGA Distance: 50'x2 Deviation: Sling donned. ASSESSMENT: Appears to be more confused this AM. Less fatigue compared to yesterday without LOB during gait. Have to adjust sling several times throughout treatment. She wants to put the sling around her shoulder where it hurts vs. wearing it the correct way. PLAN: Continue current POC. Treatment time: 15' [id number] Edith Denson PTA Clinic location: [facility] [place], [place]
--- NOTE | 2021-07-13 11:52 | W.PM.PROGNOT ---
Date of Service Date of service: 07/13/21 Time of Service: 11:52 Assessment and Plan Assessment and plan (1) Fracture of proximal humerus: Status: Acute Assessment and plan: coags and H&H stable after increasing hematoma that required ultimately required needle drainage on 07/10. will need Dr Dickey appointment week of July 21, no plan for surgical repair Continue sling, PT, OT. Continue scheduled tylenol, prn nucyta, ice/cyrocuff as tolerated. (2) Alcohol use, unspecified with other alcohol-induced disorder: Assessment and plan: Continue MVI, and thiamine. (3) Dementia: Status: Chronic Assessment and plan: Alcoholic + vascular. Forgetfull but not aggressive. Guardianship established. (4) Fall: Status: Acute Assessment and plan: continue fall precautions. Continue PT. (5) Ambulatory dysfunction: Status: Acute Assessment and plan: Continue PT/OT fall precautions (6) DVT prophylaxis: Status: Acute Assessment and plan: SCDs. teds Holding chemical DVT ppx in setting of R shoulder hematoma (7) Palliative care encounter: Status: Acute Assessment and plan: guardianship granted to public guardian (8) Anemia: Status: Chronic Assessment and plan: Stable. Multifactoral: Etoh abuse with poor nutritional intake, low normal B12, low iron and TIBC, loss d/t fx of humerus. IV iron would be beneficial but she pulled out her midline catheter and has very poor access otherwise. Oral iron considered but concerned it might cause further problems with oral intake / possible nausea. No IV access; she pulled it out. No IV iron now. So little muscle mass that an IM B12 would be problamatic. (9) Malnutrition: Status: Acute Assessment and plan: Secondary to Etoh abuse. Supplemental protein, Vits/minerals. Initiated Megace. BMI of 15.6 kg/m2. Intensify nutritional support (patient does not want a feeding tube). (10) Discharge planning issues: Status: Acute Assessment and plan: DNR/DNI. Does not want a feeding tube. Met with palliative care. Guardianship granted and [place]. Lacks capacity to make disposition decisions. will likely need placement while her shoulder heals, discussed with Dr Rojas. Subjective Subjective Patient reports: no new complaints, still having pain, tolerating liquids well, tolerating a regular diet, voiding w/o difficulty, bowel movement and afebrile; denies shortness of breath Exam Const General: comfortable and frail appearing Nutritional Appearance: cachectic and thin Orientation: alert, awake, oriented to person, oriented to place and confused HENMT Head: normal to inspection and laceration (right side of head, healing, old area of ecchymosis) Mouth: oral mucosae normal Eyes General: appearance normal, both eyes and all related structures Neck Neck: normal visual inspection Chest Chest: normal inspection of the chest and normal palpation of entire chest wall Resp Effort & Inspection: normal respiratory effort and able to speak in complete sentences Auscultation: clear to auscultation bilaterally Cardio Rate: regular rate GI Inspection: normal to inspection Palpation: soft, not firm, no guarding, not rigid and nontender Skin General skin exam: ecchymosis (right shoulder increasing since yesterday, old bruising to right lat face) Lesions: lesion noted (right forehead apprx 1/2 cm healing, no surrounding erythema) Rashes: no rashes Neuro General: patient alert, patient awake and oriented Patient Orientation: Person, Place and Confused (at times, poor historian) Motor: muscle tone normal throughout Extrem Left upper extremity: shoulder/upper arm Details: abnormal to inspection, tenderness Location: of the proximal humerus, swelling (anterior prox humerus), ecchymosis (fluctuant) and deformity Location: of the proximal humerus Location: anteriorly Objective Last Vital Signs Temp 36.8 C 07/13/21 07:48 Pulse 81 07/13/21 07:48 Resp 18 07/13/21 07:48 BP 129/55 L 07/13/21 07:48 Pulse Ox 94 07/13/21 07:48
[2021-07-13 15:15] VITALS: BP 122/64; PULSE 76; RESP 16; TEMP 37.2; O2SAT 94
[2021-07-13] MEDS: LORazepam 0.5 MG TAB 0.25 MG PO (18:53)
[2021-07-13] MEDS: Lidocaine 5% Patch 1 PATCH TP (19:25)
[2021-07-13 20:51] VITALS: BP 134/67; PULSE 69; RESP 16; TEMP 36.4; O2SAT 98
[2021-07-14] MEDS: Protein Nutritional Supplement 16 GM 1 OUNCE PACKET PO ×3 (08:28→21:50)
[2021-07-14] MEDS: Zinc Sulfate 220 MG TAB PO (08:28)
[2021-07-14] MEDS: Acetaminophen 325 MG TAB 650 MG PO ×4 (08:28→21:49)
[2021-07-14] MEDS: Folic Acid 1 MG TAB PO (08:28)
[2021-07-14] MEDS: Multivitamin TAB 1 TAB PO (08:28)
[2021-07-14] MEDS: Ascorbic Acid 500 MG TAB PO ×2 (08:28→21:49)
[2021-07-14] MEDS: Polyethylene Glycol 3350 17 GM PACKET PO ×2 (08:28→21:50)
[2021-07-14] MEDS: Cholecalciferol (Vitamin D3) 1,000 UNIT TAB 1000 UNITS PO (08:28)
[2021-07-14] MEDS: Calcium 600mg/Vit D 200U TAB 1 TAB PO ×2 (08:28→21:49)
[2021-07-14] MEDS: Thiamine 100 MG TAB PO (08:29)
[2021-07-14] MEDS: Pantoprazole 40 MG TABCR PO (08:29)
--- NOTE | 2021-07-14 08:56 | CMPROGNOTE_ITS ---
- If Service Date Differs Date of service: 07/14/21 Time of Service: 08:56 Care Management Progress Note S/O: Jania was sitting up in her recliner chair eating lunch when CM met with her. She was alert, oriented, appropriate and easy to engage in conversation. She continues to be agreeable to SNF for continued rehab while her shoulder heals, however placement has been a challenge. CM contacted all SNF facilities listed below today, still no offers. At this point she may need to transition to SWB status. [facility] will need to be included in disposition decisions. A: 80 year old female admitted to [facility] on 06/30/21 for ambulatory function and fracture of proximal humerus. P: Motion for Temp Emergency Guardianship was granted 07/08/21. CM as the petitioner will participate in the Guardianship hearing on 07/18/21 at 4pm. Per provider discharge to home is not an option, due to safety concerns. Anticipate, Jania will discharge to SNF vs. SWB1 for continued PT/OT to improve ambulatory disfunction while her arm heals. She will need outpatient follow up appointments with ortho.. Several SNF referrals are pending (Mar[place] at [facility] [place] will need to provide consent if patient gets a bed offer.) CM will continue to support patient and her discharge planning needs. SNF Referral's: [facility]-closed to admissions, will review when [facility] response [facility]
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
[2021-07-14 15:59] VITALS: BP 119/56; PULSE 75; RESP 16; TEMP 36.6; O2SAT 94
[2021-07-14] MEDS: Lidocaine 5% Patch 1 PATCH TP (21:50)
[2021-07-14 23:29] VITALS: BP 120/65; PULSE 76; RESP 16; TEMP 36.6; O2SAT 96
[2021-07-15] MEDS: Protein Nutritional Supplement 16 GM 1 OUNCE PACKET PO ×2 (08:08→13:23)
[2021-07-15] MEDS: Polyethylene Glycol 3350 17 GM PACKET PO (08:08)
[2021-07-15] MEDS: Ascorbic Acid 500 MG TAB PO (08:09)
[2021-07-15] MEDS: Calcium 600mg/Vit D 200U TAB 1 TAB PO (08:09)
[2021-07-15] MEDS: Folic Acid 1 MG TAB PO (08:09)
[2021-07-15] MEDS: Zinc Sulfate 220 MG TAB PO (08:09)
[2021-07-15] MEDS: Cholecalciferol (Vitamin D3) 1,000 UNIT TAB 1000 UNITS PO (08:09)
[2021-07-15] MEDS: Thiamine 100 MG TAB PO (08:09)
[2021-07-15] MEDS: Multivitamin TAB 1 TAB PO (08:09)
[2021-07-15] MEDS: Acetaminophen 325 MG TAB 650 MG PO ×3 (08:09→15:29)
[2021-07-15] MEDS: Pantoprazole 40 MG TABCR PO (08:09)
[2021-07-15 10:17] LABS: Methylmalonic Acid 1.06 nmol/mL (<=0.40)
[2021-07-15 10:28] VITALS: BP 118/64; PULSE 71; RESP 18; TEMP 36.6; O2SAT 96
--- NOTE | 2021-07-15 11:31 | PT.INTREAT ---
Date of service: 07/15/21 Time of Service: 11:32 PT Notes Visit Reasons: Ambulatory Dysfunction Inpatient Physical Therapy Treatment Note [facility] Date: 07/15/2021 PRECAUTIONS: NWB right UE. Cff and Collar sling on at all times SUBJECTIVE: Is willing to take a walk, but did complain of legs getting tired by the time we returned to room both in am and pm. OBJECTIVE: PAIN: Right UE hurts if she moves it, otherwise is not painful. BED MOBILITY/TRANSFERS Sit-stand: SBA Stand-sit: SBA GAIT Assistive Device: SPC Weight bearing: NWB on R UE Assist: CGA Distance: 250ft in am and 250ft in pm Cryocuff reapplied post ambulation in am and pm Ther exercises: AM - performed AROM of right elbow flex/ ext, wrist flexion / ext and forearm supination / pronation for 10 reps each. PM - performed AROM of right elbow flex/ ext, wrist flex / ext and forearm supination/ pronation for 10 reps each and pendulums x 5 reps each. Sensitivity with pendulums, but better this quickly went away post activity. Needs to focus on allowing arm to just swing. ASSESSMENT: Tolerated PT sessions well, with good effort given with ambulation. PLAN: Continue with current POC with focus on improved ADL function. TREATMENT CODE/TIME: 50544h9, (15') 9:40 to 9:55 am, [id number]/[id number] (30') 12:55 to 1:25 pm
--- NOTE | 2021-07-15 14:01 | W.PM.DS.N ---
DS: Diagnosis Discharge Diagnosis (1) Fracture of proximal humerus: Status: Acute Asessment and Plan: Presented with right proximal humerus fracture. Orthopedic services consulted and was not a candidate for surgical repair Needle drainage of hematoma twice by ortho; no reacculmulation noticed. Needs Dr Dickey appointment week of July 21 due to severe malnutrition alcoholism, and frequent falls best course of treatment is nonoperative. ; managed with tylenol, nucynta and iced cryocuff therapy; collar and cuff sling in place. (2) Alcohol use, unspecified with other alcohol-induced disorder: Asessment and Plan: ETOH withdrawal symptoms managed as per protocol. Thiamine, folic acid, and MVI were ordered Pt is symptom free at this point; resolved- (3) Dementia: Status: Chronic Asessment and Plan: On going dementia; pt in non-violent and easily reoriented. (4) Fall: Status: Acute Asessment and Plan: Pt fell with the first 48 hours of admission. As her ETOH w/d symptoms resolved, pt is more compliant with fall precaution direction by nursing. (5) Ambulatory dysfunction: Status: Acute Asessment and Plan: Pt was unable to ambulate with assistive devices on arrival;PT was ordered and initiated. Ongoing PT needed to maintain gains in mobility with assistive device and supervision. (6) Anemia: Status: Chronic Asessment and Plan: Multifactoral: Etoh abuse with poor nutritional intake; MVI and iron sucrose initially given; PO supplements added to diet. Pt still displays poor appetite. (7) Malnutrition: Status: Acute Asessment and Plan: Secondary to Etoh abuse. Supplemental protein, Vits/minerals. Initiated Megace. BMI of 15.6 kg/m2. Intensify nutritional support (patient does not want a feeding tube). (8) Discharge planning issues: Status: Acute Asessment and Plan: ?Motion for [facility] Guardianship was granted 07/08/21. CM as the petitioner will participate in the Guardianship hearing on 07/18/21 at 4pm Pt will be a SWNB1 with PT until placement is determined; multiple referrals for SNF placement pending Discharge Plan Disposition Patient Disposition: [facility] SWING BED LEVEL 1 Condition: Stable Discharge Details Reason For Visit: Ambulatory Dysfunction Admit Date/Time: 06/30/21 13:06 Admit Provider: Amy Santos Attending Provider: Amy Santos Primary Care Provider: Kaila Mathur Hospital Course Hospital Course: Pt admited s/p fall and right fracture humerus, non-surgical candidate. Hospital course complicated by ETOH w/d, malnutrition and cachecxia, nutrition consult placed, refused gastric tube placement. Physical therapy conslut was placed and still needed to maintain gains in mobility.Guardianship hearing pending; care management has placed multiple referrals for placement; acceptance pending. Pt will be admitted to SWING BED 1. Home Meds and New Rx's Prescriptions: No Action Ensure Active Protein-Muscle Liquid PO 0RF Label Comments: DRINK 1 CAN THREE TIMES DAILY Acetaminophen [Tylenol] 650 mg PO QID Qty: 0 0RF Discharge Instructions Referrals: Trey Dickey MD [ [facility] STAFF PHYSICIAN] - 07/29/21 2:00 pm Activity:: Activity as Tolerated Equipment/Supplies:: Cane Diet:: As Tolerated DS: Summary Time Spent with Patient providing and/or coordinating discharge services: Greater than 30 minutes Status at Discharge Functional status at discharge: uses cane/walker Overall status at discharge: patient is not back to baseline Mental Status: other (Alert and oriented to self) Speech and Movement: speech clear Mood: labile mood and other (Alert and oriented to self) Affect: labile affect Exam Narrative Exam Narrative: Patient met this morning, sitting in chair and reading. Appears comfortable. Const General: cooperative, comfortable and frail appearing Nutritional Appearance: cachectic, malnourished, thin and underweight Orientation: alert, awake and oriented to person (only) HENSC Head: hematoma (resolving: yellowish hue) right parietal and laceration (right parietal forehead, scabbing over) Eyes General: appearance normal, both eyes and all related structures Neck Neck: normal visual inspection and full ROM Chest Other: Bilateral symmetric chest expansion Resp Effort & Inspection: normal respiratory effort and able to speak in complete sentences Psych Mental Status: other (Alert and oriented to self) Speech and Movement: speech clear Mood: labile mood and other (Alert and oriented to self) Affect: labile affect DS: Data Vitals/I&O Vitals and I&O: Vital Signs Temperature 97.9 F 07/15/21 10:28 Temperature Source Tympanic 07/15/21 10:28 Pulse 71 07/15/21 10:28 Pulse Rhythm Regular 07/15/21 08:43 Pulse 73 07/03/21 20:23 Respiratory Rate 18 07/15/21 10:28 Respiratory Effort Non-Labored 07/15/21 08:43 Respiratory Depth Normal 07/15/21 08:43 Respiratory Pattern Normal 07/15/21 08:43 Blood Pressure 118/64 07/15/21 10:28 Blood Pressure Mean 76 07/04/21 19:49 Blood Pressure Position Supine 07/02/21 04:00 Pulse Oximetry 96 07/15/21 10:28 Oxygen Delivery Method Room Air 07/15/21 10:28 Oxygen Flow Rate 0 07/15/21 10:28 Pain Level 4 07/15/21 10:28 Comment 07/07/21 23:21 Intake & Output 07/14/21 07/15/21 07/15/21 23:59 11:59 23:59 Weight 75 lb 2.842 oz Other: Urine Color Yellow Yellow Yellow Urine Appearance Clear Clear Urine Odor Normal Normal Comment Voided in toilet Voided in toilet Stool Size Small Small Moderate Stool Characteristics Soft Soft Soft Brown Brown Voiding Methods Toilet Toilet Toilet Data Completed and Pending Labs on day of discharge: Labs from last 24 hours 07/09/21 09:07 Methylmalonic Acid 1.06 H PFSH All Active Problems (Updated 07/13/21 @ 11:37 by Danyell Tobin MD) Unable to care for self (Chronic) no longer a candidate for independent living Poor historian (Acute) Confabulation (Acute) Discharge planning issues (Acute) Malnutrition (Acute) Anemia (Chronic) Palliative care encounter (Acute) Dementia (Chronic) DVT prophylaxis (Acute) Closed head injury (Acute) Fall (Acute) Fracture of proximal humerus (Acute) Ambulatory dysfunction (Acute) Pain of right lower extremity (Acute) Knee pain (Acute) Fall (Acute) Unable to ambulate (Acute) Discharge planning issues (Acute) Knee pain, right (Acute) Macrocytic anemia with vitamin B12 deficiency (Chronic) Abnormal auditory perception (Acute) Cerumen impaction (Acute) Sensory hearing loss, bilateral (Acute) Otorrhea of left ear (Acute) Fracture, humerus (Acute) Fracture, intertrochanteric, left femur (Acute) Medical History Alcohol use, unspecified with other alcohol-induced disorder CAD (coronary artery disease) Iron deficiency Surgical History S/P appendectomy S/P hysterectomy Status post open reduction with internal fixation of fracture 1. left hip 2. left shoulder Social History Smoking/Tobacco Use Status: Current every day Smoking risk assessment performed?: Yes Alcohol Intake: current Alcohol Intake frequency: holidays/special occasions only Alcohol type: wine Drug use: Never Substance use type: does not use Do you feel safe at home: Yes Do you feel safe in your relationship?: Yes
[2021-07-15] MEDS: LORazepam 0.5 MG TAB 0.25 MG PO (15:31)
--- NOTE | 2021-07-15 16:17 | CHAPLAIN ---
Jania was up in her chair, with the ice pad on her shoulder, when I visited. She said her shoulder is healing. Care Management is working to find a rehab for Navi, or she may be admitted to swing bed. I gave her a prayer shawl that she seemed to like.
[2021-07-15] MEDS: Gabapentin 100 MG CAP PO ×2 (17:11→22:35)
--- NOTE | 2021-07-15 17:46 | PDOC.CMPRO ---
- If Service Date Differs Date of service: 07/15/21 Time of Service: 17:46 Care Management Progress Note S/O: Staff called CM regarding Jania asking to leave today on multiple occasions, which would be AMA, as she has not been medically cleared, and does not have a safe discharge plan. CM contacted the [facility] and Risk Management, and made a plan to meet with the care team tomorrow to discuss further, with input from [facility], Risk, [facility] and other staff involved in her care. Jania has been redirected and is currently agreeing to remain at [facility]. CM will continue to follow. A: 80 year old female admitted to [facility] on 06/30/21 for ambulatory function and fracture of proximal humerus. P: Motion for [facility] Guardianship was granted 07/08/21. CM as the petitioner will participate in the Guardianship hearing on 07/18/21 at 4pm. Per provider discharge to home is not an option, due to safety concerns. Anticipate, Jania will discharge to SNF vs. SWB1 for continued PT/OT to improve ambulatory disfunction while her arm heals. She will need outpatient follow up appointments with ortho.. Several SNF referrals are pending (Maribel at [facility] [place] will need to provide consent if patient gets a bed offer.) CM will continue to support patient and her discharge planning needs. SNF Referral's: [facility]-closed to admissions, will review when open [facility]. [facility]-Declined
--- NOTE | 2021-07-15 18:11 | PGE_ITS ---
Documented by User: Melissa Cai NP 07/15/21 18:37 Date of Service Date of service: 07/15/21 Time of Service: 18:11 Assessment and Plan Assessment and plan (1) Fracture of proximal humerus: Status: Acute Assessment and plan: coags and H&H stable after increasing hematoma that required ultimately required needle drainage on 07/10. will need Dr Dickey appointment week of July 21, no plan for surgical repair as she's too high risk and would likely cause harm and increase risks for complications of infection, non healing, increased pain per orthopedics. Continue sling, PT, OT. Continue scheduled tylenol, prn nucyta, ice/cyrocuff as tolerated. will add gabapetin as an adjunct to current pain regimen as she does report ongoing pain. (2) Alcohol use, unspecified with other alcohol-induced disorder: Assessment and plan: Continue MVI, and thiamine. (3) Dementia: Status: Chronic Assessment and plan: Alcoholic + vascular. Forgetfull but not aggressive, remained re-directable until today where she now is perseverant about leaving to go home. she even called a taxi to come pick her up. I went to evaluate her and she is unable to tell me why she is here hospitalized despite me personally telling her earlier today and multiple times on this admission that she fell at home and has a fractured humerus and is recommended to have rehabilitation until this is healed as she can not be safely discharged d/t the disability of loss of use of her dominant arm. she is unable to verbalized risks of leaving here and how she will safely manage at home with regards to self care. She is unable to list medications that she takes, why she takes them or how she would administer them to herself. She is unable to provide consistent history and does not demonstrate capacity to safely care for herself. She has had guardianship established and case management has reached out to her guardian to discuss discharge planning, they have not returned phone call as of the end of my shift. I feel she is unsafe for discharge to home today and that discharging this patient would result in severe harm or . She does not demonstrate the ability to care for herself at home at this time. She could benefit from seroquel 12.5 mg at HS to help with her confusion and for sleep. will also increase her lorazepam to 0.5 mg TID to help with symptoms of anxiety and distress. continue safety precautions in this frail, demented, at risk elderly patient. (4) Fall: Status: Acute Assessment and plan: continue fall precautions. Continue PT. (5) Ambulatory dysfunction: Status: Acute Assessment and plan: Continue PT/OT fall precautions (6) DVT prophylaxis: Status: Acute Assessment and plan: SCDs. teds Holding chemical DVT ppx in setting of R shoulder hematoma (7) Palliative care encounter: Status: Acute Assessment and plan: guardianship granted to public guardian (8) Anemia: Status: Chronic Assessment and plan: Stable. Multifactoral: Etoh abuse with poor nutritional intake, low normal B12, low iron and TIBC, loss d/t fx of humerus. IV iron would be beneficial but she pulled out her midline catheter and has very poor access otherwise. Oral iron considered but concerned it might cause further problems with oral intake / possible nausea. No IV access; she pulled it out. No IV iron now. So little muscle mass that an IM B12 would be problamatic. (9) Malnutrition: Status: Acute Assessment and plan: Secondary to Etoh abuse. Supplemental protein, Vits/minerals. Initiated Megace. BMI of 15.6 kg/m2. Intensify nutritional support (patient does not want a feeding tube). (10) Discharge planning issues: Status: Acute Assessment and plan: DNR/DNI. Does not want a feeding tube. Met with palliative care. Guardianship granted and she is tinajero of the [facility] [address] [facility]. Lacks capacity to make disposition decisions. will likely need placement while her shoulder heals, discussed with Dr Santos Subjective Subjective Patient reports: still having pain, tolerating liquids well, tolerating a regular diet, voiding w/o difficulty and afebrile Interval history since last seen: patient continues working with physical therapy, walking in department with cane. she remains confused but easily redirected. no behavioral issues. her hematoma has remained stable and not worsening post drainage. she has had no fevers or respiratory c/o. Exam Const General: comfortable and frail appearing Nutritional Appearance: cachectic and thin Orientation: alert, awake, oriented to person, oriented to place and confused HENAR Head: normal to inspection and laceration (right side of head, healing, old area of ecchymosis) Mouth: oral mucosae normal Eyes General: appearance normal, both eyes and all related structures Neck Neck: normal visual inspection Chest Chest: normal inspection of the chest and normal palpation of entire chest wall Resp Effort & Inspection: normal respiratory effort and able to speak in complete sentences Auscultation: clear to auscultation bilaterally Cardio Rate: regular rate GI Inspection: normal to inspection Palpation: soft, not firm, no guarding, not rigid and nontender Skin General skin exam: ecchymosis (right shoulder hematoma stable, old bruising to right lat face) Lesions: lesion noted (right forehead apprx 1/2 cm healing, no surrounding erythema) Rashes: no rashes Neuro General: patient alert, patient awake and oriented Patient Orientation: Person, Place and Confused (at times, poor historian) Motor: muscle tone normal throughout Extrem Left upper extremity: shoulder/upper arm Details: abnormal to inspection, tenderness Location: of the proximal humerus, swelling (anterior prox humerus), ecchymosis (fluctuant) and deformity Location: of the proximal humerus Location: anteriorly Objective Last Vital Signs Temp 36.6 C 07/15/21 10:28 Pulse 71 07/15/21 10:28 Resp 18 07/15/21 10:28 BP 118/64 07/15/21 10:28 Pulse Ox 96 07/15/21 10:28 Laboratory Results - last 24 hr 07/09/21 09:07 Methylmalonic Acid 1.06 H
[2021-07-15] MEDS: LORazepam 2 MG/ML VIAL 1 MG IM (18:49)
--- NOTE | 2021-07-15 19:45 | NUR.NOTE ---
Nursing Note: At appox. 1500 patient became agitated and wanted to leave AMA as soon as possible, patient was informed they could not leave at this time, patient became more agitated with staff. patient was verbally aggressive and trying to elope for the next following hours. Patient required a sitter from about 1720 - 1830. At about 1830 patient finally was able to calm down. Carmen Perrin SURVEY RESEARCH ANALYST
[2021-07-15] MEDS: QUEtiapine 25 MG TAB 12.5 MG PO (22:35)
[2021-07-15] MEDS: Lidocaine 5% Patch 1 PATCH TP (22:35)
[2021-07-15] MEDS: LORazepam 0.5 MG TAB PO (23:12)
[2021-07-15 23:15] VITALS: BP 118/64; PULSE 70; RESP 18; TEMP 36.7; O2SAT 96
[2021-07-16] MEDS: Protein Nutritional Supplement 16 GM 1 OUNCE PACKET PO ×3 (09:43→20:40)
[2021-07-16] MEDS: Thiamine 100 MG TAB PO (09:45)
[2021-07-16] MEDS: Acetaminophen 325 MG TAB 650 MG PO ×4 (09:45→20:20)
[2021-07-16] MEDS: Ascorbic Acid 500 MG TAB PO ×2 (09:45→20:20)
[2021-07-16] MEDS: Zinc Sulfate 220 MG TAB PO (09:45)
[2021-07-16] MEDS: Multivitamin TAB 1 TAB PO (09:45)
[2021-07-16] MEDS: LORazepam 0.5 MG TAB PO ×2 (09:45→18:18)
[2021-07-16] MEDS: Folic Acid 1 MG TAB PO (09:45)
[2021-07-16] MEDS: Calcium 600mg/Vit D 200U TAB 1 TAB PO ×2 (09:45→20:20)
[2021-07-16] MEDS: Cholecalciferol (Vitamin D3) 1,000 UNIT TAB 1000 UNITS PO (09:45)
[2021-07-16] MEDS: Pantoprazole 40 MG TABCR PO (09:45)
[2021-07-16] MEDS: Polyethylene Glycol 3350 17 GM PACKET PO ×2 (09:46→20:40)
[2021-07-16 10:24] VITALS: BP 149/76; PULSE 74; RESP 18; TEMP 36.7; O2SAT 96
--- NOTE | 2021-07-16 14:08 | PT.INPN ---
Date of service: 07/16/21 Time of Service: 14:08 PT Notes Visit Reasons: Ambulatory Dysfunction Physical Therapy Inpatient progress note Date: 07/16/2021 Dates of service: 07/10/2021 through 07/16/2021 Precautions: 1. Per verbal order and clarification from Dr Dickey on 07/14/2021:?Sling can definitely be off when resting in bed or on chair. 2. Per Dr. Dickey as of 07/09/2021:?Recommend non weight bearing right upper extremity.? [place] assisted reduction with cuff and collar.? Limited passive range of motion about the shoulder: Pendulums only, at this time.? Active motion elbow wrist and hand okay. Subjective: Unable to PT in the morning as patient was sedated from intake of Ativan. Agreeable to PT session in the afternoon. Objective: General Observation: Swelling in R UE beginning to decrease. Anterior shoulder again beginning to increasingly become more erythematous and tender to palpation.? Mental Status: Alert. Able to follow single step commands.? Anxious about the slightest movement in R UE.? Pain: 8-9/10 in R UE Vital Signs: WNL as closely monitored by nursuing staff ROM: Right Upper Extremity: Shoulder Flexion NT. Shoulder abduction NT. Elbow flexion 0 to 45 degrees. Wrist flexion WFL. Functional opening and closing of hand WFL. Left Upper Extremity:? Shoulder Flexion WFL. Shoulder abduction WFL. Elbow flexion WFL. Wrist flexion WFL. Functional opening and closing of hand WFL. Right Lower Extremity: Hip flexion WFL. Hip abduction WFL. Knee flexion WFL. Ankle dorsiflexion WFL. Ankle plantarflexion WFL. Left Lower Extremity: Hip flexion WFL. Hip abduction WFL. Knee flexion WFL. Ankle dorsiflexion WFL. Ankle plantarflexion WFL. Strength: Right Upper Extremity: Shoulder flexors NT. Shoulder abductors NT. Elbow flexors 3-/5. Elbow extensors NT. Mercerizer strong. Left Upper Extremity: Shoulder flexors 4-/5. Shoulder abductors 4-/5. Elbow flexors 4-/5. Elbow extensors 4-/5. Mercerizer strong. Right Lower Extremity: Hip flexors 3+/5. Hip abductors 3+/5. Knee flexors 3+/5. Knee extensors 3+/5. Ankle dorsiflexors 3+/5. Ankle plantarflexors 3+/5. Left Lower Extremity: Hip flexors 3+/5. Hip abductors 3+/5. Knee flexors 3+/5. Knee extensors 3+/5. Ankle dorsiflexors 3+/5. Ankle plantarflexors 3+/5. Bed Mobility/Transfers: Supine to sit with independent Sit to supine with independent Sit to stand with supervision Stand to sit with supervision Bed to chair supervision Chair to bed supervision Gait: Instructed patient with level surface ambulation of up to 300 feet requiring contact-guard assist. Day increasing. Step height increasing. Step length increasing.? Gait ataxic. complains of getting faint as her pain level and her anxiety increase. Balance: Static Sitting: Good Dynamic Sitting: Fair Static Standing: Poor Dynamic Standing: Poor Special Tests: Mobility Limitations Standardized Measure [facility] 6 clicks Basic Mobility Inpatient Short Form: Raw Score: 22? CMS Score: 21% deficit? ? ? Informed Consent/Education:? Patient was instructed in purpose of PT consult and plan of care. Agreeable to proceed with established PT POC to achieve personal goals. Assessment: Pain tolerance beginning to improve. Swelling in R UE diminishing. Gait pattern improving however has not reached a safety level yet to be made independent in the hallway. Progress towards goal is limited by perisstent confusion and intermittent changes in behavior/agitation. Functional deficit score using [facility] score diminshing. Patient demonstrates functional mobility decline requiring the use of a single-point cane and the assistance of 1 caregiver with moderate to maximal verbal cueing for correct technique and for overall safety.? Patient presents with clinical signs and symptoms consistent with current/admitting diagnoses that have resulted to mobility limitations, gait instability, generalized weakness, and overall ADL decline as demonstrated by the following impairment level findings: 1.? Decreased strength to B UE/LE major muscle groups 2.? Impaired sitting/standing balance 3.? Impaired activity tolerance 4.? Limitation of joint range of motion in R UE joints 5.? Pain in R shoulder at least 5/10 6.? Swelling in R UE Impairments are contributing to the following functional limitations: 1.? Decline in bed mobility skills 2.? Decline in transfer skills 3.? Difficulty with ambulation without assistive device and physical assistance 4.? Increased completion time for mobility ADL performance 5.? Increased risk for falls 6.? Difficulty with managing steps alone safely 7. Inability to thrive at home alone at this time Patient is assessed as a 59643 moderate complexity based on the following: History: 80-year-old femalewith past medical history as indicated above Examination: Demonstrable impairment in strength, balance, and mobility level with underlying impairments and functional limitations as exhibited above as well as deficit score of 73% utilizing the [facility] Mobility Inpatient Short Form Presentation: Evolving Decision Makin moderate complexity Goals: Goals X1 week 1. Supine-Sit independent? NOT MET, CONTINUE 2. Sit-Supine independent NOT MET, CONT INUE 3. Sit-Stand independent NOT MET, CONTINUE 4. Stand-Sit standby assist with SPC NOT MET, CONTINUE 5. Bed-Chair standby assist with SPC NOT MET, CONTINUE 6. Chair-Bed standby assist with SPC NOT MET, CONTINUE 7.? Standby assist gait on level surface with use of SPC for at least 100 feet without report of pain nor dyspnea NOT MET, CONTINUE 8.? Standby assist with home exercise program NOT MET, CONTINUE 9.? Fair static and dynamic standing balance/tolerance NOT MET, CONTINUE Plan of Care/Treatment Plan: 1-2x/day, 7 days/week x 1 week. Treatment focus will be pendulum exercises to R shoulder per orthopod instruction.? Progress balance skills while increasing B LE strength.? Plan of care has been reviewed with the HY[employer]OE[employer] OPERATOR providing the service under Physical Therapy direction. DISCHARGE RECOMMENDATIONS: [] ? Home with no services [] [] ? Home with services [specify] [] ? Home with outpatient PT [] [X] ? SNF for continued rehabilitation.? Patient will benefit from custodial facility placement for continued skilled physical therapy services in order to progress mobility level, strength, and balance in preparation for a safe discharge to home. [] ? Jail Care [] [] ? SNF versus LTC based on ability to participate and progress [] TREATMENT CODE/TIME: ??07202 x 15 minutes, 04803 x 10 minutes beginning at 14:08 PM. Thank you for the opportunity to participate in the care of this patient. Josie Mckeon PT, DPT, CLT [facility] [place], [place]
[2021-07-16 15:30] VITALS: BP 135/77; PULSE 84; RESP 19; TEMP 37.1; O2SAT 99
--- NOTE | 2021-07-16 16:33 | W.PM.PROGNOT ---
Date of Service Date of service: 07/16/21 Time of Service: 14:00 Assessment and Plan Assessment and plan (1) Fracture of proximal humerus: Start date: 07/16/21 Start time: 14:00 Status: Acute Assessment and plan: Stable Denial that she has a medical illness or broken arm. will need Dr Dickey appointment week of July 21, no plan for surgical repair as she's too high risk and would likely cause harm and increase risks for complications of infection, non healing, increased pain per orthopedics. Continue sling, PT, OT. Continue scheduled tylenol, prn nucyta, ice/cyrocuff as tolerated. will add gabapetin as an adjunct to current pain regimen as she does report ongoing pain. (2) Alcohol use, unspecified with other alcohol-induced disorder: Start date: 07/16/21 Start time: 14:00 Assessment and plan: Continue MVI, and thiamine. (3) Dementia: Start date: 07/16/21 Start time: 14:00 Status: Chronic Assessment and plan: Alcoholic + vascular. Deemed incompetent to make decisions today by Dr. Forrester. Spoke with Guardian. She will be seeing patient tomorrow. She wants patient placed in rehab with possible and likely retirement care. Patient is not competent to make these decisions and can not leave AMA. Guardian has the right to make medical decision to keep patient in the hospital (4) Fall: Start date: 07/16/21 Start time: 14:00 Status: Acute Assessment and plan: continue fall precautions. Continue PT. (5) Ambulatory dysfunction: Start date: 07/16/21 Start time: 14:00 Status: Acute Assessment and plan: Continue PT/OT fall precautions (6) DVT prophylaxis: Start date: 07/16/21 Start time: 14:00 Status: Acute Assessment and plan: SCDs. teds Holding chemical DVT ppx in setting of R shoulder hematoma (7) Palliative care encounter: Start date: 07/16/21 Start time: 14:00 Status: Acute Assessment and plan: guardianship granted to public guardian see above (8) Anemia: Start date: 07/16/21 Start time: 14:00 Status: Chronic Assessment and plan: Stable. Multifactoral: Etoh abuse with poor nutritional intake, low normal B12, low iron and TIBC, loss d/t fx of humerus. IV iron would be beneficial but she pulled out her midline catheter and has very poor access otherwise. Oral iron considered but concerned it might cause further problems with oral intake / possible nausea. No IV access; she pulled it out. So little muscle mass that an IM B12 would be problamatic. Monitor (9) Malnutrition: Start date: 07/16/21 Start time: 14:00 Status: Acute Assessment and plan: Secondary to Etoh abuse. Supplemental protein, Vits/minerals. Initiated Megace. BMI of 15.1 kg/m2. Intensify nutritional support (patient does not want a feeding tube). (10) Discharge planning issues: Start date: 07/16/21 Start time: 17:36 Status: Acute Assessment and plan: DNR/DNI. Does not want a feeding tube. Met with palliative care. Lacks capacity to make disposition decisions. Waiting rehab discussed with Dr Santos Subjective Subjective Patient reports: other Interval history since last seen: Patient deemed incompetent by Dr. Forrester, also spoke with him about guardianship. He stated the hand book read that the guardian has the right to decide to keep the patient in the hospital for medical reasons, if the patient needs subacute rehab or medical attention. The guardian was contacted to confirm. This provider also downloaded the handbook. The guardian called back and confirmed that for incompetent patients requiring guardianship that are unable to make medical decisions the guardian can make decisions to keep the patient in the hospital and decide to agree to rehab and hospitalization. The patients guardian agrees to keeping the patient in the hospital and rehab. The patient is unable to perform simple tasks such as wiping herself without pain d/t broken humerus which she denies and does not realize she has. She is malnourished. She has vascular and alcoholic dementia. She gets up out of the chair on her own and is unsteady on her feet. She has fallen several times and would benefit from rehab for both improvement with strength, conditioning and to help with likely LTC. Exam Const General: comfortable and frail appearing Nutritional Appearance: cachectic and thin Orientation: alert, awake, oriented to person, oriented to place and confused HENMT Head: normal to inspection and laceration (right side of head, healing, old area of ecchymosis) Mouth: oral mucosae normal Eyes General: appearance normal, both eyes and all related structures Neck Neck: normal visual inspection Chest Chest: normal inspection of the chest and normal palpation of entire chest wall Resp Effort & Inspection: normal respiratory effort and able to speak in complete sentences Auscultation: clear to auscultation bilaterally Cardio Rate: regular rate GI Inspection: normal to inspection Palpation: soft, not firm, no guarding, not rigid and nontender Skin General skin exam: ecchymosis (right shoulder hematoma stable, old bruising to right lat face) Lesions: lesion noted (right forehead apprx 1/2 cm healing, no surrounding erythema) Rashes: no rashes Neuro General: patient alert, patient awake and oriented Patient Orientation: Person, Place and Confused (does not believe anything is wrong. Can state places but can not recall facts. ) Motor: muscle tone normal throughout Extrem Left upper extremity: shoulder/upper arm Details: abnormal to inspection, tenderness Location: of the proximal humerus, swelling (anterior prox humerus), ecchymosis (fluctuant) and deformity Location: of the proximal humerus Location: anteriorly Psych Appearance: other Speech and Movement: other (Rambling) Mood: euthymic mood Attitude: belligerent Thought Process: circumstantial Thought Content: compulsions Insight: poor Judgment: poor Objective Last Vital Signs Temp 37.1 C 07/16/21 15:30 Pulse 84 07/16/21 15:30 Resp 19 07/16/21 15:30 BP 135/77 07/16/21 15:30 Pulse Ox 99 07/16/21 15:30
--- NOTE | 2021-07-16 16:57 | W.PSYCHCONSU ---
Date of service: 07/16/21 Time of Service: 16:57 History of Present Illness History of Present Illness Chief Complaint: I don't think there' anything wrong with me Narrative: 4 hour consultation requested by Leonela Morales APRN to evaluate decision making capacity as it relates to placement or ability to leave the hospital. Case is discussed with with attending as well as Dr. Santos. Records are reviewed. I am familiar with the details of this case having consulted on a similar question on 07/02/2021 (see consult note of 07/02/21 for details). Interval change is notable that an emergency temporary guardian has been appointed by the court and a hearing for permanent public guardianship is pending. Of note, multiple unseccessful attempts to reach the public guardian have been made, so input from the guardian on this matter is unavailable. Patient is seen through telemedicine. She noted resting in bed in no apparent distress with a sling to her right arm. She indicates she is in the hospital but that she does not think there is anything wrong with her. She denies any significatn pain. She is unable to describe any of the medical interventions that have or are being recommended for her. She indicates she has been working with PT and has been going for walks. Reecent notes indicate that [facility] or SNF is currently recommended. In regards to her desire to return home, she is able to identify the name of the place she lives ([facility]). She also indicates she uses the local taxi service to get around [facility]. She cannot name the taxi company, but states she has the number in my book, but indicates she does not have her book with her. Of note, it is reported that she called a taxi to pick her up and bring her home, but she indicates no recollection of this. As for basic self care, she states that she cooks anc leans for herslef and goes to the store, either the store on the corner or the gracery store, though she cannot name the grocery store or where it located short of saying I take a taxi there. She denies significant mood symptoms, significant anxiety, suicidal ideation, or psychosis. Consults Requesting physician: Leonela Morales Assessment and Plan Assessment and plan (1) Unable to care for self: Status: Chronic Assessment and plan: As to the central question of decision making capacity, it is clear that her capacity for decision making has not improved since last evaluated. She clearly lacks an understanding of the medical condition requiring treatment. She also lacks appreciation for the consequences of declining recommended treatment and is unable to articulate a coherent rationale for declining recommended treatment. From a psychiatric standpoint, though she demonstrates significantly impaired memory, insight, and judgment, she would not be considered a person in need of treatment nor meet criteria for an Emergency Examination by virtue of the fact there is no readily treatable condition amenable to psychiatric treatment. As to the question of her functional capacity to care for herself at home, I am unable to evaluate this and defer to OT and PT assessment. Given that an emergency guardian has been appointed, I would recommend that continued effort to contact the appointed guardian to assist in decision and clarify the scop of decision making in regards to this case. Thank you for the opportunity to participate in the care of your patient. Please let me know what further assistance I can provide. Review of Systems Constitutional Constitutional: Reports as per HPI Psychiatric Psychiatric: Reports system reviewed and no additional complaints, except as documented [facility] All Active Problems Unable to care for self (Chronic) no longer a candidate for independent living Poor historian (Acute) Confabulation (Acute) Discharge planning issues (Acute) Malnutrition (Acute) Anemia (Chronic) Palliative care encounter (Acute) Dementia (Chronic) DVT prophylaxis (Acute) Closed head injury (Acute) Fall (Acute) Fracture of proximal humerus (Acute) Ambulatory dysfunction (Acute) Pain of right lower extremity (Acute) Knee pain (Acute) Fall (Acute) Unable to ambulate (Acute) Discharge planning issues (Acute) Knee pain, right (Acute) Macrocytic anemia with vitamin B12 deficiency (Chronic) Abnormal auditory perception (Acute) Cerumen impaction (Acute) Sensory hearing loss, bilateral (Acute) Otorrhea of left ear (Acute) Fracture, humerus (Acute) Fracture, intertrochanteric, left femur (Acute) Medical History Alcohol use, unspecified with other alcohol-induced disorder CAD (coronary artery disease) Iron deficiency Surgical History S/P appendectomy S/P hysterectomy Status post open reduction with internal fixation of fracture 1. left hip 2. left shoulder Social History Smoking/Tobacco Use Status: Current every day Smoking risk assessment performed?: Yes Alcohol Intake: current Alcohol Intake frequency: holidays/special occasions only Alcohol type: wine Drug use: Never Substance use type: does not use Do you feel safe at home: Yes Do you feel safe in your relationship?: Yes Exam Narrative Exam Narrative: Alert and oriented to place, person, but not time or situation. Speech is somewhat rambling, but normal volume, rate, tone, rhythmicity. Mood is euthymic. Affect is mood congruent. Thought process is somewhat loose and circumstantial. Content is notable for apparent confabulation. No psychosis or suicidal ideation. Intelligence is low average. Memory is gross impaired. Inisght and judgment are grossly impaired. Results Last Vital Signs Temp 37.1 C 07/16/21 15:30 Pulse 84 07/16/21 15:30 Resp 19 07/16/21 15:30 BP 135/77 07/16/21 15:30 Pulse Ox 99 07/16/21 15:30 Labs Result diagrams: 07/12/21 06:30 07/11/21 06:09 Consent/Time spent Consent/Time Spent The patient has consented to a virtual communication with the provider: No Visit performed via: Telehealth Time Spent (minutes): 120
--- NOTE | 2021-07-16 17:18 | PDOC.CMPRO ---
- If Service Date Differs Date of service: 07/16/21 Time of Service: 17:18 Care Management Progress Note S/O: Jania was sitting up in her chair when CM met with her. She was alert, oriented and easy to engage in conversation. Jania wants to go home and doesn't understand why she needs to stay in the hospital to heal. She wants to go home and sit in her chair (which she made by hand, several years ago) and watch her large screen TV, which she is quite proud of. Jania advises that she would be agreeable to [facility] and [facility] services. In particular, pt told CM that she would need help cleaning her house and states that she's been having trouble sweeping her floors. Jania shares with CM that she feels this community should be more accepting of the elderly population and really try to help keep them in their homes, especially when they are not ready to . Jania feels the hospital has their own agenda and it's not whats best for her. She states home is where the heart is. Twice in conversation, once being today, Jania mentioned to this service writer advisor that she is interested in quality of life, over quantity. This information was passed along to pts provider. 1100: A huddle was held with Risk Management, Dr. Moreno, Provider Leonela Huerta, RN coordinator, RN supervisor road administrator and the CM: Anna Carrillo and Shawna. Per our huddle, based on the input from the hospital's digital marketing strategist, [facility] would not be able to hold pt against her will. Dr. Forrester consult was then ordered for a second capacity assessment. Per Dr. Forrester, her decision making capacity, has not improved since her last evaluation. Noting that Jania lacks appreciation for the consequences of declining recommended treatment and is unable to articulate a coherent rationale for declining recommended treatment. He also states that from a psychiatric standpoint, she does not meet criteria and would not be considered a person in need of treatment. He is deferring her functional capacity to PT/OT assessment and further recommend's that her appointed guardian assist her in decision making. 1635: Provider Leonela Morales spoke with Gail from [facility] [place] [place] to review her guardianship obligation. Gail feels that Jania should remain in the hospital until at minimum, SNF placement can be obtained. Gail is planning on visiting Jania Wednesday. At this time, it is felt by Leonela Rodriguez and [facility] [place] [place] that Jania should remain in the hospital and going home would not be safe. A: 80 year old female admitted to [facility] on 06/30/21 for ambulatory function and fracture of proximal humerus. P: Motion for Temp Emergency Guardianship was granted 07/08/21. CM and Provider Leonela Rodriguez will participate in the Guardianship hearing on 07/18/21 at 4pm. Per provider discharge to home is not an option, due to safety concerns. Anticipate, Jania will discharge to SNF vs. SWB[facility] for continued PT/OT to improve ambulatory disfunction while her arm heals. She will need outpatient follow up appointments with ortho. Several SNF referrals are pending (Gail at [facility] [place] [place] will need to provide consent if patient gets a bed offer.) CM will continue to support patient and her discharge planning needs. SNF Referral's: . [facility]-closed to admissions, will review when open [facility]
[2021-07-16 19:18] VITALS: RESP 18
[2021-07-16] MEDS: Lidocaine 5% Patch 1 PATCH TP (20:20)
[2021-07-16] MEDS: Gabapentin 100 MG CAP PO (20:20)
[2021-07-16] MEDS: QUEtiapine 25 MG TAB PO (21:18)
[2021-07-16 23:30] VITALS: BP 123/70; PULSE 80; RESP 18; TEMP 37.5; O2SAT 98
[2021-07-17 07:50] VITALS: BP 126/65; PULSE 78; RESP 16; TEMP 36.9; O2SAT 97
[2021-07-17] MEDS: Protein Nutritional Supplement 16 GM 1 OUNCE PACKET PO ×2 (08:05→21:42)
[2021-07-17] MEDS: Polyethylene Glycol 3350 17 GM PACKET PO ×2 (08:05→21:42)
[2021-07-17] MEDS: Pantoprazole 40 MG TABCR PO (08:07)
[2021-07-17] MEDS: Multivitamin TAB 1 TAB PO (08:07)
[2021-07-17] MEDS: Acetaminophen 325 MG TAB 650 MG PO ×4 (08:07→21:41)
[2021-07-17] MEDS: Cholecalciferol (Vitamin D3) 1,000 UNIT TAB 1000 UNITS PO (08:07)
[2021-07-17] MEDS: Thiamine 100 MG TAB PO (08:07)
[2021-07-17] MEDS: Zinc Sulfate 220 MG TAB PO (08:07)
[2021-07-17] MEDS: Ascorbic Acid 500 MG TAB PO ×2 (08:08→21:42)
[2021-07-17] MEDS: Folic Acid 1 MG TAB PO (08:08)
[2021-07-17] MEDS: Calcium 600mg/Vit D 200U TAB 1 TAB PO ×2 (08:08→21:42)
--- NOTE | 2021-07-17 09:30 | CMPROGNOTE_ITS ---
- If Service Date Differs Date of service: 07/17/21 Time of Service: 09:30 Care Management Progress Note S/O: Jania was sitting up in her chair when CM met with her. She was alert, oriented and easy to engage in conversation. Jania continues to share her wish to go home and lay on her couch and watch TV. Jania continues to be agreeable to community services such as [facility] and Home Health RN,PT,OT, lifeline etc. A Repeat capacity consult was ordered with psychiatry yesterday. Per Dr. Forrester, Jania's decision making capacity, has not improved since her last evaluation. Noting that Jania lacks appreciation for the consequences of declining recommended treatment and is unable to articulate a coherent rationale for declining recommended treatment. He also states that from a psychiatric standpoint, she does not meet criteria and would not be considered a person in need of treatment. He is deferring her functional capacity to PT/OT assessment and further recommend's that her appointed guardian assist her in decision making. From a medical standpoint, it is felt that Jania is not safe to discharge home. In addition, pts guardian Gail Lopez from [facility] stated to DEAN and Leonela Rodriguez that Jania will need to remain in the hospital until at minimum, SNF placement can be obtained. Gail is planning on visiting Jania tomorrow. 1420: Maddi insisted on calling a cab to go home today. She became upset with staff. When CM met with her she was standing up and getting dressed with 1:1 assistance. Jania was easy to redirect, after CM sat down with patient and again listed to her desires to be in her own apartment. CM assured Jania that this information would be passed along to the providers. Patient required PRN ativan at 1424. A: 80 year old female admitted to [facility] on 06/30/21 for ambulatory function and fracture of proximal humerus. P: Motion for Temp Emergency Guardianship was granted 07/08/21. CM and Provider Leonela Rodriguez will participate in the Guardianship hearing on 07/18/21 at 4pm. Per provider discharge to home is not an option, due to safety concerns. Anticipate, Jania will discharge to SNF vs. SWB1 for continued PT/OT to improve ambulatory disfunction while her arm heals. She will need outpatient follow up appointments with ortho. Several SNF referrals are pending (Gail at [facility] will need to provide consent if patient gets a bed offer.) CM will continue to support patient and her discharge planning needs. SNF Referral's: [facility]-closed to admissions, will review when open [facility]Declined [facility]-Declined
--- NOTE | 2021-07-17 09:41 | W.NUTRFU ---
Date of service: 07/17/21 Time of Service: 09:41 Nutrition Note NOTE: Jania is following regular meal plan and meeting macronutrient needs. Supplemented with liquid protein 1 oz TID, MVI, folic acid and thiamin. Weight loss of 6 lbs noted since admission (-8%) considered significant and concerning. Unclear cause of weight loss as po intake/supplementation meeting 100% macro and micro nutrient needs. Will continue to follow weight trends. At high nutritional risk in view of low BMI, hx of malnutrition and significant weight loss in last 3 weeks. Will add CIB shake or ensure daily for additional caloric intake. Time Spent in Nutritional Counseling and Treatment: 5
--- NOTE | 2021-07-17 12:20 | PGE_ITS ---
Date of Service Date of service: 07/17/21 Time of Service: 12:20 Assessment and Plan Assessment and plan (1) Fracture of proximal humerus: Status: Acute Assessment and plan: She reports awareness of her fractured shoulder. Other than the lack of ability to use it it does not seem to be bothering her that much. She uses her left hand quite freely. 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 In her opinion she could function at home. She was evaluated by psychiatry, Dr. Frederick Forrester, last evening and his feeling was she was not able to make disposition decisions adequately or safely. He defers to the guardian and the courts to help with the final decision regarding her disposition. She clearly has a loss of ADLs secondary to this fracture. We continue to have her as an acute inpatient for skilled OT/PT services and medical monitoring. (2) Dementia: Status: Chronic Assessment and plan: She has been diagnosed with dementia both from a vascular and alcohol use point of view. She does confabulate and does not appear to have good memory. The decision about further independent living is being left to the courts. She has a hearing scheduled for tomorrow. (3) Malnutrition: Status: Acute Assessment and plan: She is quite emaciated with a BMI of 13.8 kg/m?. She admits that she has a good appetite and is looking forward to sandwich. (4) Discharge planning issues: Status: Acute Assessment and plan: The overall disposition and management has been difficult because of her poor judgment and lack of capacity. She has successfully been appointed a temporary guardian. The plan is for the guardian to evaluate her tomorrow and for the court to give an opinion as to her capacity issues and overall disposition. The feeling is she would benefit from nursing home care until her right arm is more useful. Given her underlying dementia, fall risk, lack of insight there is great concern that she would cause further harm to herself if left to independent living. These concerns are being conveyed to the court and a decision is forthcoming. Subjective Subjective Interval history since last seen: Patient reports only mild discomfort. She does not describe any pain. She is aware that she broke her right shoulder. She is asking about going home soon. She would like to sit in her own chair and watch her own TV. She initially presents as fairly lucid but there is confabulation about her living in [place] and having been at the [facility] for 60 years. Exam Narrative Exam Narrative: On exam she is quite alert and conversant. She is very pleasant. Her speech is completely clear. She is able to converse and answer questions though some of the content does breakdown and become questionable. She does recall living at the [facility] but then states she has been there for 60 years. She recalls living in [place] and believes that she still does. Physically she is very thin she has bruising on the right cheek area and a superficial abrasion in the right upper forehead. She had no other outward signs of deformity. Neurologically she had no facial asymmetry and appears to be able to move upper and lower extremities without decrement of function although her right arm she avoids abduction or any other movements she lifts it with her left hand. The right shoulder has an obvious fracture deformity with the humerus fixated much closer to her torso and a firm roundness to the shoulder area. It is quite tense and slightly tender. She has tense skin and slightly tender upper arm. She has good distal pulse and can move her right hand freely and can squeeze my hand well. She reports no loss of sensation. The lower extremities show muscle wasting very thin no evidence of edema there is no skin breakdown. Objective Last Vital Signs Temp 36.9 C 07/17/21 07:50 Pulse 78 07/17/21 07:50 Resp 16 07/17/21 07:50 BP 126/65 07/17/21 07:50 Pulse Ox 97 07/17/21 07:50
[2021-07-17] MEDS: LORazepam 0.5 MG TAB PO (14:24)
--- NOTE | 2021-07-17 14:30 | PT.INTREAT ---
Date of service: 07/17/21 Time of Service: 14:30 PT Notes Visit Reasons: Ambulatory Dysfunction Physical Therapy Inpatient progress note Date: 07/18/2021 Precautions: 1. Per verbal order and clarification from Dr Dickey on 07/14/2021:?Sling can definitely be off when resting in bed or on chair. 2. Per Dr. Dickey as of 07/09/2021:?Recommend non weight bearing right upper extremity.? [place] assisted reduction with cuff and collar.? Limited passive range of motion about the shoulder: Pendulums only, at this time.? Active motion elbow wrist and hand okay. Subjective: As she does during each past sessions, patient asks why she needs to stay here in this place. After explaantion of how she got here, patient is agreeable to work with PT. Now reports mild pain in the right shoulder. Objective: General Observation: Swelling in R UE beginning to decrease.? Anterior shoulder again beginning to increasingly become more erythematous and tender to palpation.? Mental Status: Alert. Able to follow single step commands.? Pain: 2-3/10 in R UE Vital Signs: WNL as closely monitored by [facility] staff Bed Mobility/Transfers: Supine to sit with independent Sit to supine with independent Sit to stand with supervision Stand to sit with supervision Bed to chair supervision Chair to bed supervision Gait: Instructed patient with level surface ambulation of to 400 feet requiring contact-guard assist. Day increasing. Step height increasing. Step length increasing.? Occasional increase in postural sway to left with mild instability and complaints of B LE giving way Balance: Static Sitting: Good Dynamic Sitting: Fair Static Standing: Fair Dynamic Standing: Poor ASSESSMENT: Progress towards goal is limited by persistent confusion, poor safety awareness, and intermittent changes in behavior/agitation since day 1.? Short-term memory remains impaired since day of admission. Gait distance and pattern although improving, still demonstrates mildly ataxia with increased postural sway to left and has not reached a safety level yet to be made independent in the hallway. R UE pain level now diminished as patient is more able to perform movements in the elbow and wrist without increase in pain. The inability to use the R dominant hand safely with ongoing non-weight bearing precaution on the R UE by orthopod, persistent ataxia/postural sway, and poor safety awareness increase risk for falls and re-hospitalization at this time. DISCHARGE RECOMMENDATIONS: [] ? Home with no services [] [] ? Home with services [specify] [] ? Home with outpatient PT [] [X] ? SNF for continued rehabilitation.? Patient will benefit from halfway facility placement for continued skilled physical therapy services in order to progress mobility level, strength, and balance in preparation for a safe discharge to home. [] ? Half-Way Care [] [] ? SNF versus LTC based on ability to participate and progress [] TREATMENT CODE/TIME:? 83023 x 16 minutes, 05231 x 15 minutes beginning at 14:30 PM.
[2021-07-17 15:53] VITALS: BP 118/84; PULSE 67; RESP 16; TEMP 36.7; O2SAT 96
[2021-07-17 21:39] VITALS: BP 128/65; PULSE 78; RESP 16; TEMP 36.3; O2SAT 98
[2021-07-17] MEDS: Lidocaine 5% Patch 1 PATCH TP (21:42)
[2021-07-17] MEDS: QUEtiapine 25 MG TAB PO (21:42)
[2021-07-17] MEDS: Gabapentin 100 MG CAP PO (21:42)
[2021-07-18 00:14] VITALS: BP 139/68; PULSE 75; RESP 16; TEMP 36.8; O2SAT 97
[2021-07-18] MEDS: Zinc Sulfate 220 MG TAB PO (07:46)
[2021-07-18] MEDS: Protein Nutritional Supplement 16 GM 1 OUNCE PACKET PO ×3 (07:46→19:28)
[2021-07-18] MEDS: Ascorbic Acid 500 MG TAB PO ×2 (07:46→19:28)
[2021-07-18] MEDS: Polyethylene Glycol 3350 17 GM PACKET PO ×2 (07:46→19:28)
[2021-07-18] MEDS: Folic Acid 1 MG TAB PO (07:46)
[2021-07-18] MEDS: Acetaminophen 325 MG TAB 650 MG PO ×4 (07:47→19:28)
[2021-07-18] MEDS: Multivitamin TAB 1 TAB PO (07:48)
[2021-07-18] MEDS: Thiamine 100 MG TAB PO (07:48)
[2021-07-18] MEDS: Pantoprazole 40 MG TABCR PO (07:48)
[2021-07-18] MEDS: Calcium 600mg/Vit D 200U TAB 1 TAB PO ×2 (07:48→19:28)
[2021-07-18] MEDS: Cholecalciferol (Vitamin D3) 1,000 UNIT TAB 1000 UNITS PO (07:48)
[2021-07-18 13:10] LABS: COVID-19 RT-PCR UVMMC Result Negative (Negative)
--- NOTE | 2021-07-18 14:07 | W.PM.PROGNOT ---
Date of Service Date of service: 07/18/21 Time of Service: 14:07 Assessment and Plan Assessment and plan (1) Fracture of proximal humerus: Status: Acute Assessment and plan: She offers no new complaints about her right shoulder. She uses her left hand quite freely. 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 She clearly has a loss of ADLs secondary to this fracture. We continue to have her as an acute inpatient for skilled OT/PT services and medical monitoring. Continue as needed pain control. (2) Dementia: Status: Chronic Assessment and plan: She has been diagnosed with dementia both from a vascular and alcohol use point of view. She does confabulate and does not appear to have good memory. The guardian has concerns about her ability to function at home and requests that we keep her here in acute care status until adequate home health services can be put in place. (3) Malnutrition: Status: Acute Assessment and plan: She is quite emaciated with a BMI of 13.8 kg/m?. She admits that she has a good appetite and is looking forward to sandwich. She is not complaining of any hunger or desire to eat more. (4) Discharge planning issues: Status: Acute Assessment and plan: The overall disposition and management has been difficult because of her poor judgment and lack of capacity. She has been appointed a temporary guardian. There is hearing later today to make guardianship permanent. There was an extensive discussion with legal arbitrator about keeping her against her will. She would benefit from fdc care until her right arm is more useful. Given her underlying dementia, fall risk, lack of insight there is great concern that she would cause further harm to herself if left to independent living. Use we are not a position of Subjective Subjective Interval history since last seen: The patient has been pleasant and reasonably cooperative. She continues to voice her wishes to go home. She would like to sit in front of my TV. Megan Lopez from the office of public guardian with him to visit with the patient. An agreement was reached that she would be able to return home once adequate home health services were arranged. She had the patient sign a note agreeing to stay until home health services could be fully arranged which we expect will be 07/21/2021. Exam Narrative Exam Narrative: On exam the patient acts cordially. Once a conversation began there are inconsistencies and confabulation. The bruising on her right forehead and cheek are improving. She has no respiratory difficulty or labored breathing. She has no cough. Her vital signs are all stable. Objective Last Vital Signs Temp 36.8 C 07/18/21 00:14 Pulse 75 07/18/21 00:14 Resp 16 07/18/21 00:14 BP 139/68 07/18/21 00:14 Pulse Ox 97 07/18/21 00:14 Laboratory Results - last 24 hr 07/17/21 11:30 SARS-CoV-2 (PCR) Negative Nasopharyn COVID-19 PCR Not Applicable Ref Test Perform Site [facility] [employer]
--- NOTE | 2021-07-18 14:46 | PT.INTREAT ---
Date of service: 07/18/21 Time of Service: 14:46 PT Notes Visit Reasons: Ambulatory Dysfunction Physical Therapy Inpatient Treatment Note Date: 07/18/2021 Precautions: 1. Per verbal order and clarification from Dr Dickey on 07/14/2021:?Sling can definitely be off when resting in bed or on chair. 2. Per Dr. Dickey as of 07/09/2021:?Recommend non weight bearing right upper extremity.? [place] assisted reduction with cuff and collar.? Limited passive range of motion about the shoulder: Pendulums only, at this time.? Active motion elbow wrist and hand okay. Subjective: Cheerful and willing to participate in PT today. Not sure about whether she has taken lunch or not when she was seen for the afternoon session at 14:46 PM. States that her R shoulder does not bother her too much today. Feels that the swelling is going down. COmplains about her whole R arm being itchy. Objective: General Observation: Swelling in R UE beginning to decrease.? Fluid-filled pocket again beginning to form in the anterior shoulder where draiinage was previoulsy done. Mental Status: Alert. Able to follow single step commands.? Pain: 2-3/10 in R UE Vital Signs: WNL as closely monitored by nursing staff Bed Mobility/Transfers: Sit to stand with supervision Stand to sit with supervision Bed to chair supervision Chair to bed supervision Gait: Instructed patient with level surface ambulation of?20 feet from chair to room window in preparation for pendulum exercises. Patient required contact-guard assist due to occasional increase in postural sway to left with mild instability. In the afternoon, patient covered a distance of 300 feet using single-point cane on the left side with postural sway to mild ataxia seen. THERA EX: Pendulum exercises to maintain joint flexibility while facilitating healing of fracture site. Maximal cues provided for correct technique. Reported to?3/10 pain in the right UE that resolved with rest. Balance: Static Sitting: Normal Dynamic Sitting: Normal Static Standing: Good Dynamic Standing: Fair ASSESSMENT: Patient has been here since 06/29/2021 for rehabilitation and conservative management of right proximal humeral fracture sustained from a fall. Surgical management has been precluded by poor bone quality and nutritional status compounded by limited compliance as well as poor safety awareness. Progress towards goal continues to be limited by persistent confusion, poor safety awareness, and intermittent changes in behavior/agitation since day 1.? Short-term memory remains impaired since day of admission.? Gait distance and pattern although improving, still demonstrates mildly ataxia with increased postural sway to left and has not reached a safety level yet to be made independent in the hallway.? R UE pain level now diminished as patient is more able to perform movements in the elbow and wrist without increase in pain.? The inability to use the R dominant hand safely with ongoing non-weight bearing precaution on the R UE by orthopod, persistent ataxia/postural sway, and poor safety awareness increase risk for falls and re-hospitalization at this time. DISCHARGE RECOMMENDATIONS: [] ? Home with no services [] [] ? Home with services [specify] [] ? Home with outpatient PT [] [X] ? SNF for continued rehabilitation.? Patient will benefit from custodial facility placement for continued skilled physical therapy services in order to progress mobility level, strength, and balance in preparation for a safe discharge to home. [] ? [facility] Care [] [] ? SNF versus LTC based on ability to participate and progress [] TREATMENT CODE/TIME:? Session 1--18574 x 17 minutes beginning at 11:47 AM. Session 2--94964 x 17 minutes beginning at 14:46 PM.
--- NOTE | 2021-07-18 17:01 | PDOC.CMPRO ---
- If Service Date Differs Date of service: 07/18/21 Time of Service: 17:01
--- NOTE | 2021-07-18 17:05 | PDOC.CMPRO ---
- If Service Date Differs Date of service: 07/18/21 Time of Service: 17:05 Care Management Progress Note S/O: Jania was sitting up in her chair when CM met with her. She was alert, oriented and easy to engage in conversation. Jania continues to share her wish to go home and lay on her couch and watch TV. CM asked Jania if she knows she is at a high risk for falling, if she goes home? She stated well sure, but anybody can fall. CM advised Maddi that she will be at risk for significant injury from falling, to which she stated everyone is at risk for injury just waking up. CM asked Jania how she would transport home? She stated she would call a taxi, she then recalled their contact number from memory ([phone]). CM then asked pt how she would get food? She stated she would ask the taxi to bring her to the grocery store, like they always do. CM asked her if she would be open to meal delivery,through [employer] [facility] ([facility])? Pt is agreeable and familiar with their services, however they don't always make the food she likes. CM asked pt where she gets her medications? Jania stated that she doesn't take prescription medication, just occasional tylenol for a headache. Jania advises that she [place] drug [place], per her chart she uses [facility] in [facility]. CM asked pt if she would be willing to let home health nurses help her manage her medication, if she is prescribed new medications? Pt shares that she would be happy with some help with her meds, but also hopes that she doesn't need to take too many new medications. A conversation with pt, her guardian and CM was held in Jania's room at 1320. Jania's wishes remain consistent, she wants to be discharged home, to her apartment and again feels like she is being held here against her will. Gail discussed her responsibility in keeping Jania safe, followed by CM discussing [facility]'s limitations in regard to making Jania stay against her will. Gail from [facility] spent some time alone with Jania. Hudnupur was held at approximately 1:45pm with Dr. Moreno Radha Gonzalez, DEAN Castillo, DEAN Matos RN and Shamika/JUNIOR. All present at the [facility] acknowledge that Maddi's discharge to home is not an ideal discharge, and one that would be further compromised being a Wednesday afternoon. Gail brought a handwritten contract to the [facility], in which both she and Jania signed. The contract reflects Jania's agreement to remain at [facility] until Wednesday or Wednesday of next week, to allow time to set Jania up with appropriate community support. In planning for the weekend: DEAN notified the nursing informatics analyst and covering that if Jania decides to leave AMA over the weekend she should be reminded of the contract she made with her guardian. DEAN gave the original to Jania and made a copy for her chart. Next, Gail wants to be notified and given a chance to talk with Jania, but JUNIOR also understands that the patient has the right to leave. If Jania does leave before Wednesday, [facility] should be alerted so they are able to follow up with pt the following day. Of note, Gail from [employer] shared with the group that a APS report for Jania was placed in 2020 due to concerns of self neglect. This report was investigated and not substantiated. Gail shares that she will make another report following discharge. DEAN sent referral's to [facility] for RN, PT, OT, CREMATORY OPERATOR and FLOOR HAND. Valentino at [facility] was notified, Services can start the day after discharge. DEAN sent a referral to [facility] [place] [facility] and also called and talked to Suri Sheldon. She will reach out to patient when she is home to talk about her needs. Suri is also the coordinator of [employer] and advises that they could start as soon as Wednesday. She be setting up a time to meet with patient in the community and will follow up with the patient on Wednesday. DEAN sent a referral to [facility], and spoke with Ivy Rodriguez via phone. Ivy states that she will also help facilitate services in the community and continue to evaluate needs for community resources moving forward. She also encourages Maddi to make a list of foods that she likes to share with [employer]. Ivy will be reaching out to Gail from [facility]. CM called the Taxi service ([facility] [employer]) that Jania identified and spoke with Altaf. He shares that Jania uses their services frequently to get to grocery and convenient stores. CM spoke with Palliative care provider Danyell Tobin and she is willing to follow up with Jania next week in her home. A: 80 year old female admitted to [facility] on 06/30/21 for ambulatory function and fracture of proximal humerus. P: Motion for Temp Emergency Guardianship was extended on 07/18/21. Recommendation is that Jania will discharge to SNF vs. SWB1 for continued PT/OT to improve ambulatory disfunction while her arm heals. Maddi will need outpatient follow up appointments with ortho. Several SNF referral's are pending. Jania may choose to leave AMA. Efforts will be made by staff to encourage pt to stay through the weekend. Reminding Jania of her contract with her guardian may also be helpful. In addition, Gail from [facility] can be reached at [phone], and would like the opportunity to talk with Jania over the phone before AMA discharge orders are placed, if possible. CM will continue to support patient and her discharge planning needs. SNF Referral's: [facility] to admissions, will review when open [facility]-Declined
[2021-07-18] MEDS: Lidocaine 5% Patch 1 PATCH TP (19:28)
[2021-07-18] MEDS: Gabapentin 100 MG CAP PO (21:55)
[2021-07-18] MEDS: QUEtiapine 25 MG TAB PO (21:55)
[2021-07-18 23:20] VITALS: BP 117/68; PULSE 75; RESP 16; TEMP 37; O2SAT 96
[2021-07-19 06:30] VITALS: BP 132/73; PULSE 66; RESP 16; TEMP 37.2; O2SAT 97
[2021-07-19] MEDS: Protein Nutritional Supplement 16 GM 1 OUNCE PACKET PO ×3 (09:39→19:09)
[2021-07-19] MEDS: Ascorbic Acid 500 MG TAB PO ×2 (09:39→19:08)
[2021-07-19] MEDS: Polyethylene Glycol 3350 17 GM PACKET PO (09:39)
[2021-07-19] MEDS: Cholecalciferol (Vitamin D3) 1,000 UNIT TAB 1000 UNITS PO (09:40)
[2021-07-19] MEDS: Calcium 600mg/Vit D 200U TAB 1 TAB PO ×2 (09:40→19:08)
[2021-07-19] MEDS: Multivitamin TAB 1 TAB PO (09:40)
[2021-07-19] MEDS: Acetaminophen 325 MG TAB 650 MG PO ×4 (09:40→19:08)
[2021-07-19] MEDS: Thiamine 100 MG TAB PO (09:40)
[2021-07-19] MEDS: Zinc Sulfate 220 MG TAB PO (09:40)
[2021-07-19] MEDS: Pantoprazole 40 MG TABCR PO (09:40)
[2021-07-19] MEDS: Folic Acid 1 MG TAB PO (09:40)
--- NOTE | 2021-07-19 12:51 | PT.INTREAT ---
Date of service: 07/19/21 Time of Service: 10:15 PT Notes Visit Reasons: Ambulatory Dysfunction Inpatient Physical Therapy Treatment Note [facility] Date: 07/19/2021 PRECAUTIONS: NWB with right UE, Cuff sling on with ambulation, Fall SUBJECTIVE: Stated she has pain with movement of right UE, otherwise doing okay. OBJECTIVE: PAIN: 3 out of 10 pain with movement of right UE BED MOBILITY/TRANSFERS Up in chair when I arrived to [place]'s room Sit-stand: SBA Stand-sit: SBA GAIT Assistive Device: SPC Weight bearing: FWB with LEs, NWB with right UE Assist: CGA Distance: 150ft x 2, with mild ataxia THEREX: LAQs with kacy LEs x 10 reps. Pendulums with right UE and AROM of right wrist, forearm and elbow x 10 reps each ASSESSMENT: Tolerated session fair. Gives fair effort with all activities. PLAN: Continue with current plan of care with focus on improved functional mobilization. TREATMENT CODE/TIME: 28277, (20') 10:15 to 10:35 am
[2021-07-19 14:47] VITALS: BP 121/70; PULSE 66; RESP 16; TEMP 36.5; O2SAT 97
--- NOTE | 2021-07-19 18:41 | PGE_ITS ---
Date of Service Date of service: 07/19/21 Time of Service: 14:00 Assessment and Plan Assessment and plan (1) Fracture of proximal humerus: Status: Acute Assessment and plan: Given h/o noncompliance and poor nutritional status, orthopedics feels that she is not a good candidate for surgery. Continue sling, PT, OT, sling. Pain is controlled. (2) Alcohol use, unspecified with other alcohol-induced disorder: Assessment and plan: Continue MVI, thiamine. Very malnourished and has evidence of EtOH dementia with confabulations. BMI of 14.2 kg/m2. Continue nutritional support (patient does not want a feeding tube). Unable to make her own disposition decisions and has a public guardian - however, is allowed to leave AMA. (3) Dementia: Status: Chronic Assessment and plan: Alcoholic + vascular. As above (4) Fall: Status: Acute Assessment and plan: Doing better with PT. Continue PT. [place] discharge would be to SNF if patient agrees. (5) Ambulatory dysfunction: Status: Acute Assessment and plan: Continue PT/OT (6) Malnutrition: Status: Acute Assessment and plan: BMI of 14.2 kg/m2 per calculation today. Encourage adequate PO intake. There is a concern that the patient would not be able to sustain her nutritive needs if she were to return back to an independent living environment. (7) DVT prophylaxis: Status: Acute Assessment and plan: SCDs. Holding chemical DVT ppx in setting of a large scalp hematoma as well as R shoulder hematoma. Also, ambulatory. (8) Discharge planning issues: Status: Acute Assessment and plan: DNR/DNI. Does not want a feeding tube. Has a temporary public guardian. Lacks capacity to make disposition decisions, but is allowed to leave AMA. Subjective Subjective Interval history since last seen: Jania thinks she is still in [place] and is quite disappointed when I tell her that she is actually in [place]. She does know she is in the hospital. She says she is tired. Denies dizziness, chest pain, shortness of breath, nausea. She states her shoulder is not hurting her. Exam Narrative Exam Narrative: General: Frail elderly female who is A&Ox1, sitting in a chair, comfortable, cooperative HEENT: R frontal scalp and cheek hematoma evolving, EOMI, MMM Heart: RRR, no m/r/g Lungs: CTAB Abdomen: soft, nontender, nondistended Extremities: RUE in a sling; able to move all 4 extremities Objective Last Vital Signs Temp 36.5 C 07/19/21 14:47 Pulse 66 07/19/21 14:47 Resp 16 07/19/21 14:47 BP 121/70 07/19/21 14:47 Pulse Ox 97 07/19/21 14:47
[2021-07-19] MEDS: QUEtiapine 25 MG TAB 12.5 MG PO (19:09)
[2021-07-19] MEDS: Lidocaine 5% Patch 1 PATCH TP (19:53)
[2021-07-19] MEDS: Gabapentin 100 MG CAP PO (22:06)
[2021-07-19] MEDS: QUEtiapine 25 MG TAB PO (22:06)
[2021-07-20 01:00] VITALS: BP 118/65; PULSE 68; RESP 16; TEMP 36.5; O2SAT 97
[2021-07-20] MEDS: Calcium 600mg/Vit D 200U TAB 1 TAB PO ×2 (07:40→19:49)
[2021-07-20] MEDS: Thiamine 100 MG TAB PO (07:40)
[2021-07-20] MEDS: Pantoprazole 40 MG TABCR PO (07:40)
[2021-07-20] MEDS: Polyethylene Glycol 3350 17 GM PACKET PO (07:40)
[2021-07-20] MEDS: Ascorbic Acid 500 MG TAB PO ×2 (07:40→19:48)
[2021-07-20] MEDS: Protein Nutritional Supplement 16 GM 1 OUNCE PACKET PO ×3 (07:40→19:49)
[2021-07-20] MEDS: Folic Acid 1 MG TAB PO (07:40)
[2021-07-20] MEDS: Zinc Sulfate 220 MG TAB PO (07:40)
[2021-07-20] MEDS: Cholecalciferol (Vitamin D3) 1,000 UNIT TAB 1000 UNITS PO (07:40)
[2021-07-20] MEDS: Multivitamin TAB 1 TAB PO (07:40)
[2021-07-20] MEDS: Acetaminophen 325 MG TAB 650 MG PO ×4 (07:41→19:49)
--- NOTE | 2021-07-20 12:30 | PT.INTREAT ---
Date of service: 07/20/21 Time of Service: 09:55 PT Notes Visit Reasons: Ambulatory Dysfunction Inpatient Physical Therapy Treatment Note [facility] Date: 07/20/2021 Precautions: 1. Per verbal order and clarification from Dr Dickey on 07/14/2021:?Sling can definitely be off when resting in bed or on chair. 2. Per Dr. Dickey as of 07/09/2021:?Recommend non weight bearing right upper extremity.? [place] assisted reduction with cuff and collar.? Limited passive range of motion about the shoulder: Pendulums only, at this time.? Active motion elbow wrist and hand okay. SUBJECTIVE: Stated she is tired today, but no pain in shoulder unless she moves it too much. Not complaining of shoulder pain with ambulation and only mild pain pendulums today. OBJECTIVE: PAIN: Mild discomfort with shoulder with pendulums BED MOBILITY/TRANSFERS Up in chair when I arrived to room Sit-stand: SBA Stand-sit: SBA GAIT Assistive Device: SPC Weight bearing: FWB Assist: CGA Distance: 160ft and 120ft THEREX: LAQs with kacy LEs x 10 reps. Pendulums with right UE and AROM of right wrist, forearm and elbow x 10 reps each ? ASSESSMENT: Tolerated session well despite feeling tired today. Pleasant and easy to work with. PLAN: Continue with current plan of care with focus on improved functional mobility. TREATMENT CODE/TIME: 33649, (20') 9:55 to 10:15 am
--- NOTE | 2021-07-20 14:34 | PGE_ITS ---
Date of Service Date of service: 07/20/21 Time of Service: 11:40 Assessment and Plan Assessment and plan (1) Fracture of proximal humerus: Status: Acute Assessment and plan: Given h/o noncompliance and poor nutritional status, orthopedics feels that she is not a good candidate for surgery. Continue sling, PT, OT, sling. Pain is controlled with APAP and lidocaine patch. (2) Alcohol use, unspecified with other alcohol-induced disorder: Assessment and plan: Continue MVI, thiamine. Very malnourished and has evidence of EtOH dementia with confabulations. BMI of 14.2 kg/m2. Continue nutritional support (patient does not want a feeding tube). Unable to make her own disposition decisions and has a public guardian - however, is allowed to leave AMA. (3) Dementia: Status: Chronic Assessment and plan: Alcoholic + vascular. As above (4) Fall: Status: Acute Assessment and plan: Doing better with PT. Continue PT. [place] discharge would be to SNF if patient agrees. (5) Ambulatory dysfunction: Status: Acute Assessment and plan: Continue PT/OT (6) Malnutrition: Status: Acute Assessment and plan: BMI of 14.2 kg/m2 per calculation today. Encourage adequate PO intake. There is a concern that the patient would not be able to sustain her nutritive needs if she were to return back to an independent living environment. (7) DVT prophylaxis: Status: Acute Assessment and plan: SCDs. Holding chemical DVT ppx in setting of a large scalp hematoma as well as R shoulder hematoma. Also, ambulatory. (8) Discharge planning issues: Status: Acute Assessment and plan: DNR/DNI. Does not want a feeding tube. Has a temporary public guardian. Lacks capacity to make disposition decisions, but is allowed to leave AMA. Subjective Subjective Interval history since last seen: Jania was awakened for the visit. She had to think about if she was having pain in her R arm and states she does, APAP helps. She knew she was in the hospital but she did not know the name of the hospital or the town. She also does not know the date. She is eating and drinking and tolerating her diet. She denies nausea. She is working with PT. Exam Narrative Exam Narrative: General: Frail elderly female who is oriented to self only, she was awakened for the visit, she is pleasant and cooperative. HEENT: R frontal scalp and cheek hematoma evolving, EOMI, MMM Heart: heart sounds regular, nontachycardic. Lungs: respirations appear even and unlabored, lungs sounds are clear throughout. Abdomen: +BS, abdomen is soft, nontender on palpation, nondistended. Extremities: RUE in a sling; able to move all 4 extremities Objective Last Vital Signs Temp 36.5 C 07/20/21 01:00 Pulse 68 07/20/21 01:00 Resp 16 07/20/21 01:00 BP 118/65 07/20/21 01:00 Pulse Ox 97 07/20/21 01:00
[2021-07-20 15:41] VITALS: BP 119/72; PULSE 76; RESP 16; TEMP 36.9; O2SAT 97
[2021-07-20] MEDS: Lidocaine 5% Patch 1 PATCH TP (19:48)
[2021-07-20] MEDS: QUEtiapine 25 MG TAB PO (21:37)
[2021-07-20] MEDS: Gabapentin 100 MG CAP PO (21:37)
[2021-07-20 23:18] VITALS: BP 136/70; PULSE 68; RESP 14; TEMP 36.7; O2SAT 97
[2021-07-21 08:09] VITALS: BP 128/72; PULSE 66; RESP 16; TEMP 36.7; O2SAT 96
[2021-07-21] MEDS: Multivitamin TAB 1 TAB PO (08:50)
[2021-07-21] MEDS: Ascorbic Acid 500 MG TAB PO (08:50)
[2021-07-21] MEDS: Protein Nutritional Supplement 16 GM 1 OUNCE PACKET PO (08:50)
[2021-07-21] MEDS: Pantoprazole 40 MG TABCR PO (08:51)
[2021-07-21] MEDS: Cholecalciferol (Vitamin D3) 1,000 UNIT TAB 1000 UNITS PO (08:51)
[2021-07-21] MEDS: Acetaminophen 325 MG TAB 650 MG PO (08:51)
[2021-07-21] MEDS: Folic Acid 1 MG TAB PO (08:51)
[2021-07-21] MEDS: Calcium 600mg/Vit D 200U TAB 1 TAB PO (08:51)
[2021-07-21] MEDS: Thiamine 100 MG TAB PO (08:52)
[2021-07-21] MEDS: Zinc Sulfate 220 MG TAB PO (08:52)
--- NOTE | 2021-07-21 09:40 | OT.INNT ---
Occupational Therapy Notes 07/21/21 OT attempted to see pt 4x this morning (7:20, 7:50, 8:50, 9:35) all times in which pt refused skilled OT services. She states at 7:20 and 7:50 that she is feeling tired and would like to wait until after breakfast. OT went to see pt 2x after breakfast and pt states the first time that she needed to just rest and is not willing to perform her ADLS. OT went back at 9:35 and pt has performed her ADLs with nursing reporting that she wants to go home. Kasey Xavier, OTR/L [facility] [place]
--- NOTE | 2021-07-21 10:53 | PDOC.CMPRO ---
- If Service Date Differs Date of service: 07/21/21 Time of Service: 10:53 Care Management Progress Note S/O: Jania was sitting up in her chair when CM met with her. She was alert, oriented and easy to engage in conversation. Jania continues to share her wish to go home and lay on her couch and watch TV. CM asked Jania if she knows she is at a high risk for falling, if she goes home? She stated well sure, but anybody can fall. CM advised Maddi that she will be at risk for significant injury from falling, to which she stated everyone is at risk for injury just waking up. CM asked Jania how she would transport home? She stated she would call a taxi, she then recalled their contact number from memory ([phone]). CM then asked pt how she would get food? She stated she would ask the taxi to bring her to the grocery store, like they always do. CM asked her if she would be open to meal delivery,through [employer] ([facility])? Pt is agreeable and familiar with their services, however they don't always make the food she likes. CM asked pt where she gets her medications? Jania stated that she doesn't take prescription medication, just occasional tylenol for a headache. Jania advises that she uses the drug store at the [place] of the [address] [place], per her chart she uses [facility] in [facility]. CM asked pt if she would be willing to let home health nurses help her manage her medication, if she is prescribed new medications? Pt shares that she would be happy with some help with her meds, but also hopes that she doesn't need to take too many new medications. A conversation with pt, her guardian and CM was held in Jania's room at 1320. Jania's wishes remain consistent, she wants to be discharged home, to her apartment and again feels like she is being held here against her will. Gail discussed her responsibility in keeping Jania safe, followed by CM discussing [facility]'s limitations in regard to making Jania stay against her will. Gail from [facility] spent some time alone with Jania. Hudnupur was held at approximately 1:45pm with Dr. Moreno Radha Gonzalez, DEAN Castillo, DEAN Matos RN and Shamika/JUNIOR. [facility] acknowledge that Maddi's discharge to home is not an ideal discharge, and one that would be further compromised being a Wednesday afternoon. Gail brought a handwritten contract [facility], in which both she and Jania signed. The contract reflects Jania's agreement to remain at [facility] until Wednesday or Wednesday of next week, to allow time to set Jania up with appropriate community support. In planning for the weekend: DEAN notified the director nursing service and covering that if Jania decides to leave AMA over the weekend she should be reminded of the contract she made with her guardian. DEAN gave the original to Jania and made a copy for her chart. Next, Gail wants to be notified and given a chance to talk with Jania, but JUNIOR also understands that the patient has the right to leave. If Jania does leave before Wednesday, [facility] should be alerted so they are able to follow up with pt the following day. Of note, Gail from [facility] shared with the group that a APS report for Jania was placed in 2020 due to concerns of self neglect. This report was investigated and not substantiated. Gail shares that she will make another report following discharge. DEAN sent referral's to [facility] for RN, PT, OT, DRY DIP WORKER and WINDOW DRAPER. Valentino at [facility] was notified, Services can start the day after discharge. DEAN sent a referral to [facility] [place] [facility] and also called and talked to Suri Sheldon. She will reach out to patient when she is home to talk about her needs. Suri is also the coordinator of [employer] and advises that they could start as soon as Wednesday. She be setting up a time to meet with patient in the community and will follow up with the patient on Wednesday. DEAN sent a referral to [facility], and spoke with Ivy Rodriguez via phone. Ivy states that she will also help facilitate services in the community and continue to evaluate needs for community resources moving forward. She also encourages Maddi to make a list of foods that she likes to share with [employer]. Ivy will be reaching out to Gail from [facility]. CM called the Taxi service ([facility] [employer]) that Jania identified and spoke with Altaf. He shares that Jania uses their services frequently to get to grocery and convenient stores. CM spoke with Palliative care provider Danyell Tobin and she is willing to follow up with Jania next week in her home. A: 80 year old female admitted to [facility] on 06/30/21 for ambulatory function and fracture of proximal humerus. P: [facility] for [employer] Emergency Guardianship was extended on 07/18/21. Recommendation is that Jania will discharge to SNF vs. SWB1 for continued PT/OT to improve ambulatory disfunction while her arm heals. Maddi will need outpatient follow up appointments with ortho. Several SNF referral's are pending. Jania may choose to leave AMA. Efforts will be made by staff to encourage pt to stay through the weekend. Reminding Jania of her contract with her guardian may also be helpful. In addition, Gail from [facility] can be reached at [phone], and would like the opportunity to talk with Jania over the phone before AMA discharge orders are placed, if possible. CM will continue to support patient and her discharge planning needs. SNF Referral's: [facility]-closed to admissions, will review when open [facility] [address] [facility]-Declined
--- NOTE | 2021-07-21 10:54 | CMDISCH_ITS ---
- If Service Date Differs Date of service: 07/21/21 Time of Service: 10:54 LACE Index Scoring Tool - Questions: Length of Stay (in days): 14 or more Acuity (Admit via E.D.?): Yes E.D. Visits: 2 - Answers: Total Score: 12 Risk of Readmission: High Risk Care Management Discharge Reason for Hospitalization: Ambulatory Dysfunction Discharge Plan: Jania requests to discharge AMA this morning and verbalized her request to CM. CM made serveral efforts to encourage her to remain inpatient while her arm heals and to continue seeking SNF placement for short term rehab. Jania thanked CM for all the work, but declined. CM called Gail from [facility], who then spoke with Jania via phone and AMA discharge was ordered. [facility] provided patient with serveral days of food and coordinated wrap around community support services. Jania is discharged back to [facility] via [facility] private vehicle. Jania was met by Tea from [facility] at 1120. Gail from [facility] met with Jania an hour after discharge. CM ordered new H RN, PT, OT,HISTORIOGRAPHY TEACHER and ACUTE DIALYSIS REGISTERED NURSE services. DEAN spoke with Ivy from [facility], who will follow up on community services and outreach to Jania. DEAN spoke with Suri at the [place] [facility] who will outreach to patient today to set up [facility]. Suri will also assess pt for additional community support services. In addition, DEAN contacted Palliative Care, to notify Dr. Tobin of the AMA discharge, as she plans to follow up with Jania one day this week. Jania will follow up with Ortho as an outpatient on 07/29/2021 at 2pm and with her PCP Dr. Mathur on 08/04/21 at 0930. CM faxed a copy of Jania's discharge notes to Gail at [facility]. CM asked Gail to help Jania with LTM forms in the event penitentiary care is needed and/or patient is agreeable to placement in the future. Patient/Family Education Needs: Review discharge instructions, limitations, medications and plan to follow up with community support services and community providers. ask me three. Services Needed at Discharge: Home Delivered Meals ([facility] (CM contacted [facility] and [facility])), Home Health Care Services ([facility]: RN, PT,OT, HISTORIOGRAPHY TEACHER, ACUTE DIALYSIS REGISTERED NURSE. CM contacted [facility]. ), Homemaking Services ([facility] ACUTE DIALYSIS REGISTERED NURSE, ordered), Outpatient Therapy (Pt will follow up with Ortho), Transportation ([facility] private vehicle, coordinated by DEAN)
--- NOTE | 2021-07-21 13:19 | W.PM.DS.N ---
Date of service: 07/21/21 Time of Service: 13:20 DS: Diagnosis Discharge Diagnosis (1) Fracture of proximal humerus: Start date: 07/21/21 Start time: 13:20 Status: Acute Asessment and Plan: After fall at home d/t intoxication. Dominant hand. No surgery as she is a high risk. Sling to arm. She is not safe to go home She was appointed a guardian who agreed that she needed placement and went before the computer compositor on Wednesday. She was also evaluated by Psychatrist Dr. Forrester who deemed her incompetent to make her own decisions. Therefore she is not safe to be on her own. She is a harm to her self. She will likely fail and meet readmission criteria as she can not preform ADLS such as cooking, cleaning, getting her self dressed. She does not understand she has a broken arm. (2) Alcohol use, unspecified with other alcohol-induced disorder: (3) Dementia: Status: Chronic (4) Fall: Status: Acute (5) Ambulatory dysfunction: Status: Acute (6) Malnutrition: Status: Acute (7) DVT prophylaxis: Status: Acute (8) Discharge planning issues: Status: Acute Discharge Plan Disposition Patient Disposition: AGAINST MEDICAL ADVICE Condition: Stable Discharge Details Reason For Visit: Ambulatory Dysfunction Admit Date/Time: 06/30/21 13:06 Admit Provider: Amy Santos Attending Provider: Amy Santos Primary Care Provider: Kaila Mathur Hospital Course Hospital Course: Pt admited s/p fall and right fracture humerus, non-surgical candidate. Hospital course complicated by ETOH w/d, malnutrition and cachecxia, nutrition consult placed, refused gastric tube placement. Physical therapy worked with patient. Psychiatry saw patient during withdrawal and after and deemed her incompetent of making her own decionsion, she is rational, delsionaly, unaware of her situation. She does not understand that she has a broken arm. The arm that is broken is her dominant hand. She is unable to perform most of her ADL's such as eating, dressing, wiping herself. She is unaware of most of her surrounding and what is going on, she came in severely malnourished with a low BMI and BMI today is 14.2. She lives at [facility]. Palliative is now involved, and community resources have been set up. Patient is a high risk for readmission as she is not safe on her own. She has left against AMA. Home Meds and New Rx's Prescriptions: Continued Ensure Active Protein-Muscle Liquid PO 0RF Label Comments: DRINK 1 CAN THREE TIMES DAILY Acetaminophen [Tylenol] 650 mg PO QID Qty: 0 0RF Discharge Instructions Referrals: Kaila Mathur [Primary Care Provider] - 08/04/21 9:30 am Trey Dickey MD [ [facility] STAFF PHYSICIAN] - 07/29/21 2:00 pm Activity:: Activity as Tolerated Equipment/Supplies:: Cane Diet:: As Tolerated Discharge Data Discharge Date/Time-TO BE ENTERED AT DEPARTURE: 07/21/21 11:06 DS: Summary Time Spent with Patient providing and/or coordinating discharge services: Less than 30 minutes Status at Discharge Functional status at discharge: uses cane/walker Overall status at discharge: patient is progressing back to baseline Mental Status: other Speech and Movement: other Mood: other Affect: other Exam Psych Mental Status: other Speech and Movement: other Mood: other Affect: other DS: Data Vitals/I&O Vitals and I&O: Vital Signs Temperature 36.7 C 07/21/21 08:09 Temperature Source Tympanic 07/21/21 08:09 Pulse 66 07/21/21 08:09 Pulse Rhythm Regular 07/21/21 00:22 Pulse 73 07/03/21 20:23 Respiratory Rate 16 07/21/21 08:09 Respiratory Effort Non-Labored 07/21/21 00:22 Respiratory Depth Normal 07/21/21 00:22 Respiratory Pattern Normal 07/21/21 00:22 Blood Pressure 128/72 07/21/21 08:09 Blood Pressure Mean 76 07/04/21 19:49 Blood Pressure Position Supine 07/02/21 04:00 Pulse Oximetry 96 07/21/21 08:09 Oxygen Delivery Method Room Air 07/21/21 08:09 Oxygen Flow Rate 0 07/21/21 08:09 Pain Level 0 07/21/21 08:09 Comment 07/17/21 23:33 Intake & Output 07/20/21 07/21/21 07/21/21 23:59 11:59 23:59 Intake Total 480 / 840 480 / 480 Output Total Balance 479 / 839 480 / 480 Weight 35.1 kg Intake: Oral 480 / 840 480 / 480 Output: Urine Other: Urine Color Pale Yellow Urine Appearance Clear Clear Urine Odor Normal None Comment unmeasured urine voided in the toilet large amount Stool Size Small Stool Characteristics Formed Voiding Methods Toilet Toilet Data Completed and Pending Completed studies during hospitalization [Text1]: EXAM:? US UPPER EXTREMITY VENOUS RT CLINICAL HISTORY: ? fracture.? Increased swelling..? TECHNIQUE:? Ultrasound examination of the right upper extremity venous system(s) is performed using grayscale, color-flow, and spectral Doppler analysis. COMPARISON:? No exams were available for comparison FINDINGS: The right internal jugular, axillary, subclavian, cephalic, basilic, brachial, radial, and ulnar veins are patent without evidence of thrombosis.? No abscess or drainable fluid collection.? There is soft tissue edema in the right anterior arm. IMPRESSION: No DVT. 3 views Again noted is the displaced fracture at the head-neck of the right humerus.? Humeral head is subluxed somewhat inferiorly within the osseous glenoid.? Subacromial space appears preserved.? There is prominent soft tissue swelling over the lateral aspect of the shoulder. IMPRESSION: Displaced humeral neck-head fracture. IMPRESSION: Large right frontal scalp hematoma.? No acute intracranial findings.? No skull fracture. No evidence of cervical spine fracture, malalignment, nor acute compromise of the cervical spinal canal. Chronic multilevel degenerative changes in the cervical spine noted Report called to ER IMPRESSION: 1. Severely comminuted, overriding, and impacted humeral head/neck fracture as detailed above. No dislocation. 2. Incidental findings as above FINDINGS: Brain: Age related brain involution is present. No acute intracranial hemorrhage, mass effect, midline shift, or brain herniation. Diffuse subcortical and periventricular white matter hypodensities are most in favor with chronic small vessel disease. Cerebral ventricles: There is ex vacuo ventriculomegaly. There is a normal-variant cavum septum pellucidum. Paranasal sinuses: Visualized sinuses are unremarkable. No fluid levels. Mastoid air cells: Visualized mastoid air cells are well aerated. Orbital cavity: There have been bilateral intraocular lens replacements. Vasculature: Intracranial atherosclerosis is present. Bones/joints: Unremarkable. No acute fracture. Soft tissues: Unremarkable. IMPRESSION: No acute intracranial pathology. .. PFSH All Active Problems Unable to care for self (Chronic) no longer a candidate for independent living Poor historian (Acute) Confabulation (Acute) Discharge planning issues (Acute) Malnutrition (Acute) Anemia (Chronic) Palliative care encounter (Acute) Dementia (Chronic) DVT prophylaxis (Acute) Closed head injury (Acute) Fall (Acute) Fracture of proximal humerus (Acute) Ambulatory dysfunction (Acute) Pain of right lower extremity (Acute) Knee pain (Acute) Fall (Acute) Unable to ambulate (Acute) Discharge planning issues (Acute) Knee pain, right (Acute) Macrocytic anemia with vitamin B12 deficiency (Chronic) Abnormal auditory perception (Acute) Cerumen impaction (Acute) Sensory hearing loss, bilateral (Acute) Otorrhea of left ear (Acute) Fracture, humerus (Acute) Fracture, intertrochanteric, left femur (Acute) Medical History Alcohol use, unspecified with other alcohol-induced disorder CAD (coronary artery disease) Iron deficiency Surgical History S/P appendectomy S/P hysterectomy Status post open reduction with internal fixation of fracture 1. left hip 2. left shoulder Social History Smoking/Tobacco Use Status: Current every day Smoking risk assessment performed?: Yes Alcohol Intake: current Alcohol Intake frequency: holidays/special occasions only Alcohol type: wine Drug use: Never Substance use type: does not use Do you feel safe at home: Yes Do you feel safe in your relationship?: Yes
== END 2021-07-21 11:06 | disposition left against medical advice (07) | DRG 562 ==
LOC: ER 16:10 → MS 16:55 → ICU 06-30 19:33 → MS 07-05 15:31
PROVIDERS: Family Medicine; Internal Medicine; Nurse Practitioner Acute Care; Nurse Practitioner Family; Admitting Provider Internal Medicine; Emergency Provider Physician Assistant; PCP Family Medicine; Visit Provider Internal Medicine
DX: S42.211A Unspecified displaced fracture of surgical neck of right humerus, initial encounter for closed fracture (principal); E43 Unspecified severe protein-calorie malnutrition; F10.939 Alcohol use, unspecified with withdrawal, unspecified; Z68.1 Body mass index [BMI] 19.9 or less, adult; W19.XXXA Unspecified fall, initial encounter; I25.10 Atherosclerotic heart disease of native coronary artery without angina pectoris; D53.9 Nutritional anemia, unspecified; D51.8 Other vitamin B12 deficiency anemias; F17.210 Nicotine dependence, cigarettes, uncomplicated; E61.1 Iron deficiency; S00.03XA Contusion of scalp, initial encounter; Z66 Do not resuscitate; R29.6 Repeated falls; S40.011A Contusion of right shoulder, initial encounter; F10.97 Alcohol use, unspecified with alcohol-induced persisting dementia; F01.50 Vascular dementia, unspecified severity, without behavioral disturbance, psychotic disturbance, mood disturbance, and anxiety; Z91.19 Patient's noncompliance with other medical treatment and regimen
CPT/HCPCS: 10160; 36415; 76376; 80048; 80053; 80186; 82306; 82550; 83090; 85027; 87635; 93005; 97110; 97162; 97166; 97530; 97535; 99223; 99232; 99233; 99285; Q3014; U0003; U0005; 70450; 72125; 73030; 73080; 73200; 80320; 81003; 81015; 82607; 82746; 83540; 83550; 83735; 84100; 84466; 85014; 85018; 85025; 85610; 85730; 93010; 93971; 99219; 99231; G0378; J0131; J2060; J2560; J3475; J3480; J3490; J9999

== ENCOUNTER 2021-07-22 10:35 | Inpatient (IN) | payer MEDICARE, MEDICAID, SELFPAY ==
[2021-07-22] VITALS (13 sets, daily range): BP systolic 129–133; BP diastolic 59–65; PULSE 60–71; RESP 14–23; TEMP 36.4–36.7; O2SAT 98–100
--- NOTE | 2021-07-22 10:32 | ED.GENADUL_ITS ---
Discharge Plan Disposition Patient Disposition: [facility] INPATIENT Condition: Stable Discharge Details Clinical Impression: Adult failure to thrive Admit Date/Time: 07/22/21 13:52 Admit Provider: James Tafoya Attending Provider: James Tafoya Primary Care Provider: Kaila Mathur ED Provider: Ashley Melendez Discharge Data Discharge Date/Time-TO BE ENTERED AT DEPARTURE: 07/22/21 14:40 Medical Decision Making 80-year-old female with a history of alcohol abuse, coronary artery disease who was admitted here for a few weeks for failure to thrive and recent proximal humerus fracture who left the floor AMA yesterday presents from home for report of not eating and drinking well and general malaise. Patient states she is not sure if she called the ambulance but if she did it's because I do not feel safe at home. Records from yesterday note that patient was evaluated by psychiatry and deemed that she does not have the capacity to make her own decisions. Case discussed with hospitalist team and care management and discussion per the treatment team on the floor yesterday was that patient could not be held against her will even though she was deemed to not have capacity. Her vitals are within normal limits. She is oriented x2. She appears in no acute distress and nontoxic. She is cachectic and demonstrates confusion at times. There does not appear to be any evidence of acute trauma or new pain. She has healing right-sided facial ecchymosis and a healing right proximal humerus fracture. Will obtain screening labs but there does not appear to be an obvious acute reason for her presentation today but per hospitalist note yesterday, there was a high likelihood for readmission as patient does not have capacity and is unable to care for self at home. Discussed with hospitalist team and they will accept patient for admission to the floor to likely a swing bed. Discussed with patient that it is likely not safe that she be at home and that she needs continued care in the hospital which may involve physical therapy or potentially a longer stay or transfer if she has persistent needs. Patient held in the ED briefly as it was discussed that rehab potentially had a bed available for patient. It was determined that no rehab bed available and she will go to the floor. Medical Records Medical records reviewed: Yes I reviewed the patient's medical records. Lab Data Lab results reviewed: Yes I reviewed the patient's lab results. Labs: Laboratory Tests Range/Units 07/22/21 07/22/21 07/22/21 10:54 11:48 13:02 WBC (4.4-10.8) 10^3/uL RBC (3.93-5.22) 10^6/uL Hgb (11.2-15.7) g/dL Hct (36.0-46.0) % MCV (80-95) fL MCH (27.0-33.0) pg MCHC (32.0-36.0) % RDW (11.7-14.6) % Plt Count (130-400) 10^3/uL MPV (8.0-11.0) fL Immature Gran % Neutrophils % Lymphocytes % Monocytes % Eosinophils % Basophils % Nucleated RBC % % Absolute Neutrophils (1.2-6.7) 10^3/uL Absolute Lymphocytes (1.2-3.4) 10^3/uL Absolute Monocytes (0.1-0.8) 10^3/uL Absolute Eosinophils (0.0-0.7) 10^3/uL Absolute Basophils (0.0-0.2) 10^3/uL Sodium (136-145) mmol/L 139 Potassium (3.5-5.1) mmol/L 3.6 Chloride (98-107) mmol/L 107 Carbon Dioxide (21.0-32.0) mmol/L 24.1 Anion Gap (3-11) mmol/L 7.9 BUN (7-18) mg/dL 19 H Creatinine (0.55-1.02) mg/dL 0.5 L Estimated GFR/1.73 m2 (mL/min/1.73m2) >= 60.00 Glucose (74-106) mg/dL 82 Calcium (8.5-10.1) mg/dL 9.1 Total Bilirubin (0.2-1.0) mg/dL 0.7 AST (15-37) U/L 20 ALT (14-59) U/L 19 Alkaline Phosphatase (46-116) U/L 147 H Total Protein (6.4-8.2) g/dL 7.0 Albumin (3.4-5.0) g/dL 3.7 Urine Color (Yellow) Yellow Urine Clarity (Clear) Clear Urine pH (5-8) 6.0 Ur Specific [place] (1.005-1.025) 1.020 Urine Protein (Negative) mg/dL Negative Urine Ketones (Negative) mg/dL Negative Urine Blood (Negative) Negative Urine Nitrite (Negative) Negative Urine Bilirubin (Negative) Negative Urine Urobilinogen (Up TO 0.2) EU/dL 0.2 Ur Leukocyte Esterase (Negative) Negative Urine Glucose (Negative) mg/dL Negative COVID-19 Source Nasal/Nares SARS-CoV-2 (PCR) (Negative) Negative Range/Units 07/22/21 13:02 WBC (4.4-10.8) 10^3/uL 8.73 RBC (3.93-5.22) 10^6/uL 3.49 L Hgb (11.2-15.7) g/dL 11.2 Hct (36.0-46.0) % 36.2 MCV (80-95) fL 103.7 H MCH (27.0-33.0) pg 32.1 MCHC (32.0-36.0) % 30.9 L RDW (11.7-14.6) % 14.4 Plt Count (130-400) 10^3/uL 395 D MPV (8.0-11.0) fL 9.2 Immature Gran % 0.5 Neutrophils % 69.7 Lymphocytes % 15.1 Monocytes % 13.1 Eosinophils % 0.9 Basophils % 0.7 Nucleated RBC % % 0 Absolute Neutrophils (1.2-6.7) 10^3/uL 6.09 Absolute Lymphocytes (1.2-3.4) 10^3/uL 1.32 Absolute Monocytes (0.1-0.8) 10^3/uL 1.14 H Absolute Eosinophils (0.0-0.7) 10^3/uL 0.08 Absolute Basophils (0.0-0.2) 10^3/uL 0.06 Sodium (136-145) mmol/L Potassium (3.5-5.1) mmol/L Chloride (98-107) mmol/L Carbon Dioxide (21.0-32.0) mmol/L Anion Gap (3-11) mmol/L BUN (7-18) mg/dL Creatinine (0.55-1.02) mg/dL Estimated GFR/1.73 m2 (mL/min/1.73m2) Glucose (74-106) mg/dL Calcium (8.5-10.1) mg/dL Total Bilirubin (0.2-1.0) mg/dL AST (15-37) U/L ALT (14-59) U/L Alkaline Phosphatase (46-116) U/L Total Protein (6.4-8.2) g/dL Albumin (3.4-5.0) g/dL Urine Color (Yellow) Urine Clarity (Clear) Urine pH (5-8) Ur Specific [place] (1.005-1.025) Urine Protein (Negative) mg/dL Urine Ketones (Negative) mg/dL Urine Blood (Negative) Urine Nitrite (Negative) Urine Bilirubin (Negative) Urine Urobilinogen (Up TO 0.2) EU/dL Ur Leukocyte Esterase (Negative) Urine Glucose (Negative) mg/dL COVID-19 Source SARS-CoV-2 (PCR) (Negative) HPI General Mode of arrival: EMS . Date/Time Provider Initiated Documentation: 07/22/21 10:37 . Limitations to Documentation: altered mental status and physical limitation . Information obtained by: patient . HPI Narrative: Patient is a 80-year-old female with a history of alcohol abuse, coronary artery disease who was admitted here for a few weeks for failure to thrive and proximal humerus fracture and left the floor AMA yesterday presents today for generalized weakness, and a report of not eating or drinking well. There was also an EMS report of nausea and dizziness but patient denies this. Patient states she thinks she is the one that called the ambulance but she is not sure. Patient states if she called the ambulance it's because I did not feel safe at home . She states she feels very weak and does not feel that she can manage at home alone. She states she normally shops for her groceries are soft and does drive. She denies any recent alcohol use. She denies any new falls since her Related Data Home Medications Medication Instructions Recorded Confirmed food supplemt, lactose-reduced ml PO 03/19/21 (Ensure Active Protein-Muscle) Acetaminophen [Tylenol] 650 mg PO QID #0 03/20/21 06/29/21 Previous Rx's Medication Instructions Recorded Acetaminophen [Tylenol] 650 mg PO QID #0 03/20/21 Allergies Allergy/AdvReac Type Severity Reaction Status Date / Time aspirin AdvReac Intermediate Unverified 06/29/21 10:45 most medication AdvReac Intermediate makes her Uncoded 06/29/21 10:45 sick to her stomach lactose intolerant AdvReac n/d, Uncoded 06/29/21 10:45 stomach cramps General Stated Complaint: GenMedical NYA: 3 Review of Systems All systems reviewed & are unremarkable except as noted in HPI and below Constitutional Constitutional: Denies chills, Denies excessive sweating, Denies fatigue, Denies fever(s), Reports weakness and Denies weight loss Eyes Eyes: Reports system reviewed and no additional complaints, except as documented and Denies blurry vision ENT Ears, Nose, Mouth, and Throat: Denies vertigo, Denies dizziness, Denies otalgia, Denies nasal congestion, Denies sore throat and Denies throat swelling Cardiovascular Cardiovascular: Denies chest pain, Denies syncope, Denies rapid heart rate and Denies dyspnea Respiratory Respiratory: Denies chest congestion, Denies cough, Denies pain on inspiration and Denies dyspnea Gastrointestinal Gastrointestinal: Denies abdominal pain, Denies diarrhea and Denies vomiting Genitourinary Genitourinary: Denies hematuria, Denies dysuria and Denies flank pain Musculoskeletal Musculoskeletal: Denies back pain and Denies joint swelling Integumentary/Breasts Skin/Breast: Denies lesions and Denies rash Neurologic Neurologic: Denies behavioral changes, Denies confusion, Denies vertigo, Denies dizziness, Denies syncope, Denies localized weakness and Reports weakness Psychiatric Psychiatric: Denies behavioral changes, Denies confusion and Denies depression Endocrine Endocrine: Denies excessive sweating and Denies fatigue Hematologic/Lymphatic Hematologic/Lymphatic: Denies easy bruising and Denies lymphadenopathy Allergic/Immunologic Allergic/Immunologic: Denies throat swelling PFSH All Active Problems (Updated 07/22/21 @ 12:30 by Ashley Melendez DO) Adult failure to thrive (Acute) Poor historian (Acute) Confabulation (Acute) Discharge planning issues (Acute) Malnutrition (Acute) Anemia (Chronic) Dementia (Chronic) Fracture of proximal humerus (Acute) Ambulatory dysfunction (Acute) Pain of right lower extremity (Acute) Knee pain (Acute) Fall (Acute) Unable to ambulate (Acute) Discharge planning issues (Acute) Knee pain, right (Acute) Macrocytic anemia with vitamin B12 deficiency (Chronic) Abnormal auditory perception (Acute) Cerumen impaction (Acute) Sensory hearing loss, bilateral (Acute) Otorrhea of left ear (Acute) Fracture, humerus (Acute) Fracture, intertrochanteric, left femur (Acute) Medical History (Updated 07/22/21 @ 12:30 by Ashley Melendez DO) Alcohol use, unspecified with other alcohol-induced disorder CAD (coronary artery disease) Iron deficiency Unable to care for self Surgical History S/P appendectomy S/P hysterectomy Status post open reduction with internal fixation of fracture 1. left hip 2. left shoulder Social History Smoking/Tobacco Use Status: Current every day Tobacco Type: cigarettes Smoking risk assessment performed?: Yes Alcohol Intake: current Alcohol Intake frequency: holidays/special occasions only Alcohol type: wine Drug use: Never Substance use type: does not use Do you feel safe at home: Yes Do you feel safe in your relationship?: Yes Exam Const General: cooperative and ill appearing chronically Nutritional Appearance: cachectic Orientation: alert, awake, oriented to person, oriented to place and not oriented to time HENWV Head: normal to inspection Head images: 1. 1 x 1 cm crust without signs of cellulitis. 2. Yellow-green ecchymosis consistent with old injury. Ears: hearing grossly normal bilaterally, external ears normal and TM's normal bilaterally General nose exam: external nose normal Face and sinus: normal facial exam Mouth: oral mucosae normal and mucous membranes dry Teeth and gingiva: edentulous Eyes General: appearance normal, both eyes and all related structures Eyelids: eyelids normal Pupils: PERRL EOM: EOM intact bilaterally Neck Neck: normal visual inspection Lymphatic: no lymphadenopathy noted Chest Chest: normal inspection of the chest Resp Effort & Inspection: normal respiratory effort and able to speak in complete sentences Auscultation: clear to auscultation bilaterally Cardio Rate: regular rate Rhythm: regular rhythm GI Inspection: normal to inspection Palpation: soft, not firm, no guarding, no hepatosplenomegaly, no masses and nontender Auscultation: hypoactive bowel sounds Back/Spine/Pelvis Back: no CVA tenderness Cervical Spine: No cervical spinal tenderness Thoracic/Lumbar Spine: No thoracic spinal tenderness and No lumbar spinal tenderness Skin General skin exam: no rashes or lesions noted Neuro General: patient alert, patient awake, oriented Patient Orientation: Person and Place and no meningeal signs Cognition: normal cognition Speech: speech normal Gait: normal gait Motor: muscle tone normal throughout Sensory Exam: no sensory deficits noted Extrem General: normal to inspection, full ROM and capillary refill normal Psych Appearance: grossly normal Mental Status: mental status grossly normal Speech and Movement: speech and movement normal Affect: normal affect Thought Process: normal
[2021-07-22 11:03] LABS: Source Nasal/Nares
[2021-07-22 11:43] LABS: COVID-19 PCR Negative (Negative)
[2021-07-22 11:57] LABS: Bilirubin Negative (Negative); Blood Negative (Negative); Clarity Clear (Clear); Glucose Negative (Negative); Ketones Negative (Negative); Leukocyte Esterase Negative (Negative); Nitrite Negative (Negative); Urobilinogen 0.2 EU/dL (Up TO 0.2)
[2021-07-22 13:07] LABS: Abs Immature Grans 0.04 10^3/uL (0.0-0.06); Absolute Basophil Count 0.06 10^3/uL (0.0-0.2); Absolute Eosinophil Count 0.08 10^3/uL (0.0-0.7); Absolute Lymphocyte Count 1.32 10^3/uL (1.2-3.4); Absolute Monocyte Count 1.14 10^3/uL (0.1-0.8); Absolute Neutrophil Count 6.09 10^3/uL (1.2-6.7); Basophils % 0.7; Eosinophils % 0.9; HCT 36.2 % (36.0-46.0); HGB 11.2 g/dL (11.2-15.7); Immature Grans % 0.5; Lymphocytes % 15.1; MCH 32.1 pg (27.0-33.0); MCHC 30.9 % (32.0-36.0); MCV 103.7 fL (80-95); MPV 9.2 fL (8.0-11.0); Monocytes % 13.1; Neutrophils % 69.7; Nucleated RBC 0 %; Platelet Count 395 10^3/uL (130-400); RBC 3.49 10^6/uL (3.93-5.22); RDW 14.4 % (11.7-14.6); RDW-SD 54.9 fL; WBC 8.73 10^3/uL (4.4-10.8)
[2021-07-22 13:21] LABS: ALT 19 U/L (14-59); AST 20 U/L (15-37); Albumin 3.7 g/dL (3.4-5.0); Alkaline Phosphatase 147 U/L (46-116); Anion Gap 7.9 mmol/L (3-11); BUN 19 mg/dL (7-18); Bilirubin, Total 0.7 mg/dL (0.2-1.0); CO2 24.1 mmol/L (21.0-32.0); CREATININE 0.5 mg/dL (0.55-1.02); Calcium 9.1 mg/dL (8.5-10.1); Chloride 107 mmol/L (98-107); Glucose 82 mg/dL (74-106); Potassium 3.6 mmol/L (3.5-5.1); Sodium 139 mmol/L (136-145)
--- NOTE | 2021-07-22 13:58 | HPE_ITS ---
Date of service: 07/22/21 Time of Service: 13:58 Assessment and Plan Assessment and plan (1) Fracture of proximal humerus: Status: Acute Assessment and plan: followed by orthopedics, plan is non-surgical continue sling when ambulating pain management PT/OT (2) Malnutrition: Status: Acute Assessment and plan: continue nutritional supplements. 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 has a public guardian assigned as she was deemed incompetent. no behavioral issues. (4) Adult failure to thrive: Status: Acute Assessment and plan: left ama yesterday. returned to ED today for some unknown reason. no new medical condition identified. agreeable to stay for rehab. (5) Discharge planning issues: Status: Acute Assessment and plan: case management will be following. appropriate for swing bed level 1 as she has been working with physical therapy and slowly progressing. recommendations were for ongoing rehabilitation. discussed with Dr Espinosa. History of Present Illness History of Present Illness Chief Complaint: right arm pain, failure to thrive Narrative: patient was discharged yesterday ama to home after an extended stay here after a fall at home where she fractured her right humerus. she is right hand dominant. It is unclear who called EMS or why they were called. Patient denies any new c/o or symptoms and has no complaints at time of evaluation. Her physical exam and labs unremarkable. referral has been placed for rehab but unfortunately no bed obtained. she will be admitted here under swing level care while a disposition is made. On her previous admission she was deemed incompetent to make disposition decisions and she was assigned a public guardian. hospitalist services was contacted and she was admitted to swing bed 1 Review of Systems All systems reviewed & are unremarkable except as noted in HPI and below PFSH All Active Problems (Updated 07/22/21 @ 12:30 by Ashley Melendez DO) Adult failure to thrive (Acute) Poor historian (Acute) Confabulation (Acute) Discharge planning issues (Acute) Malnutrition (Acute) Anemia (Chronic) Dementia (Chronic) Fracture of proximal humerus (Acute) Ambulatory dysfunction (Acute) Pain of right lower extremity (Acute) Knee pain (Acute) Fall (Acute) Unable to ambulate (Acute) Discharge planning issues (Acute) Knee pain, right (Acute) Macrocytic anemia with vitamin B12 deficiency (Chronic) Abnormal auditory perception (Acute) Cerumen impaction (Acute) Sensory hearing loss, bilateral (Acute) Otorrhea of left ear (Acute) Fracture, humerus (Acute) Fracture, intertrochanteric, left femur (Acute) Medical History (Updated 07/22/21 @ 12:30 by Ashley Melendez DO) Alcohol use, unspecified with other alcohol-induced disorder CAD (coronary artery disease) Iron deficiency Unable to care for self Surgical History S/P appendectomy S/P hysterectomy Status post open reduction with internal fixation of fracture 1. left hip 2. left shoulder Social History Smoking/Tobacco Use Status: Current every day Tobacco Type: cigarettes Smoking risk assessment performed?: Yes Alcohol Intake: current Alcohol Intake frequency: holidays/special occasions only Alcohol type: wine Drug use: Never Substance use type: does not use Do you feel safe at home: Yes Do you feel safe in your relationship?: Yes Meds Allergies and Home Medications Allergies Allergy/AdvReac Type Severity Reaction Status Date / Time aspirin AdvReac Intermediate Unverified 06/29/21 10:45 most medication AdvReac Intermediate makes her Uncoded 06/29/21 10:45 sick to her stomach lactose intolerant AdvReac n/d, Uncoded 06/29/21 10:45 stomach cramps Home Medications Medication Instructions Recorded Confirmed Type food supplemt, lactose-reduced ml PO 03/19/21 History (Ensure Active Protein-Muscle) Acetaminophen [Tylenol] 650 mg PO QID #0 03/20/21 06/29/21 Rx Exam Const General: cooperative, comfortable, no acute distress, frail appearing and ill appearing chronically Nutritional Appearance: cachectic Orientation: alert, awake, oriented to person, oriented to place and confused ( unable to provide history, inconsistent reports, appears at her baseline) HENMT Head: normal to inspection and contusion (1 cm scab healing, no surrounding erythema, old bruise on side of face rt) right temporal Teeth and gingiva: poor dentition (many missing teeth. poor dentiiton of few remaining) Resp Effort & Inspection: normal respiratory effort Auscultation: clear to auscultation bilaterally Cardio Rate: regular rate Rhythm: regular rhythm GI Inspection: normal to inspection Palpation: soft Skin General skin exam: dry skin, ecchymosis and turgor decreased Hair: general thinning Neuro General: patient alert, patient awake and patient confused (at baseline with cognitive impairment) Cognition: abnormal cognition (impairment at baseline) Extrem Right upper extremity: shoulder/upper arm Details: swelling, ecchymosis and deformity Psych Speech and Movement: speech and movement normal Affect: animated Attitude: cooperative Insight: poor Judgment: poor Results Labs Result diagrams: 07/22/21 13:02 07/22/21 13:02 Labs: Laboratory Results - last 24 hr 07/22/21 07/22/21 07/22/21 10:54 11:48 13:02 WBC RBC Hgb Hct MCV MCH MCHC RDW Plt Count MPV Immature Gran % Neutrophils % Lymphocytes % Monocytes % Eosinophils % Basophils % Nucleated RBC % Absolute Neutrophils Absolute Lymphocytes Absolute Monocytes Absolute Eosinophils Absolute Basophils Sodium 139 Potassium 3.6 Chloride 107 Carbon Dioxide 24.1 Anion Gap 7.9 BUN 19 H Creatinine 0.5 L Estimated GFR/1.73 m2 >= 60.00 Glucose 82 Calcium 9.1 Total Bilirubin 0.7 AST 20 ALT 19 Alkaline Phosphatase 147 H Total Protein 7.0 Albumin 3.7 Urine Color Yellow Urine Clarity Clear Urine pH 6.0 Ur Specific Brantley 1.020 Urine Protein Negative Urine Ketones Negative Urine Blood Negative Urine Nitrite Negative Urine Bilirubin Negative Urine Urobilinogen 0.2 Ur Leukocyte Esterase Negative Urine Glucose Negative COVID-19 Source Nasal/Nares SARS-CoV-2 (PCR) Negative 07/22/21 13:02 WBC 8.73 RBC 3.49 L Hgb 11.2 Hct 36.2 MCV 103.7 H MCH 32.1 MCHC 30.9 L RDW 14.4 Plt Count 395 D MPV 9.2 Immature Gran % 0.5 Neutrophils % 69.7 Lymphocytes % 15.1 Monocytes % 13.1 Eosinophils % 0.9 Basophils % 0.7 Nucleated RBC % 0 Absolute Neutrophils 6.09 Absolute Lymphocytes 1.32 Absolute Monocytes 1.14 H Absolute Eosinophils 0.08 Absolute Basophils 0.06 Sodium Potassium Chloride Carbon Dioxide Anion Gap BUN Creatinine Estimated GFR/1.73 m2 Glucose Calcium Total Bilirubin AST ALT Alkaline Phosphatase Total Protein Albumin Urine Color Urine Clarity Urine pH Ur Specific Brantley Urine Protein Urine Ketones Urine Blood Urine Nitrite Urine Bilirubin Urine Urobilinogen Ur Leukocyte Esterase Urine Glucose COVID-19 Source SARS-CoV-2 (PCR) Last Vital Signs Temp 36.7 C 07/22/21 10:41 Pulse 63 07/22/21 10:45 Resp 17 07/22/21 12:00 BP 131/59 L 07/22/21 10:45 Pulse Ox 98 07/22/21 11:30
[2021-07-22] MEDS: Acetaminophen 325 MG TAB 650 MG PO (19:24)
[2021-07-23 07:15] VITALS: BP 123/69; PULSE 73; RESP 16; TEMP 36.3; O2SAT 97
--- NOTE | 2021-07-23 09:42 | OT.INIE ---
Occupational Therapy Notes Inpatient Occupational Therapy Evaluation Date: 07/23/21 Referring Doctor:Melissa Cai NP OT Orders: Non Urgent Precautions: Fall, STandard, DNR/DNI PATIENT PROFILE/ADMITTING DIAGNOSIS: Pt is a 80 year old female who was admitted through the ED for the following dx of Adult failure to thrive, malnutrition, anemia, palliative encounter, dementia, scalp hematoma, closed head injury, fall, alcohol withdrawal, fx of proximal humerus, ambulatory dysfunction, pain in (R) LE, knee pain. She was discharged on 07/21/21 and readmitted on 07/22/21 after EMS was called. Pt is a poor historian and is not sure what happened per her report and states that she did not feel safe at home. Past Medical History: All Active Problems?(Updated 06/29/21 @ 16:10 by Ashley Melendez DO) Fracture of proximal humerus (Acute) Ambulatory dysfunction (Acute) Pain of right lower extremity (Acute) Knee pain (Acute) Fall (Acute) Unable to ambulate (Acute) Discharge planning issues (Acute) Knee pain, right (Acute) Macrocytic anemia with vitamin B12 deficiency (Chronic) Abnormal auditory perception (Acute) Cerumen impaction (Acute) Sensory hearing loss, bilateral (Acute) Otorrhea of left ear (Acute) Fracture, humerus (Acute) Fracture, intertrochanteric, left femur (Acute) Medical History?(Updated 06/29/21 @ 16:10 by Ashley Melendez DO) Alcohol use, unspecified with other alcohol-induced disorder CAD (coronary artery disease) Iron deficiency Surgical History? S/P appendectomy S/P hysterectomy Status post open reduction with internal fixation of fracture 1.? left hip 2.? left shoulder Social History/Home Situation: Jania lives alone in an apartment at the [facility] she states that she has children but they are adults.? She is not able ot identify if they live close or not. Pt cares for her apartment and she is independent with her ADLs, though she does admit that she needs help.? She does not drive per her chart however pt reports to OT that she does. Per pts EMR she has a legal guardian granted to her to make decisions. SUBJECTIVE:??Pt was sitting in chair when OT arrived. She is agreeable to OT session and notes that she is sore and tired today. She reports that she went home and has no idea what happened. She reports that she is not sure why things are different for her now than before but she feels safer in the hospital. OBJECTIVE:? General Observation: Pleasant, laceration to (R) head with good healing, displaced (R) shoulder, sling on (R) UE Mental Status: A&Ox2 Pain: c/o pain in head near laceration, (R) shoulder pain from fx ROM: RUE NT L UE AROM WFL STRENGTH: RUE NT LUE 4/5 throughout FUNCTIONAL MOBILITY/ADLS:? BATHING pt refused, max (A) hair, (I) face and chest DRESSING sitting in chair Dressing UE Pt is able to doff her robe with mod (A) Dressing LE Pt attempts to don and doff sock, Pt requires max (A). BALANCE: ? Static sitting Normal Dynamic Sitting Good SPECIAL TESTS:? Daily Activity Limitations Standardized Measure [facility] ? AM -PAC ? ?6 clicks? Daily Activity Inpatient Short Form: Raw score: 10 ? Standardized score: 27.31 ? CMS score: 74.70%? INFORMED CONSENT/EDUCATION: Pt instructed in purpose of OT Consult and plan of care. ASSESSMENT:?? Patient is a 80-year-old female referred to occupational therapy services with diagnosis of adult failure to thrive, poor historian, confabulation, malnutrition, anemia, palliative encounter, dementia, scalp hematoma, closed head injury, fall, alcohol withdrawal, fx of proximal humerus, ambulatory dysfunction, pain in (R) LE, knee pain. Patient presents with clinical signs and symptoms consistent with dx, as demonstrated by the following impairment level findings/functional limitations: Impairments in ADL/IADL and leisure activities, decreased functional activity tolerance, decreased cognitive ability, decreased functional mobility required for ADL performance, decreased safety awareness. AMPAC score 10 Patient is assessed as a Moderate 53626 complexity based on the following: History: see above Examination: see functional limitations as noted above Presentation: evolving Decision Making: AMPAC score 10 GOALS Goals x1 week 1.? ORal hygiene sitting in chair min (A) with ideal technique 2.? Dressing Mod (A) With donning and doffing socks, mod (A) UE dressing 3.? Bathing (I) UE/LE sitting in chair 4.? Toileting on toilet (I) 5.? Eating (I) PLAN OF CARE/TREATMENT PLAN: 1x/day, 5 days/ week x 1week Initiate Occupational Therapy Services for bathing, dressing, grooming, toileting, eating, transfer training. DISCHARGE RECOMMENDATIONS Pt would benefit from short term stay at SNF for continued rehabilitation and progressive functional activity tolerance. TREATMENT TIME/MINUTES/CODES 83944, 15 minutes Kasey Xavier OTR/L [facility]
[2021-07-23] MEDS: Lidocaine 5% Patch 1 PATCH TP (09:50)
[2021-07-23] MEDS: Acetaminophen 325 MG TAB 650 MG PO ×4 (09:51→19:23)
--- NOTE | 2021-07-23 10:11 | PT.INIE ---
Date of service: 07/23/21 Time of Service: 10:11 PT Notes Visit Reasons: Generalized Weakness,Failure to Thrive Physical Therapy Inpatient Initial Evaluation Date: 07/23/2021 Referring Doctor: Melissa Cai NP PT Orders: PT CONSULT: Eval/treat Precautions: 1. Per verbal order and clarification from Dr Dickey on 07/14/2021:?Sling can definitely be off when resting in bed or on chair. 2. Per Dr. Dickey as of 07/09/2021:?Recommend non weight bearing right upper extremity.? [place] assisted reduction with cuff and collar.? Limited passive range of motion about the shoulder: Pendulums only, at this time.? Active motion elbow wrist and hand okay. Patient Profile/Admitting Diagnosis: Maddi is a 80-year-old female with widely displaced right proximal humeral fracture due to suspected repeated falls at home.? Patient is diagnosed with proximal humeral fracture, malnutrition, dementia, and adult failure to thrive. PMHX: All Active Problems?(Updated 07/22/21 @ 12:30 by Ashley Melendez DO) Adult failure to thrive (Acute) Poor historian (Acute) Confabulation (Acute) Discharge planning issues (Acute) Malnutrition (Acute) Anemia (Chronic) Dementia (Chronic) Fracture of proximal humerus (Acute) Ambulatory dysfunction (Acute) Pain of right lower extremity (Acute) Knee pain (Acute) Fall (Acute) Unable to ambulate (Acute) Discharge planning issues (Acute) Knee pain, right (Acute) Macrocytic anemia with vitamin B12 deficiency (Chronic) Abnormal auditory perception (Acute) Cerumen impaction (Acute) Sensory hearing loss, bilateral (Acute) Otorrhea of left ear (Acute) Fracture, humerus (Acute) Fracture, intertrochanteric, left femur (Acute) Medical History?(Updated 07/22/21 @ 12:30 by Ashley Melendez DO) Alcohol use, unspecified with other alcohol-induced disorder CAD (coronary artery disease) Iron deficiency Unable to care for self Surgical History? S/P appendectomy S/P hysterectomy Status post open reduction with internal fixation of fracture 1.? left hip 2.? left shoulder Social History/Home Situation: Lives alone in her apartment at the [facility].? Independent with all aspects of ADs prior to admission.? Equipment Owned/DME: None Subjective: Agreeable to PT consult.? Complains of pain in R shoulder at 3-4/10 with movement.? Objective: General Observation: Swelling and erythema in R UE continuing to diminish.?Pain patch on R shoulder. R cuff anc ollar sling on. Mental Status: Alert. Able to follow single step commands.? Pain: 3-4/10 in R UE Vital Signs: WNL as closely monitored by nursing staff ROM: Right Upper Extremity: ? Shoulder Flexion NT. Shoulder abduction NT. Elbow flexion 0 to 45 WFL. Wrist flexion WFL. Functional opening and closing of hand WFL. Left Upper Extremity:? Shoulder Flexion WFL. Shoulder abduction WFL. Elbow flexion WFL. Wrist flexion WFL. Functional opening and closing of hand WFL. Right Lower Extremity: Hip flexion WFL. Hip abduction WFL. Knee flexion WFL. Ankle dorsiflexion WFL. Ankle plantarflexion WFL. Left Lower Extremity: Hip flexion WFL. Hip abduction WFL. Knee flexion WFL. Ankle dorsiflexion WFL. Ankle plantarflexion WFL. Strength: Right Upper Extremity: Shoulder flexors NT. Shoulder abductors NT. Elbow flexors 4-/5. Elbow extensors 3/5. Test Consultant strong. Left Upper Extremity: Shoulder flexors 4-/5. Shoulder abductors 4-/5. Elbow flexors 4-/5. Elbow extensors 4-/5. Test Consultant strong. Right Lower Extremity: Hip flexors 4/5. Hip abductors 4/5. Knee flexors 4/5. Knee extensors 4/5. Ankle dorsiflexors 4/5. Ankle plantarflexors 4/5. Left Lower Extremity: Hip flexors 4/5. Hip abductors 4/5. Knee flexors 4/5. Knee extensors 4/5. Ankle dorsiflexors 4/5. Ankle plantarflexors 4/5. Bed Mobility/Transfers: Supine to sit independent Sit to supine independent Sit to stand supervision Stand to sit supervision Bed to chair standby assist Chair to bed standby assist Gait: Instructed patient with level surface ambulation of up to 150 feet +200 feet requiring contact-guard assist. Forgets that her legs have been strong and keeps on saying that her legs tend to buckle. Able to walk far if she is reminded about how her strength in B LE has improved. Postural sway to left increased. Minimal path deviation to L. THERA EX: Pendulum exercises to R UE. AROM to L elbow, forarm, and wrist x 10. Balance: Static Sitting: Normal Dynamic Sitting: Normal Static Standing: Fair Dynamic Standing: Fair Special Tests: Mobility Limitations Standardized Measure [facility] AM-PAC 6 clicks Basic Mobility Inpatient Short Form: Raw Score: 22? CMS Score: 21% deficit? ? ? Informed Consent/Education:? Patient was instructed in purpose of PT consult and plan of care. Agreeable to proceed with established PT POC to achieve personal goals. Assessment: Maddi is a 80-year-old female with widely displaced right proximal humeral fracture due to suspected repeated falls at home.? Patient is diagnosed with proximal humeral fracture, malnutrition, dementia, and adult failure to thrive. Swelling and erythema in R UE diminishing.? Gait pattern improving however has not reached a safety level yet to be made independent in the hallway. Patient presents with clinical signs and symptoms consistent with current/admitting diagnoses that have resulted to mobility limitations, gait instability, generalized weakness, and overall ADL decline as demonstrated by the following impairment level findings: 1.? Decreased strength to B UE/LE major muscle groups 2.? Impaired sitting/standing balance 3.? Impaired activity tolerance 4.? Limitation of joint range of motion in R UE joints 5.? Pain in R shoulder at least 4-5/10 6.? Swelling in R UE Impairments are contributing to the following functional limitations: 1.? Difficulty with ambulation without assistive device and physical assistance 2.? Increased completion time for mobility ADL performance 3.? Increased risk for falls 4.? Difficulty with managing steps alone safely 5. Inability to thrive at home alone at this time Patient is assessed as a 47818 moderate complexity based on the following: History: 80-year-old female with past medical history as indicated above Examination: Demonstrable impairment in strength, balance, and mobility level with underlying impairments and functional limitations as exhibited above as well as deficit score of 21% utilizing the [facility] Mobility Inpatient Short Form Presentation: Evolving Decision Makin moderate complexity Goals: Goals X1 week 1. Sit-Stand independent 2. Stand-Sit independent with SPC 3. Bed-Chair independent with SPC 4. Chair-Bed independent with SPC 5.?Independent gait on level surface with use of SPC for at least 1000 feet without report of pain nor dyspnea 6.? Good static and dynamic standing balance/tolerance Plan of Care/Treatment Plan: 1-2x/day, 7 days/week x 1 week. Treatment focus will be for pendulum exercises to R shoulder per orthopod instruction.? Progress balance skills while increasing B LE strength.? Plan of care has been reviewed with the DIAGNOSTIC CARDIAC SONOGRAPHER providing the service under Physical Therapy direction. DISCHARGE RECOMMENDATIONS: [] ? Home with no services [] [] ? Home with services [specify] [] ? Home with outpatient PT [] [X] ? SNF for continued rehabilitation and possible LTC placement.? Patient will benefit from retirement facility placement for continued skilled physical therapy services in order to progress mobility level, strength, and balance in preparation for a safe discharge to home. [] ? [facility] [] [] ? SNF versus LTC based on ability to participate and progress [] TREATMENT CODE/TIME:? [id number] x 25 minutes beginning at 10:11 AM. Thank you for the opportunity to participate in the care of this patient. Josie Mckeon PT, DPT, CLT [facility] [place], [place]
--- NOTE | 2021-07-23 13:49 | PTTR_ITS ---
PT Notes Visit Reasons: generalized weakness, failure to thrive Inpatient Physical Therapy Treatment Note [facility] Date: 07/23/21 SUBJECTIVE: Pt agreeable to PT this pm. She indicated that she is sick of this place. Tired of staying in a [facility] cell. My arm is sore but fine. OBJECTIVE: [] BED MOBILITY/TRANSFERS Sit-stand:S Stand-sit: S GAIT Assistive Device: SPC Weight bearing: FWB Assist: CGA Distance: 250' THEREX: attempted pendulums with her but unfortunately she decided to through a tantrum and was aggressively moving arm about. I decided it was best to let her be as she was not going to benefit from that. Trying to prevent her from further injury. She did perform some AROM of elbow and wrist see flowsheet. ASSESSMENT: tolerated session fair. She did get a little disgruntled towards the end of her session. Upset that she is here and feels as though she is being kept hostage. PLAN: will continue to work on endurance and functional mobility to her tolerance following PT POC. TREATMENT CODE/TIME: 20 min in pm. [id number]
--- NOTE | 2021-07-23 16:55 | CM.SBPSYCH ---
- If Service Date Differs Date of service: 07/23/21 Time of Service: 16:56 SB Psychosocial/Act.Assessment - Hospital Admission Admission Date: 07/22/21 Admission From:: ED Diagnosis:: fractured humerus - Swing Bed Admission Swing Bed Admit Date:: 07/22/21 Swing Bed Level of Care: Level 1/SNF - Social Supports PREVIOUS FUNCTIONAL STATUS/SOCIAL/FAMILY SUPPORTS:: Per chart review: Jania lives alone in an apartment at the [facility]. She has no natural supports ie.) friends or family in [place]. She has a sister in [place] and a brother in [place] but has previously stated that she rarely speaks to them. Jania cares for her apartment and she is independent with her ADLs, though she does admit that it is getting harder and harder to do chores. She does not drive. - Education Highest Grade Completed:: 1 year of college in [place] - Work History Employment Status:: retired - : No 's Spouse: No - Benefits Financial: Commerical - Interests Hobbies:: none Music:: enjoys most music except for hard rock Outdoor Activities:: enjoys being outdoors, especially with animals Reading:: loves to read almost any kind of book - fiction as well as non-fiction, history, mystery, romance etc - Present Functional Status Physical Abilities:: limited due to weakness and fracture Cognitive:: has possible mild dementia but appears very intelligent and is consistent with much of the information she provides Communication:: good verbal skills Behavior:: Appropriate most of the time. Occasional flashes of anger and/or frustration, usually surrounding her need to be hospitalized - Medical History PAST MEDICAL HISTORY/PAST SURGICAL HISTORY:: All Active Problems (Updated 06/29/21 @ 16:10 by Ashley Melendez DO). Fracture of proximal humerus (Acute). Ambulatory dysfunction (Acute). Pain of right lower extremity (Acute). Knee pain (Acute). Fall (Acute). Unable to ambulate (Acute). Discharge planning issues (Acute). Knee pain, right (Acute). Macrocytic anemia with vitamin B12 deficiency (Chronic). Abnormal auditory perception (Acute). Cerumen impaction (Acute). Sensory hearing loss, bilateral (Acute). Otorrhea of left ear (Acute). Fracture, humerus (Acute). Fracture, intertrochanteric, left femur (Acute). Medical History (Updated 06/29/21 @ 16:10 by Ashley Melendez DO). Alcohol use, unspecified with other alcohol-induced disorder. CAD (coronary artery disease). Iron deficiency. Surgical History . S/P appendectomy. S/P hysterectomy. Status post open reduction with internal fixation of fracture. 1. left hip. 2. left shoulder General Health:: poor. Has BMI of 15 and is frail and weak Past Psychiatric Treatment:: unknown - Admission Data Reason for Swing Bed Admission:: failure to thrive at home upon discharge from hospital Discharge Plan:: Jania will likely be placed in a SNF for short or watermaster care depending on her progress. Senior Information Security Analyst: Lorena Tavares Date Assessment was completed:: 07/23/21
--- NOTE | 2021-07-23 17:05 | CM.SWINGPC ---
- If Service Date Differs Date of service: 07/23/21 Time of Service: 17:05 Swingbed Plan of Care Plan of care: SWING BED PROGRAM ACTIVITIES/DISCHARGE PLAN OF CARE ACTIVITIES PLAN Date:07/23/21 Identified Need:individualized activity plan Intervention/Plan:Jania enjoys reading and watching tv. She will be offered books from the [employer] and magazines and newspapers as available. Jania also loves animals and would enjoy pet therapy if it again becomes available. Initials [facility] [place] DISCHARGE PLAN Date:07/23/21 Identified Need:safe discharge oplan Intervention/Plan:Jania will likely be transferred to a SNF for short term rehab or buttermaker continuous churn care Initials [facility] [place]
[2021-07-23] MEDS: Lidocaine Patch Removal 1 EACH TP (19:23)
[2021-07-24 08:07] VITALS: BP 118/49; PULSE 57; RESP 16; TEMP 37; O2SAT 98
--- NOTE | 2021-07-24 09:20 | OT.INTREAT ---
Occupational Therapy Notes Occupational Therapy Inpatient Treatment Note Date: 07/24/21 PRECAUTIONS: Fall, Standard, DNR/DNI SUBJECTIVE: Pt states that she is doing well today. She reports that she just wants to relax and watch her [employer] videos all day. OBJECTIVE: PAIN:c/o pain in (R) UE including the shoulder FUNCTIONAL MOBILITY Sit-stand: CGA Stand-sit: CGA Bed-Chair: SBA Chair-bed: SBA BATHING: sitting in chair with max (A) Set up/clean up Upper Body: (I) face, (I) (R) UE, max (A) (L) UE, (I) abdomen, max (A) back Lower Body: Mod (A) parul area, Mod (A) (B) LE DRESSING: sitting in chair Upper Extremity: mod (A) doffing robe, mod (A) don and doffing hospital gown with min vc Lower Extremity: max (A) don and doffing (B) socks GROOMING: (I) brushing hair TOILETING: Device: Toilet Assist: (I) with toilet hygiene TREATMENT CODES/TIME: 24630, 20 minutes (08:45) Kasey Xavier, OTR/L [facility]
[2021-07-24] MEDS: Lidocaine 5% Patch 1 PATCH TP (09:58)
[2021-07-24] MEDS: Acetaminophen 325 MG TAB 650 MG PO ×4 (09:59→19:57)
--- NOTE | 2021-07-24 11:15 | W.NUTCONSULT ---
Date of service: 07/24/21 Time of Service: 11:15 Nutritional Consult ASSESSMENT: 80 year old female readmitted same day as discharge from [facility]. Maddi was admitted 06/30/21 to [facility] with fracture of humerus. ? BMI of 15 with 20 lbs weight loss (-25%) in last 90 days indicates severe malnutrition.? Hx of ETOH abuse. ? Ordered Regular meal plan with excellent intake since readmit. Readmitted for Adult Failure to Thrive, awaiting SNF placement. Previous admission needed appetite stimulant (megace) to maintain po intake. At high nutritional risk in view of low weight and hx of significant weight loss in last 90 days Lives alone, receives ensure as supplement at home. Estimated Needs:? 5130-9074 kcal, 50-55 g protein, 1500 ml fluid NUTRITIONAL DIAGNOSIS: Severe malnutrition as evidenced by BMI of 15 and 25% weight loss in last 90 days INTERVENTION: Continue regular meal plan Supplement with folate, thiamin, calcium/D, VIt C, MVI Consider restarting Megace if unable to consume at least 50% of meals. MONITORING AND EVALUATION: po intake, weight, labs Time Spent in Nutritional Counseling and Treatment: 5
--- NOTE | 2021-07-24 12:00 | PHA.REVIEW ---
Pharmacy Admission Review - Admission Clinical Review (Last Updated 07/22/21 @ 12:30 by Ashley Melendez DO) Adult failure to thrive (Acute) Discharge planning issues (Acute) Malnutrition (Acute) Fracture of proximal humerus (Acute) aspirin Adverse Reaction (Intermediate, Unverified 06/29/21 10:45) most medication Adverse Reaction (Intermediate, Uncoded 06/29/21 10:45) makes her sick to her stomach lactose intolerant Adverse Reaction (Uncoded 06/29/21 10:45) n/d, stomach cramps Resuscitation Status DNR/DNI Height 5 ft 1.81 in Weight 37.6 kg - Renal Dosing Renal Dosing: BUN 19 mg/dL (7-18) H 07/22/21 13:02 Creatinine 0.5 mg/dL (0.55-1.02) L 07/22/21 13:02 Medications needing adjustments: Reviewed List of meds needing interventions: eCrCl 34 ml/min, all orders appropriately dosed - Anticoagulation Anticoagulation: Hgb 11.2 g/dL (11.2-15.7) 07/22/21 13:02 Hct 36.2 % (36.0-46.0) 07/22/21 13:02 Plt Count 395 10^3/uL (130-400) D 07/22/21 13:02 Creatinine 0.5 mg/dL (0.55-1.02) L 07/22/21 13:02 DVT Prophylaxis: N/A Therapeutic Anticoagulation: N/A (were held last admission due to large scalp hematoma as well as R shoulder hematoma and patient is also ambulatory) - Opiate Usage Evaluate Pain Scale/Pains Meds: N/A - Relevant Labs Sodium 139 mmol/L (136-145) 07/22/21 13:02 Potassium 3.6 mmol/L (3.5-5.1) 07/22/21 13:02 Chloride 107 mmol/L (98-107) 07/22/21 13:02 Electrolytes, C-Reactive P, ESR: Reviewed - DM Control DM Control: Glucose 82 mg/dL (74-106) 07/22/21 13:02 Insulin Dosing: N/A - Heart Failure/IA EF%, GLADIS's, B-Blockers, Diuretics: N/A - BP Control BP Control: Blood Pressure 118/49 If elevated: N/A - Qtc Review If Elevated: N/A - IV to PO Switch IV Medications: N/A - Home Meds Home Med List reviewed: Reviewed - Current meds Current Medication Order Review: Intervened (ordered vitamins/supplements recommended by nutrition)
[2021-07-24 14:39] VITALS: BP 107/54; PULSE 62; RESP 17; TEMP 36.9; O2SAT 97
--- NOTE | 2021-07-24 14:52 | PTTR_ITS ---
PT Notes Visit Reasons: Generalized Weakness,Failure to Thrive Inpatient Physical Therapy Treatment Note [facility] Date: 07/24/21 SUBJECTIVE: Jania c/o pain in shld this am. She also reports weakness in her legs both in am and pm. OBJECTIVE: [] BED MOBILITY/TRANSFERS pt seated in recliner Sit-stand: S Stand-sit: S GAIT Assistive Device: PH[employer]CH[employer] INSTRUCTOR in am (she felt she needed the support) SPC in pm Weight bearing: NWB R UE Assist:CGA Distance: 100'x2 in am and 250' in pm Deviation: encouraged to avoid lifting right arm THEREX: brief LE strengthening while seated as well as AROM of wrist and elbow. Pendulum ex were attempted however she stated this was too painful for her and I stopped them. ASSESSMENT: tolerated session well despite c/o leg weakness. I did note swelling in upper arm this am, which seemed better in pm. PLAN: will continue to work on functional mobility as well as UE ex per protocol following PT POC. TREATMENT CODE/TIME: 15 min am, 15 min in pm [id number]
--- NOTE | 2021-07-24 17:11 | CMPROGNOTE_ITS ---
- If Service Date Differs Date of service: 07/24/21 Time of Service: 17:11 Care Management Progress Note [facility] Medicaid application completed, coordinated collection of guardian signature and submitted to [facility]. Faxed referral to [facility] for support with L/T placement and to inquire as to JENELLE status: JENELLE is active.
[2021-07-24] MEDS: Ascorbic Acid 500 MG TAB PO (19:57)
[2021-07-24] MEDS: Calcium 600mg/Vit D 200U TAB 1 TAB PO (19:57)
[2021-07-24] MEDS: QUEtiapine 25 MG TAB PO (21:32)
[2021-07-24] MEDS: Melatonin 3 MG TAB PO (21:32)
[2021-07-24 23:10] VITALS: BP 121/66; PULSE 67; RESP 17; TEMP 36.2; O2SAT 97
[2021-07-25 07:46] VITALS: BP 122/64; PULSE 59; RESP 16; TEMP 37.1; O2SAT 98
[2021-07-25] MEDS: Thiamine 100 MG TAB PO (08:14)
[2021-07-25] MEDS: Cholecalciferol (Vitamin D3) 1,000 UNIT TAB 1000 UNITS PO (08:14)
[2021-07-25] MEDS: Ascorbic Acid 500 MG TAB PO ×2 (08:14→19:49)
[2021-07-25] MEDS: Multivitamin TAB 1 TAB PO (08:14)
[2021-07-25] MEDS: Calcium 600mg/Vit D 200U TAB 1 TAB PO ×2 (08:14→19:49)
[2021-07-25] MEDS: Folic Acid 1 MG TAB PO (08:15)
[2021-07-25] MEDS: Acetaminophen 325 MG TAB 650 MG PO ×4 (08:15→19:49)
[2021-07-25] MEDS: Lidocaine 5% Patch 1 PATCH TP (08:15)
--- NOTE | 2021-07-25 15:40 | PTTR_ITS ---
Date of service: 07/25/21 Time of Service: 15:40 PT Notes Visit Reasons: Generalized Weakness,Failure to Thrive Physical Therapy Inpatient Treatment Note Date: 07/25/2021 Precautions: 1. Per verbal order and clarification from Dr Dickey on 07/14/2021:?Sling can definitely be off when resting in bed or on chair. 2. Per Dr. Dickey as of 07/09/2021:?Recommend non weight bearing right upper extremity.? [place] assisted reduction with cuff and collar.? Limited passive range of motion about the shoulder: Pendulums only, at this time.? Active motion elbow wrist and hand okay. Subjective: Agreeable to morning and afternoon sessions. Requires repeated reminders that her legs are now a lot stronger and can hold her up better. Objective: General Observation: Swelling and redness in R UE significantly decreased.? Pain patch on right shoulder. Mental Status: Alert. Able to follow single step commands.? Impaired short-term memory. Pain: 6-7/10 in R shoulder during elbow exercises Vital Signs: WNL as closely monitored by nursing staff Bed Mobility/Transfers: Sit to stand with supervision Stand to sit with supervision Bed to chair supervision Chair to bed supervision Gait: Unable to tolerate up to 450 feet +100 feet of level surface ambulation using single-point cane with encouragement and frequent reminder that her legs are now a lot stronger to hold her up and that the single-point cane can provide added stability for her. THERA EX: Pendulum exercises to maintain joint flexibility while facilitating healing of fracture site.? Maximal cues provided for correct technique.? Reported to?3/10 pain in the right UE that resolved with rest. Balance: Static Sitting: Normal Dynamic Sitting: Normal Static Standing: Good Dynamic Standing: Fair ASSESSMENT: Stability of walking improving, pain tolerance in the R shoulder increasing, B LE strength improving. Supervision with all mobility ADL performance may be the safest mobility level for patient due to limited cognition and impaired safety awareness. Patient may thrive more safely in an environment with consistent supervision to ensure her safety at all times. Will plan to continue working with balance skills and progress R shoulder strength and range of motion in compliance with hospitalist and or orthopedic surgeon recommendations. DISCHARGE RECOMMENDATIONS: [] ? Home with no services [] [] ? Home with services [specify] [] ? Home with outpatient PT [] [] ? SNF for continued rehabilitation [] [] ? Application [employer]aging Specialist Care [] [] ? SNF versus LTC based on ability to participate and progress [] [X] Assisted Living facility. Patient will benefit from a setting with constant supervision to ensure safety and to provide management of patient's meals, medication intake, and self-care needs. TREATMENT CODE/TIME:? Session 1--60649 x 17 minutes, 31222 x 10 minutes beginning at 11:16 AM. Session 2--16133 x 16 minutes beginning at 15:40 PM.
[2021-07-25] MEDS: Lidocaine Patch Removal 1 EACH TP (19:50)
[2021-07-25] MEDS: Melatonin 3 MG TAB PO (21:46)
[2021-07-25] MEDS: QUEtiapine 25 MG TAB PO (21:46)
[2021-07-25 23:19] VITALS: BP 123/66; PULSE 71; RESP 18; TEMP 37.5; O2SAT 97
[2021-07-26 07:48] VITALS: BP 130/70; PULSE 79; RESP 16; TEMP 37.1; O2SAT 95
[2021-07-26] MEDS: Lidocaine 5% Patch 1 PATCH TP (08:47)
[2021-07-26] MEDS: Cholecalciferol (Vitamin D3) 1,000 UNIT TAB 1000 UNITS PO (08:48)
[2021-07-26] MEDS: Calcium 600mg/Vit D 200U TAB 1 TAB PO ×2 (08:48→20:13)
[2021-07-26] MEDS: Acetaminophen 325 MG TAB 650 MG PO ×4 (08:48→20:13)
[2021-07-26] MEDS: Multivitamin TAB 1 TAB PO (08:48)
[2021-07-26] MEDS: Ascorbic Acid 500 MG TAB PO ×2 (08:48→20:13)
[2021-07-26] MEDS: Folic Acid 1 MG TAB PO (08:48)
[2021-07-26] MEDS: Thiamine 100 MG TAB PO (08:48)
--- NOTE | 2021-07-26 11:16 | PT.INTREAT ---
PT Notes Visit Reasons: Generalized Weakness,Failure to Thrive Inpatient Physical Therapy Treatment Note [facility] Date: 07/26/21 PRECAUTIONS:Only AROM to elbow with flex/ext and shoulder codmens Supine-sit: SBA Sit-supine: SBA Sit-stand: SBA Stand-sit: SBA GAIT Assistive Device: SPC Weight bearing: Full No wt bearing with R UE Assist: SBA/CGA Distance: 200ft sat in bed then 10ft to toilet and back THEREX: Pt completed AAROM to the elbow into flexion and ext x 20. I did not have pt perform Codmens due to her ability to not actively move the R UE.Pt required mod cue for not utilizing the R UE. Pt completed LE strengthening ther ex as per flow sheet. ASSESSMENT: Pt tolerated today's session well. Pt is motivated to exercise, but is having difficulty remembering not to move the involved UE. PLAN: Cont as per PT POC as per bimal. TREATMENT CODE/TIME: 10:40-11:05 KARON PEREZ
[2021-07-26] MEDS: Lidocaine Patch Removal 1 EACH TP (20:14)
[2021-07-26] MEDS: Melatonin 3 MG TAB PO (21:22)
[2021-07-26] MEDS: QUEtiapine 25 MG TAB PO (21:22)
[2021-07-27 07:30] VITALS: BP 144/73; PULSE 62; RESP 16; TEMP 37.4; O2SAT 98
[2021-07-27] MEDS: Thiamine 100 MG TAB PO (09:23)
[2021-07-27] MEDS: Multivitamin TAB 1 TAB PO (09:23)
[2021-07-27] MEDS: Cholecalciferol (Vitamin D3) 1,000 UNIT TAB 1000 UNITS PO (09:23)
[2021-07-27] MEDS: Lidocaine 5% Patch 1 PATCH TP (09:23)
[2021-07-27] MEDS: Ascorbic Acid 500 MG TAB PO ×2 (09:23→19:45)
[2021-07-27] MEDS: Acetaminophen 325 MG TAB 650 MG PO ×4 (09:23→19:45)
[2021-07-27] MEDS: Calcium 600mg/Vit D 200U TAB 1 TAB PO ×2 (09:23→19:45)
[2021-07-27] MEDS: Folic Acid 1 MG TAB PO (09:24)
--- NOTE | 2021-07-27 11:46 | PT.INTREAT ---
PT Notes Visit Reasons: Generalized Weakness,Failure to Thrive Inpatient Physical Therapy Treatment Note [facility] Date: 07/27/21 PRECAUTIONS:No ROM to involved UE codmens only and AAROM to AROM of the elbow into flex/ext SUBJECTIVE: Pt in the am attempted to start her PT but wanted to wake up more so gave her a rest and came back. OBJECTIVE: Supine-sit: SBA Sit-supine: SBA Sit-stand: SBA Stand-sit: SBA GAIT Assistive Device: SPC Weight bearing: Full Assist: SBA/CGA Distance: In the am pt just ambulated to from the bed to the bathroom and back and second am visit approx 75ftx2. THEREX: Pt completed codmens with mod vc's and AAROM of the elbow into shoulder flexion and ext. Pt completed seated LAQ and marching x 10. ASSESSMENT: Pt was somewhat aggitated this am when she first woke up but after she ate breakfast and got washed up her second am visit she was much more willing to participate in PT. Pt was not able to tolerate as much waling today due to fatigue. PLAN: Cont as per PT POC. TREATMENT CODE/TIME: 9:10-9:20-10:05-10:30 (80) TAx2
[2021-07-27 19:30] VITALS: BP 118/67; PULSE 73; RESP 18; TEMP 37.2; O2SAT 98
--- NOTE | 2021-07-27 19:30 | RT.EKG_ITS ---
APPROVED REPORT Exam: Resting ECG Reason for Exam: CHEST PRESSURE Patient Location: I HR:60 bpm ECG Measurements Heart Rate 60 AXIS NH 178 P 45 QRSd 76 QRS 20 QT 425 T 59 QTc 425 Conclusion Sinus rhythm...normal P axis, V-rate 50- 99 Anteroseptal infarct, age indeterminate...Q >35mS, T neg, V1-V2 Lateral leads are also involved...lat Q or ST-T abnormalities
--- NOTE | 2021-07-27 19:31 | NUR.NOTE ---
Nursing Note: Pt complaining of 5 /10 chest pain/tightness/heaviness. Pt states that sometimes it causes her to have small periods of difficulty breathing. VS obtained and stable. Pt does not appear to be in any distress at this time. Charge nurse made aware. Covering physician aware. EKG ordered.
[2021-07-27] MEDS: Lidocaine Patch Removal 1 EACH TP (19:46)
[2021-07-27] MEDS: Melatonin 3 MG TAB PO (21:37)
[2021-07-27] MEDS: QUEtiapine 25 MG TAB PO (21:37)
[2021-07-28] MEDS: Calcium 600mg/Vit D 200U TAB 1 TAB PO ×2 (08:54→19:41)
[2021-07-28] MEDS: Ascorbic Acid 500 MG TAB PO ×2 (08:54→19:41)
[2021-07-28] MEDS: Cholecalciferol (Vitamin D3) 1,000 UNIT TAB 1000 UNITS PO (08:55)
[2021-07-28] MEDS: Folic Acid 1 MG TAB PO (08:55)
[2021-07-28] MEDS: Lidocaine 5% Patch 1 PATCH TP (08:55)
[2021-07-28] MEDS: Acetaminophen 325 MG TAB 650 MG PO ×4 (08:55→19:41)
[2021-07-28] MEDS: Thiamine 100 MG TAB PO (08:55)
[2021-07-28] MEDS: Multivitamin TAB 1 TAB PO (08:55)
--- NOTE | 2021-07-28 09:56 | OT.INNT ---
Occupational Therapy Notes 07/28/21 OT attempted to see pt 2x this morning (08:15 and 09:45) and she was sleeping both times. OT will resume services tomorrow. Kasey Xavier OTR/L
--- NOTE | 2021-07-28 11:19 | PT.INTREAT ---
Date of service: 07/28/21 Time of Service: 11:19 PT Notes Visit Reasons: Generalized Weakness,Failure to Thrive Physical Therapy Inpatient Treatment Note Date: 07/28/2021 Precautions: 1. Per verbal order and clarification from Dr Dickey on 07/14/2021:?Sling can definitely be off when resting in bed or on chair. 2. Per Dr. Dickey as of 07/09/2021:?Recommend non weight bearing right upper extremity.? [place] assisted reduction with cuff and collar.? Limited passive range of motion about the shoulder: Pendulums only, at this time.? Active motion elbow wrist and hand okay. Subjective: Agreeable to morning and afternoon sessions.? Requires repeated reminders that her legs are now a lot stronger and can hold her up better. Objective: General Observation: Swelling and redness in R UE significantly decreased.? Pain patch on right shoulder. Mental Status: Alert. Able to follow single step commands.? Impaired short-term memory. Pain: 5/10 in R shoulder during elbow exercises Vital Signs: WNL as closely monitored by nursing staff Bed Mobility/Transfers: Sit to stand with supervision Stand to sit with supervision Bed to chair supervision Chair to bed supervision Gait: 460 feet using SPC with no loss of balance nor excessive postural sway seen. Did report fatigue midway between the walk but with encouragement patient was able to do more. Cues given to let R arm hang loose on the arm/cuff sling. THERA EX: Pendulum exercises to maintain joint flexibility while facilitating healing of fracture site.? AROm to R elbow, forarm, adn wrist for 15 reps. Maximal cues provided for correct technique.? Reported to?3/10 pain in the right UE that resolved with rest. Balance: Static Sitting: Normal Dynamic Sitting: Normal Static Standing: Good Dynamic Standing: Fair ASSESSMENT: Reached out to Dr. Dickey today regarding scheduled orthopedic follow up 2 weeks from when he last saw patient on July 09, 2021. Clarification regardign potential upgrade to R shoulder exercises and weight bearing status on the R UE made. Supervision with all mobility ADL performance may be the safest mobility level for patient due to limited cognition and impaired safety awareness.? Patient may thrive more safely in an environment with consistent supervision to ensure her safety at all times.? Will plan to continue working with balance skills and progress R shoulder strength and range of motion in compliance with hospitalist and or orthopedic surgeon recommendations. Decreased to 1x/day beginning today. ? DISCHARGE RECOMMENDATIONS: [] ? Home with no services [] [] ? Home with services [specify] [] ? Home with outpatient PT [] [] ? SNF for continued rehabilitation [] [] ? [employer] Care [] [] ? SNF versus LTC based on ability to participate and progress [] [X] Assisted Living facility.? Patient will benefit from a setting with constant supervision to ensure safety and to provide management of patient's meals, medication intake, and self-care needs. TREATMENT CODE/TIME:? 27246 x 15 minutes,? 67640 x 8 minutes beginning at 11:19 AM.
[2021-07-28 11:33] VITALS: BP 109/63; PULSE 67; RESP 16; TEMP 36.5; O2SAT 99
--- NOTE | 2021-07-28 18:05 | W.PALLCONSUL ---
Date of service: 07/28/21 Time of Service: 14:00 History of Present Illness Narrative: Ms. Dykes is a 80 y/o F currently inpatient at [facility] 05/28; PMHx sig for AUD and CAD Presented to ED on 06/29/21 w/CC of R shoulder pain, CT found?severely comminuted, overriding, and impacted humeral head/neck fracture, admitted 2/2 PT need and transferred to ICU / CIWA protocol in place;?orthopedic consult, pt not medically cleared for surgery, f/u in 2 wks outpatient;?Psych consult: patient lacks decision making capacity to decline recommended disposition to SNF; Pt left 07/21/21 AMA and returned to ED 07/22/21 d/t ?I do not feel safe at home? Pt is happy to be back in the hospital in a ?safe space?, is open to the idea of working on anything to improve quality of life and help straighten out new lifestyle; reports confusion, feeling lost, which she is aware she needs help straightening out, is hoping for a successful and smooth transition to SNF after d/c, aware that needs help caring for self at this time and open to assistance; denies pain when does not move, shoulder still hurts, unclear understanding of pain source; denies appetite changes; would like to be closer to people, have a support system, reports self as ?family orientated but not close to own family?; would like more frequent [facility] visits during hospitalization CM reports working on switching public guardianship from temporary to watermaster from the state; working on senior care Medicaid faina for SNF placement Assessment and Plan Assessment and plan (1) Adult failure to thrive: Status: Acute Assessment and plan: plan to discharge to SNF; pt agrees needs more support (2) Poor historian: Status: Acute Assessment and plan: working on public guardianship from temporary to senior care (3) Fracture of proximal humerus: Status: Acute Assessment and plan: pain controlled (4) Scalp hematoma: Status: Resolved (5) Unable to care for self: Assessment and plan: plan for d/c to SNF (6) Palliative care patient: Status: Acute Assessment and plan: continue to follow, through hospitalization and discharge to SNF Review of Systems Constitutional Constitutional: Reports as per HPI PFSH All Active Problems (Updated 07/28/21 @ 18:14 by Cathryn Chacon NP) Palliative care patient (Acute) Adult failure to thrive (Acute) Poor historian (Acute) Confabulation (Acute) Discharge planning issues (Acute) Malnutrition (Acute) Anemia (Chronic) Dementia (Chronic) Fracture of proximal humerus (Acute) Ambulatory dysfunction (Acute) Pain of right lower extremity (Acute) Knee pain (Acute) Fall (Acute) Unable to ambulate (Acute) Discharge planning issues (Acute) Knee pain, right (Acute) Macrocytic anemia with vitamin B12 deficiency (Chronic) Abnormal auditory perception (Acute) Cerumen impaction (Acute) Sensory hearing loss, bilateral (Acute) Otorrhea of left ear (Acute) Fracture, humerus (Acute) Fracture, intertrochanteric, left femur (Acute) Medical History Alcohol use, unspecified with other alcohol-induced disorder CAD (coronary artery disease) Iron deficiency Unable to care for self Surgical History S/P appendectomy S/P hysterectomy Status post open reduction with internal fixation of fracture 1. left hip 2. left shoulder Social History Smoking/Tobacco Use Status: Current every day Tobacco Type: cigarettes Smoking risk assessment performed?: Yes Alcohol Intake: current Alcohol Intake frequency: holidays/special occasions only Alcohol type: wine Drug use: Never Substance use type: does not use Do you feel safe at home: Yes Do you feel safe in your relationship?: Yes Exam Narrative Exam Narrative: pt sitting comfortably in bed at time of visit Const General: cooperative, comfortable and no acute distress Nutritional Appearance: thin Orientation: alert, awake and oriented x3 HENMT Head: other (yellow/green healing bruise over R forehead) Ears: hearing grossly normal bilaterally Resp Effort & Inspection: normal respiratory effort, able to speak in complete sentences, no audible wheezes and no cough Skin Other: healing buise over head as above; RUE ecchymosis and swelling Extrem Other: RUE w/sling in place; moves LUE appropriately; shrugs shoulders w/o grimace (improvement from previous visit) Psych Other: pt calm, cooperative, agreeable; perseverates on changing confusion and changes in life not going smoothly, cyclical pattern of answering questions Results Last Vital Signs Temp 97.7 F 07/28/21 11:33 Pulse 67 07/28/21 11:33 Resp 16 07/28/21 11:33 BP 109/63 07/28/21 11:33 Pulse Ox 99 07/28/21 11:33 Labs Result diagrams: 07/22/21 13:02 07/22/21 13:02
[2021-07-28] MEDS: Lidocaine Patch Removal 1 EACH TP (19:41)
[2021-07-28] MEDS: QUEtiapine 25 MG TAB PO (21:55)
[2021-07-28] MEDS: Melatonin 3 MG TAB PO (21:55)
[2021-07-29] MEDS: Acetaminophen 325 MG TAB 650 MG PO ×4 (08:44→21:09)
[2021-07-29] MEDS: Cholecalciferol (Vitamin D3) 1,000 UNIT TAB 1000 UNITS PO (08:44)
[2021-07-29] MEDS: Multivitamin TAB 1 TAB PO (08:44)
[2021-07-29] MEDS: Lidocaine 5% Patch 1 PATCH TP (08:44)
[2021-07-29] MEDS: Thiamine 100 MG TAB PO (08:44)
[2021-07-29] MEDS: Folic Acid 1 MG TAB PO (08:44)
[2021-07-29] MEDS: Ascorbic Acid 500 MG TAB PO ×2 (08:44→21:09)
[2021-07-29] MEDS: Calcium 600mg/Vit D 200U TAB 1 TAB PO ×2 (08:45→21:09)
--- NOTE | 2021-07-29 09:51 | OTTR_ITS ---
Occupational Therapy Notes Occupational Therapy Inpatient Treatment Note Date: 07/29/21 PRECAUTIONS: Fall, standard, DNR/DNI SUBJECTIVE: Pt was sitting in the chair when OT arrived. She is confused today stating, where is this facility located and what is it? When told she was at [facility] in [facility] she responds with Oh I'm so glad to be back in [place], I love it here in [place]. OBJECTIVE: PAIN:no c/o pain today FUNCTIONAL MOBILITY Sit-stand: (S) Stand-sit: (S) Bed-Chair: CGA pt wouldnt use cane Chair-bed: CGA pt wouldnt use cane BATHING: sitting in chair max (A) Set up/clean up Upper Body: (I) face, (B) UE as pt used her (R) UE even though not recommended due to fx Lower Body: Min (A), parul area (I) on toilet DRESSING: sitting in chair Upper Extremity: (I) [facility], min (A) with arm sling but used (B) UE today Lower Extremity: NT GROOMING: sitting in chair (I) with brushing hair TOILETING: Device: Toilet Assist: (I) ASSESSMENT/PLAN: [] TREATMENT CODES/TIME: 37932s6, 25 minutes (09:30) Kasey Xavier OTR/[facility]
--- NOTE | 2021-07-29 12:05 | DI.RAD_ITS ---
Exam(s) XR SHOULDER RT COMPLETE 2+V EXAM: XR SHOULDER RT COMPLETE 2+V CLINICAL HISTORY: Fx f/u. TECHNIQUE: 2D digital imaging was performed of the right shoulder. Three images were obtained. Gra sarah and Y view views were obtained. COMPARISON: CR XR SHOULDER RT COMPLETE 2+V from 07/09/2021 FINDINGS: BONES: There is again seen a displaced fracture through the surgical neck of the right humerus. The humeral head is located within the glenoid fossa. Callus formation has developed about the fracture site consistent with some interval healing. No bony destructive lesion is seen. JOINTS: No dislocation present. SOFT TISSUE: There is decreased soft tissue swelling around the shoulder. IMPRESSION: Healing displaced proximal right humeral fracture. DATA REPOSITORY: RADIATION DOSE DELIVERED:
--- NOTE | 2021-07-29 14:14 | PTTR_ITS ---
Date of service: 07/29/21 Time of Service: 14:14 PT Notes Visit Reasons: Generalized Weakness,Failure to Thrive Physical Therapy Inpatient Treatment Note Date: 07/29/2021 Precautions: 1. Per verbal order and clarification from Dr Dickey on 07/14/2021:?Sling can definitely be off when resting in bed or on chair. 2. Per Dr. Dickey as of 07/09/2021:?Recommend non weight bearing right upper extremity.? [place] assisted reduction with cuff and collar.? Limited passive range of motion about the shoulder: Pendulums only, at this time.? Active motion elbow wrist and hand okay. Subjective: Agreeable to session. Objective: General Observation: Swelling and redness in R UE resolving.? Pain patch on right shoulder. Mental Status: Alert. Able to follow single step commands.? Impaired short-term memory. Pain: 3-4/10 in R shoulder during elbow exercises Bed Mobility/Transfers: Sit to stand with supervision Stand to sit with supervision Bed to chair supervision Chair to bed supervision Gait: 520 feet using SPC with no loss of balance nor excessive postural sway seen.? Did report fatigue midway between the walk but with encouragement patient was able to do more.? Continues to need cues to let R arm hang loose on the arm/cuff sling. THERA EX: Pendulum exercises to maintain joint flexibility while facilitating healing of fracture site.? AROm to R elbow, forarm, adn wrist for 15 reps.? Maximal cues provided for correct technique.? Reported to?3/10 pain in the right UE that resolved with rest. Balance: Static Sitting: Normal Dynamic Sitting: Normal Static Standing: Good Dynamic Standing: Fair ASSESSMENT: Awaiting follow up orthopedic visit by Dr. Dickey for clarification regarding potential upgrade to R shoulder exercises and weight bearing status on the R UE. ? Supervision with all mobility ADL performance may be the safest mobility level for patient due to limited cognition and impaired safety awareness.? Patient may thrive more safely in an environment with consistent supervision to ensure her safety at all times.? Continue working with balance skills and progress R shoulder strength and range of motion in compliance with hospitalist and or orthopedic surgeon recommendations.? Decreased to 1x/day as of 07/28/2021. ? DISCHARGE RECOMMENDATIONS: [] ? Home with no services [] [] ? Home with services [specify] [] ? Home with outpatient PT [] [] ? SNF for continued rehabilitation [] [] ? [facility] [] [] ? SNF versus LTC based on ability to participate and progress [] [X] Assisted Living facility.? Patient will benefit from a setting with constant supervision to ensure safety and to provide management of patient's meals, medication intake, and self-care needs. TREATMENT CODE/TIME:? 58838 x 15 minutes,? 59792 x 15 minutes beginning at 14:14 PM.
[2021-07-29 16:32] VITALS: BP 112/74; PULSE 74; RESP 18; TEMP 36.8; O2SAT 96
[2021-07-29] MEDS: Melatonin 3 MG TAB PO (21:09)
[2021-07-29] MEDS: Lidocaine Patch Removal 1 EACH TP (21:09)
[2021-07-29] MEDS: QUEtiapine 25 MG TAB PO (21:09)
[2021-07-30] MEDS: Folic Acid 1 MG TAB PO (08:01)
[2021-07-30] MEDS: Lidocaine 5% Patch 1 PATCH TP (08:01)
[2021-07-30] MEDS: Acetaminophen 325 MG TAB 650 MG PO ×3 (08:01→21:28)
[2021-07-30] MEDS: Thiamine 100 MG TAB PO (08:02)
[2021-07-30] MEDS: Calcium 600mg/Vit D 200U TAB 1 TAB PO ×2 (08:02→21:28)
[2021-07-30] MEDS: Multivitamin TAB 1 TAB PO (08:02)
[2021-07-30] MEDS: Cholecalciferol (Vitamin D3) 1,000 UNIT TAB 1000 UNITS PO (08:02)
[2021-07-30] MEDS: Ascorbic Acid 500 MG TAB PO ×2 (08:02→21:28)
--- NOTE | 2021-07-30 10:49 | W.PM.PROGNOT ---
Date of Service Date of service: 07/30/21 Time of Service: 10:49 Assessment and Plan Assessment and plan (1) Fracture of proximal humerus: Status: Acute Assessment and plan: followed by orthopedics, plan is non-surgical continue sling when ambulating pain management PT/OT (2) Malnutrition: Status: Acute Assessment and plan: continue nutritional supplements. 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 has a public guardian assigned as she was deemed incompetent. no behavioral issues. (4) Adult failure to thrive: Status: Acute Assessment and plan: remains medically stable. agreeable to stay for rehab. (5) Discharge planning issues: Status: Acute Assessment and plan: case management will be following. appropriate for swing bed level 1 as she has been working with physical therapy and slowly progressing. recommendations were for ongoing rehabilitation. discussed with Dr Santos Subjective Subjective Patient reports: no new complaints, pain is less, tolerating liquids well, tolerating a regular diet, voiding w/o difficulty and afebrile Interval history since last seen: has been working with PT and progressing well. Exam Const General: cooperative, comfortable, no acute distress and frail appearing Nutritional Appearance: cachectic Orientation: alert, awake, oriented to person and oriented to place [facility] Head: normal to inspection, normocephalic and atraumatic Teeth and gingiva: poor dentition (many missing teeth. poor dentiiton of few remaining) Resp Effort & Inspection: normal respiratory effort Auscultation: clear to auscultation bilaterally Cardio Rate: regular rate Rhythm: regular rhythm GI Inspection: normal to inspection Palpation: soft and nontender Skin General skin exam: dry skin, ecchymosis and turgor decreased Rashes: no rashes Hair: general thinning Neuro General: patient alert, patient awake and no focal motor deficits Cognition: abnormal cognition (cognitive impaired but at baseline, poor historian) Speech: speech normal Gait: gait assisted Motor: strength not 5/5 throughout (right upper extremity, deformity and sling, weight bearing restriction) Extrem General: abnormal ROM (limited right upper extremiety) and edema Laterality: right (upper, improved) Right upper extremity: shoulder/upper arm Details: ecchymosis and deformity Location: of the proximal humerus Location: anteriorly Psych Appearance: grossly normal Mental Status: mental status grossly normal Speech and Movement: speech and movement normal Mood: congruent mood Affect: normal affect Attitude: cooperative Insight: limited Judgment: limited Objective Last Vital Signs Temp 36.8 C 07/29/21 16:32 Pulse 74 07/29/21 16:32 Resp 18 07/29/21 16:32 BP 112/74 07/29/21 16:32 Pulse Ox 96 07/29/21 16:32
[2021-07-30 11:22] VITALS: BP 120/64; PULSE 61; RESP 17; TEMP 36.9; O2SAT 98
--- NOTE | 2021-07-30 14:18 | INPN_ITS ---
Date of service: 07/30/21 Time of Service: 14:18 PT Notes Visit Reasons: Generalized Weakness,Failure to Thrive Physical Therapy Inpatient Progress Note Date: 07/30/2021 Dates of service: 07/23/2021 through 07/30/2021 Referring Doctor: Melissa Cai NP PT Orders: PT CONSULT: Eval/treat Precautions: 1. Per verbal order and clarification from Dr Dickey on 07/14/2021:?Sling can definitely be off when resting in bed or on chair. 2. Per Dr. Dickey as of 07/09/2021:?Recommend non weight bearing right upper extremity.? [place] assisted reduction with cuff and collar.? Limited passive range of motion about the shoulder: Pendulums only, at this time.? Active motion elbow wrist and hand okay. Patient Profile/Admitting Diagnosis: Maddi is a 80-year-old female with widely displaced right proximal humeral fracture due to suspected repeated falls at home.? Patient is diagnosed with proximal humeral fracture, malnutrition, dementia, and adult failure to thrive. PMHX: All Active Problems?(Updated 07/22/21 @ 12:30 by Ashley Melendez DO) Adult failure to thrive (Acute) Poor historian (Acute) Confabulation (Acute) Discharge planning issues (Acute) Malnutrition (Acute) Anemia (Chronic) Dementia (Chronic) Fracture of proximal humerus (Acute) Ambulatory dysfunction (Acute) Pain of right lower extremity (Acute) Knee pain (Acute) Fall (Acute) Unable to ambulate (Acute) Discharge planning issues (Acute) Knee pain, right (Acute) Macrocytic anemia with vitamin B12 deficiency (Chronic) Abnormal auditory perception (Acute) Cerumen impaction (Acute) Sensory hearing loss, bilateral (Acute) Otorrhea of left ear (Acute) Fracture, humerus (Acute) Fracture, intertrochanteric, left femur (Acute) Medical History?(Updated 07/22/21 @ 12:30 by Ashley Melendez DO) Alcohol use, unspecified with other alcohol-induced disorder CAD (coronary artery disease) Iron deficiency Unable to care for self Surgical History? S/P appendectomy S/P hysterectomy Status post open reduction with internal fixation of fracture 1.? left hip 2.? left shoulder Social History/Home Situation: Lives alone in her apartment at the [facility].? Independent with all aspects of ADs prior to admission.? Equipment Owned/DME: None Subjective: Agreeable to session. Objective: General Observation: Swelling and redness in R UE resolving.? Pain patch on right shoulder. Mental Status: Alert. Able to follow single step commands.? Impaired short-term memory. Pain: 3-4/10 in R shoulder during elbow exercise ROM: Right Upper Extremity: ? Shoulder Flexion NT. Shoulder abduction NT. Elbow flexion 0 to 45 WFL. Wrist flexion WFL. Functional opening and closing of hand WFL. Left Upper Extremity:? Shoulder Flexion WFL. Shoulder abduction WFL. Elbow flexion WFL. Wrist flexion WFL. Functional opening and closing of hand WFL. Right Lower Extremity: Hip flexion WFL. Hip abduction WFL. Knee flexion WFL. Ankle dorsiflexion WFL. Ankle plantarflexion WFL. Left Lower Extremity: Hip flexion WFL. Hip abduction WFL. Knee flexion WFL. Ankle dorsiflexion WFL. Ankle plantarflexion WFL. Strength: Right Upper Extremity: Shoulder flexors NT. Shoulder abductors NT. Elbow flexors 4-/5. Elbow extensors 3/5. [employer] strong. Left Upper Extremity: Shoulder flexors 4-/5. Shoulder abductors 4-/5. Elbow flexors 4-/5. Elbow extensors 4-/5. [employer] strong. Right Lower Extremity: Hip flexors 4/5. Hip abductors 4/5. Knee flexors 4/5. Knee extensors 4/5. Ankle dorsiflexors 4/5. Ankle plantarflexors 4/5. Left Lower Extremity: Hip flexors 4/5. Hip abductors 4/5. Knee flexors 4/5. Knee extensors 4/5. Ankle dorsiflexors 4/5. Ankle plantarflexors 4/5. BBed Mobility/Transfers: Sit to stand with supervision Stand to sit with supervision Bed to chair supervision Chair to bed supervision Gait: 520 feet using SPC with no loss of balance nor excessive postural sway seen.? Did report fatigue midway between the walk but with encouragement patient was able to do more.? Continues to need cues to let R arm hang loose on the arm/cuff sling. THERA EX: Pendulum exercises to maintain joint flexibility while facilitating healing of fracture site.? AROm to R elbow, forarm, adn wrist for 15 reps.? Maximal cues provided for correct technique.? Reported to?3/10 pain in the right UE that resolved with rest. Balance: Static Sitting: Normal Dynamic Sitting: Normal Static Standing: Good Dynamic Standing: Fair Special Tests: Mobility Limitations Standardized Measure [facility] AM-PAC 6 clicks Basic Mobility Inpatient Short Form: Raw Score: 23? CMS Score: 11% deficit? ? ? Informed Consent/Education:? Patient was instructed in purpose of PT consult and plan of care. Agreeable to proceed with established PT POC to achieve personal goals. ASSESSMENT: Awaiting follow up orthopedic visit by Dr. Dickey for clarification regarding potential upgrade to R shoulder exercises and weight bearing status on the R UE.? Supervision with all mobility ADL performance may be the safest mobility level for patient due to limited cognition and impaired safety awareness.? Patient may thrive more safely in an environment with consistent supervision to ensure her safety at all times.? Continue working with balance skills and progress R shoulder strength and range of motion in compliance with hospitalist and or orthopedic surgeon recommendations.? Decreased to 1x/day as of 07/28/2021. ? Patient presents with clinical signs and symptoms consistent with current/admitting diagnoses that have resulted to mobility limitations, gait instability, generalized weakness, and overall ADL decline as demonstrated by the following impairment level findings: 1.? Decreased strength to R UE major muscle groups 2.? Impaired standing balance 3.? Limitation of joint range of motion in R shoulder 5.? Pain in R shoulder 2-3/10 at rest 6.? Swelling in R UE now significantly diminished Impairments are contributing to the following functional limitations: 1.? Difficulty with ambulation without assistive device 2.? Increased completion time for mobility ADL performance 3.? Increased risk for falls 4.? Difficulty with managing steps alone safely 5.? Inability to thrive at home alone at this time Patient is assessed as a 02953 moderate complexity based on the following: History: 80-year-old female with past medical history as indicated above Examination: Demonstrable impairment in strength, balance, and mobility level with underlying impairments and functional limitations as exhibited above as well as deficit score of 21% utilizing the [facility] Mobility Inpatient Short Form Presentation: Evolving Decision Makin moderate complexity Goals: Goals X1 week 1. Sit-Stand independent NOT MET 2. Stand-Sit independent with SPC NOT MET 3. Bed-Chair independent with SPC NOT MET 4. Chair-Bed independent with SPC NOT MET 5.?Independent gait on level surface with use of SPC for at least 1000 feet without report of pain nor dyspnea NOT MET 6.? Good static and dynamic standing balance/tolerance NOT MET Plan of Care/Treatment Plan: 1x/day for 2 weeks. Treatment focus will be for pendulum exercises to R shoulder per orthopod instruction.? Progress balance skills while increasing B LE strength.? Plan of care has been reviewed with the MARKETING AREA MANAGER providing the service under Physical Therapy direction. DISCHARGE RECOMMENDATIONS: [] ? Home with no services [] [] ? Home with services [specify] [] ? Home with outpatient PT [] [] ? SNF for continued rehabilitation [] [] ? Skilled Nursing Care [] [] ? SNF versus LTC based on ability to participate and progress [] [X] Assisted Living facility.? Patient will benefit from a setting with constant supervision to ensure safety and to provide management of patient's meals, medication intake, and self-care needs. TREATMENT CODE/TIME: 59305 x 20 minutes, 971 0 x 10 minutes beginning at 14:18 PM. Thank you for the opportunity to participate in the care of this patient. Josie Mckeon PT, DPT, CLT [facility] [place], [place]
[2021-07-30] MEDS: QUEtiapine 25 MG TAB PO (21:28)
[2021-07-30] MEDS: Lidocaine Patch Removal 1 EACH TP (21:28)
[2021-07-30] MEDS: Melatonin 3 MG TAB PO (21:28)
[2021-07-31 07:28] VITALS: BP 144/67; PULSE 64; RESP 18; TEMP 37.1; O2SAT 97
[2021-07-31] MEDS: Ascorbic Acid 500 MG TAB PO ×2 (07:38→20:43)
[2021-07-31] MEDS: Lidocaine 5% Patch 1 PATCH TP (07:38)
[2021-07-31] MEDS: Cholecalciferol (Vitamin D3) 1,000 UNIT TAB 1000 UNITS PO (07:38)
[2021-07-31] MEDS: Calcium 600mg/Vit D 200U TAB 1 TAB PO ×2 (07:38→20:43)
[2021-07-31] MEDS: Acetaminophen 325 MG TAB 650 MG PO ×3 (07:38→20:43)
[2021-07-31] MEDS: Thiamine 100 MG TAB PO (07:39)
[2021-07-31] MEDS: Multivitamin TAB 1 TAB PO (07:39)
[2021-07-31] MEDS: Folic Acid 1 MG TAB PO (07:39)
--- NOTE | 2021-07-31 09:08 | CMPROGNOTE_ITS ---
- If Service Date Differs Date of service: 07/31/21 Time of Service: 09:08 Care Management Progress Note S/O:Jania remains on SB-2 awaiting placement. Referrals have been sent to more than a dozen facilities but no bed offers have been received. Clinically she is doing well with no complaints. She is pleasant in interaction and agreeable to conversation. Jania is generally vague with details when conversing with CM, suggesting she may have some memory issues. A new diagnosis of dementia has recently been made. 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 A LTM application was submitted by CM at the end of June. Referrals have been sent to more than a dozen facilities; only two have responded and they were both denials. CM will continue to support Jania and her discharge needs.
--- NOTE | 2021-07-31 10:20 | PDOC.CMACT ---
- If Service Date Differs Date of service: 07/31/21 Time of Service: 10:20 Care Management Activity Note Jania enjoys reading and watching television. She would enjoy music and pet therapy if they become available again.CM has offered items from the activity cart which Jania has declined. Jania also enjoys visiting with staff as she receives no visitors from the community. CM visits regularly and staff spend time with her as able.
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
--- NOTE | 2021-07-31 16:00 | PTTR_ITS ---
Date of service: 07/31/21 PT Notes Visit Reasons: Generalized Weakness,Failure to Thrive Physical Therapy Inpatient Treatment Note Date: 07/31/2021 Precautions: 1. Per verbal order and clarification from Dr iDckey on 07/14/2021:?Sling can definitely be off when resting in bed or on chair. 2. Per Dr. Dickey as of 07/09/2021:?Recommend non weight bearing right upper extremity.? [place] assisted reduction with cuff and collar.? Limited passive range of motion about the shoulder: Pendulums only, at this time.? Active motion elbow wrist and hand okay. Subjective: Agreeable to session. Still reports pain in R shoulder at 3-08/03. Objective: General Observation: Swelling and redness in R UE resolving.? Pain patch on right shoulder. Mental Status: Alert. Able to follow single step commands.? Impaired short-term memory. Pain: 3-10 in R shoulder during elbow exercise BBed Mobility/Transfers: Sit to stand with supervision Stand to sit with supervision Bed to chair supervision Chair to bed supervision Gait: 520 feet using SPC with no loss of balance nor excessive postural sway seen.? Did report fatigue midway between the walk but with encouragement patient was able to do more.? Continues to need cues to let R arm hang loose on the arm/cuff sling. THERA EX: Pendulum exercises to maintain joint flexibility while facilitating healing of fracture site.? AROm to R elbow, forarm, adn wrist for 15 reps.? Maximal cues provided for correct technique.? Reported to?3/10 pain in the right UE that resolved with rest. Balance: Static Sitting: Normal Dynamic Sitting: Normal Static Standing: Good Dynamic Standing: Fair ASSESSMENT: Needs orthopedic consult for progression of R shoulder exercises and R upper extremity weight bearing. Continues to be supervision with all mobility ADL performance which may be the safest mobility level for patient due to limited cognition and impaired safety awareness.? Decreased to 1x/day as of 07/28/2021. ? DISCHARGE RECOMMENDATIONS: [] ? Home with no services [] [] ? Home with services [specify] [] ? Home with outpatient PT [] [] ? SNF for continued rehabilitation [] [] ? Website Programmer Care [] [] ? SNF versus LTC based on ability to participate and progress [] [X] Assisted Living facility.? Patient will benefit from a setting with constant supervision to ensure safety and to provide management of patient's meals, medication intake, and self-care needs. TREATMENT CODE/TIME: 48354 x 20 minutes, 11638 x 15 minutes.
[2021-07-31] MEDS: QUEtiapine 25 MG TAB PO (20:42)
[2021-07-31] MEDS: Melatonin 3 MG TAB PO (20:42)
[2021-07-31] MEDS: Lidocaine Patch Removal 1 EACH TP (20:43)
[2021-08-01] MEDS: Lidocaine 5% Patch 1 PATCH TP (07:35)
[2021-08-01] MEDS: Thiamine 100 MG TAB PO (07:36)
[2021-08-01] MEDS: Acetaminophen 325 MG TAB 650 MG PO ×3 (07:36→21:24)
[2021-08-01] MEDS: Multivitamin TAB 1 TAB PO (07:36)
[2021-08-01] MEDS: Calcium 600mg/Vit D 200U TAB 1 TAB PO ×2 (07:36→21:24)
[2021-08-01] MEDS: Folic Acid 1 MG TAB PO (07:36)
[2021-08-01] MEDS: Ascorbic Acid 500 MG TAB PO ×2 (07:36→21:24)
[2021-08-01] MEDS: Cholecalciferol (Vitamin D3) 1,000 UNIT TAB 1000 UNITS PO (07:36)
[2021-08-01 07:52] VITALS: BP 127/69; PULSE 66; RESP 16; TEMP 36; O2SAT 98
--- NOTE | 2021-08-01 09:10 | OT.INTREAT ---
Occupational Therapy Notes Occupational Therapy Inpatient Treatment Note Date: 08/01/21 PRECAUTIONS: Fall, standard, DNR/DNI SUBJECTIVE:?Pt was sitting in the chair when OT arrived. She seems more confused today. She asks multiple times throughout session where her coffee went and then would say again, can you please get me coffee, I keep forgetting to ask you. OBJECTIVE:? PAIN:c/o pain in (R) shoulder ? FUNCTIONAL MOBILITY? Sit-stand: (S) ? Stand-sit: (S) ? Bed-Chair: SBA ? Chair-bed: SBA BATHING:?sitting in chair max (A) Set up/clean up Upper Body: (I) face, (B) UE as pt used her (R) UE even though not recommended due to fx, she is able to wash (I) with vc to allow (R) UE to heal due to pain Lower Body: Min (A), parul area (I) on toilet DRESSING:?? sitting in chair ? ? Upper Extremity: (I) [facility], min (A) with arm sling but used (B) UE today Lower Extremity: Pt reaches down to grab her socks but her (R) arm hurts GROOMING:?sitting in chair (I) with brushing hair with ideal technique TOILETING: Device: Toilet Assist: (I) with toileting hygeine ? TREATMENT CODES/TIME:?[id number], 25 minutes (08:45) ? [facility] [place]
--- NOTE | 2021-08-01 12:55 | PTTR_ITS ---
Date of service: 08/01/21 Time of Service: 12:55 PT Notes Visit Reasons: Generalized Weakness,Failure to Thrive Physical Therapy Inpatient Treatment Note Date: 08/01/2021 Precautions: 1. Per verbal order and clarification from Dr Dickey on 07/14/2021:?Sling can definitely be off when resting in bed or on chair. 2. Per Dr. Dickey as of 07/09/2021:?Recommend non weight bearing right upper extremity.? [place] assisted reduction with cuff and collar.? Limited passive range of motion about the shoulder: Pendulums only, at this time.? Active motion elbow wrist and hand okay. Subjective: Complained of lightheadedness and nausea after a short distance ambulation. Pain in right shoulder seems to be a bit more today. Objective: General Observation: Swelling and redness in R UE resolving.? Pain patch on right shoulder. Mental Status: Alert. Able to follow single step commands.? Impaired short-term memory. Pain: 3-4/10 in R shoulder during elbow exercise BBed Mobility/Transfers: Sit to stand with supervision Stand to sit with supervision Bed to chair supervision Chair to bed supervision Gait: 80 feet using SPC limited due to report of nausea. Continues to need cues to let R arm hang loose on the arm/cuff sling. Increased pain in R shoulder with ambulation. THERA EX: Pendulum exercises to maintain joint flexibility while facilitating healing of fracture site.? AROm to R elbow, forarm, and wrist for 10reps.? Maximal cues provided for correct technique.? Reported to 5/10 pain in the right UE that resolved with rest. Balance: Static Sitting: Normal Dynamic Sitting: Normal Static Standing: Good Dynamic Standing: Fair ASSESSMENT: Needs orthopedic consult for progression of R shoulder exercises and R upper extremity weight bearing.? Continues to require moderate to maximal cueing due to impaired cognition, short term memory significantly impaired. Continues to be supervision with all mobility ADL performance which may be the safest mobility level for patient due to limited cognition and impaired safety awareness.? Decreased to 1x/day as of 07/28/2021.? ? DISCHARGE RECOMMENDATIONS: [] ? Home with no services [] [] ? Home with services [specify] [] ? Home with outpatient PT [] [] ? SNF for continued rehabilitation [] [] ? [facility] [] [] ? SNF versus LTC based on ability to participate and progress [] [X] Assisted Living facility.? Patient will benefit from a setting with constant supervision to ensure safety and to provide management of patient's meals, medication intake, and self-care needs. TREATMENT CODE/TIME: 70896 x 16 minutes, 37103 x 1 minutes beginning at 12:55 PM.
[2021-08-01] MEDS: QUEtiapine 25 MG TAB PO (21:24)
[2021-08-01] MEDS: Melatonin 3 MG TAB PO (21:24)
[2021-08-01] MEDS: Lidocaine Patch Removal 1 EACH TP (21:25)
[2021-08-02] MEDS: Lidocaine 5% Patch 1 PATCH TP (09:12)
[2021-08-02] MEDS: Folic Acid 1 MG TAB PO (09:13)
[2021-08-02] MEDS: Thiamine 100 MG TAB PO (09:13)
[2021-08-02] MEDS: Acetaminophen 325 MG TAB 650 MG PO ×4 (09:13→20:33)
[2021-08-02] MEDS: Calcium 600mg/Vit D 200U TAB 1 TAB PO ×2 (09:13→20:33)
[2021-08-02] MEDS: Ascorbic Acid 500 MG TAB PO ×2 (09:13→20:33)
[2021-08-02] MEDS: Cholecalciferol (Vitamin D3) 1,000 UNIT TAB 1000 UNITS PO (09:13)
[2021-08-02] MEDS: Multivitamin TAB 1 TAB PO (09:13)
[2021-08-02 09:30] VITALS: BP 144/68; PULSE 94; RESP 18; TEMP 36.6; O2SAT 99
[2021-08-02] MEDS: Lidocaine Patch Removal 1 EACH TP (17:18)
[2021-08-02] MEDS: QUEtiapine 25 MG TAB PO (21:36)
[2021-08-02] MEDS: Melatonin 3 MG TAB PO (21:36)
[2021-08-03 08:05] VITALS: BP 145/77; PULSE 67; RESP 16; TEMP 36.5; O2SAT 97
[2021-08-03] MEDS: Acetaminophen 325 MG TAB 650 MG PO ×4 (08:23→21:09)
[2021-08-03] MEDS: Calcium 600mg/Vit D 200U TAB 1 TAB PO ×2 (08:24→21:09)
[2021-08-03] MEDS: Lidocaine 5% Patch 1 PATCH TP (08:24)
[2021-08-03] MEDS: Thiamine 100 MG TAB PO (08:24)
[2021-08-03] MEDS: Ascorbic Acid 500 MG TAB PO ×2 (08:24→21:09)
[2021-08-03] MEDS: Folic Acid 1 MG TAB PO (08:24)
[2021-08-03] MEDS: Cholecalciferol (Vitamin D3) 1,000 UNIT TAB 1000 UNITS PO (08:24)
[2021-08-03] MEDS: Multivitamin TAB 1 TAB PO (08:24)
[2021-08-03] MEDS: Lidocaine Patch Removal 1 EACH TP (21:08)
[2021-08-03] MEDS: QUEtiapine 25 MG TAB PO (22:08)
[2021-08-03] MEDS: Melatonin 3 MG TAB PO (22:08)
[2021-08-04] MEDS: Multivitamin TAB 1 TAB PO (07:42)
[2021-08-04] MEDS: Ascorbic Acid 500 MG TAB PO ×2 (07:42→20:38)
[2021-08-04] MEDS: Acetaminophen 325 MG TAB 650 MG PO ×4 (07:42→20:37)
[2021-08-04] MEDS: Folic Acid 1 MG TAB PO (07:42)
[2021-08-04] MEDS: Lidocaine 5% Patch 1 PATCH TP (07:42)
[2021-08-04] MEDS: Calcium 600mg/Vit D 200U TAB 1 TAB PO ×2 (07:42→20:37)
[2021-08-04] MEDS: Thiamine 100 MG TAB PO (07:42)
[2021-08-04] MEDS: Cholecalciferol (Vitamin D3) 1,000 UNIT TAB 1000 UNITS PO (07:42)
[2021-08-04 08:35] VITALS: BP 127/65; PULSE 81; RESP 17; TEMP 36.3; O2SAT 95
--- NOTE | 2021-08-04 09:20 | OT.INTREAT ---
Occupational Therapy Notes Occupational Therapy Inpatient Treatment Note Date: 08/04/21 PRECAUTIONS: Fall, standard, DNR/DNI SUBJECTIVE:?Pt was sitting in the chair when OT arrived. She states that she is cold and tired. But she seems to be in good spirits today. OBJECTIVE:? PAIN:no c/o pain FUNCTIONAL MOBILITY? Sit-stand: (S) ? Stand-sit: (S) ? Bed-Chair: (S) ? Chair-bed: (S) BATHING:?standing at sink max (A) Set up/clean up Upper Body: (I) face, (B) UE as pt used her (R) UE even though not recommended due to fx, she is able to wash (I) with vc for (R) UE Lower Body: Min (A) (B) LE , parul area (I) on toilet DRESSING:?? standing at sink with min vc throughout ? ? Upper Extremity: (I) don and doing [facility] gown, (I) don and [facility] Lower Extremity: (I) don and doing (B) socks. Pt utilizes (B) UE and states that she can do it herself. GROOMING:?sitting in chair (I) with brushing hair with ideal technique TOILETING: Device: Toilet Assist: (I) with toileting hygiene ? TREATMENT CODES/TIME:?65995g0, 25 minutes (08:55) ? EFFIE Ott/[facility] [place]
--- NOTE | 2021-08-04 09:56 | W.NUTRFU ---
Date of service: 08/04/21 Time of Service: 09:56 Nutrition Note NOTE: Polly is following regular meal plan and meeting 100% macro nutrient needs. Will request updated weight. Overall, appears to be meeting nutrient needs. Will continue to follow and support. Time Spent in Nutritional Counseling and Treatment: 0
--- NOTE | 2021-08-04 11:05 | PT.INTREAT ---
Date of service: 08/04/21 Time of Service: 11:05 PT Notes Visit Reasons: Generalized Weakness,Failure to Thrive Physical Therapy Inpatient Treatment Note Date: 08/04/2021 Precautions: 1. Per verbal order and clarification from Dr Dickey on 07/14/2021:?Sling can definitely be off when resting in bed or on chair. 2. Per Dr. Dickey as of 07/09/2021:?Recommend non weight bearing right upper extremity.? [place] assisted reduction with cuff and collar.? Limited passive range of motion about the shoulder: Pendulums only, at this time.? Active motion elbow wrist and hand okay. Subjective: Unable to find sling for the R arm. No increased pain report with R arm hanging on side during ambulation. Happy about being able to take candies from the [employer] office. Agreeable to walking without SPC today. Objective: General Observation: Swelling and redness in R UE resolving.? Pain patch on right shoulder. Portion of R humeral head protruding anteriorly. Mental Status: Alert. Able to follow single step commands.? Impaired short-term memory. Pain: 3-4/10 in R shoulder during elbow exercise Bed Mobility/Transfers: Sit to stand with supervision Stand to sit with supervision Bed to chair supervision Chair to bed supervision Gait: 250 feet + 250 feet using no assitive device with stand by assist. ? R arm hanging on side but with no report of increased painthroughout ambulation. Did start to report being mildly faint but forgot about it with redirection. THERA EX: Pendulum exercises to maintain joint flexibility while facilitating healing of fracture site.? AROm to R elbow, forarm, and wrist for 10reps.? Maximal cues provided for correct technique.? Reported to 5/10 pain in the right UE that resolved with rest. Balance: Static Sitting: Normal Dynamic Sitting: Normal Static Standing: Good Dynamic Standing: Good ASSESSMENT: Consulted with Dr. Genao regarding the need for orthopedic consult for progression of R shoulder exercises and R upper extremity weight bearing.? Continues to require moderate to maximal cueing due to impaired cognition, short term memory significantly impaired.? Continues to be supervision with all mobility ADL performance which may be the safest mobility level for patient due to limited cognition and impaired safety awareness.? ? DISCHARGE RECOMMENDATIONS: [] ? Home with no services [] [] ? Home with services [specify] [] ? Home with outpatient PT [] [] ? SNF for continued rehabilitation [] [] ? [facility] [] [] ? SNF versus LTC based on ability to participate and progress [] [X] Assisted Living facility.? Patient will benefit from a setting with constant supervision to ensure safety and to provide management of patient's meals, medication intake, and self-care needs. TREATMENT CODE/TIME: 05970 x 20 minutes beginning at 11:05 AM.
[2021-08-04] MEDS: Lidocaine Patch Removal 1 EACH TP (20:38)
[2021-08-04] MEDS: QUEtiapine 25 MG TAB PO (21:53)
[2021-08-04] MEDS: Melatonin 3 MG TAB PO (21:53)
[2021-08-04 23:48] VITALS: BP 128/65; PULSE 80; RESP 17; TEMP 36.6; O2SAT 97
[2021-08-05 08:00] VITALS: BP 135/72; PULSE 72; RESP 19; TEMP 36.5; O2SAT 98
[2021-08-05] MEDS: Lidocaine 5% Patch 1 PATCH TP (08:07)
[2021-08-05] MEDS: Thiamine 100 MG TAB PO (08:08)
[2021-08-05] MEDS: Ascorbic Acid 500 MG TAB PO ×2 (08:08→20:31)
[2021-08-05] MEDS: Calcium 600mg/Vit D 200U TAB 1 TAB PO ×2 (08:08→20:31)
[2021-08-05] MEDS: Acetaminophen 325 MG TAB 650 MG PO ×4 (08:08→20:31)
[2021-08-05] MEDS: Multivitamin TAB 1 TAB PO (08:08)
[2021-08-05] MEDS: Folic Acid 1 MG TAB PO (08:08)
[2021-08-05] MEDS: Cholecalciferol (Vitamin D3) 1,000 UNIT TAB 1000 UNITS PO (08:08)
--- NOTE | 2021-08-05 09:00 | DI.RAD_ITS ---
Exam(s) XR SHOULDER RT COMPLETE 2+V EXAM: XR SHOULDER RT COMPLETE 2+V CLINICAL HISTORY: Fracture healing. TECHNIQUE: 2D digital imaging was performed of the right shoulder. Four images were obtained. AP, Y-view and axillary views were obtained. COMPARISON: CR XR SHOULDER RT COMPLETE 2+V from 07/29/2021 FINDINGS: BONES: There is no change in alignment of the proximal left humeral fracture. Callus formation has d eveloped about the fractures consistent with some interval healing. No bony destructive lesion is se en. JOINTS: No dislocation present. SOFT TISSUE: Normal. IMPRESSION: Unremarkable radiographs of the right shoulder. DATA REPOSITORY: RADIATION DOSE DELIVERED:
--- NOTE | 2021-08-05 09:20 | OT.INNT ---
Occupational Therapy Notes 08/05/21 OT went to see pt who is out of her room per nursing and downstairs. OT will resume services tomorrow. Kasey Xavier, OTR/L
--- NOTE | 2021-08-05 15:49 | PT.INTREAT ---
Date of service: 08/05/21 Time of Service: 14:21 PT Notes Visit Reasons: Generalized Weakness,Failure to Thrive Inpatient Physical Therapy Treatment Note [facility] Date: 08/05/2021 PRECAUTIONS: Fall, WBAT R UE SUBJECTIVE: Adam is pleasant and agreeable to participating in PT. She states that she likes to get up and walk and it's nice to have someone to walk with and chat with. OBJECTIVE: Per Leonela Morales NP, patient cleared to be WBAT on R UE per Dr. Street, orthopedic surgeon. PAIN: No c/o pain BED MOBILITY/TRANSFERS Supine-sit: I Sit-supine: I Sit-stand: S Stand-sit: S Bed-Chair: S Chair-bed: S GAIT Assistive Device: 4WW Weight bearing: Full Assist: S Distance: 250' + 350' Deviation: Seated rest x1 ASSESSMENT: Patient tolerated session well without complaint. She demonstrates appropriate gait and pacing with 4WW. She demonstrates safety with gait training and transfers. PLAN: Continue with gait training with 4WW, which is patient's baseline level of function. Also continue with gentle ROM to R UE. TREATMENT CODE/TIME: 23 minutes; 29729 x2 (14:21)
[2021-08-05] MEDS: Lidocaine Patch Removal 1 EACH TP (20:32)
[2021-08-05] MEDS: Melatonin 3 MG TAB PO (21:06)
[2021-08-05] MEDS: QUEtiapine 25 MG TAB PO (21:06)
[2021-08-06 08:00] VITALS: BP 127/67; PULSE 68; RESP 18; TEMP 36.4; O2SAT 97
[2021-08-06] MEDS: Lidocaine 5% Patch 1 PATCH TP (08:42)
[2021-08-06] MEDS: Multivitamin TAB 1 TAB PO (08:43)
[2021-08-06] MEDS: Ascorbic Acid 500 MG TAB PO ×2 (08:43→21:11)
[2021-08-06] MEDS: Thiamine 100 MG TAB PO (08:43)
[2021-08-06] MEDS: Cholecalciferol (Vitamin D3) 1,000 UNIT TAB 1000 UNITS PO (08:43)
[2021-08-06] MEDS: Calcium 600mg/Vit D 200U TAB 1 TAB PO ×2 (08:43→21:10)
[2021-08-06] MEDS: Folic Acid 1 MG TAB PO (08:43)
[2021-08-06] MEDS: Acetaminophen 325 MG TAB 650 MG PO ×4 (08:43→21:10)
--- NOTE | 2021-08-06 09:18 | OT.INNT ---
Occupational Therapy Notes 08/06/21 OT attempted to see pt who was out of her room at the time. OT will resume services tomorrow. Kasey Xavier, OTR/[facility]
--- NOTE | 2021-08-06 14:37 | PTTR_ITS ---
Date of service: 08/06/21 Time of Service: 13:24 PT Notes Visit Reasons: Generalized Weakness,Failure to Thrive Inpatient Physical Therapy Treatment Note [facility] Date: 08/06/2021 PRECAUTIONS: Fall, NWB R UE, protected WB R UE with use of 4WW with gait training SUBJECTIVE: Adam is pleasant and agreeable to participating in PT. She states that she likes to get up and walk. OBJECTIVE: PAIN: Patient c/o pain in R shoulder, radiating to R elbow with AAROM exercises to R shoulder. BED MOBILITY/TRANSFERS Sit-stand: I Stand-sit: I Bed-Chair: I Chair-bed: I GAIT Assistive Device: 4WW Weight bearing: Full Assist: S Distance: 250' + 350' Deviation: Seated rest x1 THEREX: With patient in seated position, instructed patient in AAROM to R sh oulder into flexion to ~45 degrees, shoulder abduction to ~40 degrees, shoulder IR WNL, and shoulder ER with empty end feel. Patient is guarded throughout, limiting ROM and increasing pain. Patient is instructed in AROM to R elbow, forearm, and wrist, as per flow sheet. ASSESSMENT: Patient tolerated session well, although with complaint R shoulder pain with AAROM to shoulder. She demonstrates appropriate gait and pacing with 4WW. She demonstrates safety with gait training and transfers. PLAN: Continue with gait training with 4WW, which is patient's baseline level of function. Also continue with gentle AAROM to R shoulder, as tolerated. TREATMENT CODE/TIME: 24 minutes; 99358 x2 (13:24)
[2021-08-06] MEDS: Melatonin 3 MG TAB PO (21:10)
[2021-08-06] MEDS: QUEtiapine 25 MG TAB PO (21:11)
[2021-08-06] MEDS: Lidocaine Patch Removal 1 EACH TP (21:12)
[2021-08-07 08:36] VITALS: BP 128/71; PULSE 71; RESP 16; TEMP 36.8; O2SAT 95
[2021-08-07] MEDS: Multivitamin TAB 1 TAB PO (09:15)
[2021-08-07] MEDS: Acetaminophen 325 MG TAB 650 MG PO ×4 (09:15→19:29)
[2021-08-07] MEDS: Lidocaine 5% Patch 1 PATCH TP (09:15)
[2021-08-07] MEDS: Calcium 600mg/Vit D 200U TAB 1 TAB PO ×2 (09:16→19:29)
[2021-08-07] MEDS: Ascorbic Acid 500 MG TAB PO ×2 (09:16→19:29)
[2021-08-07] MEDS: Folic Acid 1 MG TAB PO (09:16)
[2021-08-07] MEDS: Cholecalciferol (Vitamin D3) 1,000 UNIT TAB 1000 UNITS PO (09:16)
[2021-08-07] MEDS: Thiamine 100 MG TAB PO (09:16)
--- NOTE | 2021-08-07 09:34 | PDOC.CMACT ---
- If Service Date Differs Date of service: 08/07/21 Time of Service: 09:34 Care Management Activity Note Jania has been making improvements with her arm and is now able to ambulate with weight bearing using her walker. She has enjoyed walking in the halls and visiting with staff on the unit. She also enjoys reading and watching television. Jania would enjoy music and pet therapy if they become available again. She has declined items from the activity cart. visits regularly and staff spend time with her as able. Her court appointed guardian Gail Ortiz has also been coming to visit weekly.
--- NOTE | 2021-08-07 09:49 | OT.INTREAT ---
Occupational Therapy Notes Occupational Therapy Inpatient Treatment Note Date: 08/07/21 PRECAUTIONS: Fall, standard, DNR/DNI SUBJECTIVE:?Pt was sitting in the chair when OT arrived. She states that she wants to stay in her pajamas but is willing to wash wherever she can without taking them off. OBJECTIVE:? PAIN:no c/o pain BATHING:?sitting in chair Upper Body: (I) face, OT provided pt with shower cap and pt was (I) with washing her hair. GROOMING:?sitting in chair (I) with brushing hair with ideal technique TOILETING: Device: Toilet Assist: (I) with toileting hygiene ? TREATMENT CODES/TIME:?23382, 15 minutes (09:15) ? Kasey Xavier, OTR/L [facility]
--- NOTE | 2021-08-07 10:02 | INPN_ITS ---
Date of service: 08/07/21 Time of Service: 10:02 PT Notes Visit Reasons: Generalized Weakness,Failure to Thrive Physical Therapy Inpatient Progress Note Date: 08/07/2021 Dates of service: 07/31/2021 through 08/07/2021 Referring Doctor: Melissa Cai NP PT Orders: PT CONSULT: Eval/treat. Precautions: 1. Per verbal order and clarification from Dr Dickey on 08/05/2021:? Discontinue sling. Start gentle, progressive active assisted and active shoulder range of motion. Likely strengthening in another 5 weeks 2. Per phone order and clarification from Dr Street on 08/05/2021:?May minimally weight bear on R UE with ambulation for stability, otherwise NWB with all other mobility ADLs. Subjective: Agreeable to session. Objective: General Observation: Swelling and redness in R UE almost resolved.? Discoloration in R UE resolved. Pain patch on right shoulder. Mental Status: Alert. Able to follow single step commands.? Impaired short-term memory. Pain: 4-5/10 in R shoulder during elbow exercise ROM: Right Upper Extremity: ? Shoulder Flexion allows up to 60 degrees. Shoulder abduction allows up to 50 degreees. Elbow flexion WFL. Wrist flexion WFL. Functional opening and closing of hand WFL. Pain at end range of all shoulder motions. Left Upper Extremity:? Shoulder Flexion WFL. Shoulder abduction WFL. Elbow flexion WFL. Wrist flexion WFL. Functional opening and closing of hand WFL. Right Lower Extremity: Hip flexion WFL. Hip abduction WFL. Knee flexion WFL. Ankle dorsiflexion WFL. Ankle plantarflexion WFL. Left Lower Extremity: Hip flexion WFL. Hip abduction WFL. Knee flexion WFL. Ankle dorsiflexion WFL. Ankle plantarflexion WFL. Strength: Right Upper Extremity: Shoulder flexors 3-/5. Shoulder abductors 3-/5. Elbow flexors 4-/5. Elbow extensors 4-/5. Bezel Cutter strong. Left Upper Extremity: Shoulder flexors 4-/5. Shoulder abductors 4-/5. Elbow flexors 4-/5. Elbow extensors 4-/5. Bezel Cutter strong. Right Lower Extremity: Hip flexors 4/5. Hip abductors 4/5. Knee flexors 4/5. Knee extensors 4/5. Ankle dorsiflexors 4/5. Ankle plantarflexors 4/5. Left Lower Extremity: Hip flexors 4/5. Hip abductors 4/5. Knee flexors 4/5. Knee extensors 4/5. Ankle dorsiflexors 4/5. Ankle plantarflexors 4/5. BBed Mobility/Transfers: Sit to stand with independent Stand to sit with independent Bed to chair independent Chair to bed independent Gait: 150 feet +150 feet using SPC with no loss of balance nor excessive postural sway seen.? Did report fatigue midway between the walk but with encouragement patient was able to do more.? THERA EX: 1. Slide R hand forward and backward on R armrest while seated on bedside recliner x 10 2. Touch R arm rest end and then touch L knee using R hand while seated on bedside recliner x 10 3. Touch R nose and then L shoulder using R hand while seated on bedside recliner x 10 4. Touch L shoulder and then L knee while seated on bedside recliner x 1 Balance: Static Sitting: Normal Dynamic Sitting: Normal Static Standing: Good Dynamic Standing: Fair Special Tests: Mobility Limitations Standardized Measure [facility]-PAC 6 clicks Basic Mobility Inpatient Short Form: Raw Score: 24? CMS Score: 0% deficit? ? ? Informed Consent/Education:? Patient was instructed in purpose of PT consult and plan of care. Agreeable to proceed with established PT POC to achieve personal goals. ASSESSMENT: Clarification fro weight bearing and exercise progression received from Dr. Dickey and Dr. Street on 08/05/2021 as above. Supervision with all mobility ADL performance may be the safest mobility level for patient due to limited cognition and impaired safety awareness.? Patient may thrive more safely in an environment with consistent supervision to ensure her safety at all times.? Continue working with balance skills and progress R shoulder strength and range of motion in compliance with hospitalist and or orthopedic surgeon recommendations.? Will trial patient to be independent inside room with 4WW and supervision with nursing for hallway ambulation beginning 08/08/2021. ? Patient presents with clinical signs and symptoms consistent with current/admitting diagnoses that have resulted to mobility limitations, gait instability, generalized weakness, and overall ADL decline as demonstrated by the following impairment level findings: 1.? Decreased strength to R UE major muscle groups 2.? Impaired standing balance 3.? Limitation of joint range of motion in R shoulder 5.? Pain in R shoulder 24-5/10 with exercise 6.? Swelling in R UE now significantly diminished 7. Impaired cognition and decrreased sort term memory Impairments are contributing to the following functional limitations: 1.? Difficulty with ambulation without assistive device 2.? Increased completion time for mobility ADL performance 3.? Increased risk for falls 4.? Difficulty with managing steps alone safely 5.? Inability to thrive at home alone at this time Patient is assessed as a 74568 moderate complexity based on the following: History: 80-year-old female with past medical history as indicated above Examination: Demonstrable impairment in strength, balance, and mobility level with underlying impairments and functional limitations as exhibited above as well as deficit score of 21% utilizing the [facility] Mobility Inpatient Short Form Presentation: Evolving Decision Makin moderate complexity Goals: Goals X1 week 1. Sit-Stand independent NOT MET 2. Stand-Sit independent with SPC NOT MET 3. Bed-Chair independent with SPC NOT MET 4. Chair-Bed independent with SPC NOT MET 5.?Independent gait on level surface with use of SPC for at least 1000 feet without report of pain nor dyspnea NOT MET 6.? Good static and dynamic standing balance/tolerance NOT MET Plan of Care/Treatment Plan: 1x/day for 2 weeks. Treatment focus will be for R shoulder exercises progression.? Progress balance skills while increasing B LE strength.? Plan of care has been reviewed with the COTTON AGENT providing the service under Physical Therapy direction. DISCHARGE RECOMMENDATIONS: [] ? Home with no services [] [] ? Home with services [specify] [] ? Home with outpatient PT [] [] ? SNF for continued rehabilitation [] [] ? [facility] [] [] ? SNF versus LTC based on ability to participate and progress [] [X] Assisted Living facility.? Patient will benefit from a setting with constant supervision to ensure safety and to provide management of patient's meals, medication intake, and self-care needs. TREATMENT CODE/TIME: 13808 x 20 minutes, 9710 x 13 minutes beginning at 9:36 AM and 10:02 AM. Thank you for the opportunity to participate in the care of this patient. Josie Mckeon PT, DPT, CLT [facility] [place], [place]
[2021-08-07] MEDS: Lidocaine Patch Removal 1 EACH TP (19:29)
[2021-08-07] MEDS: Melatonin 3 MG TAB PO (21:26)
[2021-08-07] MEDS: QUEtiapine 25 MG TAB PO (21:26)
[2021-08-08 07:39] VITALS: BP 116/65; PULSE 76; RESP 16; TEMP 36.5; O2SAT 96
[2021-08-08] MEDS: Ascorbic Acid 500 MG TAB PO ×2 (09:32→20:48)
[2021-08-08] MEDS: Acetaminophen 325 MG TAB 650 MG PO ×4 (09:32→20:48)
[2021-08-08] MEDS: Thiamine 100 MG TAB PO (09:32)
[2021-08-08] MEDS: Lidocaine 5% Patch 1 PATCH TP (09:32)
[2021-08-08] MEDS: Multivitamin TAB 1 TAB PO (09:32)
[2021-08-08] MEDS: Cholecalciferol (Vitamin D3) 1,000 UNIT TAB 1000 UNITS PO (09:32)
[2021-08-08] MEDS: Calcium 600mg/Vit D 200U TAB 1 TAB PO ×2 (09:32→20:48)
[2021-08-08] MEDS: Folic Acid 1 MG TAB PO (09:33)
--- NOTE | 2021-08-08 09:48 | OT.INTREAT ---
Occupational Therapy Notes Occupational Therapy Inpatient Treatment Note Date: 08/08/21 PRECAUTIONS: Fall, standard, DNR/DNI SUBJECTIVE:?Pt was sitting in the chair when OT arrived. OBJECTIVE:? PAIN:no c/o pain Therapeutic Activity [id number]: In the standing position, OT worked with pt on safe reaching and grabbing objects in all planes, picking items up off the floor, facilitation and initiation of tasks from the standing position to promote increased functional activity tolerance. Pt tolerated this well, and required vc throughout. She had good functional activity tolerance to tasks and required (S)-SBA due to decreased safety awareness in situations and vc for use of (R) UE. ? TREATMENT CODES/TIME:?50456, 10 minutes (09:15) ? Kasey Xavier, OTR/L [facility]
--- NOTE | 2021-08-08 12:34 | PDOC.CMPRO ---
- If Service Date Differs Date of service: 08/08/21 Time of Service: 12:34 Care Management Progress Note Jania will meet with Todd of [facility] on 08/11/21 at 1300 as part of admission review.
[2021-08-08] MEDS: Lidocaine Patch Removal 1 EACH TP (20:48)
[2021-08-08] MEDS: QUEtiapine 25 MG TAB PO (21:17)
[2021-08-08] MEDS: Melatonin 3 MG TAB PO (21:17)
[2021-08-09 07:33] VITALS: BP 121/72; PULSE 64; RESP 12; TEMP 36.6; O2SAT 98
--- NOTE | 2021-08-09 08:50 | PGE_ITS ---
Date of Service Date of service: 08/09/21 Time of Service: 08:50 Assessment and Plan Assessment and plan (1) Fracture of proximal humerus: Status: Acute Assessment and plan: arm healing well with decreased pain, increased mobility and now able to bear weight using walker well. Will continue pain management regimen: Scheduled APA, and Lidocaine patch. Pt is followed by PT/OT (2) Malnutrition: Status: Acute Assessment and plan: Will continue nutritional supplements. Pt is seen by nutrition. weight check shows drop over past several weeks. awaiting nutrition recommendations consider 3 day calorie count, nursing documentation shows 50-100% of her meals taken over past 2 days. 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 has a public guardian assigned as she was deemed incompetent. no behavioral issues, but short term memory sub-optimal (4) Adult failure to thrive: Status: Acute Assessment and plan: Patient remains medically stable and agreeable to stay for rehab. Nutritional eval. completed on 08/08; Awaiting recommendations (5) Discharge planning issues: Status: Acute Assessment and plan: case management will be following prospective meeting with rehab. facility scheduled on Wednesday appropriate for swing bed level 1 as she has been working with physical therapy and slowly progressing; recommendations are for ongoing rehabilitation. discussed with Dr Francisco Subjective Subjective Patient reports: no new complaints, feels better, tolerating liquids well, tolerating a regular diet and afebrile Interval history since last seen: able to bear some weight with her right upper extremity, but c/o pain 4/10 on mobilization of the right upper ext., subsiding with rest. Exam Const General: cooperative, comfortable, no acute distress, frail appearing and ill appearing chronically Nutritional Appearance: cachectic Orientation: alert, awake, oriented to person, oriented to place and confused (unable to provide history, inconsistent reports, appears at her baseline) Other: Pt seems unable to retain new information. During the 20-minute visit she asked 3 times about the reason she was here. [facility] Head: normal to inspection, normocephalic, atraumatic and contusion (1 cm scab healing, faded yellow bruise on side of face rt, no open lesion) right temporal Teeth and gingiva: poor dentition (many missing teeth. poor dentiiton of few remaining) Eyes Alignment and Position: alignment normal and position normal Neck Neck: full ROM and other (1.5 X 0.5cm lump to L lat upper neck;palpation:no pain,integity maintained) Chest Chest: normal inspection of the chest Resp Effort & Inspection: normal respiratory effort Auscultation: clear to auscultation bilaterally Cardio Rate: regular rate Heart Sounds: S1 normal, S2 normal and no murmurs GI Inspection: normal to inspection Palpation: soft and nontender Other: Voiding QS Skin General skin exam: dry skin, ecchymosis and turgor decreased Rashes: no rashes Hair: general thinning Neuro General: patient alert, patient awake, no focal motor deficits and patient confused (at baseline with cognitive impairment) Cognition: abnormal cognition (cognitive impaired but at baseline, poor historian) Speech: speech normal Gait: gait assisted Motor: strength not 5/5 throughout (right upper extremity, weight bearing now) Extrem General: abnormal ROM (limited right upper extremiety) and edema Laterality: right (upper, trace) Right upper extremity: shoulder/upper arm Details: ecchymosis (old, improving) and deformity Location: of the proximal humerus (marked improvement in alignment, decreased edema, ) Location: anteriorly Psych Appearance: grossly normal Mental Status: mental status grossly normal Speech and Movement: speech and movement normal Mood: congruent mood Affect: normal affect and animated Attitude: cooperative Insight: limited and poor Judgment: limited and poor Objective Last Vital Signs Temp 36.6 C 08/09/21 07:33 Pulse 64 08/09/21 07:33 Resp 12 08/09/21 07:33 BP 121/72 08/09/21 07:33 Pulse Ox 98 08/09/21 07:33
[2021-08-09] MEDS: Lidocaine 5% Patch 1 PATCH TP (09:49)
[2021-08-09] MEDS: Multivitamin TAB 1 TAB PO (09:50)
[2021-08-09] MEDS: Acetaminophen 325 MG TAB 650 MG PO ×4 (09:50→19:42)
[2021-08-09] MEDS: Folic Acid 1 MG TAB PO (09:51)
[2021-08-09] MEDS: Calcium 600mg/Vit D 200U TAB 1 TAB PO ×2 (09:51→19:42)
[2021-08-09] MEDS: Cholecalciferol (Vitamin D3) 1,000 UNIT TAB 1000 UNITS PO (09:51)
[2021-08-09] MEDS: Ascorbic Acid 500 MG TAB PO ×2 (09:51→19:42)
[2021-08-09] MEDS: Thiamine 100 MG TAB PO (09:52)
[2021-08-09] MEDS: Lidocaine Patch Removal 1 EACH TP (19:42)
[2021-08-09] MEDS: QUEtiapine 25 MG TAB PO (21:07)
[2021-08-09] MEDS: Melatonin 3 MG TAB PO (21:08)
[2021-08-10] MEDS: Thiamine 100 MG TAB PO (08:30)
[2021-08-10] MEDS: Ascorbic Acid 500 MG TAB PO ×2 (09:17→21:47)
[2021-08-10] MEDS: Lidocaine 5% Patch 1 PATCH TP (09:17)
[2021-08-10] MEDS: Acetaminophen 325 MG TAB 650 MG PO ×4 (09:18→21:47)
[2021-08-10] MEDS: Cholecalciferol (Vitamin D3) 1,000 UNIT TAB 1000 UNITS PO (09:18)
[2021-08-10] MEDS: Multivitamin TAB 1 TAB PO (09:18)
[2021-08-10] MEDS: Folic Acid 1 MG TAB PO (09:20)
[2021-08-10] MEDS: Calcium 600mg/Vit D 200U TAB 1 TAB PO ×2 (10:15→21:47)
[2021-08-10 11:58] VITALS: BP 127/69; PULSE 63; RESP 14; TEMP 36.6; O2SAT 98
[2021-08-10] MEDS: QUEtiapine 25 MG TAB PO (21:47)
[2021-08-10] MEDS: Melatonin 3 MG TAB PO (21:47)
[2021-08-10] MEDS: Lidocaine Patch Removal 1 EACH TP (22:01)
[2021-08-11 06:05] VITALS: BP 120/71; PULSE 74; RESP 18; TEMP 36.2; O2SAT 95
[2021-08-11] MEDS: Calcium 600mg/Vit D 200U TAB 1 TAB PO ×2 (09:10→20:53)
[2021-08-11] MEDS: Lidocaine 5% Patch 1 PATCH TP (09:10)
[2021-08-11] MEDS: Ascorbic Acid 500 MG TAB PO ×2 (09:10→20:54)
[2021-08-11] MEDS: Thiamine 100 MG TAB PO (09:10)
[2021-08-11] MEDS: Acetaminophen 325 MG TAB 650 MG PO ×4 (09:11→20:55)
[2021-08-11] MEDS: Multivitamin TAB 1 TAB PO (09:11)
[2021-08-11] MEDS: Cholecalciferol (Vitamin D3) 1,000 UNIT TAB 1000 UNITS PO (09:11)
[2021-08-11] MEDS: Folic Acid 1 MG TAB PO (09:11)
--- NOTE | 2021-08-11 09:49 | W.NUTRFU ---
Date of service: 08/11/21 Time of Service: 09:49 Nutrition Note NOTE: Maddi is following regular meal plan and averaging 900 calories - 1350 calorie intake per day. Estimated Needs:? 2655-4698 kcal, 50-55 g protein, 1500 ml fluid. Not meeting 100% of macronutrient needs at this time. Weight fluctuations noted in last 2 weeks, however, weight up 4.4 lbs in last 30 days. BMI remains below target (19). Diet supplement with vanilla ensure or CIB daily. Recommend appetite stimulant to increase po intake and daily weights. will continue to follow. Time Spent in Nutritional Counseling and Treatment: 5
--- NOTE | 2021-08-11 17:31 | PDOC.CMPRO ---
- If Service Date Differs Date of service: 08/11/21 Time of Service: 17:31 Care Management Progress Note Jania met with Madelin and Juli from [facility] this afternoon. She engaged well with her visitors and they expressed a desire to offer her a bed, pending insurance approval. DEAN communicated with Gail Ortiz, Jania's court appointed guardian, prior to the visit,to inform her of the meeting and to invite her to participate either in person or via phone or Webex. Gail responded that she was unable to attend and generally requires a one to two week notice of any meetings she would be able to attend. Gail did come to the hospital to visit with Jania about 11:15 this morning, but was not allowed to visit as it was not yet visiting hours. DEAN attempted to clarify the situation as Gail was here for official business and not a social visit, however Gail was not able to wait until DEAN could receive a response which occurred in a matter of minutes.
[2021-08-11] MEDS: QUEtiapine 25 MG TAB PO (20:53)
[2021-08-11] MEDS: Melatonin 3 MG TAB PO (20:54)
[2021-08-11] MEDS: Lidocaine Patch Removal 1 EACH TP (20:56)
[2021-08-12 07:43] VITALS: BP 124/77; PULSE 79; RESP 16; TEMP 36.8; O2SAT 97
[2021-08-12] MEDS: Folic Acid 1 MG TAB PO (09:43)
[2021-08-12] MEDS: Cholecalciferol (Vitamin D3) 1,000 UNIT TAB 1000 UNITS PO (09:43)
[2021-08-12] MEDS: Thiamine 100 MG TAB PO (09:43)
[2021-08-12] MEDS: Ascorbic Acid 500 MG TAB PO ×2 (09:43→20:48)
[2021-08-12] MEDS: Acetaminophen 325 MG TAB 650 MG PO ×2 (09:43→20:48)
[2021-08-12] MEDS: Multivitamin TAB 1 TAB PO (09:43)
[2021-08-12] MEDS: Calcium 600mg/Vit D 200U TAB 1 TAB PO ×2 (09:43→20:48)
[2021-08-12] MEDS: Lidocaine 5% Patch 1 PATCH TP (09:43)
--- NOTE | 2021-08-12 11:06 | PTTR_ITS ---
Date of service: 08/08/21 Time of Service: 11:06 PT Notes Visit Reasons: Generalized Weakness,Failure to Thrive Physical Therapy Inpatient Treatment Note Date: 08/08/2021 Precautions: 1. Per verbal order and clarification from Dr Dickey on 08/05/2021:??Discontinue sling. Start gentle, progressive active assisted and active shoulder range of motion. Likely strengthening in another 5 weeks 2. Per phone order and clarification from Dr Street on 08/05/2021:?May minimally weight bear on R UE with ambulation for stability, otherwise NWB with all other mobility ADLs. Subjective: Agreeable to session. Objective: General Observation: Swelling and redness in R UE almost resolved.? Discoloration in R UE resolved.? Pain patch on right shoulder. Mental Status: Alert. Able to follow single step commands.? Impaired short-term memory. Pain: 3-4/10 in R shoulder during elbow exercise, 1-2/10 at rest BBed Mobility/Transfers: Sit to stand independent Stand to sit independent Bed to chair independent Chair to bed independent Gait: 150 feet +150 feet using SPC with no loss of balance nor excessive postural sway seen.? Did report fatigue midway between the walk but with encouragement patient was able to do more.? THERA EX: 1. Slide R hand forward and backward on R armrest while seated on bedside recliner x 20 2. Touch R arm rest end and then touch L knee using R hand while seated on bedside recliner x 20 3. Touch R nose and then L shoulder using R hand while seated on bedside recliner x 20 4.? Touch L shoulder and then L knee while seated on bedside recliner x 20 Balance: Static Sitting: Normal Dynamic Sitting: Normal Static Standing: Good Dynamic Standing: Fair ASSESSMENT: Assessed ability to manage bedside chair <> toilet seat transfer and bedside chair<>bed transfers using FWW and patient has been able to demonstrate safety strategies with locking and unlocking knee, bringing leg part of recliner up and down using remote control, and scooting pants up and down prior to toilet use. may walk with nursing staff in facility using 4WW to matain achieved gains in therapy. PLAN: Continue balance skills. Continue working on progressing AROM in R UE as tolerated. DISCHARGE RECOMMENDATIONS: [] ? Home with no services [] [] ? Home with services [specify] [] ? Home with outpatient PT [] [] ? SNF for continued rehabilitation [] [] ? Shelter Care [] [] ? SNF versus LTC based on ability to participate and progress [] [X] Assisted Living facility.? Patient will benefit from a setting with constant supervision to ensure safety and to provide management of patient's meals, medication intake, and self-care needs. TREATMENT CODE/TIME: 72185 x 10 minutes, 9710 x 15 minutes beginning at 11:06 AM.
--- NOTE | 2021-08-12 11:36 | CHAPLAIN ---
Maddi was in her chair watching tv when I visited. She said she's not sure how she feels right now because decisions are out of her hands. It's like they sent me to go shopping and I don't know where the stores are, she said. Care Management is working to find a place for Maddi to go and are in communication with her DPOA. Maddi seems comfortable here now. In the past she wanted to return to her apartment at [facility]. I will continue to visit.
--- NOTE | 2021-08-12 15:09 | PT.INTREAT ---
Date of service: 08/12/21 Time of Service: 11:43 PT Notes Visit Reasons: Generalized Weakness,Failure to Thrive Inpatient Physical Therapy Treatment Note [facility] Date: 08/12/2021 PRECAUTIONS: NWB R UE, Activity as tolerated, protected WB with use of 4WW with ambulation SUBJECTIVE: Adam is pleasant and agreeable to participating in PT. She reports continued discomfort in her R shoulder area, but reports that she doesn't have any pain while at rest. She states that she enjoyed chatting with the technology sales representative that came from [facility] yesterday. OBJECTIVE: PAIN: Patient c/o R R shoulder pain with repositioning and with PROM activities BED MOBILITY/TRANSFERS Sit-stand: I Stand-sit: I GAIT Assistive Device: 4WW Weight bearing: Protected WB R UE Assist: S Distance: 450' + 150' THEREX: With patient in a seated position, perform PROM t/o R shoulder into flexion, extension, abduction, adduction, IR, and ER. Patient continues to guard even after cueing, making it difficult to assess her true ROM. She performs AROM into elbow flexion/extension, FA supination/pronation, wrist flexion/extension, and gripping. ASSESSMENT: Patient tolerated session well, although with some c/o R shoulder discomfort with repositioning and PROM. She continues to demonstrate safe pacing and gait mechanics with use of 4WW. PLAN: Continue with PROM to R shoulder, as tolerated. TREATMENT CODE/TIME: 19 minutes; 94335 (11:43)
--- NOTE | 2021-08-12 15:49 | PGE_ITS ---
Date of Service Date of service: 08/12/21 Time of Service: 08:15 Assessment and Plan Assessment and plan (1) Fracture of proximal humerus: Status: Acute Assessment and plan: followed by orthopedics, plan is non-surgical will follow as outpatient. Clarification for weight bearing and exercise progression received from Dr. Dickey and Dr. Street on 08/05/2021, see PT's notes Will continue pain management regimen: Scheduled APA, and Lidocaine patch. Continue PT/OT (2) Malnutrition: Status: Acute Assessment and plan: Will continue nutritional supplements. Pt was seen by nutrition. 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 has a public guardian assigned as she was deemed incompetent. no new behavioral issues displayed, but short term memory sub-optimal (4) Adult failure to thrive: Status: Acute Assessment and plan: Patient remains medically stable, eats about 90% of her BF this AM. Nutritional eval. completed on 08/08 (5) Discharge planning issues: Status: Acute Assessment and plan: case management received bed offer for [facility] today. Pt will be discharged on 08/13/21 SARS-CoV II testing ordered today. appropriate for swing bed level; recommendations were for ongoing rehabilitation. I have independently examined the patient and agree with documentation, assessment and plan. discussed with Dr Francisco Subjective Subjective Patient reports: no new complaints, tolerating liquids well, tolerating a regular diet, voiding w/o difficulty, bowel movement and afebrile; denies diarrhea, nausea, vomiting or shortness of breath Interval history since last seen: able to bear some weight with her right upper extremity, but c/o pain 4/10 on mobilization of the right upper ext., subsiding with rest. Exam Const General: cooperative, comfortable and no acute distress [facility] Head: normal to inspection, no palpable skull fracture, normocephalic and atraumatic Eyes General: appearance normal, both eyes and all related structures Alignment and Position: alignment normal and position normal Neck Neck: normal visual inspection and full ROM Chest Chest: normal inspection of the chest Resp Effort & Inspection: normal respiratory effort Auscultation: clear to auscultation bilaterally Cardio Rhythm: regular rhythm Heart Sounds: S1 normal, S2 normal and no murmurs GI Inspection: normal to inspection Auscultation: normal bowel sounds Skin General skin exam: no rashes or lesions noted Neuro General: patient alert, patient awake and oriented Patient Orientation: Person and Confused Speech: speech normal Motor: strength not 5/5 throughout (right upper extremity, weight bearing now) Extrem Right upper extremity: normal capillary refill and shoulder/upper arm Details: deformity Location: of the shoulder joint; No ROM limited and no edema Psych Appearance: grossly normal Speech and Movement: speech and movement normal Mood: congruent mood Attitude: cooperative Objective Last Vital Signs Temp 98.2 F 08/12/21 07:43 Pulse 79 08/12/21 07:43 Resp 16 08/12/21 07:43 BP 124/77 08/12/21 07:43 Pulse Ox 97 08/12/21 07:43
--- NOTE | 2021-08-12 17:20 | INDS_ITS ---
Date of service: 08/12/21 PT Notes Visit Reasons: Generalized Weakness,Failure to Thrive Physical Therapy Inpatient Discharge Summary Date: 08/12/2021 Dates of service:? 07/23/2021 through 08/12/2021 This is a clinical summary of care provided for the duration of dates listed above. No charge was made in the completion of this documentation. Referring Doctor: Melissa Cai NP PT Orders: PT CONSULT: Eval/treat. Precautions: 1. Per verbal order and clarification from Dr Dickey on 08/05/2021:??Discontinue sling. Start gentle, progressive active assisted and active shoulder range of motion. Likely strengthening in another 5 weeks 2. Per phone order and clarification from Dr Street on 08/05/2021:?May minimally weight bear on R UE with ambulation for stability, otherwise NWB with all other mobility ADLs. Subjective: NT. See most recent ENVIRONMENTAL FIELD TEAM MEMBER notes. Objective: General Observation: NT. See most recent ENVIRONMENTAL FIELD TEAM MEMBER notes. Mental Status: NT. See most recent ENVIRONMENTAL FIELD TEAM MEMBER notes. Pain: Medications: NT. See most recent ENVIRONMENTAL FIELD TEAM MEMBER notes. ROM: Right Upper Extremity: ? Shoulder Flexion allows up to 60 degrees. Shoulder abduction allows up to 50 degreees. Elbow flexion WFL. Wrist flexion WFL. Functional opening and closing of hand WFL.? Pain at end range of all shoulder motions. Left Upper Extremity:? Shoulder Flexion WFL. Shoulder abduction WFL. Elbow flexion WFL. Wrist flexion WFL. Functional opening and closing of hand WFL. Right Lower Extremity: Hip flexion WFL. Hip abduction WFL. Knee flexion WFL. Ankle dorsiflexion WFL. Ankle plantarflexion WFL. Left Lower Extremity: Hip flexion WFL. Hip abduction WFL. Knee flexion WFL. Ankle dorsiflexion WFL. Ankle plantarflexion WFL. Strength: Right Upper Extremity: Shoulder flexors 3-/5. Shoulder abductors 3-/5. Elbow flexors 4-/5. Elbow extensors 4-/5. 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 Left Upper Extremity: Shoulder flexors 4-/5. Shoulder abductors 4-/5. Elbow flexors 4-/5. Elbow extensors 4-/5. 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 Right Lower Extremity: Hip flexors 4/5. Hip abductors 4/5. Knee flexors 4/5. Knee extensors 4/5. Ankle dorsiflexors 4/5. Ankle plantarflexors 4/5. Left Lower Extremity: Hip flexors 4/5. Hip abductors 4/5. Knee flexors 4/5. Knee extensors 4/5. Ankle dorsiflexors 4/5. Ankle plantarflexors 4/5. BBed Mobility/Transfers: Sit to stand with independent Stand to sit with independent Bed to chair independent Chair to bed independent Gait: 450 feet +150 feet using SPC with no loss of balance nor excessive postural sway seen.? Did report fatigue midway between the walk but with encouragement patient was able to do more.? THERA EX: 1. Slide R hand forward and backward on R armrest while seated on bedside recliner x 10 2. Touch R arm rest end and then touch L knee using R hand while seated on bedside recliner x 10 3. Touch R nose and then L shoulder using R hand while seated on bedside recliner x 10 4.? Touch L shoulder and then L knee while seated on bedside recliner x 1 Balance: Static Sitting: Normal Dynamic Sitting: Normal Static Standing: Good Dynamic Standing: Fair ASSESSMENT: Clarification for weight bearing and exercise progression received from Dr. Dickey and Dr. Street on 08/05/2021 as above.? Supervision with all mobility ADL performance may be the safest mobility level for patient due to limited cognition and impaired safety awareness.? Patient may thrive more safely in an environment with consistent supervision to ensure her safety at all times.? Continue working with balance skills and progress R shoulder strength and range of motion in compliance with hospitalist and or orthopedic surgeon recommendations.? Will trial patient to be independent inside room with 4WW and supervision with nursing for hallway ambulation beginning 08/08/2021. ? Patient presents with clinical signs and symptoms consistent with curr ent/admitting diagnoses that have resulted to mobility limitations, gait instability, generalized weakness, and overall ADL decline as demonstrated by the following impairment level findings: 1.? Decreased strength to R UE major muscle groups 2.? Impaired standing balance 3.? Limitation of joint range of motion in R shoulder 5.? Pain in R shoulder 24-5/10 with exercise 6.? Swelling in R UE now significantly diminished 7.? Impaired cognition and decrreased sort term memory Impairments are contributing to the following functional limitations: 1.? Difficulty with ambulation without assistive device 2.? Increased completion time for mobility ADL performance 3.? Increased risk for falls 4.? Difficulty with managing steps alone safely 5.? Inability to thrive at home alone at this time Patient is assessed as a 88467 moderate complexity based on the following: History: 80-year-old female with past medical history as indicated above Examination: Demonstrable impairment in strength, balance, and mobility level with underlying impairments and functional limitations as exhibited above as well as deficit score of 21% utilizing the [facility] Mobility Inpatient Short Form Presentation: Evolving Decision Makin moderate complexity Goals: Goals X1 week 1. Sit-Stand independent MET 2. Stand-Sit independent with SPC MET 3. Bed-Chair independent with SPC MET 4. Chair-Bed independent with SPC MET 5.?Independent gait on level surface with use of SPC for at least 1000 feet without report of pain nor dyspnea NOT MET 6.? Good static and dynamic standing balance/tolerance NOT MET DISCHARGE RECOMMENDATIONS: [] ? Home with no services [] [] ? Home with services [specify] [] ? Home with outpatient PT [] [] ? SNF for continued rehabilitation [] [] ? Social Sciences Research Scientist Care [] [] ? SNF versus LTC based on ability to participate and progress [] [X] Assisted Living facility.? Patient will benefit from a setting with constant supervision to ensure safety and to provide management of patient's meals, medication intake, and self-care needs. TREATMENT CODE/TIME: JUNAID Thank you for the opportunity to participate in the care of this patient. Josie Mckeon PT, DPT, CLT [facility] [place], [place]
[2021-08-12 18:27] LABS: Source Nasal/Nares
[2021-08-12 19:14] LABS: COVID-19 PCR Negative (Negative)
[2021-08-12] MEDS: Lidocaine Patch Removal 1 EACH TP (20:48)
[2021-08-12] MEDS: QUEtiapine 25 MG TAB PO (20:48)
[2021-08-12] MEDS: Melatonin 3 MG TAB PO (20:48)
[2021-08-13 08:15] VITALS: BP 111/84; PULSE 97; RESP 18; TEMP 36.6; O2SAT 97
[2021-08-13] MEDS: Folic Acid 1 MG TAB PO (08:59)
[2021-08-13] MEDS: Thiamine 100 MG TAB PO (08:59)
[2021-08-13] MEDS: Multivitamin TAB 1 TAB PO (08:59)
[2021-08-13] MEDS: Lidocaine 5% Patch 1 PATCH TP (08:59)
[2021-08-13] MEDS: Acetaminophen 325 MG TAB 650 MG PO (08:59)
[2021-08-13] MEDS: Calcium 600mg/Vit D 200U TAB 1 TAB PO (08:59)
[2021-08-13] MEDS: Cholecalciferol (Vitamin D3) 1,000 UNIT TAB 1000 UNITS PO (08:59)
[2021-08-13] MEDS: Ascorbic Acid 500 MG TAB PO (08:59)
--- NOTE | 2021-08-13 12:12 | W.PM.DS.N ---
Date of service: 08/13/21 Time of Service: 12:12 DS: Diagnosis Discharge Diagnosis (1) Fracture of proximal humerus: Status: Acute (2) Malnutrition: Status: Acute (3) Dementia: Status: Chronic (4) Adult failure to thrive: Status: Acute (5) Discharge planning issues: Status: Acute Discharge Plan Disposition Patient Disposition: SNF (LEVEL 1) [facility] Condition: Stable Discharge Details Reason For Visit: Generalized Weakness,Failure to Thrive Admit Date/Time: 07/22/21 13:52 Admit Provider: James Tafoya Attending Provider: James Tafoya Primary Care Provider: Kaila Mathur Hospital Course Hospital Course: Admitted 06/29/2021 after fall resulting in fx right humerus. Pmhx of alcohol abuse hx, confusion, CAD, iron deficiency. She had an extended stay and was deemed incompetent and assigned a public guardian. She was d/c 07/21/2021 AMA to home. She returned 07/22/2021 after failing to manage at home, unable to care for herself and was admitted to swing bed 1. She has been eating and drinking, no GI or concerns, she has been working with physical therapy, no behavioral concerns. Case mgt has been following. Accepted at [facility]; will be tx via wheelchair van - discussed with Dr Francisco. Home Meds and New Rx's Prescriptions: New quetiapine 25 mg Tablet 25 mg PO HS Qty: 7 0RF melatonin 3 mg Tablet 3 mg PO HS Qty: 0 0RF thiamine mononitrate (vit B1) [Vitamin B-1 (mononitrate)] 100 mg Tablet 100 mg PO DAILY Qty: 0 0RF Continued Ensure Active Protein-Muscle Liquid PO 0RF Label Comments: DRINK 1 CAN THREE TIMES DAILY Acetaminophen [Tylenol] 650 mg PO QID Qty: 0 0RF Discharge Instructions Instructions: Arm Fracture in Adults (DC) Stand Alone Forms: Nursing Discharge Form Activity:: Activity as Tolerated Equipment/Supplies:: No Equipment Needed Diet:: As Tolerated Discharge Orders Discharge Orders: Discharge Order (Routine); Ordered 08/13/21 Ordered By: Joaquina Doyle DS: Summary Time Spent with Patient providing and/or coordinating discharge services: Greater than 30 minutes Status at Discharge Functional status at discharge: uses cane/walker Overall status at discharge: patient is progressing back to baseline Mental Status: mental status grossly normal Speech and Movement: speech and movement normal Mood: congruent mood Affect: normal affect and animated Exam Const General: cooperative, comfortable, no acute distress, frail appearing and ill appearing chronically Nutritional Appearance: cachectic and thin Orientation: alert, awake, oriented x3, oriented to person, oriented to place, not oriented to time and confused (unable to provide history, inconsistent reports, appears at her baseline) [facility] Head: normal to inspection, no palpable skull fracture, normocephalic, contusion (1 cm scab healing, faded yellow bruise on side of face rt, no open lesion) right temporal and other (yellow/green healing bruise over R forehead) Ears: hearing grossly normal bilaterally, external ears normal and TM's normal bilaterally General nose exam: external nose normal Face and sinus: normal facial exam Mouth: oral mucosae normal and mucous membranes dry Teeth and gingiva: dentition normal and poor dentition (many missing teeth. poor dentition of few remaining) Throat: posterior oropharynx normal Eyes General: appearance normal, both eyes and all related structures Alignment and Position: alignment normal and position normal Eyelids: eyelids normal Pupils: PERRL EOM: EOM intact bilaterally Neck Neck: normal visual inspection, full ROM and other (1.5 X 0.5cm lump to L lat upper neck;palpation:no pain,integrity maintained) Lymphatic: no lymphadenopathy noted Chest Chest: normal inspection of the chest Resp Effort & Inspection: normal respiratory effort, able to speak in complete sentences, no audible wheezes and no cough Auscultation: clear to auscultation bilaterally Cardio Rate: regular rate Rhythm: regular rhythm Heart Sounds: S1 normal, S2 normal and no murmurs GI Inspection: normal to inspection Palpation: soft, not firm, no guarding, no hepatosplenomegaly, no masses and nontender Auscultation: normal bowel sounds and hypoactive bowel sounds Back/Spine/Pelvis Back: no CVA tenderness Cervical Spine: No cervical spinal tenderness Thoracic/Lumbar Spine: No thoracic spinal tenderness and No lumbar spinal tenderness Skin General skin exam: no rashes or lesions noted, dry skin, ecchymosis and turgor decreased Rashes: no rashes Hair: general thinning Neuro General: patient alert, patient awake, oriented Patient Orientation: Person, Place and Confused, no meningeal signs, no focal motor deficits and patient confused (at baseline with cognitive impairment) Cognition: normal cognition and abnormal cognition (cognitive impaired but at baseline, poor historian) Speech: speech normal Gait: normal gait and gait assisted Motor: muscle tone normal throughout and strength not 5/5 throughout (right upper extremity, weight bearing now) Sensory Exam: no sensory deficits noted Extrem General: normal to inspection, abnormal ROM (limited right upper extremiety), capillary refill normal and edema Laterality: right (upper, trace) Right upper extremity: normal capillary refill and shoulder/upper arm Details: deformity Location: of the shoulder joint; No ROM limited and no edema Psych Appearance: grossly normal Mental Status: mental status grossly normal Speech and Movement: speech and movement normal Mood: congruent mood Affect: normal affect and animated Attitude: cooperative Thought Process: normal Insight: limited and poor Judgment: limited and poor DS: Data Vitals/I&O Vitals and I&O: Vital Signs Temperature 36.6 C 08/13/21 08:15 Temperature Source Temporal Artery Scan 08/13/21 08:15 Pulse 97 H 08/13/21 08:15 Pulse Rhythm Regular 08/13/21 05:00 Pulse 71 07/22/21 12:00 Respiratory Rate 18 08/13/21 08:15 Respiratory Effort Non-Labored 08/13/21 05:00 Respiratory Depth Normal 08/13/21 05:00 Respiratory Pattern Normal 08/13/21 05:00 Blood Pressure 111/84 08/13/21 08:15 Blood Pressure Mean 75 07/22/21 10:45 Blood Pressure Position Supine 07/22/21 10:41 Pulse Oximetry 97 08/13/21 08:15 Oxygen Delivery Method Room Air 08/13/21 08:15 Oxygen Flow Rate 0 08/13/21 08:15 Pain Level 1 08/12/21 09:43 Comment 07/27/21 19:30 Intake & Output 08/12/21 08/13/21 08/13/21 23:59 11:59 23:59 Intake Total 240 / 600 Balance 240 / 600 Weight 36.1 kg Intake: Oral 240 / 600 Other: Urine Color Yellow Yellow Urine Appearance Clear Urine Odor None Stool Size Small Stool Characteristics Soft Formed Brown Voiding Methods Toilet Toilet Data Completed and Pending Labs on day of discharge: Labs from last 24 hours 08/12/21 18:20 COVID-19 Source Nasal/Nares SARS-CoV-2 (PCR) Negative PFSH All Active Problems Palliative care patient (Acute) Adult failure to thrive (Acute) Poor historian (Acute) Confabulation (Acute) Discharge planning issues (Acute) Malnutrition (Acute) Anemia (Chronic) Dementia (Chronic) Fracture of proximal humerus (Acute) Ambulatory dysfunction (Acute) Pain of right lower extremity (Acute) Knee pain (Acute) Fall (Acute) Unable to ambulate (Acute) Discharge planning issues (Acute) Knee pain, right (Acute) Macrocytic anemia with vitamin B12 deficiency (Chronic) Abnormal auditory perception (Acute) Cerumen impaction (Acute) Sensory hearing loss, bilateral (Acute) Otorrhea of left ear (Acute) Fracture, humerus (Acute) Fracture, intertrochanteric, left femur (Acute) Medical History Alcohol use, unspecified with other alcohol-induced disorder CAD (coronary artery disease) Iron deficiency Unable to care for self Surgical History S/P appendectomy S/P hysterectomy Status post open reduction with internal fixation of fracture 1. left hip 2. left shoulder Social History Smoking/Tobacco Use Status: Current every day Tobacco Type: cigarettes Smoking risk assessment performed?: Yes Alcohol Intake: current Alcohol Intake frequency: holidays/special occasions only Alcohol type: wine Drug use: Never Substance use type: does not use Do you feel safe at home: Yes Do you feel safe in your relationship?: Yes
--- NOTE | 2021-08-13 14:34 | PDOC.CMDIS ---
- If Service Date Differs Date of service: 08/13/21 Time of Service: 14:34 LACE Index Scoring Tool - Questions: Length of Stay (in days): 14 or more Acuity (Admit via E.D.?): Yes Comorbidities: Dementia E.D. Visits: 3 - Answers: Total Score: 16 Risk of Readmission: High Risk Care Management Discharge Reason for Hospitalization: Fracture of proximal humerus Discharge Plan: Jania will be discharged to [facility] for short term rehab prior to returning home. She will follow up with the facility provider and plan of care and transport with the facility van. Patient/Family Education Needs: Review of discharge instructions, limitations, medications, activityand Ask me Three. Services Needed at Discharge: Correction Facility
== END 2021-08-13 14:35 | disposition skilled nursing facility (03) | DRG 641 ==
LOC: ER 12:19 → MS 14:59
PROVIDERS: Nurse Practitioner Acute Care; Admitting Provider Family Medicine; Emergency Provider Physician Assistant; PCP Family Medicine; Visit Provider Family Medicine
DX: R62.7 Adult failure to thrive (principal); E46 Unspecified protein-calorie malnutrition; Z68.1 Body mass index [BMI] 19.9 or less, adult; R64 Cachexia; F10.10 Alcohol abuse, uncomplicated; I25.10 Atherosclerotic heart disease of native coronary artery without angina pectoris; R53.1 Weakness; F03.90 Unspecified dementia, unspecified severity, without behavioral disturbance, psychotic disturbance, mood disturbance, and anxiety; S42.291D Other displaced fracture of upper end of right humerus, subsequent encounter for fracture with routine healing; W19.XXXD Unspecified fall, subsequent encounter; R26.2 Difficulty in walking, not elsewhere classified; G89.11 Acute pain due to trauma; M25.561 Pain in right knee; D53.9 Nutritional anemia, unspecified; E53.8 Deficiency of other specified B group vitamins; H90.3 Sensorineural hearing loss, bilateral; F17.210 Nicotine dependence, cigarettes, uncomplicated; Z66 Do not resuscitate; Z20.822 Contact with and (suspected) exposure to COVID-19; E61.1 Iron deficiency
CPT/HCPCS: 36415; 80053; 87635; 97110; 97162; 97166; 97530; 97535; 99285; 99305; 99306; 99316; 73030; 81003; 85025; 93005; 93010; 99308; J3490

== ENCOUNTER → 2021-08-20 02:27 | Outpatient (CLI) | payer MEDICARE, MEDICAID, SELFPAY ==
--- NOTE | 2021-08-20 | DI.RAD_ITS ---
Exam(s) XR SHOULDER RT COMPLETE 2+V EXAM: XR SHOULDER RT COMPLETE 2+V CLINICAL HISTORY: PAIN, FX, M25.511,S42.201D. TECHNIQUE: 2D digital imaging was performed. Five views. COMPARISON: CR XR SHOULDER RT COMPLETE 2+V from 08/05/2021 FINDINGS: BONES: No change in the alignment of the displaced fracture of the proximal humeral shaft.. Interval increase in callus formation when compared with the previous exam. JOINTS: No dislocation present. SOFT TISSUE: Normal. IMPRESSION: No change alignment proximal humeral fracture. DATA REPOSITORY: RADIATION DOSE DELIVERED:
== END ==
PROVIDERS: PCP Family Medicine; Visit Provider Nurse Practitioner Family
DX: M25.511 Pain in right shoulder (principal); S42.291D Other displaced fracture of upper end of right humerus, subsequent encounter for fracture with routine healing
CPT/HCPCS: 73030

== ENCOUNTER 2021-09-02 15:53 | Outpatient (CLI) | payer MEDICARE, MEDICAID, SELFPAY ==
--- NOTE | 2021-09-02 15:15 | DI.RAD_ITS ---
Exam(s) XR SHOULDER RT COMPLETE 2+V EXAM: XR SHOULDER RT COMPLETE 2+V CLINICAL HISTORY: proximal humerus fx f/u. TECHNIQUE: 2D digital imaging was performed. COMPARISON: CR XR SHOULDER RT COMPLETE 2+V from 08/05/2021 CR XR SHOULDER RT COMPLETE 2+V from 08/20/2021 FINDINGS: Two views Again noted is the previously described displaced fracture of the proximal humerus at the level of th e humeral head-neck. Humeral head is not dislocated from the osseous glenoid but there is again note d significant displacement at the fracture site. The amount of callus formation appears relatively s table when compared to 08/05/2021 and 08/20/2021. No further displacement evident. IMPRESSION: DATA REPOSITORY: RADIATION DOSE DELIVERED:
== END 2021-09-02 15:54 | disposition home or self-care (01) ==
LOC: DIORS 15:53
PROVIDERS: PCP Family Medicine; Referring Provider Family Medicine; Visit Provider Student in an Organized Health Care Education/Training Program
DX: S42.201D Unspecified fracture of upper end of right humerus, subsequent encounter for fracture with routine healing (principal); X58.XXXD Exposure to other specified factors, subsequent encounter
CPT/HCPCS: 99214; 73030

== ENCOUNTER → 2021-09-16 12:49 | Outpatient (BNVA) | payer MEDICARE, MEDICAID, SELFPAY | PROVIDERS: PCP Family Medicine; Referring Provider Family Medicine; Visit Provider Physician Assistant | DX: S42.201A Unspecified fracture of upper end of right humerus, initial encounter for closed fracture (principal); X58.XXXA Exposure to other specified factors, initial encounter | CPT/HCPCS: 99213 ==

== ENCOUNTER 2022-01-30 13:33 | Outpatient (REF) | payer MEDICARE, MEDICAID, SELFPAY ==
[2022-01-30 14:24] LABS: Abs Immature Grans 0.02 10^3/uL (0.0-0.06); Absolute Basophil Count 0.06 10^3/uL (0.0-0.2); Absolute Eosinophil Count 0.19 10^3/uL (0.0-0.7); Absolute Lymphocyte Count 1.89 10^3/uL (1.2-3.4); Absolute Monocyte Count 0.85 10^3/uL (0.1-0.8); Absolute Neutrophil Count 4.73 10^3/uL (1.2-6.7); Basophils % 0.8; Eosinophils % 2.5; HCT 42.1 % (36.0-46.0); HGB 13.1 g/dL (11.2-15.7); Immature Grans % 0.3; Lymphocytes % 24.4; MCH 28.5 pg (27.0-33.0); MCHC 31.1 % (32.0-36.0); MCV 92 fL (80-95); Platelet Count 319 10^3/uL (130-400); RDW 13.2 % (11.7-14.6); RDW-SD 44.7 fL; WBC 7.74 10^3/uL (4.4-10.8)
[2022-01-30 14:44] LABS: ALT 13 U/L (14-59); AST 14 U/L (15-37); Albumin 3.8 g/dL (3.4-5.0); Alkaline Phosphatase 87 U/L (46-116); Anion Gap 6.8 mmol/L (3-11); BUN 8 mg/dL (7-18); Bilirubin, Total 0.3 mg/dL (0.2-1.0); CO2 31.2 mmol/L (21.0-32.0); CREATININE 0.6 mg/dL (0.55-1.02); Calcium 9.6 mg/dL (8.5-10.1); Chloride 105 mmol/L (98-107); Estimated GFR 91.25 (mL/min/1.73m2); Glucose 88 mg/dL (74-106); Potassium 4.5 mmol/L (3.5-5.1); Sodium 143 mmol/L (136-145); TSH 1.74 uIU/mL (0.36-3.74); Total Protein 6.9 g/dL (6.4-8.2)
== END 2022-01-30 13:34 | disposition home or self-care (01) ==
LOC: LBN 13:33
PROVIDERS: PCP Family Medicine; Visit Provider Family Medicine
DX: D53.9 Nutritional anemia, unspecified (principal)
CPT/HCPCS: 80053; 84443; 85025

== ENCOUNTER 2022-11-24 13:30 | Outpatient (REF) | payer MEDICARE, MEDICAID, SELFPAY ==
[2022-11-24 13:15] LABS: Bilirubin Negative (Negative); Blood Negative (Negative); Clarity Clear (Clear); Glucose Negative (Negative); Ketones Negative (Negative); Leukocyte Esterase Negative (Negative); Nitrite Negative (Negative); Urobilinogen 0.2 mg/dL (Up to 0.2)
== END 2022-11-24 13:31 | disposition home or self-care (01) ==
LOC: LBN 13:30
PROVIDERS: PCP Family Medicine; Visit Provider Physician Assistant
DX: R39.89 Other symptoms and signs involving the genitourinary system (principal); R41.0 Disorientation, unspecified
CPT/HCPCS: 81003